=== PATIENT | female | born 1990 | race American Indian/Alaskan Native ===

== ENCOUNTER 2016-07-08 03:47 | Outpatient (CLI) | payer MEDICAID ==
[2016-07-08 05:41] LABS: Bacteria,Urine 1+ /HPF (Negative); Bilirubin,Urine NEG (Negative); Blood,Urine NEG (Negative); Ketones,Urine 20 mg/dL (Negative); Leukocyte Esterase,Urine LG (Negative); Mucus,Urine 1+ /HPF; Nitrite,Urine NEG (Negative); Urobilinogen,Urine < 2.0 mg/dL (<2.0)
== END 2016-07-08 05:00 | disposition home or self-care (01) ==
LOC: TRG 03:47
PROVIDERS: ATTEND Obstetrics & Gynecology
DX: Z34.90 Encounter for supervision of normal pregnancy, unspecified, unspecified trimester (principal); Z3A.00 Weeks of gestation of pregnancy not specified
CPT/HCPCS: 81001

== ENCOUNTER 2016-07-10 04:54 | Outpatient (CLI) | payer MEDICAID ==
[2016-07-10] MEDS ORDERED: LACTATED RINGERS 500 ML IV ONE (06:19)
[2016-07-10 06:34] VITALS: BP 109/57
== END 2016-07-10 07:54 | disposition home or self-care (01) ==
LOC: TRG 04:54
PROVIDERS: ATTEND Obstetrics & Gynecology
DX: Z34.90 Encounter for supervision of normal pregnancy, unspecified, unspecified trimester (principal); Z3A.00 Weeks of gestation of pregnancy not specified
CPT/HCPCS: 59025; J7120

== ENCOUNTER 2016-08-28 15:21 | Outpatient (CLI) | payer MEDICAID ==
[2016-08-28 17:00] VITALS: BP 120/53
[2016-08-28] MEDS ORDERED: LACTATED RINGERS 500 ML IV ONE (18:00)
== END 2016-08-28 18:47 | disposition home or self-care (01) ==
LOC: TRG 15:21
PROVIDERS: ATTEND Obstetrics & Gynecology
DX: O47.02 False labor before 37 completed weeks of gestation, second trimester (principal); Z3A.27 27 weeks gestation of pregnancy
CPT/HCPCS: 59025

== ENCOUNTER 2016-08-28 21:41 | Outpatient (CLI) | payer MEDICAID ==
[2016-08-28] MEDS ORDERED: LACTATED RINGERS 1,000 ML ONE ×2 (21:58→23:02)
[2016-08-28] MEDS ORDERED: LACTATED RINGERS 500 ML IV ONE (22:11)
[2016-08-28 22:53] LABS: Urine Drugs of Abuse Note Disclamer
[2016-08-28] MEDS ORDERED: LACTATED RINGERS 1,000 ML IV SCH (23:00)
[2016-08-28 23:01] LABS: Bilirubin,Urine NEG (Negative); Blood,Urine NEG (Negative); Ketones,Urine TR mg/dL (Negative); Leukocyte Esterase,Urine LG (Negative); Mucus,Urine 3+ /HPF; Nitrite,Urine NEG (Negative)
[2016-08-28 23:18] VITALS: BP 109/59
[2016-08-28] MEDS ORDERED: PROCARDIA*For Tocolysis only PO ONE (23:36)
[2016-08-28] MEDS ORDERED: ROCEPHIN/NS 1 GM/50 ML 1 GM/50 ML BAG IV ONE (23:47)
[2016-08-29] MEDS ORDERED: ROCEPHIN/NS 1 GM/50 ML 1 GM/50 ML BAG IV ONE (23:35)
== END 2016-08-29 01:31 | disposition home or self-care (01) ==
LOC: TRG 21:41
PROVIDERS: ATTEND Obstetrics & Gynecology
DX: O47.02 False labor before 37 completed weeks of gestation, second trimester (principal); Z3A.27 27 weeks gestation of pregnancy
CPT/HCPCS: 59025; 80307; 81001; 96360; J0696; J7120

== ENCOUNTER 2016-09-02 12:30 | Outpatient (CLI) | payer MEDICAID ==
[2016-09-02 13:37] VITALS: BP 119/63
[2016-09-02] MEDS ORDERED: LACTATED RINGERS 500 ML IV ONE (13:48)
== END 2016-09-02 14:13 | disposition home or self-care (01) ==
LOC: TRG 12:30
PROVIDERS: ATTEND Obstetrics & Gynecology
DX: O47.03 False labor before 37 completed weeks of gestation, third trimester (principal); Z3A.28 28 weeks gestation of pregnancy
CPT/HCPCS: 59025; J7120

== ENCOUNTER 2016-09-15 13:34 | Outpatient (CLI) | payer MEDICAID ==
[2016-09-15] MEDS ORDERED: LACTATED RINGERS 500 ML IV ONE (13:45)
[2016-09-15 15:51] LABS: Urine Drugs of Abuse Note Disclamer
[2016-09-15 16:00] LABS: Bacteria,Urine 1+ /HPF (Negative); Bilirubin,Urine NEG (Negative); Blood,Urine NEG (Negative); Ketones,Urine NEG (Negative); Leukocyte Esterase,Urine LG (Negative); Mucus,Urine FEW /HPF; Nitrite,Urine NEG (Negative); Protein,Urine <15 mg/dL mg/dL (Negative); Urobilinogen,Urine < 2.0 mg/dL (<2.0)
== END 2016-09-15 16:30 | disposition home or self-care (01) ==
LOC: TRG 13:34 → LD 13:36 → TRG 16:30
PROVIDERS: ATTEND Obstetrics & Gynecology
DX: O47.03 False labor before 37 completed weeks of gestation, third trimester (principal); Z3A.30 30 weeks gestation of pregnancy
CPT/HCPCS: 59025; 80307; 81001; J7120

== ENCOUNTER 2016-09-15 16:25 | Emergency (ER) | payer MEDICAID ==
[2016-09-15] MEDS ORDERED: PROVENTIL IH ONE (16:55)
[2016-09-15] MEDS ORDERED: TYLENOL PO ONE ×2 (18:27→22:54)
[2016-09-15] MEDS ORDERED: DUONEB 0.5 MG-3 MG/3 ML SOLN IH ONE (21:17)
[2016-09-15 21:43] LABS: Basophils % (Auto) 0.4 % (0.0-1.8); Eosinophils % (Auto) 0.5 % (0.0-4.3); Hematocrit 35.2 % (30.3-42.9); Hemoglobin 11.5 gm/dl (10.1-14.3); Mean Corpuscular HGB Conc 33 % (30-34); Mean Corpuscular Hemoglobin 31 pg (28-32); Mean Corpuscular Volume 95 fl (79-97); Platelet Count 178 K/mm3 (140-440); Red Blood Count 3.72 M/mm3 (3.65-5.03); White Blood Count 9.5 K/mm3 (4.5-11.0)
[2016-09-15 22:34] LABS: Anion Gap 18 mmol/L; Blood Urea Nitrogen 3 mg/dL (7-17); Calcium 8.2 mg/dL (8.4-10.2); Carbon Dioxide 20 mmol/L (22-30); Chloride 97.5 mmol/L (98-107); Glucose 111 mg/dL (65-100); Potassium 3.1 mmol/L (3.6-5.0); Sodium 132 mmol/L (137-145)
[2016-09-15] MEDS: PROVENTIL IH ONE (23:17)
[2016-09-15 23:43] LABS: Urine Drugs of Abuse Note Disclamer
[2016-09-16 00:02] LABS: Bilirubin,Urine NEG (Negative); Ketones,Urine NEG (Negative)
[2016-09-16 00:03] LABS: Blood,Urine NEG (Negative); Leukocyte Esterase,Urine NEG (Negative); Nitrite,Urine NEG (Negative); Protein,Urine <15 mg/dL mg/dL (Negative); RBC,Urine < 1.0 /HPF (0.0-6.0); Urobilinogen,Urine < 2.0 mg/dL (<2.0); WBC,Urine < 1.0 /HPF (0.0-6.0)
[2016-09-16] MEDS ORDERED: K-DUR PO ONE (00:19)
[2016-09-16] MEDS ORDERED: MAG-OX PO ONE (00:24)
--- NOTE | 2016-09-16 00:32 | Emergency Department Report ---
- General Chief Complaint: Adult Asthma Stated Complaint: BRONCHITIS Time Seen by Provider: 09/15/16 21:15 Source: patient Mode of arrival: Wheelchair Limitations: No Limitations - History of Present Illness Initial Comments: 26-year-old female patient past medical history polysubstance abuse, asthma, smoker, presents with complaint of 2 weeks of cough. Slightly productive with yellowish sputum. Subjective fever chills. Patient states she is still actively smoking crack cocaine, patient is currently approximately 7 months by LMP. Patient was seen earlier today in L&D unit, discharged to ED for evaluation of URI. Patient is awake alert and oriented 3, is demanding narcotic pain medicine before she even converses with me about why she is here. When I interviewed the patient she states that she has been having a cold lately. States that she has some body aches but denies any abdominal pain explicitly. States that she had one episode of vomiting yesterday but has been able to tolerate fluid and food since. Denies any vaginal bleeding, denies any dysuria, denies any vaginal discharge. States she has been wheezing slightly. MD Complaint: cough Onset/Timin -: week(s) Severity: moderate Context: sick contacts Associated Symptoms: shortness of breath - Related Data Previous Rx's Medication Instructions Recorded Last Taken Type Sulfamethoxazole/Trimethoprim 1 each PO BID #14 tablet 07/15/15 Unknown Rx [Bactrim DS TAB] Ibuprofen [Motrin] 800 mg PO Q8HR PRN #45 tablet 08/02/15 Unknown Rx HYDROcodone/APAP 5-325 [[place] 1 each PO Q6HR PRN #14 tablet 09/02/15 Unknown Rx 5/325] Ibuprofen [Motrin 800 MG tab] 800 mg PO Q8HR PRN #30 tablet 09/09/15 Unknown Rx Promethazine [Phenergan TAB] 25 mg PO Q6HR PRN #12 tab 10/19/15 Unknown Rx Cyclobenzaprine [Flexeril] 10 mg PO TID PRN #15 tablet 11/17/15 Unknown Rx Ibuprofen [Motrin 800 MG tab] 800 mg PO Q8HR PRN #30 tablet 11/17/15 Unknown Rx Butalb/Acetamin/Caff 50-325-40 1 each PO Q4H PRN #10 tablet 11/27/15 Unknown Rx [Fioricet] Ibuprofen [Motrin 600 MG tab] 600 mg PO Q8H PRN #30 tablet 01/25/16 Unknown Rx methOCARBAMOL [Robaxin TAB] 500 mg PO Q6H PRN #12 tablet 01/25/16 Unknown Rx ALBUTEROL Inhaler [ProAir HFA 1 puff IH Q6H PRN #1 inha 09/16/16 Unknown Rx Inhaler] Acetaminophen [Acetaminophen TAB] 500 mg PO Q6HR PRN #25 tablet 09/16/16 Unknown Rx Azithromycin [Zithromax Z-TOMMY] 250 mg PO QDAY #6 tablet 09/16/16 Unknown Rx Benzocaine/Menthol [Cepacol Sore 1 each MM Q4H PRN #18 lozenge 09/16/16 Unknown Rx Throat Lozenge] Magnesium Oxide [Mag-Ox] 400 mg PO QDAY #30 tablet 09/16/16 Unknown Rx Potassium Chloride [K-Dur] 20 meq PO BID #30 tab 09/16/16 Unknown Rx Allergies Allergy/AdvReac Type Severity Reaction Status Date / Time hydrocortisone AdvReac Unknown Itching Verified 09/09/15 15:55 ED Review of Systems ROS: Stated complaint: BRONCHITIS Other details as noted in HPI Constitutional: malaise. denies: chills, fever Eyes: denies: eye pain, eye discharge, vision change ENT: denies: ear pain, throat pain Respiratory: cough. denies: shortness of breath, wheezing Cardiovascular: denies: chest pain, palpitations Endocrine: no symptoms reported Gastrointestinal: denies: abdominal pain, nausea, diarrhea Genitourinary: denies: urgency, dysuria, discharge Musculoskeletal: denies: back pain, joint swelling, arthralgia Skin: denies: rash, lesions Neurological: denies: headache, weakness, paresthesias Psychiatric: denies: anxiety, depression Hematological/Lymphatic: denies: easy bleeding, easy bruising ED Past Medical Hx - Past Medical History Hx Hypertension: No Hx CVA: No Hx Heart Attack/AMI: No Hx Congestive Heart Failure: No Hx Diabetes: No Hx Deep Vein Thrombosis: No Hx Pulmonary Embolism: No Hx GERD: No Hx Liver Disease: No Hx Renal Disease: No Hx Sickle Cell Disease: No Hx Arthritis: No Hx Headaches / Migraines: No Hx Seizures: No Hx Kidney Stones: No Hx Psychiatric Treatment: Yes (anxiety attack, cocaine rehab) Hx Asthma: Yes Hx COPD: No Hx Tuberculosis: No Hx Dementia: No Hx HIV: No Additional medical history: hx bronchitis - Surgical History Hx Coronary Stent: No Hx Open Heart Surgery: No Hx Pacemaker: No Hx Internal Defibrillator: No Hx Cholecystectomy: No Hx Appendectomy: No Hx Breast Surgery: No Additional Surgical History: denies - Social History Smoking Status: Never Smoker Substance Use Type: None - Medications Home Medications: Home Medications Medication Instructions Recorded Confirmed Last Taken Type Sulfamethoxazole/Trimethoprim 1 each PO BID #14 tablet 07/15/15 Unknown Rx [Bactrim DS TAB] Ibuprofen [Motrin] 800 mg PO Q8HR PRN #45 tablet 08/02/15 Unknown Rx HYDROcodone/APAP 5-325 [[place] 1 each PO Q6HR PRN #14 tablet 09/02/15 Unknown Rx 5/325] Ibuprofen [Motrin 800 MG tab] 800 mg PO Q8HR PRN #30 tablet 09/09/15 Unknown Rx Promethazine [Phenergan TAB] 25 mg PO Q6HR PRN #12 tab 10/19/15 Unknown Rx Cyclobenzaprine [Flexeril] 10 mg PO TID PRN #15 tablet 11/17/15 Unknown Rx Ibuprofen [Motrin 800 MG tab] 800 mg PO Q8HR PRN #30 tablet 11/17/15 Unknown Rx Butalb/Acetamin/Caff 50-325-40 1 each PO Q4H PRN #10 tablet 11/27/15 Unknown Rx [Fioricet] Ibuprofen [Motrin 600 MG tab] 600 mg PO Q8H PRN #30 tablet 01/25/16 Unknown Rx methOCARBAMOL [Robaxin TAB] 500 mg PO Q6H PRN #12 tablet 01/25/16 Unknown Rx ALBUTEROL Inhaler [ProAir HFA 1 puff IH Q6H PRN #1 inha 09/16/16 Unknown Rx Inhaler] Acetaminophen [Acetaminophen TAB] 500 mg PO Q6HR PRN #25 tablet 09/16/16 Unknown Rx Azithromycin [Zithromax Z-TOMMY] 250 mg PO QDAY #6 tablet 09/16/16 Unknown Rx Benzocaine/Menthol [Cepacol Sore 1 each MM Q4H PRN #18 lozenge 09/16/16 Unknown Rx Throat Lozenge] Magnesium Oxide [Mag-Ox] 400 mg PO QDAY #30 tablet 09/16/16 Unknown Rx Potassium Chloride [K-Dur] 20 meq PO BID #30 tab 09/16/16 Unknown Rx ED Physical Exam - General Limitations: No Limitations General appearance: alert, in no apparent distress - Head Head exam: Present: atraumatic, normocephalic - Eye Eye exam: Present: normal appearance, PERRL, EOMI - ENT ENT exam: Present: mucous membranes moist - Neck Neck exam: Present: normal inspection, full ROM - Respiratory Respiratory exam: Present: normal lung sounds bilaterally, chest wall tenderness. Absent: respiratory distress - Cardiovascular Cardiovascular Exam: Present: regular rate, normal rhythm. Absent: systolic murmur, diastolic murmur, rubs, gallop - GI/Abdominal GI/Abdominal exam: Present: soft, normal bowel sounds - Extremities Exam Extremities exam: Present: normal inspection, normal capillary refill - Back Exam Back exam: Present: normal inspection - Neurological Exam Neurological exam: Present: alert, oriented X3, CN II-XII intact, normal gait - Psychiatric Psychiatric exam: Present: normal affect, normal mood - Skin Skin exam: Present: warm, dry, intact, normal color. Absent: rash ED Course Vital Signs 09/15/16 09/15/16 09/15/16 16:46 21:20 21:35 Temperature 98 F Pulse Rate 89 Pulse Rate [ 75 81 Anterior Bilateral Throughout] Respiratory 18 Rate Respiratory 22 20 Rate [Anterior Bilateral Throughout] Blood Pressure 128/80 Blood Pressure [Right] O2 Sat by Pulse 100 Oximetry 09/15/16 09/15/16 09/16/16 23:18 23:30 01:42 Temperature 98.1 F Pulse Rate 89 Pulse Rate [ 77 79 Anterior Bilateral Throughout] Respiratory 18 Rate Respiratory 20 18 Rate [Anterior Bilateral Throughout] Blood Pressure Blood Pressure 123/75 [Right] O2 Sat by Pulse 95 Oximetry ED Medical Decision Making - Lab Data Result diagrams: 09/15/16 21:31 09/15/16 21:31 - Medical Decision Making A/P: Acute bronchitis, URI symptoms 1-flu test negative, if she does have influenza she is out of the window for efficacy of Tamiflu 2-chest x-ray shows no pneumonia, x-ray reviewed with Dr. Navarro. I performed bedside doppler for FHR, FHR 130 3-patient is tolerating by mouth, we'll replete potassium and magnesium by mouth with K-Dur and magnesium oxide. Will give scripts for PO repletion 4-Tylenol when necessary, albuterol inhaler when necessary 5-will cover patient empirically as she is currently a smoker and smoking crack cocaine and may be homeless or undomiciled as per the history she reported. 6-patient is accompanied by a family member states he will help her obtain her medicines and follow-up. I offered patient to speak to social media assistant but she is not currently interested and social media assistant consult. Patient is exhibiting drug seeking behavior during my clinical interview and exam constantly requesting narcotic pain medicine and cannot explain to me a good reason why she needs to sort of medicine. She is AAox3, arousable and answers my questions within context and reasonably otherwise. Is clinically lucid during my interaction with her. 7- give patient information for OB follow-up, patient already plugged into labor and delivery unit as she was just discharged from this unit earlier today. 8- Pt able to ambulate, o2 sat 96% Critical care attestation.: If time is entered above; I have spent that time in minutes in the direct care of this critically ill patient, excluding procedure time. ED Disposition Clinical Impression: Acute bronchitis Qualifiers: Bronchitis organism: unspecified organism Qualified Code(s): J20.9 - Acute bronchitis, unspecified Disposition: DISCHARGED TO HOME OR SELFCARE Is pt being admited?: No Does the pt Need Aspirin: No Condition: Stable Instructions: Acute Bronchitis (ED) Prescriptions: Acetaminophen [Acetaminophen TAB] 500 mg PO Q6HR PRN #25 tablet PRN Reason: Fever ALBUTEROL Inhaler [ProAir HFA Inhaler] 1 puff IH Q6H PRN #1 inha PRN Reason: Wheezing Azithromycin [Zithromax Z-TOMMY] 250 mg PO QDAY #6 tablet Benzocaine/Menthol [Cepacol Sore Throat Lozenge] 1 each MM Q4H PRN #18 lozenge PRN Reason: Sore Throat Magnesium Oxide [Mag-Ox] 400 mg PO QDAY #30 tablet Potassium Chloride [K-Dur] 20 meq PO BID #30 tab Referrals: [facility] [Outside] - 3-5 Days SEBASTIAN RODRIGUEZ MD [Staff Physician] - 3-5 Days Forms: Accompanied Note, Work/School Release Form(ED) Time of Disposition: 00:33
[2016-09-16 01:43] VITALS: BP 123/75
--- NOTE | 2016-09-16 08:24 | XRay Report ---
ROUTINE CHEST, TWO VIEWS: PA and lateral views demonstrate the heart and mediastinal contour to be of normal size and shape. The lungs are clear and fully expanded and the soft tissues and bony structures are normal. IMPRESSION: Normal study.
== END 2016-09-16 01:42 | disposition home or self-care (01) ==
LOC: ED 16:25
DX: O99.511 Diseases of the respiratory system complicating pregnancy, first trimester (principal); J20.9 Acute bronchitis, unspecified; F41.9 Anxiety disorder, unspecified; J45.909 Unspecified asthma, uncomplicated; Z3A.01 Less than 8 weeks gestation of pregnancy; Z88.8 Allergy status to other drugs, medicaments and biological substances
CPT/HCPCS: 36415; 71020; 80048; 80307; 81001; 82805; 83735; 85025; 87400; 94640

== ENCOUNTER 2016-09-22 00:12 | Emergency (ER) | payer MEDICAID ==
[2016-09-22] MEDS ORDERED: NACL 0.9% 1000 ML 1,000 ML ONE (10:15)
[2016-09-22] MEDS ORDERED: PROVENTIL IH ONE (10:47)
[2016-09-22] MEDS ORDERED: NACL 0.9% 1000 ML 1,000 ML IV ONE (10:47)
[2016-09-22] MEDS ORDERED: ATROVENT IH ONE (10:49)
--- NOTE | 2016-09-22 11:09 | Emergency Department Report ---
HPI - General Chief Complaint: Allergic Reaction Time Seen by Provider: 09/22/16 10:09 ED Past Medical Hx - Past Medical History Previous Medical History?: Yes Hx Hypertension: No Hx CVA: No Hx Heart Attack/AMI: No Hx Congestive Heart Failure: No Hx Diabetes: No Hx Deep Vein Thrombosis: No Hx Pulmonary Embolism: No Hx GERD: No Hx Liver Disease: No Hx Renal Disease: No Hx Sickle Cell Disease: No Hx Arthritis: No Hx Headaches / Migraines: No Hx Seizures: No Hx Kidney Stones: No Hx Psychiatric Treatment: Yes (anxiety attack, cocaine rehab) Hx Asthma: Yes Hx COPD: No Hx Tuberculosis: No Hx Dementia: No Hx HIV: No Additional medical history: hx bronchitis - Surgical History Past Surgical History?: No Hx Coronary Stent: No Hx Open Heart Surgery: No Hx Pacemaker: No Hx Internal Defibrillator: No Hx Cholecystectomy: No Hx Appendectomy: No Hx Breast Surgery: No Additional Surgical History: denies - Social History Smoking Status: Never Smoker - Medications Home Medications: Home Medications Medication Instructions Recorded Confirmed Last Taken Type Sulfamethoxazole/Trimethoprim 1 each PO BID #14 tablet 07/15/15 Unknown Rx [Bactrim DS TAB] Ibuprofen [Motrin] 800 mg PO Q8HR PRN #45 tablet 08/02/15 Unknown Rx HYDROcodone/APAP 5-325 [[place] 1 each PO Q6HR PRN #14 tablet 09/02/15 Unknown Rx 5/325] Ibuprofen [Motrin 800 MG tab] 800 mg PO Q8HR PRN #30 tablet 09/09/15 Unknown Rx Promethazine [Phenergan TAB] 25 mg PO Q6HR PRN #12 tab 10/19/15 Unknown Rx Cyclobenzaprine [Flexeril] 10 mg PO TID PRN #15 tablet 11/17/15 Unknown Rx Ibuprofen [Motrin 800 MG tab] 800 mg PO Q8HR PRN #30 tablet 11/17/15 Unknown Rx Butalb/Acetamin/Caff 50-325-40 1 each PO Q4H PRN #10 tablet 11/27/15 Unknown Rx [Fioricet] Ibuprofen [Motrin 600 MG tab] 600 mg PO Q8H PRN #30 tablet 01/25/16 Unknown Rx methOCARBAMOL [Robaxin TAB] 500 mg PO Q6H PRN #12 tablet 01/25/16 Unknown Rx ALBUTEROL Inhaler [ProAir HFA 1 puff IH Q6H PRN #1 inha 09/16/16 Unknown Rx Inhaler] Acetaminophen [Acetaminophen TAB] 500 mg PO Q6HR PRN #25 tablet 09/16/16 Unknown Rx Azithromycin [Zithromax Z-TOMMY] 250 mg PO QDAY #6 tablet 09/16/16 Unknown Rx Benzocaine/Menthol [Cepacol Sore 1 each MM Q4H PRN #18 lozenge 09/16/16 Unknown Rx Throat Lozenge] Magnesium Oxide [Mag-Ox] 400 mg PO QDAY #30 tablet 09/16/16 Unknown Rx Potassium Chloride [K-Dur] 20 meq PO BID #30 tab 09/16/16 Unknown Rx ALBUTEROL Inhaler [ProAir HFA 1 puff IH QID #1 inha 09/22/16 Unknown Rx Inhaler] Azithromycin [Zithromax Z-TOMMY] 250 mg PO DAILY #6 tablet 09/22/16 Unknown Rx ED Review of Systems ROS: Stated complaint: POSS MED REACTION Other details as noted in HPI Comment: All other systems reviewed and negative Constitutional: denies: chills, fever Eyes: denies: eye pain, eye discharge, vision change ENT: denies: ear pain, throat pain Respiratory: denies: cough, shortness of breath, wheezing Cardiovascular: denies: chest pain, palpitations Endocrine: no symptoms reported Gastrointestinal: denies: abdominal pain, nausea, diarrhea Genitourinary: denies: urgency, dysuria, discharge Musculoskeletal: denies: back pain, joint swelling, arthralgia Skin: denies: rash, lesions Neurological: denies: headache, weakness, paresthesias Psychiatric: denies: anxiety, depression Hematological/Lymphatic: denies: easy bleeding, easy bruising Physical Exam - Physical Exam Vital Signs: Vital Signs 09/22/16 00:22 Temperature 98.8 F Pulse Rate 80 Respiratory 18 Rate Blood Pressure 107/69 O2 Sat by Pulse 99 Oximetry ED Course Vital Signs 09/22/16 00:22 Temperature 98.8 F Pulse Rate 80 Respiratory 18 Rate Blood Pressure 107/69 O2 Sat by Pulse 99 Oximetry ED Medical Decision Making - Lab Data Result diagrams: 09/22/16 10:49 09/22/16 Unknown Critical care attestation.: If time is entered above; I have spent that time in minutes in the direct care of this critically ill patient, excluding procedure time. ED Disposition Clinical Impression: Upper respiratory infection, Dizziness Disposition: DISCHARGED TO HOME OR SELFCARE Is pt being admited?: No Does the pt Need Aspirin: No Condition: Good Instructions: Upper Respiratory Infection (ED) Prescriptions: ALBUTEROL Inhaler [ProAir HFA Inhaler] 1 puff IH QID #1 inha Azithromycin [Zithromax Z-TOMMY] 250 mg PO DAILY #6 tablet Referrals: PRIMARY CARE,MD [Primary Care Provider] - 3-5 Days Time of Disposition: 15:58 ED Dizziness HPI - General Chief Complaint: Allergic Reaction Stated Complaint: POSS MED REACTION Time Seen by Provider: 09/22/16 10:09 Source: patient Mode of arrival: Ambulatory Limitations: No Limitations - History of Present Illness MD Complaint: dizziness, lightheadedness -: Gradual Timing: gradual onset Description: sense of movement History of Same: No History of Trauma: No Severity: mild Improves With: nothing Worsens With: nothing Associated Symptoms: cough, fever/chills, other (also 31 weeks and wanting a follow up US). denies: ataxia, chest pain, confusion, diaphoresis, loss of appetite, malaise, rash, seizure, shortness of breath, syncope, weakness - Related Data Previous Rx's Medication Instructions Recorded Last Taken Type Sulfamethoxazole/Trimethoprim 1 each PO BID #14 tablet 07/15/15 Unknown Rx [Bactrim DS TAB] Ibuprofen [Motrin] 800 mg PO Q8HR PRN #45 tablet 08/02/15 Unknown Rx HYDROcodone/APAP 5-325 [[place] 1 each PO Q6HR PRN #14 tablet 09/02/15 Unknown Rx 5/325] Ibuprofen [Motrin 800 MG tab] 800 mg PO Q8HR PRN #30 tablet 09/09/15 Unknown Rx Promethazine [Phenergan TAB] 25 mg PO Q6HR PRN #12 tab 10/19/15 Unknown Rx Cyclobenzaprine [Flexeril] 10 mg PO TID PRN #15 tablet 11/17/15 Unknown Rx Ibuprofen [Motrin 800 MG tab] 800 mg PO Q8HR PRN #30 tablet 11/17/15 Unknown Rx Butalb/Acetamin/Caff 50-325-40 1 each PO Q4H PRN #10 tablet 05/24/16 Unknown Rx [Fioricet] Ibuprofen [Motrin 600 MG tab] 600 mg PO Q8H PRN #30 tablet 01/25/16 Unknown Rx methOCARBAMOL [Robaxin TAB] 500 mg PO Q6H PRN #12 tablet 01/25/16 Unknown Rx ALBUTEROL Inhaler [ProAir HFA 1 puff IH Q6H PRN #1 inha 09/16/16 Unknown Rx Inhaler] Acetaminophen [Acetaminophen TAB] 500 mg PO Q6HR PRN #25 tablet 09/16/16 Unknown Rx Azithromycin [Zithromax Z-TOMMY] 250 mg PO QDAY #6 tablet 09/16/16 Unknown Rx Benzocaine/Menthol [Cepacol Sore 1 each MM Q4H PRN #18 lozenge 09/16/16 Unknown Rx Throat Lozenge] Magnesium Oxide [Mag-Ox] 400 mg PO QDAY #30 tablet 09/16/16 Unknown Rx Potassium Chloride [K-Dur] 20 meq PO BID #30 tab 09/16/16 Unknown Rx ALBUTEROL Inhaler [ProAir HFA 1 puff IH QID #1 inha 09/22/16 Unknown Rx Inhaler] Azithromycin [Zithromax Z-TOMMY] 250 mg PO DAILY #6 tablet 09/22/16 Unknown Rx Allergies Allergy/AdvReac Type Severity Reaction Status Date / Time hydrocortisone AdvReac Unknown Itching Verified 09/22/16 00:22 Physical Exam - Physical Exam Vital Signs: Vital Signs 09/22/16 09/22/16 09/22/16 00:22 10:53 12:15 Temperature 98.8 F Pulse Rate 80 Pulse Rate [ 80 Anterior Bilateral Throughout] Respiratory 18 16 Rate Respiratory 18 Rate [Anterior Bilateral Throughout] Blood Pressure 107/69 Blood Pressure [Left] O2 Sat by Pulse 99 94 Oximetry 09/22/16 09/22/16 09/22/16 12:31 14:30 15:00 Temperature Pulse Rate 78 Pulse Rate [ 82 Anterior Bilateral Throughout] Respiratory 20 18 Rate Respiratory 18 Rate [Anterior Bilateral Throughout] Blood Pressure Blood Pressure 110/72 [Left] O2 Sat by Pulse 95 Oximetry ED Dizziness EXAM - General General appearance: alert, in no apparent distress Limitations: No Limitations - Head Head exam: Positive: atraumatic - Eye Eye exam: normal appearance, PERRL, nystagmus Extraocular Movement: Normal - ENT ENT Exam: Positive: Normal Exam - Neck Neck exam: Positive: normal inspection - Respiratory Respiratory exam: Positive: normal lung sounds bilaterally - Cardiovascular Cardiovascular Exam: Positive: regular rate - GI/Abdominal GI/Abdominal exam: Positive: soft, distended ( at 31 weeks). Negative: tenderness - Neurological Neurological Exam: Positive: Alert, Oriented X3, CN II-XII Intact - Psychiatric Psychiatric exam: Positive: normal affect, normal mood - Skin Skin exam: Positive: warm
--- NOTE | 2016-09-22 11:26 | Emergency Department Report ---
ED Dizziness HPI - General Chief Complaint: Upper Respiratory Infection Stated Complaint: POSS MED REACTION Time Seen by Provider: 09/22/16 10:09 Source: patient Mode of arrival: Ambulatory Limitations: No Limitations - History of Present Illness MD Complaint: dizziness, lightheadedness -: Gradual Timing: gradual onset, waxing/waning History of Same: Yes History of Trauma: No Severity: moderate Improves With: nothing Worsens With: nothing Associated Symptoms: cough, fever/chills, other (also 31 weeks and wanting a follow up US). denies: ataxia, chest pain, confusion, diaphoresis, loss of appetite, malaise, rash, seizure, shortness of breath, syncope, weakness - Related Data Previous Rx's Medication Instructions Recorded Last Taken Type Sulfamethoxazole/Trimethoprim 1 each PO BID #14 tablet 07/15/15 Unknown Rx [Bactrim DS TAB] Ibuprofen [Motrin] 800 mg PO Q8HR PRN #45 tablet 08/02/15 Unknown Rx HYDROcodone/APAP 5-325 [[place] 1 each PO Q6HR PRN #14 tablet 09/02/15 Unknown Rx 5/325] RX: Ibuprofen [Motrin 800 MG tab] 800 mg PO Q8HR PRN #30 tablet 09/09/15 Unknown Rx Promethazine [Phenergan TAB] 25 mg PO Q6HR PRN #12 tab 10/19/15 Unknown Rx Cyclobenzaprine [Flexeril] 10 mg PO TID PRN #15 tablet 11/17/15 Unknown Rx RX: Ibuprofen [Motrin 800 MG tab] 800 mg PO Q8HR PRN #30 tablet 11/17/15 Unknown Rx Butalb/Acetamin/Caff 50-325-40 1 each PO Q4H PRN #10 tablet 11/27/15 Unknown Rx [Fioricet] RX: Ibuprofen [Motrin 600 MG tab] 600 mg PO Q8H PRN #30 tablet 01/25/16 Unknown Rx methOCARBAMOL [Robaxin TAB] 500 mg PO Q6H PRN #12 tablet 01/25/16 Unknown Rx Benzocaine/Menthol [Cepacol Sore 1 each MM Q4H PRN #18 lozenge 09/16/16 Unknown Rx Throat Lozenge] Potassium Chloride [K-Dur] 20 meq PO BID #30 tab 09/16/16 Unknown Rx RX: ALBUTEROL Inhaler [ProAir HFA 1 puff IH Q6H PRN #1 inha 09/16/16 Unknown Rx Inhaler] RX: Acetaminophen [Acetaminophen 500 mg PO Q6HR PRN #25 tablet 09/16/16 Unknown Rx TAB] RX: Azithromycin [Zithromax Z-TOMMY] 250 mg PO QDAY #6 tablet 09/16/16 Unknown Rx RX: Magnesium Oxide [Mag-Ox] 400 mg PO QDAY #30 tablet 09/16/16 Unknown Rx RX: ALBUTEROL Inhaler [ProAir HFA 1 puff IH QID #1 inha 09/22/16 Unknown Rx Inhaler] RX: Azithromycin [Zithromax Z-TOMMY] 250 mg PO DAILY #6 tablet 09/22/16 Unknown Rx Allergies Allergy/AdvReac Type Severity Reaction Status Date / Time hydrocortisone AdvReac Unknown Itching Verified 09/22/16 00:22 ED Review of Systems ROS: Stated complaint: POSS MED REACTION Other details as noted in HPI Comment: All other systems reviewed and negative ED Past Medical Hx - Past Medical History Previous Medical History?: Yes Hx Hypertension: No Hx CVA: No Hx Heart Attack/AMI: No Hx Congestive Heart Failure: No Hx Diabetes: No Hx Deep Vein Thrombosis: No Hx Pulmonary Embolism: No Hx GERD: No Hx Liver Disease: No Hx Renal Disease: No Hx Sickle Cell Disease: No Hx Arthritis: No Hx Headaches / Migraines: No Hx Seizures: No Hx Kidney Stones: No Hx Psychiatric Treatment: Yes (anxiety attack, cocaine rehab) Hx Asthma: Yes Hx COPD: No Hx Tuberculosis: No Hx Dementia: No Hx HIV: No Additional medical history: hx bronchitis - Surgical History Past Surgical History?: No Hx Coronary Stent: No Hx Open Heart Surgery: No Hx Pacemaker: No Hx Internal Defibrillator: No Hx Cholecystectomy: No Hx Appendectomy: No Hx Breast Surgery: No Additional Surgical History: denies - Social History Smoking Status: Never Smoker - Medications Home Medications: Home Medications Medication Instructions Recorded Confirmed Last Taken Type Sulfamethoxazole/Trimethoprim 1 each PO BID #14 tablet 07/15/15 Unknown Rx [Bactrim DS TAB] Ibuprofen [Motrin] 800 mg PO Q8HR PRN #45 tablet 08/02/15 Unknown Rx HYDROcodone/APAP 5-325 [[place] 1 each PO Q6HR PRN #14 tablet 09/02/15 Unknown Rx 5/325] RX: Ibuprofen [Motrin 800 MG tab] 800 mg PO Q8HR PRN #30 tablet 09/09/15 Unknown Rx Promethazine [Phenergan TAB] 25 mg PO Q6HR PRN #12 tab 10/19/15 Unknown Rx Cyclobenzaprine [Flexeril] 10 mg PO TID PRN #15 tablet 11/17/15 Unknown Rx RX: Ibuprofen [Motrin 800 MG tab] 800 mg PO Q8HR PRN #30 tablet 11/17/15 Unknown Rx Butalb/Acetamin/Caff 50-325-40 1 each PO Q4H PRN #10 tablet 11/27/15 Unknown Rx [Fioricet] RX: Ibuprofen [Motrin 600 MG tab] 600 mg PO Q8H PRN #30 tablet 01/25/16 Unknown Rx methOCARBAMOL [Robaxin TAB] 500 mg PO Q6H PRN #12 tablet 01/25/16 Unknown Rx Benzocaine/Menthol [Cepacol Sore 1 each MM Q4H PRN #18 lozenge 09/16/16 Unknown Rx Throat Lozenge] Potassium Chloride [K-Dur] 20 meq PO BID #30 tab 09/16/16 Unknown Rx RX: ALBUTEROL Inhaler [ProAir HFA 1 puff IH Q6H PRN #1 inha 09/16/16 Unknown Rx Inhaler] RX: Acetaminophen [Acetaminophen 500 mg PO Q6HR PRN #25 tablet 09/16/16 Unknown Rx TAB] RX: Azithromycin [Zithromax Z-TOMMY] 250 mg PO QDAY #6 tablet 09/16/16 Unknown Rx RX: Magnesium Oxide [Mag-Ox] 400 mg PO QDAY #30 tablet 09/16/16 Unknown Rx RX: ALBUTEROL Inhaler [ProAir HFA 1 puff IH QID #1 inha 09/22/16 Unknown Rx Inhaler] RX: Azithromycin [Zithromax Z-TOMMY] 250 mg PO DAILY #6 tablet 09/22/16 Unknown Rx ED Physical Exam - General Limitations: No Limitations General appearance: alert, in no apparent distress - Head Head exam: Present: atraumatic, normocephalic - Eye Eye exam: Present: normal appearance - ENT ENT exam: Present: mucous membranes moist - Neck Neck exam: Present: normal inspection - Respiratory Respiratory exam: Present: normal lung sounds bilaterally, rhonchi, decreased breath sounds. Absent: respiratory distress - Cardiovascular Cardiovascular Exam: Present: regular rate, normal rhythm. Absent: systolic murmur, diastolic murmur, rubs, gallop - GI/Abdominal GI/Abdominal exam: Present: soft, normal bowel sounds - Extremities Exam Extremities exam: Present: normal inspection - Back Exam Back exam: Present: normal inspection - Neurological Exam Neurological exam: Present: alert, oriented X3 - Psychiatric Psychiatric exam: Present: normal affect, normal mood - Skin Skin exam: Present: warm, dry, intact, normal color. Absent: rash ED Course Vital Signs 09/22/16 09/22/16 09/22/16 00:22 10:53 12:15 Temperature 98.8 F Pulse Rate 80 Pulse Rate [ 80 Anterior Bilateral Throughout] Respiratory 18 16 Rate Respiratory 18 Rate [Anterior Bilateral Throughout] Blood Pressure 107/69 O2 Sat by Pulse 99 94 Oximetry 09/22/16 12:31 Temperature Pulse Rate Pulse Rate [ 82 Anterior Bilateral Throughout] Respiratory Rate Respiratory 18 Rate [Anterior Bilateral Throughout] Blood Pressure O2 Sat by Pulse Oximetry ED Medical Decision Making - Lab Data Result diagrams: 09/22/16 10:49 09/22/16 Unknown - Medical Decision Making Patient feeling better after fluids and meds here , us with normal , will discharge and follow up as outpatient,. Critical care attestation.: If time is entered above; I have spent that time in minutes in the direct care of this critically ill patient, excluding procedure time. ED Disposition Clinical Impression: Upper respiratory infection Disposition: DISCHARGED TO HOME OR SELFCARE Is pt being admited?: No Does the pt Need Aspirin: No Condition: Good Instructions: Upper Respiratory Infection (ED) Prescriptions: RX: ALBUTEROL Inhaler [ProAir HFA Inhaler] 1 puff IH QID #1 inha RX: Azithromycin [Zithromax Z-TOMMY] 250 mg PO DAILY #6 tablet Referrals: PRIMARY CARE, [Primary Care Provider] - 3-5 Days Time of Disposition: 15:01
[2016-09-22 11:37] LABS: Hematocrit 33.5 % (30.3-42.9); Hemoglobin 10.5 gm/dl (10.1-14.3); Mean Corpuscular HGB Conc 31 % (30-34); Mean Corpuscular Hemoglobin 31 pg (28-32); Mean Corpuscular Volume 98 fl (79-97); Platelet Count 259 K/mm3 (140-440); Red Blood Count 3.43 M/mm3 (3.65-5.03); Red Cell Distribution Width 14.6 % (13.2-15.2); White Blood Count 9.9 K/mm3 (4.5-11.0)
[2016-09-22 11:51] LABS: Albumin 3.5 g/dL (3.9-5); Albumin/Globulin Ratio 1.2 %; Alkaline Phosphatase 132 units/L (35-129); BUN/Creatinine Ratio 11.66; Bilirubin,Total 0.3 mg/dL (0.1-1.2); Blood Urea Nitrogen 7 mg/dL (7-17); Calcium 8.7 mg/dL (8.4-10.2); Carbon Dioxide 17 mmol/L (22-30); Chloride 100.6 mmol/L (98-107); Glucose 74 mg/dL (65-100); Sodium 136 mmol/L (137-145); Total Protein 6.5 g/dL (6.3-8.2)
[2016-09-22 12:23] LABS: Anion Gap 24 mmol/L; Potassium 4.5 mmol/L (3.6-5.0)
[2016-09-22 12:34] LABS: Alanine Aminotransferase 27 units/L (7-56)
[2016-09-22 13:10] LABS: Anisocytosis 1+; Basophils % (Manual) 0 % (0.0-1.8); Blastocytes % (Manual) 0 %; Diff Status Complete; Eosinophils % (Manual) 0 % (0.0-4.3)
--- NOTE | 2016-09-22 14:50 | Ultrasound Report ---
OB ULTRASOUND GREATER THAN 14 WEEKS INDICATION: Vaginal bleeding. COMPARISON: None similar during this gestation. TECHNIQUE: Transabdominal grayscale ultrasound with Doppler interrogation. Gestation: [place] Position: Cephalic Amniotic Fluid: WNL (7-24 cm) KENRICK = 20.6 cm Placenta: Anterior Placental Grade: 0 Heart Rate: 138 BPM Cervical length: 4.7 cm (Normal > 3 cm) NEUROANATOMY VISUALIZED: Cisterna Magnum Cerebellum ANATOMY VISUALIZED: Stomach Kidneys Bladder Diaphragm 4 Chamber Heart Heart 3 Vessel Cord Abd. Cord Insert SPINE VISUALIZED: Longitudinal Transverse Limited spine due to position The following are not demonstrated due to maternal body habitus or lie: Choroid plexus and lateral ventricles. BPD: 7.6 cm = 30 w 3 d HC: 28.1 cm = 30 w 6 d AC: 27.2 cm = 31 w 2 d FL: 5.7 cm = 30 w 0 d HC/AC Ratio: 1 Cephalic Index: 76.9 Estimated Weight: 1634 grams LMP: Uncertain US Gest. Age = 30 w 5 d EDC: 11/26/2016 CONCLUSION: Single, viable intrauterine gestation with ultrasound estimated age of 30 weeks and 5 days and EDC of 11/26/2016, currently in cephalic lie with details, as above. Thank you for the opportunity to participate in this patient's care.
[2016-09-22] MEDS ORDERED: TYLENOL ONE (15:11)
[2016-09-22 16:51] VITALS: BP 110/72
[2016-09-22] MEDS ORDERED: TYLENOL PO ONE (16:51)
== END 2016-09-22 15:00 | disposition home or self-care (01) ==
LOC: ED 00:12
DX: O99.513 Diseases of the respiratory system complicating pregnancy, third trimester (principal); J45.909 Unspecified asthma, uncomplicated; Z3A.32 32 weeks gestation of pregnancy; Z88.8 Allergy status to other drugs, medicaments and biological substances
CPT/HCPCS: 36415; 76805; 80053; 84702; 85007; 85025; 94640; 96361; 96374; 99285; J2930; J7030

== ENCOUNTER 2016-11-13 15:10 | Inpatient (IN) | payer MEDICAID ==
[2016-11-13 18:27] LABS: Urine Drugs of Abuse Note Disclamer
[2016-11-13] MEDS ORDERED: SUBLIMAZE IV PRN (22:15)
[2016-11-13] MEDS ORDERED: POLYCILLIN/NS 2 GM/100 ML 2 GM/100 ML BAG IV ONE (22:18)
[2016-11-13] MEDS ORDERED: PITOCin/NS 30 UNIT/500ML 30 UNITS/500 ML BAG IV SCH (23:00)
[2016-11-13 23:08] LABS: Basophils % (Auto) 0.3 % (0.0-1.8); Eosinophils % (Auto) 1.5 % (0.0-4.3); Hematocrit 32.6 % (30.3-42.9); Hemoglobin 10.8 gm/dl (10.1-14.3); Mean Corpuscular HGB Conc 33 % (30-34); Mean Corpuscular Hemoglobin 31 pg (28-32); Mean Corpuscular Volume 93 fl (79-97); Platelet Count 184 K/mm3 (140-440); Red Cell Distribution Width 15.7 % (13.2-15.2); White Blood Count 8.9 K/mm3 (4.5-11.0)
[2016-11-13] MEDS ORDERED: PITOCin/NS 20 UNIT/1000ML DRIP 20,000 MILLIUNITS/1,000 ML BAG IV ONE (23:26)
[2016-11-13] MEDS: LACTATED RINGERS 1,000 ML IV SCH (23:30)
[2016-11-13] MEDS: STADOL IV PRN (23:50)
--- NOTE | 2016-11-14 00:20 | History and Physical Report ---
History of Present Illness Date of examination: 11/14/16 Date of admission: 11/13/16 21:28 History of present illness: 26 yo self reported LMP EDC 11/25/16 @ 38.4 days arrived via EMS for vaginal pressure and urge to push. Unable to achieve reactive tracing, although tracing Category 1. U/s done for BPP and received 4/10. 3cm on exam. +cocaine on urine during this admission and several others. Orders given for induction. records unavailable during time of admit. Late entry into care, with only one visit. Multiple triage visits and as mentioned above multiple positive UDS for cocaine. GBS is unknown. 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 homeless) - Obstetrical History Expected Date of Delivery: 11/25/16 Actual Gestation: 38 Week(s) 3 Day(s) : 5 Para: 4 Number of Living Children: 4 Medications and Allergies Allergies Allergy/AdvReac Type Severity Reaction Status Date / Time hydrocortisone AdvReac Unknown Itching Verified 11/13/16 16:54 Home Medications Medication Instructions Recorded Confirmed Last Taken Type RX: No Known Home Medications [No 11/13/16 11/13/16 Unknown History Reported Home Medications] Active Meds: Active Medications Butorphanol Tartrate (Stadol) 2 mg IV Q2H PRN PRN Reason: Labor Pain Last Admin: 11/13/16 23:50 Dose: 2 mg Fentanyl (Sublimaze) 100 mcg IV Q2H PRN PRN Reason: Pain Lactated Ringer's (Lactated Ringers) 1,000 mls @ 125 mls/hr IV DIRECT TOMMY Last Admin: 11/13/16 23:30 Dose: 125 mls/hr Oxytocin/Sodium Chloride (Pitocin/Ns 30 Unit/500ml) 30 units in 500 mls @ 2 mls /hr IV TITR TOMMY; 2 MILLIUNITS/MIN PRN Reason: Protocol Last Titration: 11/13/16 23:53 Dose: 4 milliunits/min, 4 mls/hr Ampicillin Sodium (Polycillin/Ns 1 Gm/50 Ml) 1 gm in 50 mls @ 100 mls/hr IV Q4HR TOMMY PRN Reason: Protocol Review of Systems All systems: negative - Vital Signs Vital signs: Vital Signs Pulse Pulse Ox 70 81 L 11/13/16 15:28 11/13/16 15:28 Temp Pulse Resp BP Pulse Ox 97.4 F L 72 18 89/50 96 11/13/16 21:53 11/14/16 00:04 11/13/16 21:53 11/14/16 00:04 11/13/16 23:58 - Obstetrical FHR: category 2 (re) FHR comments: recent IV medication for pain. No decels Cervical Dilatation: 3 (RN) Cervical Effacement Percentage: 50 station: -3 Uterine Contraction Pattern: Absent Uterine Tone Measurement Phase: Resting Uterine Contraction Intensity: Mild Results Result Diagrams: 11/13/16 22:35 Abnormal lab results 11/13/16 Range/Units 22:35 RBC 3.50 L (3.65-5.03) M/mm3 RDW 15.7 H (13.2-15.2) % Door % (Auto) 8.3 H (0.0-7.3) % All other labs normal. Assessment and Plan A: IUP at 38.4 weeks BPP 4/10 Category 1 tracing Unknown GBS No care Positive cocaine Homeless P: Active brenda't Pitocin Ampicillin as ordered
[2016-11-14 01:11] LABS: HIV-1 Antigen p24 Non React (Non React); HIVR-1/2 Ab Non React (Non React)
[2016-11-14] MEDS: POLYCILLIN/NS 1 GM/50 ML 1 GM/50 ML BAG IV SCH ×3 (02:36→11:36)
[2016-11-14] MEDS: STADOL IV PRN ×2 (04:56→07:27)
--- NOTE | 2016-11-14 07:23 | Ultrasound Report ---
ULTRASOUND BIOPHYSICAL PROFILE: History: well being Technique: Transabdominal ultrasound with Doppler interrogation. 2 - breathing movements 2 - movements 0 - posture and tone 2 - Qualitative amniotic fluid volume 6 - TOTAL SCORE OF POSSIBLE 8 Heart Rate (bpm) 151
[2016-11-14] MEDS: LACTATED RINGERS 1,000 ML IV SCH ×2 (07:27→09:41)
[2016-11-14] MEDS ORDERED: ePHEDrine SULFATE ONE (08:13)
[2016-11-14] MEDS ORDERED: fentaNYL-BUPIV 2 MCG/ML-0.125% 200 MCG/100 ML BAG EPIDURAL ONE (08:14)
[2016-11-14] MEDS: fentaNYL-BUPIV 2 MCG/ML-0.125% 200 MCG/100 ML BAG EPIDURAL SCH ×2 (09:37→16:23)
--- NOTE | 2016-11-14 09:59 | Anesthesia Consultation ---
Anesthesia Consult and Med Hx Date of service: 11/14/16 - Airway Anesthetic Teeth Evaluation: Good ROM Head & Neck: Adequate Mental/Hyoid Distance: Adequate Mallampati Class: Class II Intubation Access Assessment: Probably Good - Pre-Operative Health Status ASA Pre-Surgery Classification: ASA3 Proposed Anesthetic Plan: Epidural, Spinal - Pulmonary Hx Smoking: Yes Hx Asthma: Yes Hx Respiratory Symptoms: Yes (bronchitis) COPD: No Hx Pneumonia: No - Cardiovascular System Hx Hypertension: No Hx Heart Attack/AMI: No Hx Pacemaker: No Hx Internal Defibrillator: No - Central Nervous System Hx Seizures: No Hx Psychiatric Problems: No - Gastrointestinal Hx Gastroesophageal Reflux Disease: Yes - Endocrine Hx Renal Disease: No Hx End Stage Renal Disease: No Hx Liver Disease: No Hx Hypothyroidism: No Hx Hyperthyroidism: No - Hematic Hx Anemia: No Hx Sickle Cell Disease: No - Other Systems Hx Alcohol Use: No Hx Substance Use: Yes (cocaine positive) - Additional Comments Anesthesia Medical History Comments: patient shows negative attitude toward personal (swearing, cursing), difficult to attend to
[2016-11-14] MEDS ORDERED: ePHEDrine SULFATE IV PRN (10:00)
[2016-11-14] MEDS ORDERED: NARCAN 2 MG/2 ML IV PRN (10:30)
[2016-11-14] MEDS ORDERED: PITOCin/NS 20 UNIT/1000ML DRIP 20 UNITS/1,000 ML BAG IV SCH (13:00)
[2016-11-14] MEDS ORDERED: XYLOCAINE MPF 2% ONE (13:11)
--- NOTE | 2016-11-14 15:33 | Event Note ---
Date: 11/14/16 This is a known cocaine user came in with BPP 6/10 at term and was started on IOL at term. Her care sparse and limited. Cat 1 strip with irreg ctx cvx /-3 arom clear fluid continue active mgt expect vag delivery on amp labs reviewed neg
[2016-11-14] MEDS ORDERED: PROVENTIL IH ONE (17:30)
[2016-11-14] MEDS ORDERED: MILK OF MAGNESIA PO PRN (17:39)
[2016-11-14] MEDS ORDERED: PHENERGAN PO PRN (17:39)
[2016-11-14] MEDS ORDERED: LANSINOH TP PRN (17:39)
[2016-11-14] MEDS ORDERED: TYLENOL PO PRN (17:39)
[2016-11-14] MEDS ORDERED: TUCKS PAD TP PRN (17:39)
[2016-11-14] MEDS ORDERED: PHENERGAN PR PRN (17:39)
[2016-11-14] MEDS ORDERED: DERMOPLAST TP PRN (17:39)
[2016-11-14] MEDS ORDERED: BENADRYL PO PRN (17:39)
[2016-11-14] MEDS ORDERED: ZOFRAN IV PRN (17:39)
[2016-11-14] MEDS ORDERED: DULCOLAX PR PRN (17:39)
[2016-11-14] MEDS ORDERED: PERCOCET 5/325 PO PRN (17:39)
--- NOTE | 2016-11-14 17:48 | Procedure Note ---
OB Delivery Note - Delivery Date of Delivery: 11/14/16 Surgeon: JANELLE WEST Estimated blood loss: 300cc - Vaginal Delivery position: OA Intrapartum events: precipitous labor- <3hr Delivery induction: AROM Delivery monitor: external FHT, external uterine Route of delivery: Delivery placenta: spontaneous Delivery cord: 3 umbilical vessels Episiotomy: none Delivery laceration: none Anesthesia: epidural Delivery comments: Patient was noted to deliver in bed while on nebuliozer treatment in oa vertex cord cut and clamped. cord blood sent. Delivered viable baby at 1718 Apgars 5 and 9. wt= 6 pound 6 ounces. Baby handed to respiratory therapist and peds team. Placenta delivered intact 3 vessel cord at 1727. No lacerations minimal bleeding. EBL 300 ml. Excellent hemostasis. - Infant A at 1 minute: 5 at 5 minutes: 9 Infant Gender: Female
[2016-11-14] MEDS ORDERED: SENOKOT S PO SCH (18:00)
[2016-11-14] MEDS ORDERED: SODIUM CHLORIDE FLUSH SYRINGE 10 ML IV SCH (18:00)
--- NOTE | 2016-11-14 18:51 | XRay Report ---
FINAL REPORT EXAM: XR CHEST 1V AP HISTORY: Difficulty Breathing TECHNIQUE: AP portable view(s) of the chest obtained. PRIORS: None. FINDINGS: No mediastinal shift. Cardiac silhouette is not enlarged. No pneumothorax, effusion, or focal pulmonary opacity identified. No acute skeletal findings. IMPRESSION: No acute pulmonary finding identified.
--- NOTE | 2016-11-14 19:02 | Progress Note ---
Subjective Date of service: 11/14/16 Interval history: Patient had a successful CSE which was re-dosed and kept the patient comfortable for several hours. Epidural was successfully replaced after the patient complained of inadequate pain relief. Shortly after that patient had natural vaginal delivery. During all this time the patient was monitored by nurse, Ob-[employer], and anesthesia. Vital signs including respiration were stable throughout that period of time. During the time of labor patient had multiple complaints which were all appropriately addressed in the timely manner. Objective - Constitutional Vitals: Vital Signs - 12hr 11/14/16 11/14/16 11/14/16 07:12 07:34 08:05 Temperature Pulse Rate 77 65 67 Pulse Rate [ Bilateral Throughout] Respiratory Rate Respiratory Rate [Bilateral Throughout] Blood Pressure 120/79 105/73 107/66 O2 Sat by Pulse Oximetry 11/14/16 11/14/16 11/14/16 08:34 09:01 09:02 Temperature Pulse Rate 71 68 73 Pulse Rate [ Bilateral Throughout] Respiratory Rate Respiratory Rate [Bilateral Throughout] Blood Pressure 105/66 O2 Sat by Pulse 82 L 68 L Oximetry 11/14/16 11/14/16 11/14/16 09:04 09:07 09:15 Temperature Pulse Rate 65 81 71 Pulse Rate [ Bilateral Throughout] Respiratory Rate Respiratory Rate [Bilateral Throughout] Blood Pressure 101/70 O2 Sat by Pulse 100 100 Oximetry 11/14/16 11/14/16 11/14/16 12:15 12:20 12:55 Temperature 96.4 F L Pulse Rate Pulse Rate [ Bilateral Throughout] Respiratory 20 18 18 Rate Respiratory Rate [Bilateral Throughout] Blood Pressure 101/70 O2 Sat by Pulse Oximetry 11/14/16 11/14/16 11/14/16 15:03 15:05 15:06 Temperature Pulse Rate 80 80 Pulse Rate [ Bilateral Throughout] Respiratory Rate Respiratory Rate [Bilateral Throughout] Blood Pressure 122/61 109/69 O2 Sat by Pulse 86 Oximetry 11/14/16 11/14/16 11/14/16 15:07 15:08 15:14 Temperature Pulse Rate 82 72 86 Pulse Rate [ Bilateral Throughout] Respiratory Rate Respiratory Rate [Bilateral Throughout] Blood Pressure 110/70 110/57 O2 Sat by Pulse 100 Oximetry 11/14/16 11/14/16 11/14/16 15:17 15:20 15:22 Temperature Pulse Rate 82 85 81 Pulse Rate [ Bilateral Throughout] Respiratory Rate Respiratory Rate [Bilateral Throughout] Blood Pressure 115/77 130/76 109/66 O2 Sat by Pulse Oximetry 11/14/16 11/14/16 11/14/16 15:23 15:56 16:27 Temperature Pulse Rate 74 91 H 77 Pulse Rate [ Bilateral Throughout] Respiratory Rate Respiratory Rate [Bilateral Throughout] Blood Pressure 105/69 142/87 134/66 O2 Sat by Pulse Oximetry 11/14/16 11/14/16 11/14/16 16:55 17:08 17:17 Temperature Pulse Rate 84 Pulse Rate [ 80 86 Bilateral Throughout] Respiratory Rate Respiratory 20 20 Rate [Bilateral Throughout] Blood Pressure 104/64 O2 Sat by Pulse Oximetry 11/14/16 11/14/16 11/14/16 17:25 17:35 17:55 Temperature 96.8 F L Pulse Rate 83 75 Pulse Rate [ Bilateral Throughout] Respiratory 20 Rate Respiratory Rate [Bilateral Throughout] Blood Pressure 109/58 114/73 O2 Sat by Pulse Oximetry 11/14/16 18:24 Temperature Pulse Rate 88 Pulse Rate [ Bilateral Throughout] Respiratory Rate Respiratory Rate [Bilateral Throughout] Blood Pressure 118/80 O2 Sat by Pulse Oximetry - Labs CBC & Chem 7: 11/13/16 22:35 Labs: Abnormal lab results 11/13/16 Range/Units 22:35 RBC 3.50 L (3.65-5.03) M/mm3 RDW 15.7 H (13.2-15.2) % [place] % (Auto) 8.3 H (0.0-7.3) %
[2016-11-14] MEDS: MOTRIN PO SCH (19:59)
[2016-11-14] MEDS: NORCO 5/325 PO PRN (19:59)
[2016-11-15] MEDS: NORCO 5/325 PO PRN ×3 (02:01→14:29)
[2016-11-15] MEDS: MOTRIN PO SCH ×3 (02:01→21:54)
[2016-11-15] MEDS ORDERED: BOOSTRIX IM ONE (06:00)
[2016-11-15 06:36] LABS: Hemoglobin 11.2 gm/dl (10.1-14.3)
[2016-11-15] MEDS: COLACE PO SCH ×2 (08:46→21:55)
[2016-11-15] MEDS ORDERED: PRENATAL VITAMIN PO SCH (10:00)
--- NOTE | 2016-11-15 15:45 | Progress Note ---
Assessment and Plan PPD 1 s/p . Doing well. Will plan for discharge in am. Subjective - Subjective Date of service: 11/15/16 Patient reports: appetite normal, voiding normally, pain well controlled, ambulating normally : doing well Objective - Vital Signs Latest vital signs: Vital Signs Temp Pulse Pulse Pulse Resp Resp BP 11/15/16 14:29 20 11/15/16 14:28 20 11/15/16 08:44 20 11/15/16 07:44 98.3 F 74 20 11/15/16 05:00 98.4 F 86 20 11/15/16 03:00 98.4 F 86 20 11/15/16 00:08 97.6 F 61 18 11/14/16 20:25 97.7 F 75 18 11/14/16 18:56 74 152/83 11/14/16 18:24 88 118/80 11/14/16 17:55 75 114/73 11/14/16 17:35 96.8 F L 20 11/14/16 17:25 83 109/58 11/14/16 17:17 86 20 11/14/16 17:08 80 20 11/14/16 16:55 84 104/64 11/14/16 16:27 77 134/66 11/14/16 15:56 91 H 142/87 BP BP 11/15/16 14:29 11/15/16 14:28 11/15/16 08:44 11/15/16 07:44 116/60 11/15/16 05:00 133/73 11/15/16 03:00 135/72 11/15/16 00:08 113/70 11/14/16 20:25 102/63 11/14/16 18:56 11/14/16 18:24 11/14/16 17:55 11/14/16 17:35 11/14/16 17:25 11/14/16 17:17 11/14/16 17:08 11/14/16 16:55 11/14/16 16:27 11/14/16 15:56 Intake and Output 11/15/16 11/15/16 11/15/16 06:59 14:59 22:59 Intake Total 480 Output Total 800 Balance -800 480 Intake: Oral 480 Output: Urine 800 Void 800 Other: Total, Intake Amount 480 Total, Output Amount 800 # Voids Void 1 - Exam Cardiovascular: Present: Regular rate, Normal S1, Normal S2 Lungs: Present: Clear to auscultation, Normal air movement Abdomen: Present: normal appearance, soft, normal bowel sounds Uterus: Present: normal, firm Extremities: Present: normal Deep Tendon Reflex Grade: Normal +2
--- NOTE | 2016-11-15 15:48 | Discharge Summary ---
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 Time called:: 09:30 Additional Physician Instructions: patient is known drug abuser + on admission labs Primary care physician: SEBASTIAN RODRIGUEZ Hospitalization Reason for admission: induction of labor Delivery: Episiotomy: none Laceration: none Discharge diagnosis: IUP at term delivered baby: female Condition at discharge: Good Disposition: DISCHARGED TO HOME OR SELFCARE Plan - Discharge Medications Prescriptions: HYDROcodone/APAP 5-325 [[place] 5-325 mg TAB] 2 each PO Q6H PRN #30 tablet PRN Reason: Pain, Moderate (4-6) - Provider Discharge Summary Activity: routine, no sex for 6 weeks, no heavy lifting 4 weeks, no strenuous exercise Diet: routine Instructions: routine Additional instructions: [] Smoking cessation referral if applicable(refer to patient education folder for contact #) [] Refer to [facility]'s [facility] Booklet Call your doctor immediately for: * Fever > 100.5 * Heavy vaginal bleeding ( >1 pad per hour) * Severe persistent headache * Shortness of breath * Reddened, hot, painful area to leg or breast * Drainage or odor from incision. * Keep incision clean and dry at all times and follow doctor's instructions regarding bathing/showering - Follow up plan Follow up: SEBASTIAN RODRIGUEZ MD [Primary Care Provider] - 7 Days
[2016-11-15] MEDS ORDERED: M-M-R II VACCINE SUB-Q ONE (17:39)
[2016-11-16] MEDS: MOTRIN PO SCH ×2 (04:01→10:15)
[2016-11-16] MEDS: NORCO 5/325 PO PRN (04:49)
[2016-11-16 08:54] VITALS: BP 110/68
== END 2016-11-16 10:30 | disposition home or self-care (01) | DRG 775 ==
LOC: TRG 15:10 → LD 21:28 → OB 11-14 19:55
PROVIDERS: ADMIT Obstetrics & Gynecology; ATTEND Obstetrics & Gynecology
PROC: 10907ZC Drainage of Amniotic Fluid, Therapeutic from Products of Conception, Via Natural or Artificial Opening (ICD-10-PCS; principal; 2016-11-14)
PROC: 10E0XZZ Delivery of Products of Conception, External Approach (ICD-10-PCS; 2016-11-14)
PROC: 3E0S3CZ (ICD-10-PCS; 2016-11-14)
PROC: 00HU33Z Insertion of Infusion Device into Spinal Canal, Percutaneous Approach (ICD-10-PCS; 2016-11-14)
PROC: 3E0234Z Introduction of Serum, Toxoid and Vaccine into Muscle, Percutaneous Approach (ICD-10-PCS; 2016-11-15)
DX: O62.3 Precipitate labor (principal); O75.89 Other specified complications of labor and delivery; F14.90 Cocaine use, unspecified, uncomplicated; Z59.0 Homelessness; Z3A.38 38 weeks gestation of pregnancy; Z37.0 Single live birth; Z23 Encounter for immunization; O99.324 Drug use complicating childbirth
CPT/HCPCS: 36415; 59025; 71010; 76819; 80307; 85014; 85018; 85025; 85660; 86592; 86706; 86762; 86803; 86850; 86900; 86901; 87806; 88307; 90471; 90472; 90715; 94640; 99406; G0008; J0290; J0595; J2590; J3010; J7120

== ENCOUNTER 2016-11-17 14:56 | Emergency (ER) | payer MEDICAID ==
[2016-11-17 15:57] VITALS: BP 117/84
[2016-11-17 17:02] LABS: Urine Drugs of Abuse Note Disclamer
[2016-11-17 17:25] LABS: Bilirubin,Urine NEG (Negative); Blood,Urine LG (Negative); Ketones,Urine NEG (Negative); Leukocyte Esterase,Urine MOD (Negative); Mucus,Urine FEW /HPF; Nitrite,Urine NEG (Negative); Protein,Urine <15 mg/dL mg/dL (Negative); Urobilinogen,Urine < 2.0 mg/dL (<2.0)
== END 2016-11-17 16:55 | disposition left against medical advice (07) ==
LOC: ED 14:56
DX: F19.10 Other psychoactive substance abuse, uncomplicated (principal); M19.90 Unspecified osteoarthritis, unspecified site; J45.909 Unspecified asthma, uncomplicated; F12.90 Cannabis use, unspecified, uncomplicated; F17.200 Nicotine dependence, unspecified, uncomplicated; Z88.8 Allergy status to other drugs, medicaments and biological substances; Z53.21 Procedure and treatment not carried out due to patient leaving prior to being seen by health care provider
CPT/HCPCS: 80307; 81001

== ENCOUNTER 2016-12-03 13:42 | Emergency (ER) | payer MEDICAID ==
[2016-12-03 14:04] VITALS: BP 111/78
== END 2016-12-03 15:52 | disposition left against medical advice (07) ==
LOC: ED 13:42
DX: F41.0 Panic disorder [episodic paroxysmal anxiety] (principal); Z53.21 Procedure and treatment not carried out due to patient leaving prior to being seen by health care provider

== ENCOUNTER 2017-01-07 12:15 | Emergency (ER) | payer MEDICAID ==
[2017-01-07 13:43] LABS: Urine Drugs of Abuse Note Disclamer
[2017-01-07 13:47] LABS: Basophils % (Auto) 0.3 % (0.0-1.8); Eosinophils % (Auto) 1.4 % (0.0-4.3); Hematocrit 44.7 % (30.3-42.9); Hemoglobin 14.6 gm/dl (10.1-14.3); Mean Corpuscular HGB Conc 33 % (30-34); Mean Corpuscular Hemoglobin 30 pg (28-32); Mean Corpuscular Volume 93 fl (79-97); Platelet Count 350 K/mm3 (140-440); Red Blood Count 4.82 M/mm3 (3.65-5.03); Red Cell Distribution Width 15.4 % (13.2-15.2); White Blood Count 12.8 K/mm3 (4.5-11.0)
[2017-01-07 13:56] LABS: Bilirubin,Urine NEG (Negative); Blood,Urine NEG (Negative); Ketones,Urine TR mg/dL (Negative); Leukocyte Esterase,Urine MOD (Negative); Mucus,Urine 3+ /HPF; Nitrite,Urine NEG (Negative); Urobilinogen,Urine < 2.0 mg/dL (<2.0)
[2017-01-07 14:06] LABS: Anion Gap 19 mmol/L; BUN/Creatinine Ratio 14.44; Blood Urea Nitrogen 13 mg/dL (7-17); Calcium 9.3 mg/dL (8.4-10.2); Carbon Dioxide 25 mmol/L (22-30); Chloride 100.3 mmol/L (98-107); Glucose 87 mg/dL (65-100); Potassium 4.2 mmol/L (3.6-5.0); Sodium 140 mmol/L (137-145)
--- NOTE | 2017-01-07 14:32 | Emergency Department Report ---
ED General Adult HPI - General Chief complaint: Psych Stated complaint: DRUG ADDICTION Time Seen by Provider: 01/07/17 14:31 Source: patient, police Mode of arrival: Ambulatory Limitations: No Limitations - History of Present Illness Initial comments: The patient is requesting a cocaine rehabilitation program. She denies depression, suicidal ideation, paranoid ideation, possible thoughts or agitation. Apparently she has been involved with cocaine for some time and has been previously in recovery. She has no other specific symptoms. -: year(s) Improves with: none Worsens with: none Associated Symptoms: denies other symptoms - Related Data Previous Rx's Medication Instructions Recorded Last Taken Type HYDROcodone/APAP 5-325 [[place] 2 each PO Q6H PRN #30 tablet 11/15/16 Unknown Rx 5-325 mg TAB] Sulfamethoxazole/Trimethoprim 1 each PO BID #14 tablet 01/07/17 Unknown Rx [Bactrim DS TAB] Allergies Allergy/AdvReac Type Severity Reaction Status Date / Time hydrocortisone AdvReac Unknown Itching Verified 11/13/16 16:54 ED Review of Systems ROS: Stated complaint: DRUG ADDICTION Other details as noted in HPI Constitutional: denies: chills, fever Eyes: denies: eye pain, eye discharge, vision change ENT: denies: ear pain, throat pain Respiratory: denies: cough, shortness of breath, wheezing Cardiovascular: denies: chest pain, palpitations Endocrine: no symptoms reported Gastrointestinal: denies: abdominal pain, nausea, diarrhea Genitourinary: denies: urgency, dysuria, discharge Musculoskeletal: denies: back pain, joint swelling, arthralgia Skin: denies: rash, lesions Neurological: denies: headache, weakness, paresthesias Psychiatric: denies: anxiety, depression Hematological/Lymphatic: denies: easy bleeding, easy bruising ED Past Medical Hx - Past Medical History Previous Medical History?: Yes Hx Hypertension: No Hx CVA: No Hx Heart Attack/AMI: No Hx Congestive Heart Failure: No Hx Diabetes: No Hx Deep Vein Thrombosis: No Hx Pulmonary Embolism: No Hx GERD: No Hx Liver Disease: No Hx Renal Disease: No Hx Sickle Cell Disease: No Hx Arthritis: No Hx Headaches / Migraines: No Hx Seizures: No Hx Kidney Stones: No Hx Psychiatric Treatment: Yes (anxiety attack, cocaine rehab) Hx Asthma: Yes Hx COPD: No Hx Tuberculosis: No Hx Dementia: No Hx HIV: No Additional medical history: hx bronchitis - Surgical History Hx Coronary Stent: No Hx Open Heart Surgery: No Hx Pacemaker: No Hx Internal Defibrillator: No Hx Cholecystectomy: No Hx Appendectomy: No Hx Breast Surgery: No Additional Surgical History: denies - Social History Smoking Status: Current Every Day Smoker Substance Use Type: Alcohol, Cocaine, Marijuana, Tranquilizers, Other - Medications Home Medications: Home Medications Medication Instructions Recorded Confirmed Last Taken Type HYDROcodone/APAP 5-325 [[place] 2 each PO Q6H PRN #30 tablet 11/15/16 Unknown Rx 5-325 mg TAB] Sulfamethoxazole/Trimethoprim 1 each PO BID #14 tablet 01/07/17 Unknown Rx [Bactrim DS TAB] ED Physical Exam - General Limitations: No Limitations General appearance: alert, in no apparent distress - Head Head exam: Present: atraumatic, normocephalic - Eye Eye exam: Present: normal appearance. Absent: scleral icterus - ENT ENT exam: Present: mucous membranes moist - Neck Neck exam: Present: normal inspection - Respiratory Respiratory exam: Present: normal lung sounds bilaterally. Absent: respiratory distress - Cardiovascular Cardiovascular Exam: Present: regular rate, normal rhythm. Absent: systolic murmur, diastolic murmur, rubs, gallop - GI/Abdominal GI/Abdominal exam: Present: soft, normal bowel sounds. Absent: distended, tenderness, guarding, rebound, rigid - Extremities Exam Extremities exam: Present: normal inspection - Back Exam Back exam: Present: normal inspection - Neurological Exam Neurological exam: Present: alert, oriented X3, CN II-XII intact. Absent: motor sensory deficit - Psychiatric Psychiatric exam: Present: normal affect, normal mood - Skin Skin exam: Present: warm, dry, intact, normal color. Absent: rash ED Course Vital Signs 01/07/17 12:38 Temperature 98.4 F Pulse Rate 103 H Respiratory 18 Rate Blood Pressure 124/87 O2 Sat by Pulse 96 Oximetry - Reevaluation(s) Reevaluation #1: The patient was referred to outpatient rehabilitation by the mental health provider (Cee). 01/07/17 17:34 ED Medical Decision Making - Lab Data Result diagrams: 01/07/17 13:36 01/07/17 13:36 Laboratory Results - last 24 hr 01/07/17 01/07/17 01/07/17 13:36 13:36 13:36 WBC 12.8 H RBC 4.82 Hgb 14.6 H Hct 44.7 H MCV 93 MCH 30 MCHC 33 RDW 15.4 H Plt Count 350 Lymph % (Auto) 12.7 L [place] % (Auto) 7.8 H Eos % (Auto) 1.4 Baso % (Auto) 0.3 Lymph # 1.6 [place] # 1.0 H Eos # 0.2 Baso # 0.0 Seg Neutrophils % 77.8 H Seg Neutrophils # 10.0 H Sodium 140 Potassium 4.2 Chloride 100.3 Carbon Dioxide 25 Anion Gap 19 BUN 13 Creatinine 0.9 Estimated GFR > 60 BUN/Creatinine Ratio 14.44 Glucose 87 Calcium 9.3 Urine Color Urine Turbidity Urine pH Ur Specific [place] Urine Protein Urine Glucose (UA) Urine Ketones Urine Blood Urine Nitrite Ur Reducing Substances Urine Bilirubin Urine Ictotest Urine Urobilinogen Ur Leukocyte Esterase Urine WBC (Auto) Urine RBC (Auto) U Epithel Cells (Auto) Urine Mucus Urine HCG, Qual Urine Opiates Screen Urine Methadone Screen Ur Barbiturates Screen Ur Phencyclidine Scrn Ur Amphetamines Screen U Benzodiazepines Scrn U Marijuana (THC) Screen Plasma/Serum Alcohol < 0.01 01/07/17 01/07/17 13:38 13:38 WBC RBC Hgb Hct MCV MCH MCHC RDW Plt Count Lymph % (Auto) [place] % (Auto) Eos % (Auto) Baso % (Auto) Lymph # [place] # Eos # Baso # Seg Neutrophils % Seg Neutrophils # Sodium Potassium Chloride Carbon Dioxide Anion Gap BUN Creatinine Estimated GFR BUN/Creatinine Ratio Glucose Calcium Urine Color Yellow Urine Turbidity Clear Urine pH 6.0 Ur Specific [place] 1.024 Urine Protein 30 mg/dl Urine Glucose (UA) Neg Urine Ketones Tr Urine Blood Neg Urine Nitrite Neg Ur Reducing Substances Not Reportable Urine Bilirubin Neg Urine Ictotest Not Reportable Urine Urobilinogen < 2.0 Ur Leukocyte Esterase Mod Urine WBC (Auto) 29.0 H Urine RBC (Auto) 5.0 U Epithel Cells (Auto) 6.0 Urine Mucus 3+ Urine HCG, Qual Negative Urine Opiates Screen Presumptive negative Urine Methadone Screen Presumptive negative Ur Barbiturates Screen Presumptive negative Ur Phencyclidine Scrn Presumptive negative Ur Amphetamines Screen Presumptive negative U Benzodiazepines Scrn Presumptive negative U Marijuana (THC) Screen Presumptive negative Plasma/Serum Alcohol Critical care attestation.: If time is entered above; I have spent that time in minutes in the direct care of this critically ill patient, excluding procedure time. ED Disposition Clinical Impression: Cocaine abuse UTI (urinary tract infection) Qualifiers: Urinary tract infection type: site unspecified Hematuria presence: without hematuria Qualified Code(s): N39.0 - Urinary tract infection, site not specified Disposition: - TO HOME OR SELFCARE Is pt being admited?: No Does the pt Need Aspirin: No Condition: Stable Instructions: Cocaine Abuse (ED), Urinary Tract Infection in Women (ED) Prescriptions: Sulfamethoxazole/Trimethoprim [Bactrim DS TAB] 1 each PO BID #14 tablet Referrals: PRIMARY CARE, [Primary Care Provider] - 3-5 Days Time of Disposition: 17:37
[2017-01-07 20:20] VITALS: BP 108/78
== END 2017-01-07 18:30 | disposition home or self-care (01) ==
LOC: ED 12:15
DX: F14.10 Cocaine abuse, uncomplicated (principal); N39.0 Urinary tract infection, site not specified; J45.909 Unspecified asthma, uncomplicated; F17.200 Nicotine dependence, unspecified, uncomplicated; F12.10 Cannabis abuse, uncomplicated
CPT/HCPCS: 36415; 80048; 80307; 81001; 81025; 85025; 87086; 99284; G0480; 80320

== ENCOUNTER 2017-01-07 19:35 | Emergency (ER) | payer MEDICAID ==
[2017-01-07 20:35] VITALS: BP 130/85
[2017-01-07 21:23] LABS: Basophils % (Auto) 0.3 % (0.0-1.8); Eosinophils % (Auto) 2.7 % (0.0-4.3); Hematocrit 45.9 % (30.3-42.9); Mean Corpuscular HGB Conc 33 % (30-34); Mean Corpuscular Hemoglobin 31 pg (28-32); Mean Corpuscular Volume 94 fl (79-97); Platelet Count 329 K/mm3 (140-440); Red Blood Count 4.87 M/mm3 (3.65-5.03); Red Cell Distribution Width 15.6 % (13.2-15.2); White Blood Count 8.9 K/mm3 (4.5-11.0)
[2017-01-07 21:33] LABS: Anion Gap 20 mmol/L; Blood Urea Nitrogen 14 mg/dL (7-17); Calcium 9.8 mg/dL (8.4-10.2); Carbon Dioxide 26 mmol/L (22-30); Chloride 98.7 mmol/L (98-107); Glucose 122 mg/dL (65-100); Potassium 3.9 mmol/L (3.6-5.0); Sodium 141 mmol/L (137-145)
--- NOTE | 2017-01-08 03:30 | Emergency Department Report ---
ED Abdominal Pain HPI - General Chief Complaint: Nausea/Vomiting/Diarrhea Stated Complaint: ABDOMINAL PAIN Time Seen by Provider: 01/08/17 03:05 Source: patient Mode of arrival: Ambulatory Limitations: No Limitations - History of Present Illness Initial Comments: 26-year-old female past medical history drug seeking behavior, disorganized behavior presents with complaint of 2 days of vaginal discharge and mild pelvic pain. Patient is awake and alert but not entirely cooperative during clinical interview. States she feels nauseous but is currently eating potato chips during exam. Denies any flank pain denies any dysuria states she is having whitish to yellowish vaginal discharge and some pelvic crampy-type pain. Patient states her last menstrual period was December 18. Onset/Timin -: days(s) Location: suprapubic Severity: moderate Severity scale (0 -10): 6 Quality: cramping Consistency: intermittent - Related Data LMP Date: 12/18/16 LMP (females 10-50): 1 month Previous Rx's Medication Instructions Recorded Last Taken Type HYDROcodone/APAP 5-325 [[place] 2 each PO Q6H PRN #30 tablet 11/15/16 Unknown Rx 5-325 mg TAB] Sulfamethoxazole/Trimethoprim 1 each PO BID #14 tablet 01/07/17 Unknown Rx [Bactrim DS TAB] Doxycycline [Vibramycin CAP] 100 mg PO Q12HR #28 capsule 01/08/17 Unknown Rx Allergies Allergy/AdvReac Type Severity Reaction Status Date / Time hydrocortisone AdvReac Unknown Itching Verified 11/13/16 16:54 ED Review of Systems ROS: Stated complaint: ABDOMINAL PAIN Other details as noted in HPI Constitutional: denies: chills, fever Eyes: denies: eye pain, eye discharge, vision change ENT: denies: ear pain, throat pain Respiratory: denies: cough, shortness of breath, wheezing Cardiovascular: denies: chest pain, palpitations Endocrine: no symptoms reported Gastrointestinal: denies: abdominal pain, nausea, diarrhea Genitourinary: denies: urgency, dysuria, discharge Musculoskeletal: denies: back pain, joint swelling, arthralgia Skin: denies: rash, lesions Neurological: denies: headache, weakness, paresthesias Psychiatric: denies: anxiety, depression Hematological/Lymphatic: denies: easy bleeding, easy bruising ED Past Medical Hx - Past Medical History Previous Medical History?: Yes Hx Hypertension: No Hx CVA: No Hx Heart Attack/AMI: No Hx Congestive Heart Failure: No Hx Diabetes: No Hx Deep Vein Thrombosis: No Hx Pulmonary Embolism: No Hx GERD: No Hx Liver Disease: No Hx Renal Disease: No Hx Sickle Cell Disease: No Hx Arthritis: No Hx Headaches / Migraines: No Hx Seizures: No Hx Kidney Stones: No Hx Psychiatric Treatment: Yes (anxiety attack, cocaine rehab) Hx Asthma: Yes Hx COPD: No Hx Tuberculosis: No Hx Dementia: No Hx HIV: No Additional medical history: hx bronchitis - Surgical History Past Surgical History?: No Hx Coronary Stent: No Hx Open Heart Surgery: No Hx Pacemaker: No Hx Internal Defibrillator: No Hx Cholecystectomy: No Hx Appendectomy: No Hx Breast Surgery: No Additional Surgical History: denies - Social History Smoking Status: Current Every Day Smoker Substance Use Type: Alcohol, Cocaine - Medications Home Medications: Home Medications Medication Instructions Recorded Confirmed Last Taken Type HYDROcodone/APAP 5-325 [[place] 2 each PO Q6H PRN #30 tablet 11/15/16 Unknown Rx 5-325 mg TAB] Sulfamethoxazole/Trimethoprim 1 each PO BID #14 tablet 01/07/17 Unknown Rx [Bactrim DS TAB] Doxycycline [Vibramycin CAP] 100 mg PO Q12HR #28 capsule 01/08/17 Unknown Rx ED Physical Exam - General Limitations: No Limitations General appearance: alert, in no apparent distress - Head Head exam: Present: atraumatic, normocephalic - Eye Eye exam: Present: normal appearance, PERRL, EOMI - ENT ENT exam: Present: mucous membranes moist - Neck Neck exam: Present: normal inspection, full ROM - Respiratory Respiratory exam: Present: normal lung sounds bilaterally. Absent: respiratory distress - Cardiovascular Cardiovascular Exam: Present: regular rate, normal rhythm. Absent: systolic murmur, diastolic murmur, rubs, gallop - GI/Abdominal GI/Abdominal exam: Present: soft (abdomen soft nontender nondistended), normal bowel sounds - External exam: Present: normal external exam Speculum exam: Present: vaginal discharge (white-yellow vaginal discharge) Bi-manual exam: Present: cervical motion tendernes (mild cmt on exam, no adnexal pain) - Extremities Exam Extremities exam: Present: normal inspection - Back Exam Back exam: Present: normal inspection - Neurological Exam Neurological exam: Present: alert, oriented X3, CN II-XII intact - Psychiatric Psychiatric exam: Present: normal affect, normal mood - Skin Skin exam: Present: warm, dry, intact, normal color. Absent: rash ED Course Vital Signs 01/07/17 01/07/17 20:32 20:45 Temperature 97.9 F 98.2 F Pulse Rate 85 88 Respiratory 18 18 Rate Blood Pressure 130/85 Blood Pressure 130/85 [Right] O2 Sat by Pulse 100 100 Oximetry ED Medical Decision Making - Lab Data Result diagrams: 01/07/17 21:03 01/07/17 21:03 - Medical Decision Making A/P: Clinical PID 1-on exam patient has visible discharge with mild but present cervical motion tenderness. Treat patient empirically with azithromycin and ceftriaxone and 2 week course of doxycycline 2-follow-up with [facility] 3- patient is afebrile no leukocytosis labs otherwise unremarkable, ua unremarkable, pt deneis dysuria or increased frequency 4- patient tolerating by mouth food and fluid during my clinical exam no active vomiting Critical care attestation.: If time is entered above; I have spent that time in minutes in the direct care of this critically ill patient, excluding procedure time. ED Disposition Clinical Impression: PID (pelvic inflammatory disease) Disposition: DC-01 TO HOME OR SELFCARE Is pt being admited?: No Does the pt Need Aspirin: No Condition: Stable Instructions: Pelvic Inflammatory Disease (ED) Prescriptions: Doxycycline [Vibramycin CAP] 100 mg PO Q12HR #28 capsule Referrals: [facility] [Provider Group] - 3-5 Days PRABHA DUNCAN MD [Staff Physician] - 3-5 Days Time of Disposition: 04:40
[2017-01-08 03:49] LABS: Alanine Aminotransferase 15 units/L (7-56); Albumin 4.8 g/dL (3.9-5); Albumin/Globulin Ratio 1.5 %; Alkaline Phosphatase 81 units/L (35-129); Amylase 78 units/L (27-131); Creatine Kinase 102 units/L (30-135); Lipase 39 units/L (13-60); Total Protein 7.9 g/dL (6.3-8.2)
[2017-01-08 03:50] LABS: Bilirubin,Direct < 0.2 mg/dL (0-0.2); Bilirubin,Indirect 0.4 mg/dL
[2017-01-08 04:07] LABS: Bilirubin,Urine NEG (Negative); Blood,Urine NEG (Negative); Ketones,Urine TR mg/dL (Negative); Leukocyte Esterase,Urine SM (Negative); Mucus,Urine FEW /HPF; Nitrite,Urine NEG (Negative); Protein,Urine <15 mg/dL mg/dL (Negative); Urobilinogen,Urine < 2.0 mg/dL (<2.0)
[2017-01-08] MEDS ORDERED: XYLOCAINE 1% MPF 5 mL INFILTRATI ONE (04:40)
[2017-01-08] MEDS ORDERED: ROCEPHIN IM ONE (04:40)
[2017-01-08] MEDS ORDERED: ZOFRAN ODT PO ONE (04:40)
[2017-01-08] MEDS ORDERED: VIBRAMYCIN PO ONE (04:43)
== END 2017-01-08 05:14 | disposition home or self-care (01) ==
LOC: ED 19:35
DX: N73.9 Female pelvic inflammatory disease, unspecified (principal); F41.9 Anxiety disorder, unspecified; J45.909 Unspecified asthma, uncomplicated; F17.200 Nicotine dependence, unspecified, uncomplicated; F12.10 Cannabis abuse, uncomplicated; Z88.8 Allergy status to other drugs, medicaments and biological substances
CPT/HCPCS: 36415; 80048; 80074; 81001; 81025; 82150; 82550; 83690; 85025; 87210; 87591; 99284; J0696; Q0162

== ENCOUNTER → 2017-01-10 21:00 | Emergency (ER) | payer MEDICAID | END | disposition left against medical advice (07) | LOC: ED 21:00 | DX: F19.20 Other psychoactive substance dependence, uncomplicated (principal); Z53.21 Procedure and treatment not carried out due to patient leaving prior to being seen by health care provider ==

== ENCOUNTER 2017-01-10 23:12 | Emergency (ER) | payer MEDICAID ==
[2017-01-11 01:39] LABS: Basophils % (Auto) 0.6 % (0.0-1.8); Eosinophils % (Auto) 1.4 % (0.0-4.3); Hematocrit 42.6 % (30.3-42.9); Hemoglobin 13.8 gm/dl (10.1-14.3); Mean Corpuscular HGB Conc 33 % (30-34); Mean Corpuscular Hemoglobin 30 pg (28-32); Mean Corpuscular Volume 92 fl (79-97); Platelet Count 273 K/mm3 (140-440); Red Blood Count 4.61 M/mm3 (3.65-5.03); Red Cell Distribution Width 15.7 % (13.2-15.2); White Blood Count 7.5 K/mm3 (4.5-11.0)
[2017-01-11 01:59] LABS: Anion Gap 22 mmol/L; BUN/Creatinine Ratio 6.25; Blood Urea Nitrogen 5 mg/dL (7-17); Calcium 9.3 mg/dL (8.4-10.2); Carbon Dioxide 22 mmol/L (22-30); Chloride 100.5 mmol/L (98-107); Glucose 91 mg/dL (65-100); Potassium 3.4 mmol/L (3.6-5.0); Sodium 141 mmol/L (137-145)
[2017-01-11 12:58] VITALS: BP 157/91
[2017-01-11 13:13] LABS: Urine Drugs of Abuse Note Disclamer
[2017-01-11 13:42] LABS: Bacteria,Urine 1+ /HPF (Negative); Bilirubin,Urine NEG (Negative); Blood,Urine NEG (Negative); Ketones,Urine NEG (Negative); Leukocyte Esterase,Urine MOD (Negative); Mucus,Urine 3+ /HPF; Nitrite,Urine NEG (Negative)
--- NOTE | 2017-01-12 14:09 | ED Elopement Review ---
ED Pt Elopement review - Results review Lab results: Laboratory Tests 01/11/17 01/11/17 01/11/17 01:27 01:27 01:27 WBC RBC Hgb Hct MCV MCH MCHC RDW Plt Count Lymph % (Auto) [place] % (Auto) Eos % (Auto) Baso % (Auto) Lymph # [place] # Eos # Baso # Seg Neutrophils % Seg Neutrophils # Sodium 141 Potassium 3.4 L Chloride 100.5 Carbon Dioxide 22 Anion Gap 22 BUN 5 L Creatinine 0.8 Estimated GFR > 60 BUN/Creatinine Ratio 6.25 Glucose 91 Calcium 9.3 HCG, Qual Negative Urine Color Urine Turbidity Urine pH Ur Specific [place] Urine Protein Urine Glucose (UA) Urine Ketones Urine Blood Urine Nitrite Urine Bilirubin Urine Urobilinogen Ur Leukocyte Esterase Urine WBC (Auto) Urine RBC (Auto) U Epithel Cells (Auto) Urine Bacteria (Auto) Hyaline Casts Urine Mucus Urine Opiates Screen Urine Methadone Screen Ur Barbiturates Screen Ur Phencyclidine Scrn Ur Amphetamines Screen U Benzodiazepines Scrn Urine Cocaine Screen U Marijuana (THC) Screen Drugs of Abuse Note Plasma/Serum Alcohol 0.05 01/11/17 01/11/17 01/11/17 01:27 13:03 13:03 WBC 7.5 RBC 4.61 Hgb 13.8 Hct 42.6 MCV 92 MCH 30 MCHC 33 RDW 15.7 H Plt Count 273 Lymph % (Auto) 26.2 [place] % (Auto) 9.0 H Eos % (Auto) 1.4 Baso % (Auto) 0.6 Lymph # 2.0 [place] # 0.7 Eos # 0.1 Baso # 0.0 Seg Neutrophils % 62.8 Seg Neutrophils # 4.7 Sodium Potassium Chloride Carbon Dioxide Anion Gap BUN Creatinine Estimated GFR BUN/Creatinine Ratio Glucose Calcium HCG, Qual Urine Color Yellow Urine Turbidity Slightly-cloudy Urine pH 6.0 Ur Specific [place] 1.017 Urine Protein 30 mg/dl Urine Glucose (UA) Neg Urine Ketones Neg Urine Blood Neg Urine Nitrite Neg Urine Bilirubin Neg Urine Urobilinogen 2.0 Ur Leukocyte Esterase Mod Urine WBC (Auto) 21.0 H Urine RBC (Auto) 6.0 U Epithel Cells (Auto) 9.0 Urine Bacteria (Auto) 1+ Hyaline Casts 4 Urine Mucus 3+ Urine Opiates Screen Presumptive negative Urine Methadone Screen Presumptive negative Ur Barbiturates Screen Presumptive negative Ur Phencyclidine Scrn Presumptive negative Ur Amphetamines Screen Presumptive negative U Benzodiazepines Scrn Presumptive negative Urine Cocaine Screen Presumptive positive U Marijuana (THC) Screen Presumptive negative Drugs of Abuse Note Disclamer Plasma/Serum Alcohol - Call Back decision Pt Call Back Decision: No action required
== END 2017-01-11 16:55 | disposition left against medical advice (07) ==
LOC: EEVIPCON 23:12 → ED 23:12
DX: R51 Headache (principal); M54.5 Low back pain; J45.909 Unspecified asthma, uncomplicated; F41.9 Anxiety disorder, unspecified; Z88.8 Allergy status to other drugs, medicaments and biological substances; V49.9XXA Car occupant (driver) (passenger) injured in unspecified traffic accident, initial encounter; Y93.89 Activity, other specified; Y99.9 Unspecified external cause status; Y92.410 Unspecified street and highway as the place of occurrence of the external cause; Z53.21 Procedure and treatment not carried out due to patient leaving prior to being seen by health care provider
CPT/HCPCS: 36415; 80048; 80307; 81001; 84703; 85025; G0480; 80320

== ENCOUNTER 2017-01-11 12:47 | Emergency (ER) | payer MEDICAID ==
[2017-01-11] MEDS ORDERED: NACL 0.9% 1000 ML 1,000 ML ONE (18:03)
== END 2017-01-11 12:48 | disposition left against medical advice (07) ==
LOC: ED 12:47
DX: M79.643 Pain in unspecified hand (principal); Z53.21 Procedure and treatment not carried out due to patient leaving prior to being seen by health care provider
CPT/HCPCS: J7030

== ENCOUNTER 2017-02-06 23:58 | Emergency (ER) | payer MEDICAID, OTHER ==
--- NOTE | 2017-02-07 07:52 | Emergency Department Report ---
ED Dysuria HPI - HPI Chief Complaint: Nausea/Vomiting/Diarrhea Stated Complaint: dysuria and vaginal odor Time Seen by Provider: 02/07/17 05:20 Duration: 2 Days Location of Discomfort: Urethra (dysuria) Severity: Moderate Symptoms: Dysuria: Yes, Frequency: Yes, Suprapubic Pain: No, Flank Pain: No, Fever: No, Hematuria: No, Abdominal Pain: No, Previous UTI's: Yes ED Review of Systems ROS: Stated complaint: VOMITING, BODY PAIN Other details as noted in HPI Comment: Unobtainable due to pts medical conditions Constitutional: no symptoms reported, see HPI. denies: chills, diaphoresis, fever, malaise Eyes: as per HPI. denies: eye pain ENT: as per HPI. denies: ear pain, throat pain Respiratory: no symptoms reported, see HPI. denies: cough, orthopnea Cardiovascular: as per HPI. denies: chest pain, palpitations, dyspnea on exertion, orthopnea Endocrine: no symptoms reported, see HPI. denies: excessive sweating, flushing , intolerance to cold, intolerance to heat Gastrointestinal: as per HPI. denies: abdominal pain, nausea, vomiting, diarrhea, constipation, hematemesis, melena, hematochezia Genitourinary: as per HPI, dysuria, discharge, other (known exposure to std's- many, not treated). denies: urgency, frequency, hematuria, abnormal menses, dyspareunia Musculoskeletal: as per HPI. denies: back pain Skin: as per HPI. denies: rash, lesions Neurological: as per HPI. denies: headache, weakness Psychiatric: as per HPI, other (going to court on Thursday). denies: anxiety, depression Hematological/Lymphatic: as per HPI. denies: easy bleeding, easy bruising, swollen glands ED Past Medical Hx - Past Medical History Previous Medical History?: Yes Hx Hypertension: No Hx CVA: No Hx Heart Attack/AMI: No Hx Congestive Heart Failure: No Hx Diabetes: No Hx Deep Vein Thrombosis: No Hx Pulmonary Embolism: No Hx GERD: No Hx Liver Disease: No Hx Renal Disease: No Hx Sickle Cell Disease: No Hx Arthritis: No Hx Headaches / Migraines: No Hx Seizures: No Hx Kidney Stones: No Hx Psychiatric Treatment: Yes (anxiety attack, cocaine rehab) Hx Asthma: Yes Hx COPD: No Hx Tuberculosis: No Hx Dementia: No Hx HIV: No Additional medical history: hx bronchitis. Drug seeking behaviors,. Disorganized behaviors,. frequent std - Surgical History Hx Coronary Stent: No Hx Open Heart Surgery: No Hx Pacemaker: No Hx Internal Defibrillator: No Hx Cholecystectomy: No Hx Appendectomy: No Hx Breast Surgery: No Additional Surgical History: denies - Family History Family history: no significant - Social History Smoking Status: Current Every Day Smoker Substance Use Type: Alcohol, Cocaine, Marijuana - Medications Home Medications: Home Medications Medication Instructions Recorded Confirmed Last Taken Type HYDROcodone/APAP 5-325 [[place] 2 each PO Q6H PRN #30 tablet 11/15/16 Unknown Rx 5-325 mg TAB] Sulfamethoxazole/Trimethoprim 1 each PO BID #14 tablet 01/07/17 Unknown Rx [Bactrim DS TAB] Doxycycline [Vibramycin CAP] 100 mg PO Q12HR #28 capsule 01/08/17 Unknown Rx Sulfamethoxazole/Trimethoprim 1 each PO BID #6 tablet 02/07/17 Unknown Rx [Bactrim DS TAB] Dysuria Exam - Exam General: Vital signs noted. No distress. Alert and acting appropriately. Exam: Yes Moist Mucous Membranes, No CVA Tenderness, No Abdominal Tenderness, No Rigidity or Guarding Exam: a/o. no focal neuro def. ambulatory. no fever. no abd pain on exam. no tenderness. no cva tenderness. preg neg. n heart sounds. lungs cta. voiding wo diff. taking po. pt constricted and not forthcoming. I suspect she has no home to go to. she states she will be going to court on thursday bf. states she does not inject drugs bc she is afraid of needles. ED Course Vital Signs 02/07/17 02/07/17 01:33 04:36 Temperature 98.6 F 97.8 F Pulse Rate 88 80 Respiratory 18 18 Rate Blood Pressure 130/80 Blood Pressure 123/88 [Right] O2 Sat by Pulse 98 100 Oximetry - Reevaluation(s) Reevaluation #1: 02/07/17 has been here 7 hours on arrival of provider to er sleeping in room review of med record completed - see hx Reevaluation #2: after getting urine from pt she refused im injection discussed her urine and her long hx sti she did take shot of rocephin discussed safe sex tx empiracally referral to obgyn ED Medical Decision Making - Medical Decision Making non toxic no fever no s/s sepsis preg neg - Differential Diagnosis sti/uti Critical care attestation.: If time is entered above; I have spent that time in minutes in the direct care of this critically ill patient, excluding procedure time. ED Disposition Clinical Impression: UTI (urinary tract infection), STD (female), Substance abuse Disposition: TO HOME OR SELFCARE Is pt being admited?: No Does the pt Need Aspirin: No Condition: Stable Instructions: Sexually Transmitted Diseases (ED) Additional Instructions: safe sex follow up with your obgyn Prescriptions: Sulfamethoxazole/Trimethoprim [Bactrim DS TAB] 1 each PO BID #6 tablet Referrals: [facility] [Primary Care Provider] - 3-5 Days ARMEN CAMPOVERDE MD [Staff Physician] - 3-5 Days Time of Disposition: 09:10
[2017-02-07 08:18] LABS: Urine Drugs of Abuse Note Disclamer
[2017-02-07 08:27] LABS: Bilirubin,Urine NEG (Negative); Blood,Urine NEG (Negative); Ketones,Urine 20 mg/dL (Negative); Leukocyte Esterase,Urine LG (Negative); Mucus,Urine 3+ /HPF; Nitrite,Urine NEG (Negative)
[2017-02-07] MEDS ORDERED: XYLOCAINE 1% MPF 5 mL INFILTRATI ONE (08:31)
[2017-02-07] MEDS ORDERED: ROCEPHIN IM ONE (08:31)
[2017-02-07] MEDS ORDERED: ZITHROMAX PO ONE (08:32)
[2017-02-07] MEDS ORDERED: FLAGYL PO ONE (09:11)
[2017-02-07 10:14] VITALS: BP 126/84
== END 2017-02-07 10:17 | disposition home or self-care (01) ==
LOC: ED 23:58
DX: N39.0 Urinary tract infection, site not specified (principal); A64 Unspecified sexually transmitted disease; F19.10 Other psychoactive substance abuse, uncomplicated; F41.9 Anxiety disorder, unspecified; F14.10 Cocaine abuse, uncomplicated; F12.10 Cannabis abuse, uncomplicated; J45.909 Unspecified asthma, uncomplicated; Z88.8 Allergy status to other drugs, medicaments and biological substances
CPT/HCPCS: 80307; 81001; 81025; 96372; 99283; J0696

== ENCOUNTER 2017-02-07 13:11 | Emergency (ER) | payer OTHER ==
[2017-02-07 14:10] VITALS: BP 117/81
--- NOTE | 2017-02-07 16:23 | Emergency Department Report ---
ED Lower Extremity HPI - General Chief Complaint: Extremity Injury, Lower Stated Complaint: HURT LEFT FOOT Time Seen by Provider: 02/07/17 16:21 Source: patient Mode of arrival: Ambulatory Limitations: No Limitations - History of Present Illness Complaint: ankle injury -: Sudden Injury: Ankle: Left Improves With: nothing Worsens With: weight bearing, movement Context: fall (only home med is rx today for sulfa) - Related Data Previous Rx's Medication Instructions Recorded Last Taken Type HYDROcodone/APAP 5-325 [[place] 2 each PO Q6H PRN #30 tablet 11/15/16 Unknown Rx 5-325 mg TAB] Sulfamethoxazole/Trimethoprim 1 each PO BID #14 tablet 01/07/17 Unknown Rx [Bactrim DS TAB] Doxycycline [Vibramycin CAP] 100 mg PO Q12HR #28 capsule 01/08/17 Unknown Rx Sulfamethoxazole/Trimethoprim 1 each PO BID #6 tablet 02/07/17 Unknown Rx [Bactrim DS TAB] Allergies Allergy/AdvReac Type Severity Reaction Status Date / Time hydrocortisone AdvReac Unknown Itching Verified 11/13/16 16:54 ED Review of Systems ROS: Stated complaint: HURT LEFT FOOT Other details as noted in HPI Comment: All other systems reviewed and negative Constitutional: no symptoms reported, see HPI Eyes: as per HPI ENT: as per HPI Respiratory: no symptoms reported Cardiovascular: as per HPI Endocrine: no symptoms reported Gastrointestinal: as per HPI Genitourinary: as per HPI Musculoskeletal: as per HPI, other (ankle pain) Skin: as per HPI Neurological: as per HPI Psychiatric: as per HPI Hematological/Lymphatic: as per HPI ED Past Medical Hx - Past Medical History Previous Medical History?: Yes Hx Hypertension: No Hx CVA: No Hx Heart Attack/AMI: No Hx Congestive Heart Failure: No Hx Diabetes: No Hx Deep Vein Thrombosis: No Hx Pulmonary Embolism: No Hx GERD: No Hx Liver Disease: No Hx Renal Disease: No Hx Sickle Cell Disease: No Hx Arthritis: No Hx Headaches / Migraines: No Hx Seizures: No Hx Kidney Stones: No Hx Psychiatric Treatment: Yes (anxiety attack, cocaine rehab) Hx Asthma: Yes Hx COPD: No Hx Tuberculosis: No Hx Dementia: No Hx HIV: No Additional medical history: hx bronchitis. Drug seeking behaviors,. Disorganized behaviors,. frequent std - Surgical History Hx Coronary Stent: No Hx Open Heart Surgery: No Hx Pacemaker: No Hx Internal Defibrillator: No Hx Cholecystectomy: No Hx Appendectomy: No Hx Breast Surgery: No Additional Surgical History: denies - Social History Smoking Status: Current Every Day Smoker Substance Use Type: Alcohol, Cocaine, Marijuana - Medications Home Medications: Home Medications Medication Instructions Recorded Confirmed Last Taken Type HYDROcodone/APAP 5-325 [Ava 2 each PO Q6H PRN #30 tablet 11/15/16 Unknown Rx 5-325 mg TAB] Sulfamethoxazole/Trimethoprim 1 each PO BID #14 tablet 01/07/17 Unknown Rx [Bactrim DS TAB] Doxycycline [Vibramycin CAP] 100 mg PO Q12HR #28 capsule 01/08/17 Unknown Rx Sulfamethoxazole/Trimethoprim 1 each PO BID #6 tablet 02/07/17 Unknown Rx [Bactrim DS TAB] ED Physical Exam - General Limitations: No Limitations General appearance: alert - Head Head exam: Present: atraumatic - Eye Eye exam: Present: normal appearance - ENT ENT exam: Present: normal exam - Neck Neck exam: Present: normal inspection - Respiratory Respiratory exam: Present: normal lung sounds bilaterally - Cardiovascular Cardiovascular Exam: Present: regular rate - GI/Abdominal GI/Abdominal exam: Present: soft - Rectal Rectal exam: Present: deferred - Extremities Exam Extremities exam: Present: normal inspection, full ROM, normal capillary refill. Absent: tenderness, pedal edema, joint swelling, calf tenderness - Back Exam Back exam: Present: normal inspection - Neurological Exam Neurological exam: Present: alert, oriented X3 - Psychiatric Psychiatric exam: Present: anxious - Skin Skin exam: Present: warm, dry, intact, normal color. Absent: rash, cyanosis ED Course Vital Signs 02/07/17 14:03 Temperature 97.8 F Pulse Rate 92 H Blood Pressure 117/81 O2 Sat by Pulse 97 Oximetry - Reevaluation(s) Reevaluation #1: 02/07/17 17:01 left er earlier and went to get rx filled she then came back across street and said she hurt her ankle there is no swelling she is liming dramatically no point tenderness good pulses rapid cap refill dry foot she is wanting a blue shoe like we gave her before. she has a hightop purple shoe at bedside that I told her would give her more support pt is inappropriately going in and out of patients rooms told not to do so bc of confidentiality uds this am pos cocaine dc home w pcp follow up ED Lower Extremity MDM - Radiology Data Radiology results: image reviewed Critical care attestation.: If time is entered above; I have spent that time in minutes in the direct care of this critically ill patient, excluding procedure time. ED Disposition Clinical Impression: Ankle pain, Cocaine abuse complicating in third trimester Disposition: DC-01 TO HOME OR SELFCARE Is pt being admited?: No Does the pt Need Aspirin: No Condition: Stable Instructions: Ankle Exercises (GEN) Additional Instructions: call your family for a ride home no drugs take antibiotics given this AM ice to foot motrin or tylenol for pain lotion will help your dry skin Referrals: PRIMARY CARE, [Primary Care Provider] - 3-5 Days Time of Disposition: 17:00
--- NOTE | 2017-02-07 17:08 | XRay Report ---
FINAL REPORT EXAM: XR ANKLE 3+V LT HISTORY: ANKLE PAIN TECHNIQUE: Three views left ankle PRIORS: None. FINDINGS: No fracture is identified. No dislocation seen. Ankle mortise is intact no evidence of joint space widening. No erosive or degenerative changes are identified. No evidence of joint effusion. IMPRESSION: Negative ankle series
== END 2017-02-07 17:11 | disposition home or self-care (01) ==
LOC: ED 13:11
DX: O26.893 Other specified pregnancy related conditions, third trimester (principal); M25.572 Pain in left ankle and joints of left foot; F14.10 Cocaine abuse, uncomplicated; Z88.8 Allergy status to other drugs, medicaments and biological substances; F41.9 Anxiety disorder, unspecified; F17.200 Nicotine dependence, unspecified, uncomplicated; X58.XXXA Exposure to other specified factors, initial encounter; Y93.89 Activity, other specified; Y99.8 Other external cause status; Y92.89 Other specified places as the place of occurrence of the external cause
CPT/HCPCS: 99283

== ENCOUNTER 2017-02-07 13:41 | Emergency (ER) | payer SELFPAY | END 2017-02-07 13:42 | disposition left against medical advice (07) | LOC: ED 13:41 | DX: M25.572 Pain in left ankle and joints of left foot (principal); Z53.21 Procedure and treatment not carried out due to patient leaving prior to being seen by health care provider ==

== ENCOUNTER 2017-02-17 20:49 | Emergency (ER) | payer SELFPAY ==
[2017-02-17 21:14] VITALS: BP 116/87
[2017-02-17 22:09] LABS: Basophils % (Auto) 0.6 % (0.0-1.8); Eosinophils % (Auto) 1.8 % (0.0-4.3); Hematocrit 44.7 % (30.3-42.9); Hemoglobin 14.5 gm/dl (10.1-14.3); Mean Corpuscular HGB Conc 32 % (30-34); Mean Corpuscular Hemoglobin 31 pg (28-32); Mean Corpuscular Volume 94 fl (79-97); Platelet Count 295 K/mm3 (140-440); Red Blood Count 4.75 M/mm3 (3.65-5.03); Red Cell Distribution Width 15.4 % (13.2-15.2); White Blood Count 11.6 K/mm3 (4.5-11.0)
[2017-02-17 22:18] LABS: Anion Gap 21 mmol/L; Blood Urea Nitrogen 18 mg/dL (7-17); Calcium 9.7 mg/dL (8.4-10.2); Carbon Dioxide 24 mmol/L (22-30); Chloride 101.5 mmol/L (98-107); Glucose 76 mg/dL (65-100); Potassium 4.7 mmol/L (3.6-5.0); Sodium 142 mmol/L (137-145)
[2017-02-17 22:28] LABS: Urine Drugs of Abuse Note Disclamer
[2017-02-17 22:56] LABS: Bilirubin,Urine NEG (Negative); Blood,Urine LG (Negative); Ketones,Urine NEG (Negative); Leukocyte Esterase,Urine NEG (Negative); Mucus,Urine 2+ /HPF; Nitrite,Urine NEG (Negative); Urobilinogen,Urine < 2.0 mg/dL (<2.0)
[2017-02-17 22:58] LABS: RBC,Urine > 182.0 /HPF (0.0-6.0)
== END 2017-02-18 11:18 | disposition left against medical advice (07) ==
LOC: ED 20:49
DX: M54.9 Dorsalgia, unspecified (principal); M25.569 Pain in unspecified knee; Z53.21 Procedure and treatment not carried out due to patient leaving prior to being seen by health care provider
CPT/HCPCS: 36415; 80048; 80307; 81001; 81025; 85025; G0480; 80320

== ENCOUNTER 2017-02-20 21:51 | Emergency (ER) | payer SELFPAY | END 2017-02-20 22:30 | disposition left against medical advice (07) | LOC: ED 21:51 | DX: N39.0 Urinary tract infection, site not specified (principal); Z53.21 Procedure and treatment not carried out due to patient leaving prior to being seen by health care provider ==

== ENCOUNTER 2017-03-02 00:01 | Emergency (ER) | payer SELFPAY ==
[2017-03-02] MEDS ORDERED: GEODON IM PRN (00:25)
[2017-03-02] MEDS ORDERED: GEODON IM ONE (00:30)
--- NOTE | 2017-03-02 00:34 | Emergency Department Report ---
ED Psych HPI - General Stated Complaint: MH EVAL Time Seen by Provider: 03/02/17 00:29 Limitations: Altered Mental Status - History of Present Illness Initial Comments: Patient brought by police to the ER found to have an abnormal behavior in the street and very agitated. Associated Psychiatric Symptoms: racing thoughts, delusions Treatments Prior to Arrival: placed on mental he, physical restraints - Related Data Previous Rx's Medication Instructions Recorded Last Taken Type HYDROcodone/APAP 5-325 [[place] 2 each PO Q6H PRN #30 tablet 11/15/16 Unknown Rx 5-325 mg TAB] Sulfamethoxazole/Trimethoprim 1 each PO BID #14 tablet 01/07/17 Unknown Rx [Bactrim DS TAB] Doxycycline [Vibramycin CAP] 100 mg PO Q12HR #28 capsule 01/08/17 Unknown Rx Sulfamethoxazole/Trimethoprim 1 each PO BID #6 tablet 02/07/17 Unknown Rx [Bactrim DS TAB] Allergies Allergy/AdvReac Type Severity Reaction Status Date / Time hydrocortisone AdvReac Unknown Itching Verified 11/13/16 16:54 ED Review of Systems ROS: Stated complaint: MH EVAL Other details as noted in HPI Comment: All other systems reviewed and negative Constitutional: denies: chills, fever Respiratory: denies: cough, shortness of breath, SOB with exertion Cardiovascular: denies: chest pain, palpitations Gastrointestinal: denies: abdominal pain, nausea Psychiatric: auditory hallucinations, visual hallucinations, other (flights of ideas and pressured speech) ED Past Medical Hx - Past Medical History Hx Hypertension: No Hx CVA: No Hx Heart Attack/AMI: No Hx Congestive Heart Failure: No Hx Diabetes: No Hx Deep Vein Thrombosis: No Hx Pulmonary Embolism: No Hx GERD: No Hx Liver Disease: No Hx Renal Disease: No Hx Sickle Cell Disease: No Hx Arthritis: No Hx Headaches / Migraines: No Hx Seizures: No Hx Kidney Stones: No Hx Psychiatric Treatment: Yes (anxiety attack, cocaine rehab) Hx Asthma: Yes Hx COPD: No Hx Tuberculosis: No Hx Dementia: No Hx HIV: No Additional medical history: hx bronchitis. Drug seeking behaviors,. Disorganized behaviors,. frequent std - Surgical History Hx Coronary Stent: No Hx Open Heart Surgery: No Hx Pacemaker: No Hx Internal Defibrillator: No Hx Cholecystectomy: No Hx Appendectomy: No Hx Breast Surgery: No Additional Surgical History: denies - Social History Smoking Status: Current Every Day Smoker Substance Use Type: Alcohol, Cocaine, Marijuana, Methamphetamines - Medications Home Medications: Home Medications Medication Instructions Recorded Confirmed Last Taken Type HYDROcodone/APAP 5-325 [[place] 2 each PO Q6H PRN #30 tablet 11/15/16 03/02/17 Unknown Rx 5-325 mg TAB] Sulfamethoxazole/Trimethoprim 1 each PO BID #14 tablet 01/07/17 03/02/17 Unknown Rx [Bactrim DS TAB] Doxycycline [Vibramycin CAP] 100 mg PO Q12HR #28 capsule 01/08/17 03/02/17 Unknown Rx Sulfamethoxazole/Trimethoprim 1 each PO BID #6 tablet 02/07/17 03/02/17 Unknown Rx [Bactrim DS TAB] ED Physical Exam - General Limitations: Altered Mental Status General appearance: alert - Head Head exam: Present: atraumatic, normocephalic - Eye Eye exam: Present: normal appearance, PERRL, EOMI Pupils: Present: normal accommodation - ENT ENT exam: Present: normal exam, normal orophraynx - Neck Neck exam: Present: normal inspection. Absent: tenderness - Respiratory Respiratory exam: Present: normal lung sounds bilaterally. Absent: wheezes, rales, rhonchi - Cardiovascular Cardiovascular Exam: Present: regular rate, normal rhythm, normal heart sounds - GI/Abdominal GI/Abdominal exam: Present: soft. Absent: distended, tenderness, guarding, rebound, rigid, mass, bruit - Neurological Exam Neurological exam: Present: alert, oriented X3, CN II-XII intact, normal gait. Absent: motor sensory deficit - Psychiatric Psychiatric exam: Present: agitated, manic ED Course Vital Signs 03/02/17 00:34 Temperature 98.6 F Pulse Rate 98 H Respiratory 18 Rate Blood Pressure 124/76 [Left] O2 Sat by Pulse 100 Oximetry ED Medical Decision Making - Lab Data Result diagrams: 03/02/17 00:47 03/02/17 00:47 Critical care attestation.: If time is entered above; I have spent that time in minutes in the direct care of this critically ill patient, excluding procedure time. ED Disposition Clinical Impression: Acute psychosis Disposition: DC/TX-65 PSY HOSP/PSY UNIT Is pt being admited?: No Does the pt Need Aspirin: No Condition: Stable
[2017-03-02 00:49] LABS: Urine Drugs of Abuse Note Disclamer
[2017-03-02 01:12] LABS: Bilirubin,Urine NEG (Negative); Blood,Urine NEG (Negative); Ketones,Urine NEG (Negative); Leukocyte Esterase,Urine NEG (Negative); Mucus,Urine FEW /HPF; Nitrite,Urine NEG (Negative); Protein,Urine <15 mg/dL mg/dL (Negative); Urobilinogen,Urine < 2.0 mg/dL (<2.0)
[2017-03-02 01:20] LABS: Hematocrit 46.4 % (30.3-42.9); Mean Corpuscular HGB Conc 32 % (30-34); Mean Corpuscular Hemoglobin 31 pg (28-32); Mean Corpuscular Volume 95 fl (79-97); Platelet Count 406 K/mm3 (140-440); Red Blood Count 4.88 M/mm3 (3.65-5.03); Red Cell Distribution Width 15.3 % (13.2-15.2); White Blood Count 13.8 K/mm3 (4.5-11.0)
[2017-03-02 01:37] LABS: Anion Gap 27 mmol/L; Blood Urea Nitrogen 7 mg/dL (7-17); Calcium 9.6 mg/dL (8.4-10.2); Carbon Dioxide 20 mmol/L (22-30); Chloride 99.2 mmol/L (98-107); Glucose 97 mg/dL (65-100); Potassium 3.5 mmol/L (3.6-5.0); Sodium 143 mmol/L (137-145)
[2017-03-02 06:20] LABS: Basophils % (Manual) 0 % (0.0-1.8); Blastocytes % (Manual) 0 %
[2017-03-02 06:21] LABS: Anisocytosis 1+; Diff Status Complete; Eosinophils % (Manual) 0 % (0.0-4.3); Hypersegmented Neutrophils Few; Toxic Vacuolation Rare
[2017-03-02] MEDS ORDERED: ATIVAN IV PRN ×2 (13:07)
[2017-03-02] MEDS ORDERED: LIBRIUM PO PRN (13:07)
--- NOTE | 2017-03-02 13:07 | Consultation ---
History of Present Illness - Reason for Consult Consult date: 03/02/17 Reason for consult: Mental Health Evaluation Requesting physician: LEYLA SOTO - Chief Complaint Chief complaint: "Patient ETOH" - History of Present Psychiatric Illness 26 y.o. AA female brought in by police because of bizarre behavior. Today patient is not responding to questions asked of her. Her alcohol serum 0.26 and positive for cocaine. No gestures of SI/HI's. Medications and Allergies Allergies Allergy/AdvReac Type Severity Reaction Status Date / Time hydrocortisone AdvReac Unknown Itching Verified 11/13/16 16:54 Home Medications Medication Instructions Recorded Confirmed Last Taken Type HYDROcodone/APAP 5-325 [[place] 2 each PO Q6H PRN #30 tablet 11/15/16 03/02/17 Unknown Rx 5-325 mg TAB] Sulfamethoxazole/Trimethoprim 1 each PO BID #14 tablet 01/07/17 03/02/17 Unknown Rx [Bactrim DS TAB] Doxycycline [Vibramycin CAP] 100 mg PO Q12HR #28 capsule 01/08/17 03/02/17 Unknown Rx Sulfamethoxazole/Trimethoprim 1 each PO BID #6 tablet 02/07/17 03/02/17 Unknown Rx [Bactrim DS TAB] Past psychiatric history - Past Medical History Past Medical History: other (Unable to obtain) Past Surgical History: Other (Unable to obtain) - past Psychiatric treatment and history psychiatric treatment history: Unable to obtain psy or fam psy hx - Social History Social history: other (Unable to obtain) Mental Status Exam - Vital signs Last Vital Signs Temp 98.4 F 03/02/17 11:57 Pulse 70 03/02/17 11:57 Resp 20 03/02/17 11:57 BP 106/62 03/02/17 11:57 Pulse Ox 96 03/02/17 11:57 - Exam Narrative exam: Unable to complete MSE because of patient's medical condition. Results Result Diagrams: 03/02/17 00:47 03/02/17 00:47 Abnormal lab results 03/02/17 03/02/17 03/02/17 Range/Units 00:47 00:47 00:47 WBC 13.8 H (4.5-11.0) K/mm3 Hgb 15.0 H (10.1-14.3) gm/dl Hct 46.4 H (30.3-42.9) % RDW 15.3 H (13.2-15.2) % Monocytes % (Manual) 19.0 H (0.0-7.3) % Seg Neutrophils # Man 8.1 H (1.8-7.7) K/mm3 Monocytes # (Manual) 2.6 H (0.0-0.8) K/mm3 Potassium 3.5 L (3.6-5.0) mmol/L Carbon Dioxide 20 L (22-30) mmol/L Plasma/Serum Alcohol 0.26 H (0-0.07) gm% All other labs normal. Assessment and Plan Assessment and plan: Impression: Today patient is not responding to questions asked of her. Her alcohol serum 0.26 and positive for cocaine. No gestures of SI/HI's. Recommendation/Plan: Continue 1013. Gather more collateral in 24 hours to determine proper treatment and dispo. Use benzos only for indications per [facility] Protocol. Recommend delirium precautions below: 1. Frequently reorient patient and involve him/her in their care (simple explanations of procedures, tests, medications). 2. Lights on and shades open during daytime hours. 3. Try to avoid unnecessary interruptions to sleep during nighttime hours. 4. Obtain glasses, hearing aids from home if patient uses these at baseline. 5. Avoid medications that may exacerbate delirium (especially narcotics, benzodiazepines, barbiturates, ambien, lunesta, and medications with excessive anticholinergic properties). 6. Use Haldol 2 mg IM Q6hrs for agitation.
[2017-03-02] MEDS ORDERED: HALDOL IM PRN (13:14)
--- NOTE | 2017-03-03 12:48 | Progress Note ---
Subjective - Reason for Consult Consult date: 03/03/17 Reason for consult: Psychiatry Follow-up - Chief Complaint Chief complaint: "I want to go home" 26 y.o. AA female brought in by police because of bizarre behavior. Today patient is calm and cooperative during the assessment. She stated being "intoxicated and high on cocaine" when she arrived to the ER. She stated that she was out having fun and decided to do cocaine and consume alcohol. She stated that she use cocaine "sometimes" and usually don't do a lot of heavy drinking (etoh). She stated that her friend brought her to [facility] (not by the police per the ER note). She stated that she would like help to get off cocaine. She denies SI/HI's, AVH's, and depression. She denies a mental hx dx. She denies feelings sad or withdrawn prior to using substance or consuming alcohol. She denies a poor and sleep disturbance. Per the staff, no behavioral issues overnight. 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 Substance Use DO (cocaine). Today patient is calm and cooperative during the assessment. Her alcohol serum 0.26 on admission and positive for cocaine. No acute withdrawals noted (etoh). Recommendation/Plan: Evaluate 1013 in 24 hours to determine proper dispo. Discussed the importance to abstain from using recreational drugs and excessive alcohol consumption.
--- NOTE | 2017-03-05 10:11 | Progress Note ---
Subjective - Reason for Consult Consult date: 03/05/17 Reason for consult: Psychiatry Follow-up - Chief Complaint Chief complaint: "Thank you" 26 y.o. AA female brought in by police because of bizarre behavior. Today patient is calm and cooperative during the assessment. Patient thanked me for the information that was given to her by the psychiatry team (rehab services). She stated that she spoke with her kids yesterday that "inspired" her to want to be a better parent. She is adamant about attending rehab services and NA. She denies SI/HI's, AVH's, and depression. Patient never received Ativan per [facility] protocol. 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 Substance Use DO (cocaine). Today patient is calm and cooperative during the assessment. Her alcohol serum 0.26 on admission and positive for cocaine. No acute withdrawals noted (etoh). Recommendation/Plan: Rescind 1013. Patient was given outpatient rehab services for [facility]. Discussed the importance to abstain from using recreational drugs and excessive alcohol consumption.
[2017-03-05 13:28] VITALS: BP 98/62
== END 2017-03-05 17:04 ==
LOC: EEVIPCON 00:01 → ED 00:01
DX: F23 Brief psychotic disorder (principal); J45.909 Unspecified asthma, uncomplicated; F17.200 Nicotine dependence, unspecified, uncomplicated; F14.10 Cocaine abuse, uncomplicated; F12.10 Cannabis abuse, uncomplicated; F19.10 Other psychoactive substance abuse, uncomplicated; Z88.8 Allergy status to other drugs, medicaments and biological substances
CPT/HCPCS: 36415; 80048; 80307; 81001; 81025; 85007; 85025; 96372; 99284; G0480; J3486; 80320

== ENCOUNTER 2017-03-07 06:28 | Emergency (ER) | payer SELFPAY | END 2017-03-07 16:30 | disposition left against medical advice (07) | LOC: ED 06:28 | DX: R10.9 Unspecified abdominal pain (principal); Z53.21 Procedure and treatment not carried out due to patient leaving prior to being seen by health care provider ==

== ENCOUNTER 2017-03-14 06:05 | Emergency (ER) | payer SELFPAY ==
[2017-03-14 06:17] VITALS: BP 109/77
[2017-03-14 06:40] LABS: Basophils % (Auto) 0.5 % (0.0-1.8); Eosinophils % (Auto) 0.4 % (0.0-4.3); Hematocrit 42.6 % (30.3-42.9); Hemoglobin 14.5 gm/dl (10.1-14.3); Mean Corpuscular HGB Conc 34 % (30-34); Mean Corpuscular Hemoglobin 32 pg (28-32); Mean Corpuscular Volume 93 fl (79-97); Platelet Count 324 K/mm3 (140-440); Red Blood Count 4.57 M/mm3 (3.65-5.03); Red Cell Distribution Width 15.1 % (13.2-15.2); White Blood Count 10.1 K/mm3 (4.5-11.0)
[2017-03-14 06:59] LABS: Alanine Aminotransferase 16 units/L (7-56); Albumin 4.5 g/dL (3.9-5); Albumin/Globulin Ratio 1.4 %; Alkaline Phosphatase 63 units/L (35-129); Anion Gap 22 mmol/L; BUN/Creatinine Ratio 12.85; Blood Urea Nitrogen 9 mg/dL (7-17); Calcium 9.3 mg/dL (8.4-10.2); Carbon Dioxide 23 mmol/L (22-30); Glucose 69 mg/dL (65-100); Lipase 17 units/L (13-60); Potassium 3.6 mmol/L (3.6-5.0); Sodium 142 mmol/L (137-145); Total Protein 7.7 g/dL (6.3-8.2)
== END 2017-03-14 07:00 | disposition left against medical advice (07) ==
LOC: ED 06:05
DX: R11.2 Nausea with vomiting, unspecified (principal); R42 Dizziness and giddiness; Z53.21 Procedure and treatment not carried out due to patient leaving prior to being seen by health care provider
CPT/HCPCS: 36415; 80053; 83690; 84703; 85025

== ENCOUNTER 2017-03-28 07:53 | Emergency (ER) | payer SELFPAY ==
[2017-03-28 10:09] LABS: Basophils % (Auto) 0.4 % (0.0-1.8); Eosinophils % (Auto) 1.4 % (0.0-4.3); Hematocrit 40.2 % (30.3-42.9); Hemoglobin 13.9 gm/dl (10.1-14.3); Mean Corpuscular HGB Conc 35 % (30-34); Mean Corpuscular Hemoglobin 32 pg (28-32); Mean Corpuscular Volume 93 fl (79-97); Platelet Count 281 K/mm3 (140-440); Red Blood Count 4.33 M/mm3 (3.65-5.03); White Blood Count 8.6 K/mm3 (4.5-11.0)
--- NOTE | 2017-03-28 13:32 | Emergency Department Report ---
ED Female HPI - General Chief complaint: Vaginal Bleeding Stated complaint: HEAVY VAG BLEEDING Time Seen by Provider: 03/28/17 11:39 Source: patient Mode of arrival: Ambulatory Limitations: No Limitations - History of Present Illness Initial comments: 26-year-old female past medical history asthma, cocaine use, mood disorder, disorganized behavior, drug seeking behavior presents with complaint of vaginal bleeding x2 days. She states she is unsure if she is . Primarily complaining of sore throat. Patient states she is more concerned about sore throat and vaginal bleeding. States she has had sore throat for 2 days. Patient is uncooperative during clinical interview is sleeping on examination bed and telling me that she is tired and continually avoids conversation with me. I instructed the patient that she needs to tell me what her symptoms are in order for me to help her and patient reiterates that she is strictly here for sore throat and that she has had heavy vaginal bleeding 2 days and wants to know if she is . Asked patient to tell me her name her surroundings and today's date patient is awake alert and oriented 3 but irate and uncooperative. MD Complaint: vaginal bleeding Onset/Timin -: days(s) - Related Data Previous Rx's Medication Instructions Recorded Last Taken Type ALBUTEROL Inhaler [ProAir HFA 2 puff IH QID PRN #1 inhalation 03/28/17 Unknown Rx Inhaler] Acetaminophen [Acetaminophen TAB] 500 mg PO Q6HR PRN #20 tablet 03/28/17 Unknown Rx Amoxicillin/K Clav Tab [Augmentin 1 tab PO Q12HR #14 tab 03/28/17 Unknown Rx 875 mg] Benzocaine/Menthol [Cepacol Sore 1 each MM Q4H PRN #1 box 03/28/17 Unknown Rx Throat Lozenge] Allergies Allergy/AdvReac Type Severity Reaction Status Date / Time hydrocortisone AdvReac Unknown Itching Verified 03/28/17 08:18 ED Review of Systems ROS: Stated complaint: HEAVY VAG BLEEDING Other details as noted in HPI Constitutional: denies: chills, fever Eyes: denies: eye pain, eye discharge, vision change ENT: throat pain. denies: ear pain Respiratory: denies: cough, shortness of breath, wheezing Cardiovascular: denies: chest pain, palpitations Endocrine: no symptoms reported Gastrointestinal: denies: abdominal pain, nausea, diarrhea Genitourinary: abnormal menses (as per patient heavy vaginal bleeding for 2 days ). denies: urgency, dysuria, discharge Musculoskeletal: denies: back pain, joint swelling, arthralgia Skin: denies: rash, lesions Neurological: denies: headache, weakness, paresthesias Psychiatric: denies: anxiety, depression Hematological/Lymphatic: denies: easy bleeding, easy bruising ED Past Medical Hx - Past Medical History Hx Hypertension: No Hx CVA: No Hx Heart Attack/AMI: No Hx Congestive Heart Failure: No Hx Diabetes: No Hx Deep Vein Thrombosis: No Hx Pulmonary Embolism: No Hx GERD: No Hx Liver Disease: No Hx Renal Disease: No Hx Sickle Cell Disease: No Hx Arthritis: No Hx Headaches / Migraines: No Hx Seizures: No Hx Kidney Stones: No Hx Psychiatric Treatment: Yes (anxiety attack, cocaine rehab) Hx Asthma: Yes Hx COPD: No Hx Tuberculosis: No Hx Dementia: No Hx HIV: No Additional medical history: hx bronchitis. Drug seeking behaviors,. Disorganized behaviors,. frequent std - Surgical History Past Surgical History?: No Hx Coronary Stent: No Hx Open Heart Surgery: No Hx Pacemaker: No Hx Internal Defibrillator: No Hx Cholecystectomy: No Hx Appendectomy: No Hx Breast Surgery: No Additional Surgical History: denies - Social History Smoking Status: Current Every Day Smoker Substance Use Type: None - Medications Home Medications: Home Medications Medication Instructions Recorded Confirmed Last Taken Type ALBUTEROL Inhaler [ProAir HFA 2 puff IH QID PRN #1 inhalation 03/28/17 Unknown Rx Inhaler] Acetaminophen [Acetaminophen TAB] 500 mg PO Q6HR PRN #20 tablet 03/28/17 Unknown Rx Amoxicillin/K Clav Tab [Augmentin 1 tab PO Q12HR #14 tab 03/28/17 Unknown Rx 875 mg] Benzocaine/Menthol [Cepacol Sore 1 each MM Q4H PRN #1 box 03/28/17 Unknown Rx Throat Lozenge] ED Physical Exam - General Limitations: No Limitations General appearance: alert, in no apparent distress - Head Head exam: Present: atraumatic, normocephalic - Eye Eye exam: Present: normal appearance, PERRL, EOMI - Expanded ENT Exam Expanded Throat exam: Positive: tonsillar erythema (patient has some tonsillar erythema bilaterally, uvula is midline, no signs of peritonsillar abscess) - Neck Neck exam: Present: full ROM - Respiratory Respiratory exam: Present: normal lung sounds bilaterally - GI/Abdominal GI/Abdominal exam: Present: soft - Back Exam Back exam: Present: normal inspection - Neurological Exam Neurological exam: Present: alert, oriented X3, CN II-XII intact - Psychiatric Psychiatric exam: Present: agitated - Skin Skin exam: Present: dry ED Course Vital Signs 03/28/17 03/28/17 08:20 14:56 Temperature 98.2 F 98.6 F Pulse Rate 98 H 68 Respiratory 17 20 Rate Blood Pressure 134/89 Blood Pressure 120/74 [Left] O2 Sat by Pulse 99 100 Oximetry ED Medical Decision Making - Lab Data Result diagrams: 03/28/17 09:42 03/28/17 09:42 - Medical Decision Making A/P: Pharyngitis, vaginal bleeding 1- test negative, H&H stable, 2-patient uncooperative, nurse Hortencia also noted this during interaction with patient. pt refusing pelvic exam and hesitant to provide urine sample 3-after both nurse Burnett and I asked the patient multiple times to provide urine sample patient stated that she would not. I explained to patient that this is necessary for her workup as she is complaining of hematuria. Patient stated she wants to be left alone and does not wish to cooperate any further. I explained to the patient she would have to leave AGAINST MEDICAL ADVICE and patient stated that she would do so. Patient was awake alert and oriented 3 during this interaction Critical care attestation.: If time is entered above; I have spent that time in minutes in the direct care of this critically ill patient, excluding procedure time. ED Disposition Clinical Impression: Sore throat, Vaginal bleeding, Left against medical advice Menorrhagia Qualifiers: Menorrahagia type: with irregular cycle Qualified Code(s): N92.1 - Excessive and frequent menstruation with irregular cycle Disposition: -07 LEFT AGAINST MED ADVICE Is pt being admited?: No Does the pt Need Aspirin: No Condition: Stable Instructions: Pharyngitis (ED), Menorrhagia (ED) Prescriptions: Acetaminophen [Acetaminophen TAB] 500 mg PO Q6HR PRN #20 tablet PRN Reason: Pain ALBUTEROL Inhaler [ProAir HFA Inhaler] 2 puff IH QID PRN #1 inhalation PRN Reason: Shortness Of Breath Amoxicillin/K Clav Tab [Augmentin 875 mg] 1 tab PO Q12HR #14 tab Benzocaine/Menthol [Cepacol Sore Throat Lozenge] 1 each MM Q4H PRN #1 box PRN Reason: Sore Throat Referrals: [facility] [Provider Group] - 3-5 Days [facility] [place] [Outside] - 3-5 Days Forms: AMA Form
[2017-03-28] MEDS ORDERED: MOTRIN PO ONE (13:38)
[2017-03-28] MEDS ORDERED: DUONEB *Not for PRN Use IH ONE (13:39)
[2017-03-28 14:21] LABS: Anion Gap 18 mmol/L; BUN/Creatinine Ratio 14.28; Blood Urea Nitrogen 10 mg/dL (7-17); Calcium 9.4 mg/dL (8.4-10.2); Carbon Dioxide 25 mmol/L (22-30); Chloride 96.7 mmol/L (98-107); Glucose 82 mg/dL (65-100); Potassium 4.1 mmol/L (3.6-5.0); Sodium 136 mmol/L (137-145)
[2017-03-28 14:57] VITALS: BP 120/74
== END 2017-03-28 14:59 | disposition left against medical advice (07) ==
LOC: ED 07:53
DX: N92.0 Excessive and frequent menstruation with regular cycle (principal); J02.9 Acute pharyngitis, unspecified; F14.10 Cocaine abuse, uncomplicated; F17.210 Nicotine dependence, cigarettes, uncomplicated; Z88.8 Allergy status to other drugs, medicaments and biological substances
CPT/HCPCS: 36415; 80048; 84703; 85025; 99283

== ENCOUNTER 2017-04-15 22:13 | Emergency (ER) | payer OTHER ==
[2017-04-16] MEDS ORDERED: TRIPLE ANTIBIOTIC TP ONE (03:53)
[2017-04-16] MEDS ORDERED: NORCO 5/325 PO ONE (03:53)
--- NOTE | 2017-04-16 03:58 | Emergency Department Report ---
Upper Extremity - [facility] Chief Complaint: Extremity Injury, Lower Stated Complaint: HIP PAIN Time Seen by Provider: 04/16/17 03:34 ED Review of Systems ROS: Stated complaint: HIP PAIN Other details as noted in HPI ED Past Medical Hx - Past Medical History Previous Medical History?: Yes Hx Hypertension: No Hx CVA: No Hx Heart Attack/AMI: No Hx Congestive Heart Failure: No Hx Diabetes: No Hx Deep Vein Thrombosis: No Hx Pulmonary Embolism: No Hx GERD: No Hx Liver Disease: No Hx Renal Disease: No Hx Sickle Cell Disease: No Hx Arthritis: No Hx Headaches / Migraines: No Hx Seizures: No Hx Kidney Stones: No Hx Psychiatric Treatment: Yes (anxiety attack, cocaine rehab) Hx Asthma: Yes Hx COPD: No Hx Tuberculosis: No Hx Dementia: No Hx HIV: No Additional medical history: hx bronchitis. Drug seeking behaviors,. Disorganized behaviors,. frequent std - Surgical History Past Surgical History?: No Hx Coronary Stent: No Hx Open Heart Surgery: No Hx Pacemaker: No Hx Internal Defibrillator: No Hx Cholecystectomy: No Hx Appendectomy: No Hx Breast Surgery: No Additional Surgical History: denies - Social History Smoking Status: Current Every Day Smoker Substance Use Type: Alcohol, Other - Medications Home Medications: Home Medications Medication Instructions Recorded Confirmed Last Taken Type ALBUTEROL Inhaler [ProAir HFA 2 puff IH QID PRN #1 inhalation 03/28/17 Unknown Rx Inhaler] Acetaminophen [Acetaminophen TAB] 500 mg PO Q6HR PRN #20 tablet 03/28/17 Unknown Rx Amoxicillin/K Clav Tab [Augmentin 1 tab PO Q12HR #14 tab 03/28/17 Unknown Rx 875 mg] Benzocaine/Menthol [Cepacol Sore 1 each MM Q4H PRN #1 box 03/28/17 Unknown Rx Throat Lozenge] Upper Extremity Exam - Exam General: Vital signs noted. No distress. Alert and acting appropriately. ED Course Vital Signs 04/15/17 22:21 Temperature 98.1 F Pulse Rate 99 H Respiratory 20 Rate Blood Pressure 121/75 [Right] O2 Sat by Pulse 98 Oximetry Critical care attestation.: If time is entered above; I have spent that time in minutes in the direct care of this critically ill patient, excluding procedure time. ED Disposition Condition: Stable Referrals: PRIMARY CARE, [Primary Care Provider] - 3-5 Days
--- NOTE | 2017-04-16 05:11 | XRay Report ---
FINAL REPORT EXAM: XR HIP 2-3V LT HISTORY: fall with left hip pain and bruising TECHNIQUE: An AP view of the pelvis was obtained along with an additional lateral view of the left hip. FINDINGS: The left hip joint appears normal. The bony pelvic ring appears intact. The SI joints appear normal. Soft tissues appear normal. IMPRESSION: No acute injury.
--- NOTE | 2017-04-16 05:11 | XRay Report ---
FINAL REPORT EXAM: XR FOOT 3+V LT HISTORY: fall with left foot pain TECHNIQUE: Three views of the left foot were submitted. FINDINGS: There are no skeletal or soft tissue abnormalities. IMPRESSION: Normal exam.
--- NOTE | 2017-04-16 05:12 | XRay Report ---
FINAL REPORT EXAM: XR FEMUR 1V LT HISTORY: fall with left thigh pain TECHNIQUE: Two views of the left femur were obtained. FINDINGS: There are no skeletal or soft tissue abnormalities. IMPRESSION: Normal exam
--- NOTE | 2017-04-16 05:31 | Emergency Department Report ---
ED Lower Extremity HPI - General Chief Complaint: Extremity Injury, Lower Stated Complaint: HIP PAIN Time Seen by Provider: 04/16/17 03:34 Source: patient, family Mode of arrival: Ambulatory Limitations: No Limitations - History of Present Illness Initial Comments: Patient reports that she went to the store to buy some snacks and she tripped and fell over something. She says she landed on her hip and she has a bruise on her hip and her upper thigh and also having left foot pain. Patient said she walked for about half a mile and then she called the ambulance. She said pain to left hip, left upper thigh and left foot is very at a 10. She said it hurt in an painful and aching. She denies any head injury. Denies any neck pain. Denies any back pain. Patient able to ambulate. Patient is very sleepy and opens her eyes to verbal stimuli but needs to be called several times before she had supper and follows commands. Last menstrual period was 2016. Patient denies taking any medication prior to coming to the emergency room. Nothing makes pain better and nothing makes it worse. MD Complaint: hip injury, thigh injury, foot injury, fall -: During the night Injury: Hip: Left ( pain), Thigh: Left (abrasion and pain), Foot: Left (pain after fall and) Type of Injury: other (a sugar report that she tripped and fell) Place: street/outdoors Severity: mild Severity scale (0 -10): 3 Improves With: rest Worsens With: weight bearing, movement, palpation Context: fall Associated Symptoms: ambulatory. denies: snap/pop sensation, swelling, numbness , tingling, unable to bear weight, able to partially bear weight Treatments Prior to Arrival: other (no [id number] medication per patient) - Related Data Previous Rx's Medication Instructions Recorded Last Taken Type ALBUTEROL Inhaler [ProAir HFA 2 puff IH QID PRN #1 inhalation 03/28/17 Unknown Rx Inhaler] Acetaminophen [Acetaminophen TAB] 500 mg PO Q6HR PRN #20 tablet 03/28/17 Unknown Rx Amoxicillin/K Clav Tab [Augmentin 1 tab PO Q12HR #14 tab 03/28/17 Unknown Rx 875 mg] Benzocaine/Menthol [Cepacol Sore 1 each MM Q4H PRN #1 box 03/28/17 Unknown Rx Throat Lozenge] Cephalexin [Keflex] 500 mg PO Q8H #21 capsule 04/16/17 Unknown Rx Ibuprofen [Motrin] 600 mg PO Q8H PRN #15 tablet 04/16/17 Unknown Rx Allergies Allergy/AdvReac Type Severity Reaction Status Date / Time hydrocortisone AdvReac Unknown Itching Verified 03/28/17 08:18 ED Review of Systems ROS: Stated complaint: HIP PAIN Other details as noted in HPI Comment: All other systems reviewed and negative Constitutional: no symptoms reported Respiratory: no symptoms reported Cardiovascular: denies: chest pain, palpitations, dyspnea on exertion, edema, syncope Gastrointestinal: denies: abdominal pain, nausea, vomiting Genitourinary: denies: urgency, dysuria, frequency, hematuria, discharge Musculoskeletal: arthralgia. denies: back pain, joint swelling Skin: rash Neurological: denies: headache, numbness, paresthesias, confusion, abnormal gait , vertigo ED Past Medical Hx - Past Medical History Previous Medical History?: Yes Hx Hypertension: No Hx CVA: No Hx Heart Attack/AMI: No Hx Congestive Heart Failure: No Hx Diabetes: No Hx Deep Vein Thrombosis: No Hx Pulmonary Embolism: No Hx GERD: No Hx Liver Disease: No Hx Renal Disease: No Hx Sickle Cell Disease: No Hx Arthritis: No Hx Headaches / Migraines: No Hx Seizures: No Hx Kidney Stones: No Hx Psychiatric Treatment: Yes (anxiety attack, cocaine rehab) Hx Asthma: Yes Hx COPD: No Hx Tuberculosis: No Hx Dementia: No Hx HIV: No Additional medical history: hx bronchitis. Drug seeking behaviors,. Disorganized behaviors,. frequent std - Surgical History Past Surgical History?: No Hx Coronary Stent: No Hx Open Heart Surgery: No Hx Pacemaker: No Hx Internal Defibrillator: No Hx Cholecystectomy: No Hx Appendectomy: No Hx Breast Surgery: No Additional Surgical History: denies - Family History Family history: no significant - Social History Smoking Status: Current Every Day Smoker Substance Use Type: Alcohol, Other - Medications Home Medications: Home Medications Medication Instructions Recorded Confirmed Last Taken Type ALBUTEROL Inhaler [ProAir HFA 2 puff IH QID PRN #1 inhalation 03/28/17 Unknown Rx Inhaler] Acetaminophen [Acetaminophen TAB] 500 mg PO Q6HR PRN #20 tablet 03/28/17 Unknown Rx Amoxicillin/K Clav Tab [Augmentin 1 tab PO Q12HR #14 tab 03/28/17 Unknown Rx 875 mg] Benzocaine/Menthol [Cepacol Sore 1 each MM Q4H PRN #1 box 03/28/17 Unknown Rx Throat Lozenge] Cephalexin [Keflex] 500 mg PO Q8H #21 capsule 04/16/17 Unknown Rx Ibuprofen [Motrin] 600 mg PO Q8H PRN #15 tablet 04/16/17 Unknown Rx ED Physical Exam - General Limitations: No Limitations General appearance: alert, in no apparent distress - Head Head exam: Present: atraumatic, normocephalic, normal inspection - Expanded Head Exam Expanded Head exam: Absent: laceration, abrasion, contusion, hematoma, racoon eyes, torrez's sign, general tenderness, tenderness of temporal artery, CSF rhinorrhea , CSF otorrhea - Eye Eye exam: Present: normal appearance, PERRL, EOMI. Absent: nystagmus, periorbital swelling, periorbital tenderness Pupils: Present: normal accommodation - ENT ENT exam: Present: normal exam, normal orophraynx, mucous membranes moist - Neck Neck exam: Present: normal inspection, full ROM, other (no C-spine tenderness). Absent: tenderness, meningismus, lymphadenopathy - Respiratory Respiratory exam: Present: normal lung sounds bilaterally. Absent: respiratory distress, wheezes, rales, rhonchi, stridor, chest wall tenderness, accessory muscle use, decreased breath sounds, prolonged expiratory - Cardiovascular Cardiovascular Exam: Present: regular rate, normal rhythm, normal heart sounds. Absent: systolic murmur, diastolic murmur - GI/Abdominal GI/Abdominal exam: Present: soft, normal bowel sounds. Absent: distended, tenderness, guarding, rebound, rigid, organomegaly, mass, bruit, pulsatile mass , hernia - Extremities Exam Extremities exam: Present: full ROM, tenderness (left outer thigh proximally and left hip.), normal capillary refill, other (+2 pulses in all extremities. No clubbing, cyanosis or edema noted. No neurovascular compromise. Patient with abrasion to left outer thigh). Absent: normal inspection, pedal edema, joint swelling, calf tenderness - Expanded Lower Extremity Exam Left Hip exam: Present: normal inspection, full ROM (she has full range of motion to her left hip but she said it hurts with abduction and abduction.), tenderness ( left hip), pelvic stability. Absent: swelling, abrasion, laceration, ecchymosis , deformity, crepidus, dislocation, erythema, external rotation, internal rotation, shortening Upper Leg exam: Present: full ROM, tenderness (the left proximal thigh powder at the abrasion site), abrasion (F proximal outer thigh). Absent: normal inspection, swelling, laceration, ecchymosis, deformity, crepidus, dislocation, erythema Knee exam: Present: normal inspection, full ROM, full knee extension. Absent: tenderness, swelling, abrasion, laceration, ecchymosis, deformity, crepidus, dislocation, erythema, effusion, pain w/ pronation/supination, posterior draw sign, pain/laxity with valgus, pain/laxity with varus Lower Leg exam: Present: normal inspection, full ROM. Absent: tenderness, swelling, abrasion, laceration, ecchymosis, deformity, crepidus, dislocation, erythema, palpable cord, Jeremías's sign Ankle exam: Present: normal inspection, full ROM. Absent: tenderness, swelling , abrasion, laceration, ecchymosis, deformity, crepidus, dislocation, erythema Foot/Toe exam: Present: normal inspection, full ROM, tenderness (left lateral outer foot). Absent: swelling, abrasion, laceration, ecchymosis, deformity, crepidus, dislocation, erythema, amputation, puncture wound, foreign body, calcaneal tenderness, tenderness at base of 5th metatarsal, nail avulsion, subungual hematoma Neuro vascular tendon exam: Present: no vascular compromise. Absent: pulse deficit, abnormal cap refill, motor deficit, sensory deficit, tendon deficit, extremity cold to touch, pallor, abnormal 2-point discrimination, decreased fine /light touch, foot drop, peroneal nerve deficit, significant pain with passive ROM of distal joint Gait: Positive: observed and limited by pain - Back Exam Back exam: Present: normal inspection, full ROM, other (she unable to ambulate without any difficulties). Absent: tenderness, CVA tenderness (R), CVA tenderness (L), muscle spasm, paraspinal tenderness, vertebral tenderness, rash noted - Expanded Back Exam Expanded Back exam: Absent: saddle anesthesia Back exam: Negative Straight Leg Raising: Left, Right - Neurological Exam Neurological exam: Present: alert, oriented X3, normal gait, reflexes normal, other (gross focal neurological deficit.). Absent: motor sensory deficit - Expanded Neurological Exam Expanded Neurological exam: Absent: innattentive, memory loss-remote event, memory loss- recent event, ataxia, receptive aphasia, expressive aphasia, total aphasia, tremor, protecting the airway Patient oriented to: Present: person, place, time Speech: Present: fluid speech Cranial nerves: EOM's Intact: Normal, Gag Reflex: Normal, Tongue Deviation: Normal, Nystagmus: Normal, Facial Sensation: Normal Cerebellar function: Romberg: Normal Upper motor neuron: Pronator Drift: Normal, Sensory Extinction: Normal Sensory exam: Upper Extremity Light Touch: Normal, Upper Extremity Temperature: Normal, UE 2 Point Discrimination: Normal, Lower Extremity Light Touch: Normal, Lower Extremity Temperature: Normal, LE 2 Point Discrimination: Normal Motor strength exam: RUE: 5, LUE: 5, RLE: 5, LLE: 5 DTR: bicep (R): 2+, bicep (L): 2+, tricep (R): 2+, tricep (L): 2+, knee (R): 2+ , knee (L): 2+, ankle (R): 2+, ankle (L): 2+ Best Eye Response ([place]): (4) open spontaneously Best Motor Response ([place]): (6) obeys commands Best Verbal Response ([place]): (5) oriented [place] Total: 15 - Psychiatric Psychiatric exam: Present: normal affect, normal mood - Skin Skin exam: Present: warm, dry, intact, abrasion (left proximal outer thigh) - Expanded Skin Exam Expanded Type of lesion: Present: abrasion Distribution of rash: RLE (proximal outer thigh) Description of rash: Present: tenderness, erythematous, other (abrasion to left proximal other thigh). Absent: swelling ED Course Vital Signs 04/15/17 22:21 Temperature 98.1 F Pulse Rate 99 H Respiratory 20 Rate Blood Pressure 121/75 [Right] O2 Sat by Pulse 98 Oximetry - Reevaluation(s) Reevaluation #1: 04/16/17 05:36 Left proximal other thigh cleansed with normal saline and Neosporin ointment placed to a braised area. ED Lower Extremity MDM - Radiology Data Radiology results: report reviewed X-ray of left hip, left femur and left foot reveals normal exam and no acute bony abnormality. - Medical Decision Making ED course: Dental emergency room report that she fell while she was going to get since that. She says she tripped over something accidentally and hit her left hip and thigh and also complained of pain to left foot. Patient appears very sleepy throughout ED stay. Previous hospital visit reports that the patient is a drug seeker and abuses cocaine. Patient says she walked off half a mile after falling and she couldn't walk anymore so she called the ambulance. She is neurologically intact without any signs of intoxication. Neck exam is normal and back exam is normal. Patient able ambulate and she follows commands appropriately. Explained to patient that her x-ray of left hip, thigh and foot were negative and she has no broken bones. Abrasion to left thigh cleansed with normal saline and Neosporin ointment placed inside. Patient tetanus shot is up-to-date. She received 11/15/2016. Patient discharged from emergency room in stable condition with prescription for Motrin and Keflex. I expressed to her that she needs to follow-up with primary care physician on Thursday and if she does not have one she can follow-up at [facility]. She was understanding of discharge instruction and treatment plan and discharged home in stable condition. Critical care attestation.: If time is entered above; I have spent that time in minutes in the direct care of this critically ill patient, excluding procedure time. ED Disposition Clinical Impression: Abrasion, left thigh, initial encounter, Arthralgia of multiple sites Accidental fall Qualifiers: Encounter type: initial encounter Qualified Code(s): W19.XXXA - Unspecified fall, initial encounter Disposition: TO HOME OR SELFCARE Is pt being admited?: No Does the pt Need Aspirin: No Condition: Stable Instructions: Abrasion (ED), Arthralgia (ED), Acute Wound Care (ED) Additional Instructions: follow discharge instructions on acute wound care Please follow-up with your primary care physician in 4 days and if you do not have one you can follow up with [facility] You can take Motrin for your pain. take antibiotic as prescribed Keep affected area clean and dry Prescriptions: Cephalexin [Keflex] 500 mg PO Q8H #21 capsule Ibuprofen [Motrin] 600 mg PO Q8H PRN #15 tablet PRN Reason: Pain Referrals: PRIMARY CARE, [Primary Care Provider] - 04/20/17 [facility] [Outside] - 04/20/17 Forms: Work/School Release Form(ED)
[2017-04-16 07:50] VITALS: BP 120/68
== END 2017-04-16 07:30 | disposition home or self-care (01) ==
LOC: ED 22:13
DX: S70.212A Abrasion, left hip, initial encounter (principal); J45.909 Unspecified asthma, uncomplicated; F17.200 Nicotine dependence, unspecified, uncomplicated; Z88.8 Allergy status to other drugs, medicaments and biological substances; W01.0XXA Fall on same level from slipping, tripping and stumbling without subsequent striking against object, initial encounter; Y93.89 Activity, other specified; Y92.512 Supermarket, store or market as the place of occurrence of the external cause; Y99.8 Other external cause status
CPT/HCPCS: 99283; A6250

== ENCOUNTER 2017-04-16 16:51 | Emergency (ER) | payer SELFPAY ==
[2017-04-16 19:09] LABS: Bilirubin,Urine NEG (Negative); Blood,Urine NEG (Negative); Ketones,Urine NEG (Negative); Leukocyte Esterase,Urine NEG (Negative); Mucus,Urine FEW /HPF; Nitrite,Urine NEG (Negative); Protein,Urine <15 mg/dL mg/dL (Negative); RBC,Urine < 1.0 /HPF (0.0-6.0)
[2017-04-17 01:19] VITALS: BP 110/70
== END 2017-04-16 18:44 | disposition left against medical advice (07) ==
LOC: ED 16:51
DX: R30.9 Painful micturition, unspecified (principal); Z53.21 Procedure and treatment not carried out due to patient leaving prior to being seen by health care provider
CPT/HCPCS: 81001; 81025

== ENCOUNTER 2017-07-30 01:11 | Emergency (ER) | payer SELFPAY | END 2017-07-30 02:00 | disposition left against medical advice (07) | LOC: ED 01:11 | DX: K62.5 Hemorrhage of anus and rectum (principal); Z53.21 Procedure and treatment not carried out due to patient leaving prior to being seen by health care provider ==

== ENCOUNTER 2017-08-02 08:29 | Emergency (ER) | payer SELFPAY ==
--- NOTE | 2017-08-02 11:36 | Emergency Department Report ---
ED General Adult HPI - General Chief complaint: Sore Throat Stated complaint: SORE THROAT Time Seen by Provider: 08/02/17 11:02 Source: patient, RN notes reviewed, old records reviewed Mode of arrival: Ambulatory Limitations: Other (patient is sleepy, patient was difficult to arouse) - History of Present Illness Initial comments: This is a 26-year-old female. Patient has a past medical history of alcohol intoxication, anxiety, cocaine, drug seeking behavior. Patient presents to the ER with a complaint of sore throat. The patient cannot describe how long its been there for, and she cannot describe exacerbating, relieving factors or radiation. She indicates no headache, neck pain, chest pain, abdominal pain or shortness of breath, she indicates that she is not drunk, but she has not high, she indicates that she is not homicidal or suicidal. She is not sure if she is or not. The patient keeps falling asleep during ring her interview, and is difficult to arouse and awake. -: unknown Consistency: other Improves with: other Worsens with: other Associated Symptoms: confusion, malaise, weakness. denies: chest pain, cough, diaphoresis, fever/chills - Related Data Previous Rx's Medication Instructions Recorded Last Taken Type ALBUTEROL Inhaler [ProAir HFA 2 puff IH QID PRN #1 inhalation 03/28/17 Unknown Rx Inhaler] Acetaminophen [Acetaminophen TAB] 500 mg PO Q6HR PRN #20 tablet 03/28/17 Unknown Rx Amoxicillin/K Clav Tab [Augmentin 1 tab PO Q12HR #14 tab 03/28/17 Unknown Rx 875 mg] Benzocaine/Menthol [Cepacol Sore 1 each MM Q4H PRN #1 box 03/28/17 Unknown Rx Throat Lozenge] Cephalexin [Keflex] 500 mg PO Q8H #21 capsule 04/16/17 Unknown Rx Ibuprofen [Motrin] 600 mg PO Q8H PRN #15 tablet 04/16/17 Unknown Rx Allergies Allergy/AdvReac Type Severity Reaction Status Date / Time hydrocortisone AdvReac Unknown Itching Verified 03/28/17 08:18 ED Review of Systems ROS: Stated complaint: SORE THROAT Other details as noted in HPI ED Past Medical Hx - Past Medical History Previous Medical History?: Yes Hx Hypertension: No Hx CVA: No Hx Heart Attack/AMI: No Hx Congestive Heart Failure: No Hx Diabetes: No Hx Deep Vein Thrombosis: No Hx Pulmonary Embolism: No Hx GERD: No Hx Liver Disease: No Hx Renal Disease: No Hx Sickle Cell Disease: No Hx Arthritis: No Hx Headaches / Migraines: No Hx Seizures: No Hx Kidney Stones: No Hx Psychiatric Treatment: Yes (anxiety attack, cocaine rehab) Hx Asthma: Yes Hx COPD: No Hx Tuberculosis: No Hx Dementia: No Hx HIV: No Additional medical history: hx bronchitis. Drug seeking behaviors,. Disorganized behaviors,. frequent std - Surgical History Past Surgical History?: No Hx Coronary Stent: No Hx Open Heart Surgery: No Hx Pacemaker: No Hx Internal Defibrillator: No Hx Cholecystectomy: No Hx Appendectomy: No Hx Breast Surgery: No Additional Surgical History: denies - Social History Smoking Status: Never Smoker Substance Use Type: None - Medications Home Medications: Home Medications Medication Instructions Recorded Confirmed Last Taken Type ALBUTEROL Inhaler [ProAir HFA 2 puff IH QID PRN #1 inhalation 03/28/17 Unknown Rx Inhaler] Acetaminophen [Acetaminophen TAB] 500 mg PO Q6HR PRN #20 tablet 03/28/17 Unknown Rx Amoxicillin/K Clav Tab [Augmentin 1 tab PO Q12HR #14 tab 03/28/17 Unknown Rx 875 mg] Benzocaine/Menthol [Cepacol Sore 1 each MM Q4H PRN #1 box 03/28/17 Unknown Rx Throat Lozenge] Cephalexin [Keflex] 500 mg PO Q8H #21 capsule 04/16/17 Unknown Rx Ibuprofen [Motrin] 600 mg PO Q8H PRN #15 tablet 04/16/17 Unknown Rx ED Physical Exam - General Limitations: Other (patient sleepy, difficult to arouse) General appearance: alert, appears intoxicated, lethargic - Head Head exam: Present: atraumatic, normocephalic - Eye Eye exam: Present: normal appearance, EOMI - ENT ENT exam: Present: normal orophraynx, mucous membranes dry, normal external ear exam - Neck Neck exam: Present: normal inspection, full ROM - Respiratory Respiratory exam: Present: normal lung sounds bilaterally. Absent: respiratory distress - Cardiovascular Cardiovascular Exam: Present: normal rhythm, tachycardia, normal heart sounds. Absent: systolic murmur, diastolic murmur, rubs, gallop - GI/Abdominal GI/Abdominal exam: Present: soft, normal bowel sounds. Absent: distended, tenderness, guarding, rebound, rigid, pulsatile mass - Extremities Exam Extremities exam: Present: normal inspection, full ROM, normal capillary refill. Absent: pedal edema, joint swelling, calf tenderness - Back Exam Back exam: Present: normal inspection, full ROM. Absent: tenderness, CVA tenderness (R), paraspinal tenderness, vertebral tenderness - Neurological Exam Neurological exam: Present: oriented X3 (patient sleepy, but is arousable.), CN II-XII intact, normal gait, other (Extraocular movements intact. Tongue midline. No facial droop. Facial sensation intact to light touch in the V1, V2 , V3 distribution bilaterally. 5 and 5 strength in 4 extremities.. Sensation is intact to light touch in 4 extremities.). Absent: motor sensory deficit - Psychiatric Psychiatric exam: Present: flat affect. Absent: homicidal ideation, suicidal ideation - Skin Skin exam: Present: warm, dry, intact, normal color. Absent: rash ED Course Vital Signs 08/02/17 09:03 Temperature 98.2 F Pulse Rate 102 H Respiratory 16 Rate Blood Pressure 93/42 O2 Sat by Pulse 98 Oximetry - Reevaluation(s) Reevaluation #1: 08/02/17 11:37 Differential diagnosis, including when not limited to: Intracranial injury, mood disorder, intoxication, nonspecific pharyngitis Assessment and plan: 26-year-old female with a triage complaint of sore throat. She does endorse sore throat. Her pharyngeal exam is unremarkable. There is no pain with inflation of the trachea. She has no stridor. She is protecting her airway. However she is very somnolent and difficult to arouse, she is most likely intoxicated. Laboratory studies, EKG, CT scan of the brain pending. There is no clinical indication of trauma at this time. Reevaluation #2: 08/02/17 13:01 Sleeping comfortably. No distress. CT scan of the brain is negative. Sinusitis is suggested. This is expected based on her history. Reevaluation #3: 08/02/17 14:[address] scan of the brain is negative. Laboratory studies unremarkable. Serum toxicology studies unremarkable Blood pressure 105/63. Heart rate 82 bpm. Saturating at 95% on room air. Sleepy, but arousable. Patient still alert to name, place and month. Patient able to walk with a steady gait. Patient will be discharged at this time, she indicates she is going to have her father, and pick her up. ED Medical Decision Making - Lab Data Result diagrams: 08/02/17 12:45 08/02/17 12:45 Vital Signs 08/02/17 09:03 Temperature 98.2 F Pulse Rate 102 H Respiratory 16 Rate Blood Pressure 93/42 O2 Sat by Pulse 98 Oximetry - EKG Data -: EKG Interpreted by Me - EKG Data When compared to previous EKG there are: previous EKG unavailable 08/02/17 11:46 Sinus, 88 bpm, normal axis, QTC prolonged, incomplete right bundle branch block , underlying atrial enlargement, abnormal EKG, not morphologically consistent with st elevation myocardial infarction - Radiology Data Radiology results: report reviewed, image reviewed Noncontrast CT scan of the brain, interpreted by radiology: No acute disease, sinusitis Critical care attestation.: If time is entered above; I have spent that time in minutes in the direct care of this critically ill patient, excluding procedure time. ED Disposition Clinical Impression: General medical exam Disposition: DC-01 TO HOME OR SELFCARE Is pt being admited?: No Does the pt Need Aspirin: No Condition: Stable Additional Instructions: avoid consumption of alcohol, drugs, sedating substances. Follow up with the primary care doctor within the next 7-10 days. Drink plenty of fluids. Diet as tolerated. Return to the ER right away with fevers, chills, lethargy, irritability, projectile vomiting, change in mental status, confusion, inability to speak, inability to breathe. Referrals: LEO MATTEHWS MD [Primary Care Provider] - 3-5 Days ELIANA ACUNA MD [Staff Physician] - 3-5 Days [facility] [Provider Group] - 3-5 Days
--- NOTE | 2017-08-02 12:46 | Cat Scan Report ---
CT HEAD WITHOUT CONTRAST: 08/02/17 CLINICAL: Altered mental status. Somnolence. TECHNIQUE: 2.5-mm noncontrast scans. COMPARISON:11/27/15 FINDINGS: The ventricles and sulci are normal for age. No abnormal density. No mass or mass effect. No hemorrhage, edema or extra-axial collection. Partial opacification of the ethmoid sinuses and nasal congestion. Normal orbits and soft tissues. The calvarium and skull base are intact. IMPRESSION: Sinusitis and nasal congestion but otherwise normal.
[2017-08-02 13:00] LABS: Hematocrit 38.6 % (30.3-42.9); Hemoglobin 12.8 gm/dl (10.1-14.3); Mean Corpuscular HGB Conc 33 % (30-34); Mean Corpuscular Hemoglobin 31 pg (28-32); Mean Corpuscular Volume 93 fl (79-97); Platelet Count 274 K/mm3 (140-440); Red Blood Count 4.15 M/mm3 (3.65-5.03); Red Cell Distribution Width 12.8 % (13.2-15.2)
[2017-08-02] MEDS ORDERED: VITAMIN B-1 100 MG, FOLVITE 1 MG, INFUVITE 10 ML in NACL 0.9% 1000 ML 1,000 ML IV ONE (13:00)
[2017-08-02 13:14] LABS: BUN/Creatinine Ratio 11; Blood Urea Nitrogen 8 mg/dL (7-17); Calcium 8.2 mg/dL (8.4-10.2); Hemolysis Index 2
[2017-08-02 14:25] VITALS: BP 109/75
== END 2017-08-02 14:38 | disposition home or self-care (01) ==
LOC: ED 08:29
DX: R53.1 Weakness (principal); R53.83 Other fatigue; J02.9 Acute pharyngitis, unspecified; R41.0 Disorientation, unspecified; J45.909 Unspecified asthma, uncomplicated; F41.9 Anxiety disorder, unspecified; F14.10 Cocaine abuse, uncomplicated; Z88.8 Allergy status to other drugs, medicaments and biological substances; Z79.899 Other long term (current) drug therapy
CPT/HCPCS: 36415; 70450; 80048; 82550; 84702; 85027; 93005; 93010; 96365; 96366; 99284; G0480; J3411; J7030; 80320

== ENCOUNTER 2017-08-21 08:19 | Emergency (ER) | payer SELFPAY ==
[2017-08-21 08:51] VITALS: BP 109/66
== END 2017-08-21 12:29 | disposition left against medical advice (07) ==
LOC: ED 08:19
DX: R30.9 Painful micturition, unspecified (principal); Z53.21 Procedure and treatment not carried out due to patient leaving prior to being seen by health care provider

== ENCOUNTER 2017-08-31 07:51 | Emergency (ER) | payer OTHER ==
[2017-08-31 09:06] VITALS: BP 122/78
[2017-08-31 11:17] LABS: HCG Qualitative,Urine Negative (Negative)
[2017-08-31] MEDS ORDERED: TYLENOL PO ONE (11:36)
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
== END 2017-08-31 12:51 | disposition home or self-care (01) ==
LOC: ED 07:51
DX: S06.0X9A Concussion with loss of consciousness of unspecified duration, initial encounter (principal); F17.200 Nicotine dependence, unspecified, uncomplicated; Z88.6 Allergy status to analgesic agent; Y04.8XXA Assault by other bodily force, initial encounter; Y93.89 Activity, other specified; Y92.89 Other specified places as the place of occurrence of the external cause; Y99.8 Other external cause status
CPT/HCPCS: 70450; 72125; 81025; 99284

== ENCOUNTER 2017-09-30 10:34 | Emergency (ER) | payer SELFPAY ==
[2017-09-30 12:02] LABS: Basophils # (Auto) 0.1 K/mm3 (0.0-0.1); Basophils % (Auto) 0.7 % (0.0-1.8); Eosinophils # (Auto) 0.2 K/mm3 (0.0-0.4); Eosinophils % (Auto) 2.4 % (0.0-4.3); Hematocrit 43.9 % (30.3-42.9); Hemoglobin 14.2 gm/dl (10.1-14.3); Lymphocytes # (Auto) 1.6 K/mm3 (1.2-5.4); Lymphocytes % (Auto) 20.3 % (13.4-35.0); Mean Corpuscular HGB Conc 32 % (30-34); Mean Corpuscular Hemoglobin 31 pg (28-32); Mean Corpuscular Volume 97 fl (79-97); Monocytes # (Auto) 0.9 K/mm3 (0.0-0.8); Monocytes % (Auto) 11.4 % (0.0-7.3); Platelet Count 293 K/mm3 (140-440); Red Blood Count 4.55 M/mm3 (3.65-5.03); Red Cell Distribution Width 16.1 % (13.2-15.2)
[2017-09-30 12:25] LABS: Alanine Aminotransferase 18 units/L (7-56); Albumin 4.3 g/dL (3.9-5); BUN/Creatinine Ratio 19; Blood Urea Nitrogen 15 mg/dL (7-17); Calcium 9.2 mg/dL (8.4-10.2); Hemolysis Index 10
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
[2017-09-30 13:02] LABS: Bilirubin,Urine NEG (Negative); Blood,Urine NEG (Negative); Color,Urine Yellow (Yellow); Mucus,Urine FEW /HPF; Protein,Urine <15 mg/dL mg/dL (Negative); RBC,Urine < 1.0 /HPF (0.0-6.0)
[2017-09-30 13:28] LABS: Amphetamine Screen,Urine PRESUMPTIVE NEGATIVE; Benzodiazepines Screen,Urine PRESUMPTIVE NEGATIVE; Cannabinoid Screen,Urine PRESUMPTIVE NEGATIVE; Methadone Screen,Urine PRESUMPTIVE NEGATIVE; Opiate Screen,Urine PRESUMPTIVE NEGATIVE
[2017-09-30 13:40] LABS: Cocaine Screen,Urine PRESUMPTIVE POSITIVE
[2017-09-30 14:32] VITALS: BP 112/72
== END 2017-09-30 13:45 | disposition home or self-care (01) ==
LOC: ED 10:34
DX: O02.1 Missed abortion (principal); O26.891 Other specified pregnancy related conditions, first trimester; O99.511 Diseases of the respiratory system complicating pregnancy, first trimester; O99.331 Smoking (tobacco) complicating pregnancy, first trimester; N94.6 Dysmenorrhea, unspecified; J45.909 Unspecified asthma, uncomplicated; Z88.8 Allergy status to other drugs, medicaments and biological substances; Z3A.08 8 weeks gestation of pregnancy; Z79.899 Other long term (current) drug therapy
CPT/HCPCS: 36415; 80053; 80307; 81001; 84702; 85025; 86850; 86900; 86901

== ENCOUNTER 2017-10-05 11:19 | Emergency (ER) | payer SELFPAY ==
[2017-10-05 12:09] VITALS: BP 123/78
[2017-10-05 13:03] LABS: Bilirubin,Urine NEG (Negative); Blood,Urine NEG (Negative); Color,Urine Yellow (Yellow); Mucus,Urine 3+ /HPF
[2017-10-05 13:04] LABS: HCG Qualitative,Urine Negative (Negative)
--- NOTE | 2017-10-05 13:12 | Emergency Department Report ---
ED Female HPI - General Chief complaint: Urogenital-Female Stated complaint: BURNING DURING URINATION Time Seen by Provider: 10/05/17 12:59 Source: patient Mode of arrival: Ambulatory Limitations: No Limitations - History of Present Illness Initial comments: This is a 27-year-old female nontoxic, well nourished in appearance, no acute signs of distress presents to the ED with c/o of vaginal discharge and dysuria x1 week. Patient stated that she had a unprotected sex 2 weeks ago and had then symptoms started. Patient stated she is concerned about STD and wanted to be treated. Patient states UTI symptoms going on for about a week. Patient denies any hematuria, fever, chills, nausea, vomiting, headache, stiff neck, numbness or tingling. Patient denies any abdominal pain. Denies any back pain or flank pain. Patient states allergies to hydrocortisone. Past medical history includes arthritis, liver disease. MD Complaint: vaginal discharge, dysuria -: week(s) (1) Severity: mild Severity scale (0 -10): 8 Quality: burning Consistency: constant Improves with: none Worsens with: urination Are you Now?: No Associated Symptoms: vaginal discharge, dysuria. denies: vaginal bleeding, abdominal pain, nausea/vomiting, fever/chills, headaches, loss of appetite, hematuria, rash, seizure, shortness of breath, syncope, weakness - Related Data Sexually active: Yes Previous Rx's Medication Instructions Recorded Last Taken Type ALBUTEROL Inhaler [ProAir HFA 2 puff IH QID PRN #1 inhalation 03/28/17 Unknown Rx Inhaler] Sulfamethoxazole/Trimethoprim 1 each PO Q12H #14 tablet 10/05/17 Unknown Rx [Bactrim Ds Tablet] metroNIDAZOLE [Flagyl] 500 mg PO Q12HR #14 tab 10/05/17 Unknown Rx Allergies Allergy/AdvReac Type Severity Reaction Status Date / Time hydrocortisone AdvReac Unknown Itching Verified 09/30/17 11:30 ED Review of Systems ROS: Stated complaint: BURNING DURING URINATION Other details as noted in HPI Constitutional: denies: chills, fever Eyes: denies: eye pain, eye discharge, vision change ENT: denies: ear pain, throat pain Respiratory: denies: cough, shortness of breath, wheezing Cardiovascular: denies: chest pain, palpitations Endocrine: no symptoms reported Gastrointestinal: denies: abdominal pain, nausea, diarrhea Genitourinary: dysuria, discharge. denies: urgency Musculoskeletal: denies: back pain, joint swelling, arthralgia Skin: denies: rash, lesions Neurological: denies: headache, weakness, paresthesias Psychiatric: denies: anxiety, depression Hematological/Lymphatic: denies: easy bleeding, easy bruising ED Past Medical Hx - Past Medical History Hx Hypertension: No Hx CVA: No Hx Heart Attack/AMI: No Hx Congestive Heart Failure: No Hx Diabetes: No Hx Deep Vein Thrombosis: No Hx Pulmonary Embolism: No Hx GERD: No Hx Liver Disease: No Hx Renal Disease: No Hx Sickle Cell Disease: No Hx Arthritis: No Hx Headaches / Migraines: No Hx Seizures: No Hx Kidney Stones: No Hx Psychiatric Treatment: Yes (anxiety attack, cocaine rehab) Hx Asthma: Yes Hx COPD: No Hx Tuberculosis: No Hx Dementia: No Hx HIV: No Additional medical history: hx bronchitis. Drug seeking behaviors,. Disorganized behaviors,. frequent std - Surgical History Hx Coronary Stent: No Hx Open Heart Surgery: No Hx Pacemaker: No Hx Internal Defibrillator: No Hx Cholecystectomy: No Hx Appendectomy: No Hx Breast Surgery: No Additional Surgical History: denies - Social History Smoking Status: Former Smoker Substance Use Type: None - Medications Home Medications: Home Medications Medication Instructions Recorded Confirmed Last Taken Type ALBUTEROL Inhaler [ProAir HFA 2 puff IH QID PRN #1 inhalation 03/28/17 09/30/17 Unknown Rx Inhaler] Sulfamethoxazole/Trimethoprim 1 each PO Q12H #14 tablet 10/05/17 Unknown Rx [Bactrim Ds Tablet] metroNIDAZOLE [Flagyl] 500 mg PO Q12HR #14 tab 10/05/17 Unknown Rx ED Physical Exam - General Limitations: No Limitations General appearance: alert, in no apparent distress - Head Head exam: Present: atraumatic, normocephalic - Eye Eye exam: Present: normal appearance Pupils: Present: normal accommodation - ENT ENT exam: Present: normal exam, mucous membranes moist - Neck Neck exam: Present: normal inspection, full ROM. Absent: tenderness, meningismus, lymphadenopathy - Respiratory Respiratory exam: Present: normal lung sounds bilaterally. Absent: respiratory distress, wheezes, rales, rhonchi, stridor, chest wall tenderness, accessory muscle use, decreased breath sounds, prolonged expiratory - Cardiovascular Cardiovascular Exam: Present: regular rate, normal rhythm, normal heart sounds. Absent: irregular rhythm, systolic murmur, diastolic murmur, rubs, gallop - GI/Abdominal GI/Abdominal exam: Present: soft, normal bowel sounds. Absent: distended, tenderness, guarding, rebound, rigid, diminished bowel sounds - Extremities Exam Extremities exam: Present: normal inspection, full ROM, normal capillary refill - Back Exam Back exam: Present: normal inspection, full ROM. Absent: tenderness, CVA tenderness (R), CVA tenderness (L), muscle spasm, paraspinal tenderness, vertebral tenderness, rash noted - Neurological Exam Neurological exam: Present: alert, oriented X3, normal gait - Psychiatric Psychiatric exam: Present: normal affect, normal mood - Skin Skin exam: Present: warm, dry, intact, normal color. Absent: rash ED Course Vital Signs 10/05/17 12:07 Temperature 98 F Pulse Rate 98 H Respiratory 18 Rate Blood Pressure 123/78 O2 Sat by Pulse 100 Oximetry - Reevaluation(s) Reevaluation #1: 10/05/17 13:18 Patient is speaking in full sentences with no signs of distress noted. ED Medical Decision Making - Medical Decision Making This is a 27-year-old female that presents with UTI and possible STD. Patient is stable and was examined by me. UA obtained. I'll treat patient empirically with Rocephin and azithromycin as she requested. Patient also discharged with Flagyl empirically. Patient was instructed to Follow-up with a primary care doctor in 3-5 days or if symptoms worsen and continue return to emergency room as soon as possible. At time of discharge, the patient does not seem toxic or ill in appearance. No acute signs of distress noted. Patient agrees to discharge treatment plan of care. No further questions noted by the patient.Ycin Critical care attestation.: If time is entered above; I have spent that time in minutes in the direct care of this critically ill patient, excluding procedure time. ED Disposition Clinical Impression: Vaginal discharge, Possible exposure to STD UTI (urinary tract infection) Qualifiers: Urinary tract infection type: site unspecified Hematuria presence: without hematuria Qualified Code(s): N39.0 - Urinary tract infection, site not specified Disposition: TO HOME OR SELFCARE Is pt being admited?: No Does the pt Need Aspirin: No Condition: Stable Instructions: Urinary Tract Infection in Children (ED), Safe Sex (ED), Metronidazole (By mouth) Additional Instructions: Follow-up with a primary care doctor in 3-5 days or if symptoms worsen and continue return to emergency room as soon as possible. Prescriptions: metroNIDAZOLE [Flagyl] 500 mg PO Q12HR #14 tab Sulfamethoxazole/Trimethoprim [Bactrim Ds Tablet] 1 each PO Q12H #14 tablet Referrals: PRIMARY CAREMD [Primary Care Provider] - 3-5 Days ROSY MALDONADO MD [Staff Physician] - 3-5 Days [facility] [Outside] - 3-5 Days [facility] [Outside] - 3-5 Days
[2017-10-05] MEDS ORDERED: ROCEPHIN IM ONE (13:17)
[2017-10-05] MEDS ORDERED: XYLOCAINE 1% MPF 5 mL INFILTRATI ONE (13:17)
[2017-10-05] MEDS ORDERED: ZITHROMAX PO ONE (13:17)
== END 2017-10-05 13:29 | disposition home or self-care (01) ==
LOC: ED 11:19
DX: N39.0 Urinary tract infection, site not specified (principal); N89.8 Other specified noninflammatory disorders of vagina; J45.909 Unspecified asthma, uncomplicated; Z88.8 Allergy status to other drugs, medicaments and biological substances; Z87.891 Personal history of nicotine dependence
CPT/HCPCS: 81001; 81025; 96372; 99283; J0696

== ENCOUNTER 2017-10-25 01:03 | Emergency (ER) | payer SELFPAY | END 2017-10-25 01:04 | disposition left against medical advice (07) | LOC: ED 01:03 | DX: M25.562 Pain in left knee (principal); Z53.21 Procedure and treatment not carried out due to patient leaving prior to being seen by health care provider ==

== ENCOUNTER 2017-11-20 05:53 | Emergency (ER) | payer SELFPAY ==
[2017-11-20 06:17] VITALS: BP 101/70
[2017-11-20 07:30] LABS: Basophils % (Auto) 0.3 % (0.0-1.8); Eosinophils # (Auto) 0.2 K/mm3 (0.0-0.4); Eosinophils % (Auto) 2.8 % (0.0-4.3); Hematocrit 41.4 % (30.3-42.9); Hemoglobin 13.6 gm/dl (10.1-14.3); Lymphocytes # (Auto) 1.9 K/mm3 (1.2-5.4); Mean Corpuscular HGB Conc 33 % (30-34); Mean Corpuscular Hemoglobin 32 pg (28-32); Mean Corpuscular Volume 96 fl (79-97); Monocytes # (Auto) 0.8 K/mm3 (0.0-0.8); Monocytes % (Auto) 9.7 % (0.0-7.3); Platelet Count 353 K/mm3 (140-440); Red Cell Distribution Width 15.1 % (13.2-15.2)
[2017-11-20 07:50] LABS: Alanine Aminotransferase 10 units/L (7-56); Albumin 4.2 g/dL (3.9-5); BUN/Creatinine Ratio 13; Blood Urea Nitrogen 10 mg/dL (7-17); Calcium 9.6 mg/dL (8.4-10.2); Hemolysis Index 27
== END 2017-11-20 06:50 | disposition left against medical advice (07) ==
LOC: ED 05:53
DX: N93.9 Abnormal uterine and vaginal bleeding, unspecified (principal); R10.9 Unspecified abdominal pain; R10.2 Pelvic and perineal pain; Z79.899 Other long term (current) drug therapy; Z53.21 Procedure and treatment not carried out due to patient leaving prior to being seen by health care provider
CPT/HCPCS: 36415; 80053; 84443; 84702; 85025; 86850; 86900; 86901; 93005; 93010; G0480; 80320

== ENCOUNTER 2017-11-20 13:26 | Emergency (ER) | payer SELFPAY ==
[2017-11-20 13:53] VITALS: BP 117/72
[2017-11-20] MEDS ORDERED: TYLENOL PO ONE (16:13)
[2017-11-20] MEDS ORDERED: ZOFRAN ODT PO ONE (16:13)
--- NOTE | 2017-11-20 16:16 | Emergency Department Report ---
Blank Doc - Documentation Documentation: This is a 27-year-old female who is presenting with abdominal pain. Patient states she says heavy vaginal bleeding nausea vomiting diarrhea. Patient states she has irregular periods. Patient states she is not taking presents test at home. Patient states her pain is a 10 out of 10 however she is sleeping in a row when I entered. Patient is walking in and out of the emergency department multiple times today she been called multiple times today without answering. The patient does not appear to be in distress she has some generalized abdominal pain over a physical exam. Patient will have a blood test performed as well as urinalysis will give her Tylenol here and a Zofran pill reassessed the patient.
--- NOTE | 2017-11-20 17:35 | Emergency Department Report ---
ED Abdominal Pain HPI - General Chief Complaint: Abdominal Pain Stated Complaint: ABDOMINAL PAIN/VAGINAL BLEED Time Seen by Provider: 11/20/17 16:09 Source: patient Mode of arrival: Ambulatory Limitations: No Limitations - History of Present Illness Initial Comments: 27-year-old female past medical history drug seeking behavior, cocaine use presents with complaint of heavy vaginal bleeding and intermittent crampy abdominal pain. Patient is agitated. Awake and alert but somewhat aloof. Is unable to clearly tell me when her last menstrual period was. States she has had some intermittent nausea but is currently eating and drinking. Denies any abdominal trauma. Denies any fevers chills or increased urinary frequency. Denies any dysuria. Denies vaginal discharge. States she has had vaginal bleeding for 2-3 days. MD Complaint: abdominal pain Onset/Timin -: days(s) Location: suprapubic Radiation: suprapubic Migration to: suprapubic Severity: mild Severity scale (0 -10): 8 Quality: cramping Consistency: intermittent Improves With: nothing - Related Data LMP (females 10-50): unknown Previous Rx's Medication Instructions Recorded Last Taken Type ALBUTEROL Inhaler [ProAir HFA 2 puff IH QID PRN #1 inhalation 03/28/17 Unknown Rx Inhaler] Sulfamethoxazole/Trimethoprim 1 each PO Q12H #14 tablet 10/05/17 Unknown Rx [Bactrim Ds Tablet] metroNIDAZOLE [Flagyl] 500 mg PO Q12HR #14 tab 10/05/17 Unknown Rx Famotidine [Pepcid] 20 mg PO BID PRN #30 tablet 11/20/17 Unknown Rx Ondansetron [Zofran Odt] 4 mg PO Q8H PRN #12 tab.rapdis 11/20/17 Unknown Rx Allergies Allergy/AdvReac Type Severity Reaction Status Date / Time hydrocortisone AdvReac Unknown Itching Verified 09/30/17 11:30 ED Review of Systems ROS: Stated complaint: ABDOMINAL PAIN/VAGINAL BLEED Other details as noted in HPI Constitutional: denies: chills, fever Eyes: denies: eye pain, eye discharge, vision change ENT: denies: ear pain, throat pain Respiratory: denies: cough, shortness of breath, wheezing Cardiovascular: denies: chest pain, palpitations Endocrine: no symptoms reported Gastrointestinal: nausea. denies: abdominal pain, diarrhea Genitourinary: denies: urgency, dysuria, discharge Musculoskeletal: denies: back pain, joint swelling, arthralgia Skin: denies: rash, lesions Neurological: denies: headache, weakness, paresthesias Psychiatric: denies: anxiety, depression Hematological/Lymphatic: denies: easy bleeding, easy bruising ED Past Medical Hx - Past Medical History Hx Hypertension: No Hx CVA: No Hx Heart Attack/AMI: No Hx Congestive Heart Failure: No Hx Diabetes: No Hx Deep Vein Thrombosis: No Hx Pulmonary Embolism: No Hx GERD: No Hx Liver Disease: No Hx Renal Disease: No Hx Sickle Cell Disease: No Hx Arthritis: No Hx Headaches / Migraines: No Hx Seizures: No Hx Kidney Stones: No Hx Psychiatric Treatment: Yes (anxiety attack, cocaine rehab) Hx Asthma: Yes Hx COPD: No Hx Tuberculosis: No Hx Dementia: No Hx HIV: No Additional medical history: hx bronchitis. Drug seeking behaviors,. Disorganized behaviors,. frequent std - Surgical History Hx Coronary Stent: No Hx Open Heart Surgery: No Hx Pacemaker: No Hx Internal Defibrillator: No Hx Cholecystectomy: No Hx Appendectomy: No Hx Breast Surgery: No Additional Surgical History: denies - Social History Smoking Status: Never Smoker Substance Use Type: None - Medications Home Medications: Home Medications Medication Instructions Recorded Confirmed Last Taken Type ALBUTEROL Inhaler [ProAir HFA 2 puff IH QID PRN #1 inhalation 03/28/17 09/30/17 Unknown Rx Inhaler] Sulfamethoxazole/Trimethoprim 1 each PO Q12H #14 tablet 10/05/17 Unknown Rx [Bactrim Ds Tablet] metroNIDAZOLE [Flagyl] 500 mg PO Q12HR #14 tab 10/05/17 Unknown Rx Famotidine [Pepcid] 20 mg PO BID PRN #30 tablet 11/20/17 Unknown Rx Ondansetron [Zofran Odt] 4 mg PO Q8H PRN #12 tab.rapdis 11/20/17 Unknown Rx ED Physical Exam - General Limitations: No Limitations General appearance: alert, in no apparent distress - Head Head exam: Present: atraumatic, normocephalic - Eye Eye exam: Present: normal appearance, PERRL, EOMI - ENT ENT exam: Present: mucous membranes moist - Neck Neck exam: Present: normal inspection - Respiratory Respiratory exam: Present: normal lung sounds bilaterally. Absent: respiratory distress - Cardiovascular Cardiovascular Exam: Present: regular rate, normal rhythm. Absent: systolic murmur, diastolic murmur, rubs, gallop - GI/Abdominal GI/Abdominal exam: Present: soft, normal bowel sounds - Speculum exam: Present: vaginal bleeding - Extremities Exam Extremities exam: Present: normal inspection - Back Exam Back exam: Present: normal inspection - Neurological Exam Neurological exam: Present: alert, oriented X3 - Psychiatric Psychiatric exam: Present: normal affect, normal mood - Skin Skin exam: Present: warm, dry, intact, normal color. Absent: rash ED Course Vital Signs 11/20/17 13:48 Temperature 97.9 F Pulse Rate 73 Respiratory 16 Rate Blood Pressure 117/72 O2 Sat by Pulse 97 Oximetry ED Medical Decision Making - Medical Decision Making A/P: Gastroenteritis 1-relatively unremarkable abdominal exam 2-vital signs stable for discharge 3-blood hCG negative for 4-patient is actively drinking before discharge. Zofran and Pepcid when necessary Critical care attestation.: If time is entered above; I have spent that time in minutes in the direct care of this critically ill patient, excluding procedure time. ED Disposition Clinical Impression: Vaginal bleeding Nausea & vomiting Qualifiers: Vomiting type: unspecified Vomiting Intractability: non-intractable Qualified Code(s): R11.2 - Nausea with vomiting, unspecified Disposition: TO HOME OR SELFCARE Condition: Stable Instructions: Abdominal Pain (ED), Acute Nausea and Vomiting (ED) Prescriptions: Famotidine [Pepcid] 20 mg PO BID PRN #30 tablet PRN Reason: Indigestion Ondansetron [Zofran Odt] 4 mg PO Q8H PRN #12 tab.rapdis PRN Reason: Nausea Referrals: [facility] [Provider Group] - 3-5 Days [facility] [Outside] - 3-5 Days Time of Disposition: 17:38
== END 2017-11-20 17:44 | disposition home or self-care (01) ==
LOC: ED 13:26
DX: N93.9 Abnormal uterine and vaginal bleeding, unspecified (principal); R11.2 Nausea with vomiting, unspecified; R10.2 Pelvic and perineal pain; J45.909 Unspecified asthma, uncomplicated; F41.9 Anxiety disorder, unspecified; F14.10 Cocaine abuse, uncomplicated; Z79.899 Other long term (current) drug therapy; Z88.8 Allergy status to other drugs, medicaments and biological substances
CPT/HCPCS: 36415; 84703; 99283; Q0162

== ENCOUNTER 2017-11-28 11:11 | Emergency (ER) | payer SELFPAY ==
[2017-11-28 11:45] VITALS: BP 131/94
== END 2017-11-28 19:01 ==
LOC: ED 11:11
DX: R51 Headache (principal); Z53.21 Procedure and treatment not carried out due to patient leaving prior to being seen by health care provider

== ENCOUNTER 2017-12-11 13:49 | Emergency (ER) | payer SELFPAY ==
--- NOTE | 2017-12-11 18:00 | Emergency Department Report ---
Blank Doc - Documentation Documentation: Patient 27-year-old black female who states she tripped and fell yesterday evening and now has some pain to the left of fourth and fifth toe. Patient states she is able to walk but she states she is walking with a limp. Beyond this to patient also states that she's had some dysuria as well. X-ray of the foot and a urinalysis will be performed.
--- NOTE | 2017-12-11 20:43 | XRay Report ---
FINAL REPORT EXAM: XR FOOT 2V LT HISTORY: injury to the left 4-5 toe TECHNIQUE: Frontal and lateral views of left foot. PRIORS: 16 April 2017. FINDINGS: No apparent fracture or dislocation. Joint spaces maintained. Soft tissues grossly unremarkable. IMPRESSION: 1. No acute osseous abnormality.
--- NOTE | 2017-12-11 20:52 | Emergency Department Report ---
ED Lower Extremity HPI - General Chief Complaint: Extremity Injury, Lower Stated Complaint: TOE PAIN Source: patient Mode of arrival: Ambulatory Limitations: No Limitations - History of Present Illness Initial Comments: 27-year-old female past medical history polysubstance abuse, recurrent ED visitations presents with complaint of foot pain and slight increased urinary frequency. Patient is irate and agitated when I speak to her. Denies fevers or chills. Awake alert and oriented. MD Complaint: foot injury Injury: Toes: Left Type of Injury: blunt Place: street/outdoors Severity: moderate Worsens With: weight bearing, palpation Context: direct blow Associated Symptoms: swelling, ambulatory - Related Data Previous Rx's Medication Instructions Recorded Last Taken Type ALBUTEROL Inhaler [ProAir HFA 2 puff IH QID PRN #1 inhalation 03/28/17 Unknown Rx Inhaler] Sulfamethoxazole/Trimethoprim 1 each PO Q12H #14 tablet 10/05/17 Unknown Rx [Bactrim Ds Tablet] metroNIDAZOLE [Flagyl] 500 mg PO Q12HR #14 tab 10/05/17 Unknown Rx Famotidine [Pepcid] 20 mg PO BID PRN #30 tablet 11/20/17 Unknown Rx Ondansetron [Zofran Odt] 4 mg PO Q8H PRN #12 tab.rapdis 11/20/17 Unknown Rx Ibuprofen [Motrin] 600 mg PO Q8H PRN #15 tablet 12/11/17 Unknown Rx Nitrofurantoin Monohyd/M-Cryst 100 mg PO BID #14 capsule 12/11/17 Unknown Rx [Macrobid 100 mg Capsule] Phenazopyridine [Pyridium] 200 mg PO TID #6 tab 12/11/17 Unknown Rx Allergies Allergy/AdvReac Type Severity Reaction Status Date / Time hydrocortisone cream Allergy Hives Uncoded 12/11/17 14:05 ED Review of Systems ROS: Stated complaint: TOE PAIN Other details as noted in HPI Constitutional: denies: chills, fever Eyes: denies: eye pain, eye discharge, vision change ENT: denies: ear pain, throat pain Respiratory: denies: cough, shortness of breath, wheezing Cardiovascular: denies: chest pain, palpitations Endocrine: no symptoms reported Gastrointestinal: denies: abdominal pain, nausea, diarrhea Genitourinary: denies: urgency, dysuria, discharge Musculoskeletal: denies: back pain, joint swelling, arthralgia Skin: denies: rash, lesions Neurological: denies: headache, weakness, paresthesias Psychiatric: denies: anxiety, depression Hematological/Lymphatic: denies: easy bleeding, easy bruising ED Past Medical Hx - Past Medical History Hx Hypertension: No Hx CVA: No Hx Heart Attack/AMI: No Hx Congestive Heart Failure: No Hx Diabetes: No Hx Deep Vein Thrombosis: No Hx Pulmonary Embolism: No Hx GERD: No Hx Liver Disease: No Hx Renal Disease: No Hx Sickle Cell Disease: No Hx Arthritis: No Hx Headaches / Migraines: No Hx Seizures: No Hx Kidney Stones: No Hx Psychiatric Treatment: Yes (anxiety attack, cocaine rehab) Hx Asthma: Yes Hx COPD: No Hx Tuberculosis: No Hx Dementia: No Hx HIV: No Additional medical history: hx bronchitis. Drug seeking behaviors,. Disorganized behaviors,. frequent std - Surgical History Hx Coronary Stent: No Hx Open Heart Surgery: No Hx Pacemaker: No Hx Internal Defibrillator: No Hx Cholecystectomy: No Hx Appendectomy: No Hx Breast Surgery: No Additional Surgical History: denies - Social History Smoking Status: Current Every Day Smoker Substance Use Type: Alcohol - Medications Home Medications: Home Medications Medication Instructions Recorded Confirmed Last Taken Type ALBUTEROL Inhaler [ProAir HFA 2 puff IH QID PRN #1 inhalation 03/28/17 09/30/17 Unknown Rx Inhaler] Sulfamethoxazole/Trimethoprim 1 each PO Q12H #14 tablet 10/05/17 Unknown Rx [Bactrim Ds Tablet] metroNIDAZOLE [Flagyl] 500 mg PO Q12HR #14 tab 10/05/17 Unknown Rx Famotidine [Pepcid] 20 mg PO BID PRN #30 tablet 11/20/17 Unknown Rx Ondansetron [Zofran Odt] 4 mg PO Q8H PRN #12 tab.rapdis 11/20/17 Unknown Rx Ibuprofen [Motrin] 600 mg PO Q8H PRN #15 tablet 12/11/17 Unknown Rx Nitrofurantoin Monohyd/M-Cryst 100 mg PO BID #14 capsule 12/11/17 Unknown Rx [Macrobid 100 mg Capsule] Phenazopyridine [Pyridium] 200 mg PO TID #6 tab 12/11/17 Unknown Rx ED Physical Exam - General Limitations: No Limitations General appearance: alert, in no apparent distress - Head Head exam: Present: atraumatic, normocephalic - Eye Eye exam: Present: normal appearance - ENT ENT exam: Present: mucous membranes moist - Neck Neck exam: Present: normal inspection - Respiratory Respiratory exam: Present: normal lung sounds bilaterally. Absent: respiratory distress - Cardiovascular Cardiovascular Exam: Present: regular rate, normal rhythm. Absent: systolic murmur, diastolic murmur, rubs, gallop - GI/Abdominal GI/Abdominal exam: Present: soft, normal bowel sounds - Extremities Exam Extremities exam: Present: normal inspection, tenderness (tenderness left distal toes) - Back Exam Back exam: Present: normal inspection - Neurological Exam Neurological exam: Present: alert, oriented X3 - Psychiatric Psychiatric exam: Present: normal affect, normal mood - Skin Skin exam: Present: warm, dry, intact, normal color. Absent: rash ED Course Vital Signs 12/11/17 12/11/17 14:05 21:35 Temperature 98.2 F 98.7 F Pulse Rate 88 68 Respiratory 18 18 Rate Blood Pressure 118/70 Blood Pressure 122/72 [Left] O2 Sat by Pulse 100 99 Oximetry ED Lower Extremity MDM - Medical Decision Making A/P: UTI, toe contusion 1-RICE therapy, Motrin when necessary 2-Macrobid empirically 3-follow-up with primary care, urine culture sent. No clinical signs of pyelonephritis Critical care attestation.: If time is entered above; I have spent that time in minutes in the direct care of this critically ill patient, excluding procedure time. ED Disposition Clinical Impression: Toe contusion Qualifiers: Encounter type: initial encounter Toe: lesser toe Damage to nail status: without damage Laterality: unspecified laterality Qualified Code(s): S90.129A - Contusion of unspecified lesser toe(s) without damage to nail, initial encounter Foot pain Qualifiers: Laterality: unspecified laterality Qualified Code(s): M79.673 - Pain in unspecified foot Urinary tract infection Qualifiers: Urinary tract infection type: acute cystitis Hematuria presence: without hematuria Qualified Code(s): N30.00 - Acute cystitis without hematuria Disposition: TO HOME OR SELFCARE Is pt being admited?: No Does the pt Need Aspirin: No Condition: Stable Instructions: Urinary Tract Infection in Women (ED), Foot Contusion (ED), Dysuria (ED) Prescriptions: Ibuprofen [Motrin] 600 mg PO Q8H PRN #15 tablet PRN Reason: Pain Nitrofurantoin Monohyd/M-Cryst [Macrobid 100 mg Capsule] 100 mg PO BID #14 capsule Phenazopyridine [Pyridium] 200 mg PO TID #6 tab Referrals: [facility] [Provider Group] - 3-5 Days [facility] [Outside] - 3-5 Days Forms: Work/School Release Form(ED) Time of Disposition: 21:08
[2017-12-11] MEDS ORDERED: MOTRIN PO ONE (21:05)
[2017-12-11] MEDS ORDERED: MACROBID PO ONE (21:05)
[2017-12-11 21:36] VITALS: BP 122/72
[2017-12-11 21:42] LABS: Bilirubin,Urine NEG (Negative); Blood,Urine NEG (Negative); Color,Urine Yellow (Yellow); Mucus,Urine 3+ /HPF
[2017-12-11 21:48] LABS: HCG Qualitative,Urine Negative (Negative)
== END 2017-12-11 21:37 | disposition home or self-care (01) ==
LOC: ED 13:49
DX: S90.122A Contusion of left lesser toe(s) without damage to nail, initial encounter (principal); N39.0 Urinary tract infection, site not specified; F17.200 Nicotine dependence, unspecified, uncomplicated; Z88.8 Allergy status to other drugs, medicaments and biological substances; W01.0XXA Fall on same level from slipping, tripping and stumbling without subsequent striking against object, initial encounter; Y93.89 Activity, other specified; Y92.89 Other specified places as the place of occurrence of the external cause; Y99.8 Other external cause status
CPT/HCPCS: 81001; 81025; 87086; 99283

== ENCOUNTER 2018-01-18 16:58 | Emergency (ER) | payer SELFPAY ==
--- NOTE | 2018-01-18 17:23 | Emergency Department Report ---
Stated Complaint: LEFT LEG PAIN - HPI History of Present Illness: 27-year-old female presents to the emergency department by EMS with admission of alcohol abuse this afternoon. Then the moment the patient is in the emergency department she is refusing any further workup and does not want to be "seen." Patient was able to express that she is oriented to person, place and time. With the few questions that she would answer she appears to have an appropriate mental capacity despite her intoxication. When asked how she is going to get home, the patient says that her is going to pick her up. For these reasons, the patient does not appear to be an appropriate 1013 or 2013 and she will not be forced to give blood or urine or be kept here against her will. I expressed the patient that with her intoxication, if she is not being taken care of by her or a responsible democrat and there is increased possibility of her to have falls or accidents. She understands that she cannot operate a car or any heavy machinery, be responsible for any child in this state and that if has any further alcohol use or mixes with illicit drugs than there is a chance for overdose, coma or . MSE screening note: Focused history and physical exam performed. Due to findings the following was ordered: ED Disposition for MSE Disposition: PAT REG,NO TRIAGE Condition: Stable
== END 2018-01-18 17:30 | disposition left against medical advice (07) ==
LOC: ED 16:58
DX: M79.605 Pain in left leg (principal); Z53.21 Procedure and treatment not carried out due to patient leaving prior to being seen by health care provider

== ENCOUNTER 2018-01-20 05:57 | Emergency (ER) | payer SELFPAY ==
[2018-01-20 06:09] VITALS: BP 119/83
--- NOTE | 2018-01-20 13:41 | Emergency Department Report ---
ED Female HPI - General Chief complaint: Dental/Oral Stated complaint: VAGINAL FOREIGN OBJECT Time Seen by Provider: 01/20/18 13:27 Source: patient Mode of arrival: Ambulatory Limitations: No Limitations - History of Present Illness Initial comments: This is a 27-year-old female who is reporting pain to tablets been ongoing for a while. She denies any sore throat or difficulty swallowing. She is also saying that she has a swollen vagina from where she stuck a piece of tissue up in her vagina 2 weeks ago because she didn't have a pad. She is reporting burning with urination. Vaginal pain is 10/10 and burning. Denies any fever or chills. Denies any vaginal discharge or bleeding. Last menstrual period was 01/06/2018. Denies any back or abdominal pain. No medication taken for pain. No alleviating or exacerbating factors. MD Complaint: dysuria, other (foreign-body and vagina) Onset/Timin -: week(s) Location: perineum Radiation: non-radiating, other (tongue) Severity: severe Severity scale (0 -10): 10 Quality: burning Consistency: constant Improves with: none Worsens with: none Are you Now?: No Last Menstrual Period: 01/06/18 EDC: 10/13/18 Associated Symptoms: dysuria. denies: vaginal discharge, vaginal bleeding, abdominal pain, nausea/vomiting, fever/chills, headaches, loss of appetite, hematuria, rash, seizure, shortness of breath, syncope, weakness - Related Data Sexually active: Yes Previous Rx's Medication Instructions Recorded Last Taken Type ALBUTEROL Inhaler [ProAir HFA 2 puff IH QID PRN #1 inhalation 03/28/17 Unknown Rx Inhaler] Sulfamethoxazole/Trimethoprim 1 each PO Q12H #14 tablet 10/05/17 Unknown Rx [Bactrim Ds Tablet] metroNIDAZOLE [Flagyl] 500 mg PO Q12HR #14 tab 10/05/17 Unknown Rx Famotidine [Pepcid] 20 mg PO BID PRN #30 tablet 11/20/17 Unknown Rx Ondansetron [Zofran Odt] 4 mg PO Q8H PRN #12 tab.rapdis 11/20/17 Unknown Rx Ibuprofen [Motrin] 600 mg PO Q8H PRN #15 tablet 12/11/17 Unknown Rx Phenazopyridine [Pyridium] 200 mg PO TID #6 tab 12/11/17 Unknown Rx Nitrofurantoin Monohyd/M-Cryst 100 mg PO BID #10 capsule 01/20/18 Unknown Rx [Macrobid 100 mg Capsule] Allergies Allergy/AdvReac Type Severity Reaction Status Date / Time hydrocortisone cream Allergy Hives Uncoded 12/11/17 14:05 ED Review of Systems ROS: Stated complaint: VAGINAL FOREIGN OBJECT Other details as noted in HPI Constitutional: denies: chills, fever Eyes: eye discharge ENT: other (pain to time which is chronic). denies: ear pain, throat pain, dental pain Respiratory: denies: cough, shortness of breath, SOB with exertion, SOB at rest , wheezing Cardiovascular: denies: chest pain, palpitations, edema, syncope Gastrointestinal: denies: abdominal pain, nausea, vomiting, diarrhea, constipation Genitourinary: dysuria, other (foreign body in vagina). denies: urgency, frequency, hematuria, discharge, abnormal menses Musculoskeletal: denies: back pain, joint swelling, arthralgia, myalgia Skin: denies: rash, lesions Neurological: denies: headache, weakness ED Past Medical Hx - Past Medical History Previous Medical History?: Yes Hx Hypertension: No Hx CVA: No Hx Heart Attack/AMI: No Hx Congestive Heart Failure: No Hx Diabetes: No Hx Deep Vein Thrombosis: No Hx Pulmonary Embolism: No Hx GERD: No Hx Liver Disease: No Hx Renal Disease: No Hx Sickle Cell Disease: No Hx Arthritis: No Hx Headaches / Migraines: No Hx Seizures: No Hx Kidney Stones: No Hx Psychiatric Treatment: Yes (anxiety attack, cocaine rehab) Hx Asthma: Yes Hx COPD: No Hx Tuberculosis: No Hx Dementia: No Hx HIV: No Additional medical history: hx bronchitis. Drug seeking behaviors,. Disorganized behaviors,. frequent std - Surgical History Past Surgical History?: No Hx Coronary Stent: No Hx Open Heart Surgery: No Hx Pacemaker: No Hx Internal Defibrillator: No Hx Cholecystectomy: No Hx Appendectomy: No Hx Breast Surgery: No Additional Surgical History: denies - Family History Family history: hypertension - Social History Smoking Status: Current Some Day Smoker Substance Use Type: Cocaine, Marijuana - Medications Home Medications: Home Medications Medication Instructions Recorded Confirmed Last Taken Type ALBUTEROL Inhaler [ProAir HFA 2 puff IH QID PRN #1 inhalation 03/28/17 09/30/17 Unknown Rx Inhaler] Sulfamethoxazole/Trimethoprim 1 each PO Q12H #14 tablet 10/05/17 Unknown Rx [Bactrim Ds Tablet] metroNIDAZOLE [Flagyl] 500 mg PO Q12HR #14 tab 10/05/17 Unknown Rx Famotidine [Pepcid] 20 mg PO BID PRN #30 tablet 11/20/17 Unknown Rx Ondansetron [Zofran Odt] 4 mg PO Q8H PRN #12 tab.rapdis 11/20/17 Unknown Rx Ibuprofen [Motrin] 600 mg PO Q8H PRN #15 tablet 12/11/17 Unknown Rx Phenazopyridine [Pyridium] 200 mg PO TID #6 tab 12/11/17 Unknown Rx Nitrofurantoin Monohyd/M-Cryst 100 mg PO BID #10 capsule 01/20/18 Unknown Rx [Macrobid 100 mg Capsule] ED Physical Exam - General Limitations: No Limitations General appearance: alert, in no apparent distress - Head Head exam: Present: atraumatic, normocephalic, normal inspection - Eye Eye exam: Present: normal appearance, PERRL Pupils: Present: normal accommodation - ENT ENT exam: Present: normal orophraynx, mucous membranes moist, TM's normal bilaterally, normal external ear exam, other (minimal inflammation noted to anterior tongue.). Absent: normal exam - Neck Neck exam: Present: normal inspection, full ROM, other (no C-spine tenderness). Absent: tenderness, meningismus, lymphadenopathy, thyromegaly - Respiratory Respiratory exam: Present: normal lung sounds bilaterally. Absent: respiratory distress, chest wall tenderness - Cardiovascular Cardiovascular Exam: Present: regular rate, normal rhythm, normal heart sounds. Absent: systolic murmur, diastolic murmur - GI/Abdominal GI/Abdominal exam: Present: soft, normal bowel sounds. Absent: distended, tenderness, guarding, rebound, rigid, organomegaly, mass - External exam: Present: normal external exam. Absent: erythema, swelling, lesions, lacerations, ecchymosis, bleeding Speculum exam: Present: foreign body. Absent: normal speculum exam, erythema, vaginal discharge, cervical discharge, vaginal bleeding, tissue, laceration Bi-manual exam: Present: normal bi-manual exam. Absent: cervical motion tendernes, adnexal tenderness, adnexal mass, uterine enlargement, uterine tenderness - Extremities Exam Extremities exam: Present: normal inspection, full ROM, normal capillary refill , other (no clubbing, cyanosis or edema. +2 pulses to all extremities and no neurovascular compromise). Absent: tenderness, pedal edema, joint swelling, calf tenderness - Back Exam Back exam: Present: normal inspection, full ROM, other (ambulates without any difficulties). Absent: tenderness, CVA tenderness (R), CVA tenderness (L), muscle spasm, paraspinal tenderness, vertebral tenderness, rash noted - Neurological Exam Neurological exam: Present: alert, oriented X3, normal gait - Psychiatric Psychiatric exam: Present: normal affect, normal mood - Skin Skin exam: Present: warm, dry, intact, normal color. Absent: rash ED Course Vital Signs 01/20/18 06:03 Temperature 98.1 F Pulse Rate 95 H Respiratory 16 Rate Blood Pressure 119/83 O2 Sat by Pulse 100 Oximetry - Reevaluation(s) Reevaluation #1: 01/20/18 14:17 Stable throughout ED stay. Awaiting urinalysis results - Procedure Description Procedures done: Foreign body removal: Tissue like papering clumps removal from vaginal vault. No cervical motion tenderness, no vaginal discharge noted. No vaginal rash or lesion. No bleeding noted from vagina. ED Medical Decision Making - Lab Data Vital Signs 01/20/18 06:03 Temperature 98.1 F Pulse Rate 95 H Respiratory 16 Rate Blood Pressure 119/83 O2 Sat by Pulse 100 Oximetry Lab Results 01/20/18 Range/Units 13:37 Urine Color Yellow (Yellow) Urine Turbidity Clear (Clear) Urine pH 5.0 (5.0-7.0) Ur Specific [place] 1.021 (1.003-1.030) Urine Protein <15 mg/dl (Negative) mg/dL Urine Glucose (UA) Neg (Negative) mg/dL Urine Ketones Tr (Negative) mg/dL Urine Blood Neg (Negative) Urine Nitrite Neg (Negative) Urine Bilirubin Neg (Negative) Urine Urobilinogen 2.0 (<2.0) mg/dL Ur Leukocyte Esterase Tr (Negative) Urine WBC (Auto) 4.0 (0.0-6.0) /HPF Urine RBC (Auto) 3.0 (0.0-6.0) /HPF U Epithel Cells (Auto) 2.0 (0-13.0) /HPF Urine Mucus Few /HPF Urine HCG, Qual Negative (Negative) - Medical Decision Making This is a 27-year-old female here report that she has tissue in her vaginal area. She is also complaining and that vaginal areas burning. Denies any discharge or vaginal bleeding. Denies any concern for STD or . She is here to be evaluated Examined and pelvic exam bimanual normal exam, no cervical motion tenderness, patient found to have large piece of tissue behind cervix. This was removed with forceps. Her cervix is normal without any drainage or bleeding coming from site. No erosion noted to cervix. Well rugated vaginal wall. No external rash or lesion noted. No erythema. Urinalysis positive for leukocyte esterase with patient reporting urinary burning and therefore she'll be treated for acute cystitis without hematuria. I also told patient that she has mild dehydration with ketones of trace and at solution is to increase her fluid intake. I discussed diagnosis, laboratory results with patient and she voiced understanding. Foreign body vagina-pelvic exam done and foreign body removed with forceps.. Tolerated procedure well. Dysuria-positive leukocyte esterase with complaints of urinary burning. Her and culture sent Acute cystitis without hematuria-patient's was started on Macrobid for 5 days Patient instructed not to put any foreign body in her vaginal area, refrain from Douching, follow-up with [facility] and her [facility] in 2 days, medication and treatment plan. Voiced understanding. PT discharged home in stable condition, vital signs are stable she is afebrile. Discharged home with prescription for Macrobid and to follow-up with [facility] or primary care in 2 days. She voiced understanding. Critical care attestation.: If time is entered above; I have spent that time in minutes in the direct care of this critically ill patient, excluding procedure time. ED Disposition Clinical Impression: Dysuria Vaginal foreign body Qualifiers: Encounter type: initial encounter Qualified Code(s): T19.2XXA - Foreign body in vulva and vagina, initial encounter Acute cystitis Qualifiers: Hematuria presence: without hematuria Qualified Code(s): N30.00 - Acute cystitis without hematuria Disposition: TO HOME OR SELFCARE Is pt being admited?: No Does the pt Need Aspirin: No Condition: Stable Instructions: Urinary Tract Infection in Women (ED), Vaginal Foreign Body (ED) , Dysuria (ED) Additional Instructions: Please take medication as prescribed Follow-up with [facility] in days if he do not have [facility] follow-up at [facility] Please refrain from putting foreign objects in the vagina Prescriptions: Nitrofurantoin Monohyd/M-Cryst [Macrobid 100 mg Capsule] 100 mg PO BID #10 capsule Referrals: PRIMARY CARE, [Primary Care Provider] - 01/22/18 [facility] [Outside] - 01/22/18 Forms: Work/School Release Form(ED)
[2018-01-20 14:38] LABS: Bilirubin,Urine NEG (Negative); Blood,Urine NEG (Negative); Color,Urine Yellow (Yellow); HCG Qualitative,Urine Negative (Negative); Mucus,Urine FEW /HPF; Protein,Urine <15 mg/dL mg/dL (Negative)
== END 2018-01-20 15:30 | disposition home or self-care (01) ==
LOC: ED 05:57
DX: T19.2XXA Foreign body in vulva and vagina, initial encounter (principal); N30.00 Acute cystitis without hematuria; J45.909 Unspecified asthma, uncomplicated; F17.200 Nicotine dependence, unspecified, uncomplicated; F12.10 Cannabis abuse, uncomplicated; Z88.8 Allergy status to other drugs, medicaments and biological substances
CPT/HCPCS: 81001; 81025; 87086; 99284

== ENCOUNTER 2018-01-20 22:55 | Emergency (ER) | payer SELFPAY | END 2018-01-20 22:56 | disposition left against medical advice (07) | LOC: ED 22:55 | DX: R30.0 Dysuria (principal); Z53.21 Procedure and treatment not carried out due to patient leaving prior to being seen by health care provider ==

== ENCOUNTER 2018-01-21 08:51 | Emergency (ER) | payer SELFPAY ==
[2018-01-21 08:59] VITALS: BP 117/87
--- NOTE | 2018-01-21 11:17 | Emergency Department Report ---
ED General Adult HPI - General Chief complaint: Urogenital-Female Stated complaint: BURNING IN URINE Time Seen by Provider: 01/21/18 10:53 Source: patient Mode of arrival: Ambulatory Limitations: No Limitations - History of Present Illness Initial comments: Patient is 27 years old female well known to our ER due to multiple ER visits for different complaints. Patient presented today complaining of left great toe pain for possible injury and burning sensation when she urinates. Patient denied any other complaint. - Related Data Previous Rx's Medication Instructions Recorded Last Taken Type ALBUTEROL Inhaler [ProAir HFA 2 puff IH QID PRN #1 inhalation 03/28/17 Unknown Rx Inhaler] Sulfamethoxazole/Trimethoprim 1 each PO Q12H #14 tablet 10/05/17 Unknown Rx [Bactrim Ds Tablet] metroNIDAZOLE [Flagyl] 500 mg PO Q12HR #14 tab 10/05/17 Unknown Rx Famotidine [Pepcid] 20 mg PO BID PRN #30 tablet 11/20/17 Unknown Rx Ondansetron [Zofran Odt] 4 mg PO Q8H PRN #12 tab.rapdis 11/20/17 Unknown Rx Ibuprofen [Motrin] 600 mg PO Q8H PRN #15 tablet 12/11/17 Unknown Rx Phenazopyridine [Pyridium] 200 mg PO TID #6 tab 12/11/17 Unknown Rx Nitrofurantoin Monohyd/M-Cryst 100 mg PO BID #10 capsule 01/20/18 Unknown Rx [Macrobid 100 mg Capsule] Allergies Allergy/AdvReac Type Severity Reaction Status Date / Time hydrocortisone cream Allergy Hives Uncoded 12/11/17 14:05 ED Review of Systems ROS: Stated complaint: BURNING IN URINE Other details as noted in HPI Comment: All other systems reviewed and negative Respiratory: denies: cough, orthopnea Cardiovascular: denies: chest pain, palpitations Gastrointestinal: denies: abdominal pain, nausea Genitourinary: dysuria. denies: urgency, frequency, hematuria, discharge, abnormal menses ED Past Medical Hx - Past Medical History Previous Medical History?: Yes Hx Hypertension: No Hx CVA: No Hx Heart Attack/AMI: No Hx Congestive Heart Failure: No Hx Diabetes: No Hx Deep Vein Thrombosis: No Hx Pulmonary Embolism: No Hx GERD: No Hx Liver Disease: No Hx Renal Disease: No Hx Sickle Cell Disease: No Hx Arthritis: No Hx Headaches / Migraines: No Hx Seizures: No Hx Kidney Stones: No Hx Psychiatric Treatment: Yes (anxiety attack, cocaine rehab) Hx Asthma: Yes Hx COPD: No Hx Tuberculosis: No Hx Dementia: No Hx HIV: No Additional medical history: hx bronchitis. Drug seeking behaviors,. Disorganized behaviors,. frequent std - Surgical History Past Surgical History?: No Hx Coronary Stent: No Hx Open Heart Surgery: No Hx Pacemaker: No Hx Internal Defibrillator: No Hx Cholecystectomy: No Hx Appendectomy: No Hx Breast Surgery: No Additional Surgical History: denies - Social History Smoking Status: Current Every Day Smoker Substance Use Type: None - Medications Home Medications: Home Medications Medication Instructions Recorded Confirmed Last Taken Type ALBUTEROL Inhaler [ProAir HFA 2 puff IH QID PRN #1 inhalation 03/28/17 09/30/17 Unknown Rx Inhaler] Sulfamethoxazole/Trimethoprim 1 each PO Q12H #14 tablet 10/05/17 Unknown Rx [Bactrim Ds Tablet] metroNIDAZOLE [Flagyl] 500 mg PO Q12HR #14 tab 10/05/17 Unknown Rx Famotidine [Pepcid] 20 mg PO BID PRN #30 tablet 11/20/17 Unknown Rx Ondansetron [Zofran Odt] 4 mg PO Q8H PRN #12 tab.rapdis 11/20/17 Unknown Rx Ibuprofen [Motrin] 600 mg PO Q8H PRN #15 tablet 12/11/17 Unknown Rx Phenazopyridine [Pyridium] 200 mg PO TID #6 tab 12/11/17 Unknown Rx Nitrofurantoin Monohyd/M-Cryst 100 mg PO BID #10 capsule 01/20/18 Unknown Rx [Macrobid 100 mg Capsule] ED Physical Exam - General Limitations: No Limitations General appearance: alert, in no apparent distress - Head Head exam: Present: atraumatic, normocephalic - ENT ENT exam: Present: normal exam, normal orophraynx - Neck Neck exam: Present: normal inspection, full ROM. Absent: tenderness, meningismus, lymphadenopathy, thyromegaly - Respiratory Respiratory exam: Present: normal lung sounds bilaterally. Absent: respiratory distress, wheezes, rales, rhonchi, chest wall tenderness, accessory muscle use, decreased breath sounds - Cardiovascular Cardiovascular Exam: Present: regular rate, normal rhythm, normal heart sounds - GI/Abdominal GI/Abdominal exam: Present: soft, normal bowel sounds. Absent: distended, tenderness, guarding, rebound, rigid - Extremities Exam Extremities exam: Present: normal inspection, full ROM, normal capillary refill , other (left great toe tenderness, no deformity.). Absent: calf tenderness - Back Exam Back exam: Present: normal inspection, full ROM. Absent: CVA tenderness (L) - Neurological Exam Neurological exam: Present: alert, oriented X3, CN II-XII intact. Absent: normal gait - Skin Skin exam: Present: warm, intact, normal color ED Course Vital Signs 01/21/18 08:56 Temperature 97.3 F L Pulse Rate 70 Respiratory 18 Rate Blood Pressure 117/87 O2 Sat by Pulse 100 Oximetry ED Medical Decision Making - Radiology Data Radiology results: report reviewed Referring Physician: BETSY BAEZ Patient Name: DONNY FELIX Date of : 1990 Sex: Female Report Date: 2018-01-21 Report Status: Finalized Findings [address] [address] XRay Report Signed Patient: DONNY FELIX MR#: [id number] : 1990 Acct:[id number] Age/Sex: 27 / F ADM Date: 01/21/18 Loc: ED Attending Dr: Ordering Physician: BETSY BAEZ Date of Service: 01/21/18 Procedure(s): XR toe(s) 2+V LT Accession Number(s): [id number] cc: BETSY BAEZ Fluoro Time In Minutes: LEFT TOES: History: Left great toe injury. The bony architecture is intact. Bony alignment is normal. No soft tissue abnormalities are seen. The joint spaces appear preserved. IMPRESSION: Normal left toes. Transcribed By: TTR Dictated By: CHANDLER MI JR, MD Electronically Authenticated By: CHANDLER MI JR, MD Signed Date/Time: 01/21/18 1235 DD/ 1235 TD/TT: 01/21/18 1235 Critical care attestation.: If time is entered above; I have spent that time in minutes in the direct care of this critically ill patient, excluding procedure time. ED Disposition Clinical Impression: Toe pain, left Disposition: ELOPED Is pt being admited?: No Condition: Stable Referrals: PRIMARY CARE, [Primary Care Provider] - 3-5 Days
--- NOTE | 2018-01-21 12:57 | XRay Report ---
LEFT TOES: History: Left great toe injury. The bony architecture is intact. Bony alignment is normal. No soft tissue abnormalities are seen. The joint spaces appear preserved. IMPRESSION: Normal left toes.
== END 2018-01-21 18:02 | disposition left against medical advice (07) ==
LOC: ED 08:51
DX: M79.675 Pain in left toe(s) (principal); J45.909 Unspecified asthma, uncomplicated; F17.200 Nicotine dependence, unspecified, uncomplicated; Z88.8 Allergy status to other drugs, medicaments and biological substances
CPT/HCPCS: 99283

== ENCOUNTER 2018-01-27 10:25 | Emergency (ER) | payer SELFPAY ==
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
--- NOTE | 2018-01-27 12:24 | XRay Report ---
LEFT HAND, 3 views: History: Left finger pain. The bony architecture is intact. Bony alignment is normal. No soft tissue abnormalities are seen. The joint spaces appear preserved. IMPRESSION: Unremarkable left hand.
[2018-01-27 12:41] VITALS: BP 106/71
== END 2018-01-27 12:40 | disposition home or self-care (01) ==
LOC: ED 10:25
DX: S63.92XA Sprain of unspecified part of left wrist and hand, initial encounter (principal); F41.9 Anxiety disorder, unspecified; J45.909 Unspecified asthma, uncomplicated; Z87.891 Personal history of nicotine dependence; W51.XXXA Accidental striking against or bumped into by another person, initial encounter; Y93.89 Activity, other specified; Y92.89 Other specified places as the place of occurrence of the external cause; Y99.8 Other external cause status
CPT/HCPCS: 99283

== ENCOUNTER 2018-02-19 14:31 | Emergency (ER) | payer SELFPAY ==
[2018-02-19 15:08] VITALS: BP 114/75
== END 2018-02-19 15:35 | disposition left against medical advice (07) ==
LOC: ED 14:31
DX: M79.645 Pain in left finger(s) (principal); J45.909 Unspecified asthma, uncomplicated; F41.9 Anxiety disorder, unspecified; Z88.8 Allergy status to other drugs, medicaments and biological substances; Z53.21 Procedure and treatment not carried out due to patient leaving prior to being seen by health care provider

== ENCOUNTER 2018-02-22 16:09 | Emergency (ER) | payer SELFPAY ==
[2018-02-22 16:36] VITALS: BP 117/77
== END 2018-02-22 17:45 | disposition left against medical advice (07) ==
LOC: ED 16:09
DX: R06.00 Dyspnea, unspecified (principal); Z53.21 Procedure and treatment not carried out due to patient leaving prior to being seen by health care provider

== ENCOUNTER 2018-02-27 19:16 | Emergency (ER) | payer SELFPAY | END 2018-02-27 20:30 | disposition left against medical advice (07) | LOC: ED 19:16 | DX: R30.0 Dysuria (principal); Z53.21 Procedure and treatment not carried out due to patient leaving prior to being seen by health care provider ==

== ENCOUNTER 2018-02-27 21:35 | Emergency (ER) | payer SELFPAY ==
[2018-02-28 07:31] LABS: Bacteria,Urine 1+ /HPF (Negative); Bilirubin,Urine NEG (Negative); Blood,Urine NEG (Negative); Color,Urine Yellow (Yellow); Mucus,Urine FEW /HPF; Protein,Urine <15 mg/dL mg/dL (Negative)
[2018-02-28 07:32] LABS: HCG Qualitative,Urine Negative (Negative)
[2018-02-28] MEDS ORDERED: DUONEB *Not for PRN Use IH ONE (08:51)
--- NOTE | 2018-02-28 08:54 | Emergency Department Report ---
ED Female HPI - General Chief complaint: Urogenital-Female Stated complaint: NAKIA/VAG ODOR/BURNING SENSATION Time Seen by Provider: 02/28/18 08:19 Source: patient Mode of arrival: Ambulatory Limitations: No Limitations - History of Present Illness Initial comments: This is a 27-year-old female nontoxic, well nourished in appearance, no acute signs of distress presents to the ED with c/o of vaginal discharge and dysuria. Patient denies any vaginal pain or swelling. Patient denies any vaginal ulcers or lesions. Patient denies any abdominal or pelvic pain. Patient is also requesting for empiric treatment of STD. Patient also is requesting for a breathing treatment even though currently patient does not have any respiratory symptoms such as wheezing or difficulty breathing. Patient denies any nausea, vomiting, chest pain, shortness of breathe, fever, chills, headache, back pain, numbness, tingling, stiff neck. Patient denies any other urinary symptoms. MD Complaint: vaginal discharge, dysuria, possible STD Radiation: non-radiating Severity: mild Severity scale (0 -10): 3 Quality: burning Consistency: constant Improves with: none Worsens with: urination Are you Now?: No Associated Symptoms: vaginal discharge, dysuria. denies: vaginal bleeding, abdominal pain, nausea/vomiting, fever/chills, headaches, loss of appetite, hematuria, rash, seizure, shortness of breath, syncope, weakness - Related Data Sexually active: Yes Previous Rx's Medication Instructions Recorded Last Taken Type ALBUTEROL Inhaler [ProAir HFA 2 puff IH QID PRN #1 inhalation 03/28/17 Unknown Rx Inhaler] Sulfamethoxazole/Trimethoprim 1 each PO Q12H #14 tablet 10/05/17 Unknown Rx [Bactrim Ds Tablet] metroNIDAZOLE [Flagyl] 500 mg PO Q12HR #14 tab 10/05/17 Unknown Rx Famotidine [Pepcid] 20 mg PO BID PRN #30 tablet 11/20/17 Unknown Rx Ondansetron [Zofran Odt] 4 mg PO Q8H PRN #12 tab.rapdis 11/20/17 Unknown Rx Ibuprofen [Motrin] 600 mg PO Q8H PRN #15 tablet 12/11/17 Unknown Rx Phenazopyridine [Pyridium] 200 mg PO TID #6 tab 12/11/17 Unknown Rx Nitrofurantoin Monohyd/M-Cryst 100 mg PO BID #10 capsule 01/20/18 Unknown Rx [Macrobid 100 mg Capsule] Ibuprofen [Motrin] 600 mg PO Q8H PRN #15 tablet 01/27/18 Unknown Rx Sulfamethoxazole/Trimethoprim 1 each PO BID #14 tablet 02/28/18 Unknown Rx [Bactrim DS TAB] Allergies Allergy/AdvReac Type Severity Reaction Status Date / Time hydrocortisone cream Allergy Hives Uncoded 12/11/17 14:05 ED Review of Systems ROS: Stated complaint: NAKIA/VAG ODOR/BURNING SENSATION Other details as noted in HPI Constitutional: denies: chills, fever Eyes: denies: eye pain, eye discharge, vision change ENT: denies: ear pain, throat pain Respiratory: denies: cough, shortness of breath, wheezing Cardiovascular: denies: chest pain, palpitations Endocrine: no symptoms reported Gastrointestinal: denies: abdominal pain, nausea, diarrhea Genitourinary: dysuria, frequency, discharge. denies: urgency, hematuria Musculoskeletal: denies: back pain, joint swelling, arthralgia Skin: denies: rash, lesions Neurological: denies: headache, weakness, paresthesias Psychiatric: denies: anxiety, depression Hematological/Lymphatic: denies: easy bleeding, easy bruising ED Past Medical Hx - Past Medical History Hx Hypertension: No Hx CVA: No Hx Heart Attack/AMI: No Hx Congestive Heart Failure: No Hx Diabetes: No Hx Deep Vein Thrombosis: No Hx Pulmonary Embolism: No Hx GERD: No Hx Liver Disease: No Hx Renal Disease: No Hx Sickle Cell Disease: No Hx Arthritis: No Hx Headaches / Migraines: No Hx Seizures: No Hx Kidney Stones: No Hx Psychiatric Treatment: Yes (anxiety attack, cocaine rehab) Hx Asthma: Yes Hx COPD: No Hx Tuberculosis: No Hx Dementia: No Hx HIV: No Additional medical history: hx bronchitis. Drug seeking behaviors,. Disorganized behaviors,. frequent std - Surgical History Past Surgical History?: No Hx Coronary Stent: No Hx Open Heart Surgery: No Hx Pacemaker: No Hx Internal Defibrillator: No Hx Cholecystectomy: No Hx Appendectomy: No Hx Breast Surgery: No Additional Surgical History: denies - Social History Smoking Status: Never Smoker Substance Use Type: None - Medications Home Medications: Home Medications Medication Instructions Recorded Confirmed Last Taken Type ALBUTEROL Inhaler [ProAir HFA 2 puff IH QID PRN #1 inhalation 03/28/17 09/30/17 Unknown Rx Inhaler] Sulfamethoxazole/Trimethoprim 1 each PO Q12H #14 tablet 10/05/17 Unknown Rx [Bactrim Ds Tablet] metroNIDAZOLE [Flagyl] 500 mg PO Q12HR #14 tab 10/05/17 Unknown Rx Famotidine [Pepcid] 20 mg PO BID PRN #30 tablet 11/20/17 Unknown Rx Ondansetron [Zofran Odt] 4 mg PO Q8H PRN #12 tab.rapdis 11/20/17 Unknown Rx Ibuprofen [Motrin] 600 mg PO Q8H PRN #15 tablet 12/11/17 Unknown Rx Phenazopyridine [Pyridium] 200 mg PO TID #6 tab 12/11/17 Unknown Rx Nitrofurantoin Monohyd/M-Cryst 100 mg PO BID #10 capsule 01/20/18 Unknown Rx [Macrobid 100 mg Capsule] Ibuprofen [Motrin] 600 mg PO Q8H PRN #15 tablet 01/27/18 Unknown Rx Sulfamethoxazole/Trimethoprim 1 each PO BID #14 tablet 02/28/18 Unknown Rx [Bactrim DS TAB] ED Physical Exam - General Limitations: No Limitations General appearance: alert, in no apparent distress - Head Head exam: Present: atraumatic, normocephalic - Eye Eye exam: Present: normal appearance Pupils: Present: normal accommodation - ENT ENT exam: Present: normal exam, mucous membranes moist - Neck Neck exam: Present: normal inspection, full ROM. Absent: tenderness, meningismus, lymphadenopathy - Respiratory Respiratory exam: Present: normal lung sounds bilaterally. Absent: respiratory distress, wheezes, rales, rhonchi, stridor, chest wall tenderness, accessory muscle use, decreased breath sounds, prolonged expiratory - Cardiovascular Cardiovascular Exam: Present: regular rate, normal rhythm, normal heart sounds. Absent: irregular rhythm, systolic murmur, diastolic murmur, rubs, gallop - GI/Abdominal GI/Abdominal exam: Present: soft, normal bowel sounds. Absent: distended, tenderness, guarding, rebound, rigid, diminished bowel sounds - Extremities Exam Extremities exam: Present: normal inspection, full ROM, normal capillary refill - Back Exam Back exam: Present: normal inspection, full ROM - Neurological Exam Neurological exam: Present: alert, oriented X3, normal gait - Psychiatric Psychiatric exam: Present: normal affect, normal mood - Skin Skin exam: Present: warm, dry, intact, normal color. Absent: rash ED Course Vital Signs 02/27/18 22:16 Temperature 97.5 F L Pulse Rate 102 H Respiratory 16 Rate Blood Pressure 121/78 O2 Sat by Pulse 100 Oximetry - Reevaluation(s) Reevaluation #1: 02/28/18 08:56 Patient is speaking in full sentences with no signs of distress noted. ED Medical Decision Making - Medical Decision Making This is a 27-year-old female that presents with possible STD and UTI. Patient is stable was examined by me. There is no abdominal tenderness. No pelvic pain. UA obtained. Wet prep obtained. Gonorrhea chlamydia swab pending. Patient also requested for a breathing treatment. Upon examination patient has no respiratory symptoms. The patient is to request a further breathing treatments and patient received DuoNeb. Patient was instructed to return in 2 days for GC results. Patient wanted empirical treatment so patient received 250 mg Rocephin and 1 g of azithromycin by mouth. Patient was instructed to Follow-up with a primary care doctor in 3-5 days or if symptoms worsen and continue return to emergency room as soon as possible. At time of discharge, the patient does not seem toxic or ill in appearance. No acute signs of distress noted. Patient agrees to discharge treatment plan of care. No further questions noted by the patient. Critical care attestation.: If time is entered above; I have spent that time in minutes in the direct care of this critically ill patient, excluding procedure time. ED Disposition Clinical Impression: Possible exposure to STD UTI (urinary tract infection) Qualifiers: Urinary tract infection type: site unspecified Hematuria presence: without hematuria Qualified Code(s): N39.0 - Urinary tract infection, site not specified Disposition: DC-01 TO HOME OR SELFCARE Is pt being admited?: No Does the pt Need Aspirin: No Condition: Stable Instructions: Sexually Transmitted Diseases (ED), Safe Sex (ED) Additional Instructions: Follow-up with a primary care doctor in 3-5 days or if symptoms worsen and continue return to emergency room as soon as possible. Return in 2-3 days for gonorrhea and chlamydia results. Prescriptions: Sulfamethoxazole/Trimethoprim [Bactrim DS TAB] 1 each PO BID #14 tablet Referrals: PRIMARY CARE, [Primary Care Provider] - 3-5 Days ROSY MALDONADO MD [Staff Physician] - 3-5 Days [facility] [Outside] - 3-5 Days [facility] [Outside] - 3-5 Days Forms: Work/School Release Form(ED)
[2018-02-28] MEDS ORDERED: XYLOCAINE 1% MPF 5 mL INFILTRATI ONE (09:23)
[2018-02-28] MEDS ORDERED: ROCEPHIN IM ONE (09:23)
[2018-02-28] MEDS ORDERED: ZITHROMAX PO ONE (09:23)
[2018-02-28 09:31] VITALS: BP 113/78
[2018-02-28] MEDS ORDERED: XYLOCAINE 1% 20 mL ONE (09:40)
== END 2018-02-28 10:33 | disposition home or self-care (01) ==
LOC: ED 21:35
DX: N39.0 Urinary tract infection, site not specified (principal); J45.909 Unspecified asthma, uncomplicated; F41.9 Anxiety disorder, unspecified; Z91.02 Food additives allergy status
CPT/HCPCS: 81001; 81025; 87210; 87591; 94640; 96372; 99283; J0696

== ENCOUNTER 2018-02-28 11:03 | Emergency (ER) | payer SELFPAY ==
[2018-02-28 11:50] VITALS: BP 125/56
== END 2018-02-28 14:00 | disposition left against medical advice (07) ==
LOC: ED 11:03
DX: R69 Illness, unspecified (principal); Z53.21 Procedure and treatment not carried out due to patient leaving prior to being seen by health care provider

== ENCOUNTER 2018-03-01 13:22 | Emergency (ER) | payer SELFPAY ==
[2018-03-01 13:43] VITALS: BP 116/73
== END 2018-03-01 14:04 | disposition left against medical advice (07) ==
LOC: ED 13:22
DX: M79.672 Pain in left foot (principal); Z53.21 Procedure and treatment not carried out due to patient leaving prior to being seen by health care provider

== ENCOUNTER 2018-03-15 10:26 | Emergency (ER) | payer SELFPAY ==
--- NOTE | 2018-03-15 12:38 | Emergency Department Report ---
Upper Respiratory HPI - HPI Chief Complaint: Upper Respiratory Infection Stated Complaint: NAKIA/CHEST COLD Time Seen by Provider: 03/15/18 12:26 Duration: 2 Days URI Symptoms: Rhinorrhea: No, Sore Throat: No, Ear Pain: No, Cough: Yes, Shortness of Breath: No, Sick Contacts: No, Unable to Take Fluids: No, Urine Output Abnormal: No, Listless Behavior: No Other History: This is a 27-year-old female nontoxic, well nourished in appearance, no acute signs of distress presents to the ED with c/o of nonproductive dry cough and nasal congection x2 days. Patient also stated has irregular menstrual cycle and wants to be tested for . Patient denies any sick contact. Patient denies any recent travels, long car, recent hospital stays. Patient denies any calf pain or calf tenderness. Patient denies any chest pain, short of breath, abdominal/pelvic pain, fever, chills, nausea, vomiting, hemoptysis, numbness, tingling, headache or stiff neck. Patient stated allergies to Hydrocortisone cream. - Home Meds and Allergies Home Medications: Previous Rx's Medication Instructions Recorded Last Taken Type ALBUTEROL Inhaler (OR & NICU) 2 puff IH QID PRN #1 inhalation 03/28/17 Unknown Rx [ProAir HFA Inhaler] Sulfamethoxazole/Trimethoprim 1 each PO Q12H #14 tablet 10/05/17 Unknown Rx [Bactrim Ds Tablet] metroNIDAZOLE [Flagyl] 500 mg PO Q12HR #14 tab 10/05/17 Unknown Rx Famotidine [Pepcid] 20 mg PO BID PRN #30 tablet 11/20/17 Unknown Rx Ondansetron [Zofran Odt] 4 mg PO Q8H PRN #12 tab.rapdis 11/20/17 Unknown Rx Ibuprofen [Motrin] 600 mg PO Q8H PRN #15 tablet 12/11/17 Unknown Rx Phenazopyridine [Pyridium] 200 mg PO TID #6 tab 12/11/17 Unknown Rx Nitrofurantoin Monohyd/M-Cryst 100 mg PO BID #10 capsule 01/20/18 Unknown Rx [Macrobid 100 mg Capsule] Ibuprofen [Motrin] 600 mg PO Q8H PRN #15 tablet 01/27/18 Unknown Rx Sulfamethoxazole/Trimethoprim 1 each PO BID #14 tablet 02/28/18 Unknown Rx [Bactrim DS TAB] Ibuprofen [Motrin] 600 mg PO Q8H PRN #12 tablet 03/12/18 Unknown Rx Benzonatate [Tessalon Perle] 100 mg PO Q8H PRN #20 capsule 03/15/18 Unknown Rx Fluticasone [Flonase] 1 spray NS QDAY #1 bottle 03/15/18 Unknown Rx Loratadine [Claritin] 10 mg PO DAILY #30 tablet 03/15/18 Unknown Rx Prednisone [predniSONE 10 mg 10 mg PO .TAPER #1 tab.ds.pk 03/15/18 Unknown Rx (6-Day Pack, 21 Tabs)] Allergies/Adverse Reactions: Allergies Allergy/AdvReac Type Severity Reaction Status Date / Time hydrocortisone cream Allergy Mild Hives Uncoded 02/28/18 10:12 ED Review of Systems ROS: Stated complaint: NAKIA/CHEST COLD Other details as noted in HPI Constitutional: denies: chills, fever Eyes: denies: eye pain, eye discharge, vision change ENT: denies: ear pain, throat pain Respiratory: cough. denies: shortness of breath, wheezing Cardiovascular: denies: chest pain, palpitations Endocrine: no symptoms reported Gastrointestinal: denies: abdominal pain, nausea, diarrhea Genitourinary: abnormal menses. denies: urgency, dysuria, discharge Musculoskeletal: denies: back pain, joint swelling, arthralgia Skin: denies: rash, lesions Neurological: denies: headache, weakness, paresthesias Psychiatric: denies: anxiety, depression Hematological/Lymphatic: denies: easy bleeding, easy bruising ED Past Medical Hx - Past Medical History Hx Hypertension: No Hx CVA: No Hx Heart Attack/AMI: No Hx Congestive Heart Failure: No Hx Diabetes: No Hx Deep Vein Thrombosis: No Hx Pulmonary Embolism: No Hx GERD: No Hx Liver Disease: No Hx Renal Disease: No Hx Sickle Cell Disease: No Hx Arthritis: No Hx Headaches / Migraines: No Hx Seizures: No Hx Kidney Stones: No Hx Psychiatric Treatment: Yes (anxiety attack, cocaine rehab) Hx Asthma: Yes Hx COPD: No Hx Tuberculosis: No Hx Dementia: No Hx HIV: No Additional medical history: hx bronchitis. Drug seeking behaviors,. Disorganized behaviors,. frequent std - Surgical History Hx Coronary Stent: No Hx Open Heart Surgery: No Hx Pacemaker: No Hx Internal Defibrillator: No Hx Cholecystectomy: No Hx Appendectomy: No Hx Breast Surgery: No Additional Surgical History: denies - Social History Smoking Status: Never Smoker Substance Use Type: None - Medications Home Medications: Home Medications Medication Instructions Recorded Confirmed Last Taken Type ALBUTEROL Inhaler (OR & NICU) 2 puff IH QID PRN #1 inhalation 03/28/17 09/30/17 Unknown Rx [ProAir HFA Inhaler] Sulfamethoxazole/Trimethoprim 1 each PO Q12H #14 tablet 10/05/17 Unknown Rx [Bactrim Ds Tablet] metroNIDAZOLE [Flagyl] 500 mg PO Q12HR #14 tab 10/05/17 Unknown Rx Famotidine [Pepcid] 20 mg PO BID PRN #30 tablet 11/20/17 Unknown Rx Ondansetron [Zofran Odt] 4 mg PO Q8H PRN #12 tab.rapdis 11/20/17 Unknown Rx Ibuprofen [Motrin] 600 mg PO Q8H PRN #15 tablet 12/11/17 Unknown Rx Phenazopyridine [Pyridium] 200 mg PO TID #6 tab 12/11/17 Unknown Rx Nitrofurantoin Monohyd/M-Cryst 100 mg PO BID #10 capsule 01/20/18 Unknown Rx [Macrobid 100 mg Capsule] Ibuprofen [Motrin] 600 mg PO Q8H PRN #15 tablet 01/27/18 Unknown Rx Sulfamethoxazole/Trimethoprim 1 each PO BID #14 tablet 02/28/18 Unknown Rx [Bactrim DS TAB] Ibuprofen [Motrin] 600 mg PO Q8H PRN #12 tablet 03/12/18 Unknown Rx Benzonatate [Tessalon Perle] 100 mg PO Q8H PRN #20 capsule 03/15/18 Unknown Rx Fluticasone [Flonase] 1 spray NS QDAY #1 bottle 03/15/18 Unknown Rx Loratadine [Claritin] 10 mg PO DAILY #30 tablet 03/15/18 Unknown Rx Prednisone [predniSONE 10 mg 10 mg PO .TAPER #1 tab.ds.pk 03/15/18 Unknown Rx (6-Day Pack, 21 Tabs)] ED Bronchiolitis Physical Exam - Exam General: Vital signs noted. No distress. Alert and acting appropriately. Neurologic: Alert and oriented, no deficits. Musculoskeletal: Unremarkable. ED Physical Exam - General Limitations: No Limitations General appearance: alert, in no apparent distress - Head Head exam: Present: atraumatic, normocephalic - Eye Eye exam: Present: normal appearance Pupils: Present: normal accommodation - ENT ENT exam: Present: normal exam, mucous membranes moist - Neck Neck exam: Present: normal inspection, full ROM. Absent: tenderness, meningismus, lymphadenopathy - Respiratory Respiratory exam: Present: normal lung sounds bilaterally. Absent: respiratory distress, wheezes, rales, rhonchi, stridor, chest wall tenderness, accessory muscle use, decreased breath sounds, prolonged expiratory - Cardiovascular Cardiovascular Exam: Present: regular rate, normal rhythm, normal heart sounds. Absent: bradycardia, tachycardia, irregular rhythm, systolic murmur, diastolic murmur, rubs, gallop - GI/Abdominal GI/Abdominal exam: Present: soft, normal bowel sounds. Absent: distended, tenderness, guarding, rebound, rigid, diminished bowel sounds - Extremities Exam Extremities exam: Present: normal inspection, full ROM, normal capillary refill. Absent: tenderness - Back Exam Back exam: Present: normal inspection, full ROM. Absent: tenderness, CVA tenderness (R), CVA tenderness (L), muscle spasm, paraspinal tenderness, vertebral tenderness, rash noted - Neurological Exam Neurological exam: Present: alert, oriented X3, normal gait - Psychiatric Psychiatric exam: Present: normal affect, normal mood - Skin Skin exam: Present: warm, dry, intact, normal color. Absent: rash ED Course Vital Signs 03/15/18 11:10 Temperature 97.8 F Pulse Rate 74 Respiratory 18 Rate Blood Pressure 111/75 O2 Sat by Pulse 100 Oximetry - Reevaluation(s) Reevaluation #1: 03/15/18 12:37 Patient is speaking in full sentences with no signs of distress noted. ED Medical Decision Making - Medical Decision Making This is a 27-year-old female that presents with bronchitis. Patient is stable and was examined by me. Chest x-ray has been obtained and dictated by radiologist with normal exam. Patient is notified of x-ray results with no questions noted. Patient will be discahrged with prednisone, Flonase and Claritin. UA obtained. Negative test. Vitals stable. Patient is nonfebrile and normal heart rate. Patient was instructed Follow-up with a primary care doctor in 3-5 days or if symptoms worsen and continue return to emergency room as soon as possible. At time time of discharge, the patient does not seem toxic or ill in appearance. No acute signs of distress noted. Patient agrees to discharge treatment plan of care. No further questions noted by the patient. Critical care attestation.: If time is entered above; I have spent that time in minutes in the direct care of this critically ill patient, excluding procedure time. ED Disposition Clinical Impression: Bronchitis Disposition: DC-01 TO HOME OR SELFCARE Is pt being admited?: No Does the pt Need Aspirin: No Condition: Stable Instructions: Acute Bronchitis (ED) Additional Instructions: Follow-up with a primary care doctor in 3-5 days or if symptoms worsen and continue return to emergency room as soon as possible. Prescriptions: Benzonatate [Tessalon Perle] 100 mg PO Q8H PRN #20 capsule PRN Reason: Cough Fluticasone [Flonase] 1 spray NS QDAY #1 bottle Loratadine [Claritin] 10 mg PO DAILY #30 tablet Prednisone [predniSONE 10 mg (6-Day Pack, 21 Tabs)] 10 mg PO .TAPER #1 tab.ds.pk Referrals: PRIMARY CARE, [Primary Care Provider] - 3-5 Days ROSY MALDONADO MD [Staff Physician] - 3-5 Days [facility] [Outside] - 3-5 Days [facility] [Outside] - 3-5 Days
[2018-03-15 14:54] LABS: HCG Qualitative,Urine Negative (Negative)
[2018-03-15 15:01] LABS: Bacteria,Urine 1+ /HPF (Negative); Bilirubin,Urine NEG (Negative); Blood,Urine SM (Negative); Color,Urine Yellow (Yellow); Mucus,Urine 2+ /HPF; Protein,Urine <15 mg/dL mg/dL (Negative); Urobilinogen,Urine < 2.0 mg/dL (<2.0)
== END 2018-03-15 16:05 | disposition left against medical advice (07) ==
LOC: ED 10:26
DX: J40 Bronchitis, not specified as acute or chronic (principal); J45.909 Unspecified asthma, uncomplicated; F41.9 Anxiety disorder, unspecified; Z88.6 Allergy status to analgesic agent; Z79.899 Other long term (current) drug therapy
CPT/HCPCS: 81001; 81025; 99283

== ENCOUNTER 2018-04-02 03:43 | Emergency (ER) | payer SELFPAY ==
[2018-04-02 04:38] LABS: Basophils % (Auto) 0.4 % (0.0-1.8); Eosinophils # (Auto) 0.2 K/mm3 (0.0-0.4); Eosinophils % (Auto) 1.9 % (0.0-4.3); Hematocrit 42.2 % (30.3-42.9); Hemoglobin 14.3 gm/dl (10.1-14.3); Lymphocytes # (Auto) 2.2 K/mm3 (1.2-5.4); Lymphocytes % (Auto) 24.8 % (13.4-35.0); Mean Corpuscular HGB Conc 34 % (30-34); Mean Corpuscular Hemoglobin 33 pg (28-32); Mean Corpuscular Volume 98 fl (79-97); Monocytes # (Auto) 0.6 K/mm3 (0.0-0.8); Monocytes % (Auto) 6.7 % (0.0-7.3); Platelet Count 323 K/mm3 (140-440); Red Blood Count 4.31 M/mm3 (3.65-5.03); Red Cell Distribution Width 14.7 % (13.2-15.2)
[2018-04-02 05:00] LABS: Alanine Aminotransferase 10 units/L (7-56); Albumin 4.3 g/dL (3.9-5); BUN/Creatinine Ratio 14; Blood Urea Nitrogen 13 mg/dL (7-17); Hemolysis Index 18
--- NOTE | 2018-04-02 06:26 | Emergency Department Report ---
HPI - General Chief Complaint: Abdominal Pain Time Seen by Provider: 04/02/18 06:16 - HPI HPI: Room 18 The patient is a 27-year-old female presenting with chief complaint of chest pain. The patient is a very poor historian and frequently falls asleep during interview. When awake patient admits to intermittent substernal chest pain sharp in nature for the past 4 days. Patient denies shortness of breath nausea vomiting. Patient does not report any other complaints causing her to come to the ED Location: Chest Duration: Intermittent 4 days Quality: Sharp Severity: Moderate Modifying factors: [see above] Context: [see above] Mode of transportation: Unknown ED Past Medical Hx - Past Medical History Previous Medical History?: Yes Hx Psychiatric Treatment: Yes (anxiety attack, cocaine rehab) Hx Asthma: Yes Additional medical history: hx bronchitis. Drug seeking behaviors,. Disorganized behaviors,. frequent std - Surgical History Additional Surgical History: denies - Family History Family history: no significant - Social History Smoking Status: Current Every Day Smoker Substance Use Type: None - Medications Home Medications: Home Medications Medication Instructions Recorded Confirmed Last Taken Type ALBUTEROL Inhaler (OR & NICU) 2 puff IH QID PRN #1 inhalation 03/28/17 09/30/17 Unknown Rx [ProAir HFA Inhaler] Sulfamethoxazole/Trimethoprim 1 each PO Q12H #14 tablet 10/05/17 Unknown Rx [Bactrim Ds Tablet] metroNIDAZOLE [Flagyl] 500 mg PO Q12HR #14 tab 10/05/17 Unknown Rx Famotidine [Pepcid] 20 mg PO BID PRN #30 tablet 11/20/17 Unknown Rx Ondansetron [Zofran Odt] 4 mg PO Q8H PRN #12 tab.rapdis 11/20/17 Unknown Rx Ibuprofen [Motrin] 600 mg PO Q8H PRN #15 tablet 12/11/17 Unknown Rx Phenazopyridine [Pyridium] 200 mg PO TID #6 tab 12/11/17 Unknown Rx Nitrofurantoin Monohyd/M-Cryst 100 mg PO BID #10 capsule 01/20/18 Unknown Rx [Macrobid 100 mg Capsule] Ibuprofen [Motrin] 600 mg PO Q8H PRN #15 tablet 01/27/18 Unknown Rx Sulfamethoxazole/Trimethoprim 1 each PO BID #14 tablet 02/28/18 Unknown Rx [Bactrim DS TAB] Ibuprofen [Motrin] 600 mg PO Q8H PRN #12 tablet 03/12/18 Unknown Rx Benzonatate [Tessalon Perle] 100 mg PO Q8H PRN #20 capsule 03/15/18 Unknown Rx Fluticasone [Flonase] 1 spray NS QDAY #1 bottle 03/15/18 Unknown Rx Loratadine [Claritin] 10 mg PO DAILY #30 tablet 03/15/18 Unknown Rx Prednisone [predniSONE 10 mg 10 mg PO .TAPER #1 tab.ds.pk 03/15/18 Unknown Rx (6-Day Pack, 21 Tabs)] Sulfamethoxazole/Trimethoprim 1 each PO BID #14 tablet 03/15/18 Unknown Rx [Bactrim DS TAB] Ibuprofen [Motrin 800 MG tab] 800 mg PO Q8HR PRN #20 tablet 04/02/18 Unknown Rx Tramadol HCl [Ultram] 50 mg PO Q6H PRN #10 tablet 04/02/18 Unknown Rx ED Review of Systems ROS: Stated complaint: ABD/ COLD Other details as noted in HPI Constitutional: no symptoms reported Eyes: eye pain ENT: denies: throat pain Respiratory: no symptoms reported Cardiovascular: chest pain Endocrine: no symptoms reported Gastrointestinal: denies: nausea Genitourinary: denies: dysuria Musculoskeletal: denies: back pain Neurological: denies: headache Physical Exam - Physical Exam Vital Signs: Vital Signs 04/02/18 04/02/18 04/02/18 03:57 05:22 05:39 Temperature 97.6 F Pulse Rate 86 89 Respiratory 17 16 16 Rate Blood Pressure 116/80 Blood Pressure 112/76 [Right] O2 Sat by Pulse 99 99 99 Oximetry Physical Exam: GENERAL: The patient is well-developed well-nourished female lying on stretcher sleeping not appearing to be in acute distress. [] HEENT: Normocephalic. Atraumatic. Extraocular motions are intact. Patient has moist mucous membranes. NECK: Supple. Trachea midline CHEST/LUNGS: Clear to auscultation. There is no respiratory distress noted. HEART/CARDIOVASCULAR: Regular. There is no tachycardia. There is no gallop rub or murmur. ABDOMEN: Abdomen is soft, nontender. Patient has normal bowel sounds. There is no abdominal distention. SKIN: There is no rash. There is no edema. There is no diaphoresis. NEURO: The patient is asleep but easily awakened to become oriented but patient falls back asleep. The patient is cooperative. The patient has normal speech MUSCULOSKELETAL: There is no evidence of acute injury. ED Course Vital Signs 04/02/18 04/02/18 04/02/18 03:57 05:22 05:39 Temperature 97.6 F Pulse Rate 86 89 Respiratory 17 16 16 Rate Blood Pressure 116/80 Blood Pressure 112/76 [Right] O2 Sat by Pulse 99 99 99 Oximetry ED Medical Decision Making - Lab Data Result diagrams: 04/02/18 04:12 04/02/18 04:12 Laboratory Tests 04/02/18 04/02/18 04/02/18 04:12 04:12 04:12 WBC 8.9 RBC 4.31 Hgb 14.3 Hct 42.2 MCV 98 H MCH 33 H MCHC 34 RDW 14.7 Plt Count 323 Lymph % (Auto) 24.8 [place] % (Auto) 6.7 Eos % (Auto) 1.9 Baso % (Auto) 0.4 Lymph # 2.2 [place] # 0.6 Eos # 0.2 Baso # 0.0 Seg Neutrophils % 66.2 Seg Neutrophils # 5.9 D-Dimer Sodium 140 Potassium 3.9 Chloride 103.6 Carbon Dioxide 26 Anion Gap 14 BUN 13 Creatinine 0.9 Estimated GFR > 60 BUN/Creatinine Ratio 14 Glucose 194 H Calcium 9.0 Total Bilirubin 0.40 AST 23 ALT 10 Alkaline Phosphatase 73 Total Creatine Kinase CK-MB (CK-2) CK-MB (CK-2) Rel Index Troponin T Total Protein 6.8 Albumin 4.3 Albumin/Globulin Ratio 1.7 HCG, Qual Negative 04/02/18 04/02/18 04:12 06:36 WBC RBC Hgb Hct MCV MCH MCHC RDW Plt Count Lymph % (Auto) [place] % (Auto) Eos % (Auto) Baso % (Auto) Lymph # [place] # Eos # Baso # Seg Neutrophils % Seg Neutrophils # D-Dimer < 135.00 Sodium Potassium Chloride Carbon Dioxide Anion Gap BUN Creatinine Estimated GFR BUN/Creatinine Ratio Glucose Calcium Total Bilirubin AST ALT Alkaline Phosphatase Total Creatine Kinase 118 CK-MB (CK-2) 2.3 CK-MB (CK-2) Rel Index 1.9 Troponin T < 0.010 Total Protein Albumin Albumin/Globulin Ratio HCG, Qual - EKG Data -: EKG Interpreted by Me EKG shows normal: sinus rhythm Rate: normal - EKG Data When compared to previous EKG there are: no significant change Interpretation: unchanged when compared t (11/20/2017) - Radiology Data Radiology results: report reviewed (chest x-ray), image reviewed (chest x-ray) interpreted by me: Chest x-ray-no focal infiltrates, no pneumothorax [facility] [address] [place] [address] XRay Report Signed Patient: DONNY FELIX MR#: [id number] : 1990 Acct:[id number] Age/Sex: 27 / F ADM Date: 04/02/18 Loc: ED Attending Dr: Ordering Physician: TIFFANI YANEZ MD Date of Service: 04/02/18 Procedure(s): XR chest routine 2V Accession Number(s): [id number] cc: TIFFANI YANEZ MD Fluoro Time In Minutes: ROUTINE CHEST, TWO VIEWS: HISTORY: chest pain. The trachea, heart, mediastinal contour, lung oakes and bony thorax are unremarkable. IMPRESSION: Unremarkable chest x-ray. Transcribed By: TTR Dictated By: CHANDLER MI JR, MD Electronically Authenticated By: CHANDLER MI JR, MD Signed Date/Time: 04/02/18743 DD/ 3 TD/TT: 04/02/18743 - Differential Diagnosis PE, ACS, rhabdomyolysis, GERD, costochondritis Critical care attestation.: If time is entered above; I have spent that time in minutes in the direct care of this critically ill patient, excluding procedure time. ED Disposition Clinical Impression: Atypical chest pain Disposition: DC-01 TO HOME OR SELFCARE Is pt being admited?: No Does the pt Need Aspirin: No Condition: Stable Instructions: Abdominal Pain (ED), Chest Pain (ED) Additional Instructions: Return to the emergency department immediately should you develop worsening symptoms, fever, inability to tolerate food or liquid or any other concerns. Prescriptions: Ibuprofen [Motrin 800 MG tab] 800 mg PO Q8HR PRN #20 tablet PRN Reason: Pain, Moderate (4-6) Tramadol HCl [Ultram] 50 mg PO Q6H PRN #10 tablet PRN Reason: Pain , Severe (7-10) Referrals: PRIMARY CARE,MD [Primary Care Provider] - 3-5 Days [facility] [Outside] - 3-5 Days Time of Disposition: 07:51
[2018-04-02 06:46] LABS: Creatine Kinase MB 2.3 ng/mL (0.0-4.0)
[2018-04-02 06:55] VITALS: BP 110/64
--- NOTE | 2018-04-02 07:45 | XRay Report ---
ROUTINE CHEST, TWO VIEWS: HISTORY: chest pain. The trachea, heart, mediastinal contour, lung oakes and bony thorax are unremarkable. IMPRESSION: Unremarkable chest x-ray.
--- NOTE | 2018-04-05 07:23 | XRay Report ---
FINAL REPORT EXAM: XR ANKLE 2V LT HISTORY: left ankle pain TECHNIQUE: AP and lateral views of the left ankle were obtained and compared to the study of 02/07/2017. FINDINGS: The ankle mortise is well maintained. There is no evidence of fracture or dislocation. The soft tissues appear normal. IMPRESSION: Within normal limits.
== END 2018-04-02 08:09 | disposition home or self-care (01) ==
LOC: ED 03:43
DX: R07.89 Other chest pain (principal); F41.9 Anxiety disorder, unspecified; F14.10 Cocaine abuse, uncomplicated; J45.909 Unspecified asthma, uncomplicated; F17.200 Nicotine dependence, unspecified, uncomplicated; Z88.8 Allergy status to other drugs, medicaments and biological substances
CPT/HCPCS: 36415; 71046; 80053; 82550; 82553; 84484; 84703; 85025; 85379; 93005; 93010; 99284

== ENCOUNTER → 2018-04-03 21:11 | Emergency (ER) | payer SELFPAY | END | disposition left against medical advice (07) | LOC: ED 21:11 | DX: M79.1 Myalgia (principal); Z53.21 Procedure and treatment not carried out due to patient leaving prior to being seen by health care provider ==

== ENCOUNTER 2018-04-06 10:24 | Emergency (ER) | payer SELFPAY ==
--- NOTE | 2018-04-06 13:19 | XRay Report ---
RIGHT SHOULDER, 3 VIEWS: HISTORY: right shoulder pain. Normal bone mineralization. No acute osseous injury or joint pathology is detected. The soft tissues are unremarkable. IMPRESSION: Right shoulder within normal limits.
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
[2018-04-06 13:41] VITALS: BP 120/70
== END 2018-04-06 13:40 | disposition home or self-care (01) ==
LOC: ED 10:24
DX: M25.511 Pain in right shoulder (principal); F41.9 Anxiety disorder, unspecified; J45.909 Unspecified asthma, uncomplicated; F17.200 Nicotine dependence, unspecified, uncomplicated; Z79.899 Other long term (current) drug therapy; Y08.89XA Assault by other specified means, initial encounter; Y93.89 Activity, other specified; Y99.8 Other external cause status; Y92.89 Other specified places as the place of occurrence of the external cause
CPT/HCPCS: 99283

== ENCOUNTER 2018-04-06 20:05 | Emergency (ER) | payer SELFPAY | END 2018-04-06 20:15 | disposition left against medical advice (07) | LOC: ED 20:05 | DX: R05 Cough (principal); R07.89 Other chest pain; Z53.21 Procedure and treatment not carried out due to patient leaving prior to being seen by health care provider ==

== ENCOUNTER 2018-04-11 02:47 | Emergency (ER) | payer SELFPAY ==
[2018-04-11 03:12] VITALS: BP 106/67
== END 2018-04-11 04:15 | disposition left against medical advice (07) ==
LOC: ED 02:47
DX: M25.511 Pain in right shoulder (principal); Z53.21 Procedure and treatment not carried out due to patient leaving prior to being seen by health care provider

== ENCOUNTER 2018-04-11 12:30 | Emergency (ER) | payer SELFPAY ==
[2018-04-11 13:56] VITALS: BP 117/70
--- NOTE | 2018-04-11 15:43 | Emergency Department Report ---
ED Laceration HPI - HPI Chief Complaint: Medical Clearance Stated Complaint: SHOULDER PAIN Time Seen by Provider: 04/11/18 15:25 ED Review of Systems ROS: Stated complaint: SHOULDER PAIN Other details as noted in HPI ED Past Medical Hx - Past Medical History Hx Hypertension: No Hx CVA: No Hx Heart Attack/AMI: No Hx Congestive Heart Failure: No Hx Diabetes: No Hx Deep Vein Thrombosis: No Hx Pulmonary Embolism: No Hx GERD: No Hx Liver Disease: No Hx Renal Disease: No Hx Sickle Cell Disease: No Hx Arthritis: No Hx Headaches / Migraines: No Hx Seizures: No Hx Kidney Stones: No Hx Psychiatric Treatment: Yes (anxiety attack, cocaine rehab) Hx Asthma: Yes Hx COPD: No Hx Tuberculosis: No Hx Dementia: No Hx HIV: No Additional medical history: hx bronchitis. Drug seeking behaviors,. Disorganized behaviors,. frequent std - Surgical History Hx Coronary Stent: No Hx Open Heart Surgery: No Hx Pacemaker: No Hx Internal Defibrillator: No Hx Cholecystectomy: No Hx Appendectomy: No Hx Breast Surgery: No Additional Surgical History: denies - Social History Smoking Status: Current Every Day Smoker - Medications Home Medications: Home Medications Medication Instructions Recorded Confirmed Last Taken Type ALBUTEROL Inhaler (OR & NICU) 2 puff IH QID PRN #1 inhalation 03/28/17 09/30/17 Unknown Rx [ProAir HFA Inhaler] Sulfamethoxazole/Trimethoprim 1 each PO Q12H #14 tablet 10/05/17 Unknown Rx [Bactrim Ds Tablet] metroNIDAZOLE [Flagyl] 500 mg PO Q12HR #14 tab 10/05/17 Unknown Rx Famotidine [Pepcid] 20 mg PO BID PRN #30 tablet 11/20/17 Unknown Rx Ondansetron [Zofran Odt] 4 mg PO Q8H PRN #12 tab.rapdis 11/20/17 Unknown Rx Ibuprofen [Motrin] 600 mg PO Q8H PRN #15 tablet 12/11/17 Unknown Rx Phenazopyridine [Pyridium] 200 mg PO TID #6 tab 12/11/17 Unknown Rx Nitrofurantoin Monohyd/M-Cryst 100 mg PO BID #10 capsule 01/20/18 Unknown Rx [Macrobid 100 mg Capsule] Ibuprofen [Motrin] 600 mg PO Q8H PRN #15 tablet 01/27/18 Unknown Rx Sulfamethoxazole/Trimethoprim 1 each PO BID #14 tablet 02/28/18 Unknown Rx [Bactrim DS TAB] Ibuprofen [Motrin] 600 mg PO Q8H PRN #12 tablet 03/12/18 Unknown Rx Benzonatate [Tessalon Perle] 100 mg PO Q8H PRN #20 capsule 03/15/18 Unknown Rx Fluticasone [Flonase] 1 spray NS QDAY #1 bottle 03/15/18 Unknown Rx Loratadine [Claritin] 10 mg PO DAILY #30 tablet 03/15/18 Unknown Rx Prednisone [predniSONE 10 mg 10 mg PO .TAPER #1 tab.ds.pk 03/15/18 Unknown Rx (6-Day Pack, 21 Tabs)] Sulfamethoxazole/Trimethoprim 1 each PO BID #14 tablet 03/15/18 Unknown Rx [Bactrim DS TAB] Ibuprofen [Motrin 800 MG tab] 800 mg PO Q8HR PRN #20 tablet 04/02/18 Unknown Rx Tramadol HCl [Ultram] 50 mg PO Q6H PRN #10 tablet 04/02/18 Unknown Rx Laceration Physical Exam - Exam General: Vital signs noted. No distress. Alert and acting appropriately. ED Course Vital Signs 04/11/18 13:49 Temperature 97 F L Pulse Rate 89 Respiratory 16 Rate Blood Pressure 117/70 O2 Sat by Pulse 98 Oximetry - Laceration /Wound Repair Left Hand Wound Location: upper extremity (left dorsal hand) Wound Length (cm): 1 Wound's Depth, Shape: superficial Wound Explored: clean Betadine Prep?: Yes Wound Repaired With: Dermabond Layer Closure?: No Sterile Dressing Applied?: Yes Progress: Patient first soaked finger with betadine and sterile water. Under sterile field, I used Betadine to clean the area. I then used 40 mL of normal saline to flush the area. I did use Dermabond to approximate the laceration. I then applied a sterile 4 x 4 with tape. Minimal bleeding noted but is under control. Patient tolerated procedure well with no signs of distress. Critical care attestation.: If time is entered above; I have spent that time in minutes in the direct care of this critically ill patient, excluding procedure time. ED Disposition Condition: Stable
== END 2018-04-11 16:04 | disposition left against medical advice (07) ==
LOC: ED 12:30
DX: M25.512 Pain in left shoulder (principal); Z53.21 Procedure and treatment not carried out due to patient leaving prior to being seen by health care provider

== ENCOUNTER 2018-04-15 09:35 | Emergency (ER) | payer SELFPAY ==
[2018-04-15 09:46] VITALS: BP 135/89
[2018-04-15] MEDS ORDERED: DUONEB *Not for PRN Use IH ONE (10:28)
[2018-04-15] MEDS ORDERED: DELTASONE PO ONE (10:28)
--- NOTE | 2018-04-15 10:29 | Emergency Department Report ---
Minor Respiratory - HPI Chief Complaint: Medical Clearance Stated Complaint: CHEST/BACK PAIN Time Seen by Provider: 04/15/18 10:27 Duration: 3 weeks Pain Location: Chest (none now on coughing and feels sore) Minor Respiratory: Yes Rhinorrhea (nasal congestion), Yes Able to Tolerate Fluids, Yes Cough (congested cough with some wheezes and), Yes Chest Pain ( abdomen cough and), No Sore Throat, No Ear Pain, No Sick Contacts, No Hemoptysis , No Shortness of Breath, No Fever Other History: This is a 27-year-old female who frequents the emergency room reports that she is been having right upper chest pain times her records only coughing. She is also complaining that she would like to be tested for STD as her vagina is burning. She denies any urinary burning, frequency or urgency. Denies any fever or chills. Denies any shortness of breath. Report nasal congestion and runny nose. Denies any vaginal bleeding. Denies any abdominal pain. Pain to chest with intermittent cough.. ED Review of Systems ROS: Stated complaint: CHEST/BACK PAIN Other details as noted in HPI Constitutional: denies: chills, fever Eyes: denies: eye pain, eye discharge, vision change ENT: congestion. denies: ear pain, throat pain Respiratory: cough. denies: shortness of breath, SOB with exertion, SOB at rest , stridor, wheezing Cardiovascular: chest pain (cough and). denies: palpitations, dyspnea on exertion, edema, syncope Gastrointestinal: denies: nausea, vomiting, diarrhea Musculoskeletal: denies: back pain, joint swelling, arthralgia Skin: denies: rash, lesions Neurological: denies: headache, weakness, paresthesias, abnormal gait, vertigo ED Past Medical Hx - Past Medical History Previous Medical History?: Yes Hx Hypertension: No Hx CVA: No Hx Heart Attack/AMI: No Hx Congestive Heart Failure: No Hx Diabetes: No Hx Deep Vein Thrombosis: No Hx Pulmonary Embolism: No Hx GERD: No Hx Liver Disease: No Hx Renal Disease: No Hx Sickle Cell Disease: No Hx Arthritis: No Hx Headaches / Migraines: No Hx Seizures: No Hx Kidney Stones: No Hx Psychiatric Treatment: Yes (anxiety attack, cocaine rehab) Hx Asthma: Yes Hx COPD: No Hx Tuberculosis: No Hx Dementia: No Hx HIV: No Additional medical history: hx bronchitis. Drug seeking behaviors,. Disorganized behaviors,. frequent std - Surgical History Past Surgical History?: Yes Hx Coronary Stent: No Hx Open Heart Surgery: No Hx Pacemaker: No Hx Internal Defibrillator: No Hx Cholecystectomy: No Hx Appendectomy: No Hx Breast Surgery: No Additional Surgical History: denies - Family History Family history: hypertension - Social History Smoking Status: Current Every Day Smoker Substance Use Type: None - Medications Home Medications: Home Medications Medication Instructions Recorded Confirmed Last Taken Type ALBUTEROL Inhaler (OR & NICU) 2 puff IH QID PRN #1 inhalation 03/28/17 09/30/17 Unknown Rx [ProAir HFA Inhaler] Sulfamethoxazole/Trimethoprim 1 each PO Q12H #14 tablet 10/05/17 Unknown Rx [Bactrim Ds Tablet] metroNIDAZOLE [Flagyl] 500 mg PO Q12HR #14 tab 10/05/17 Unknown Rx Famotidine [Pepcid] 20 mg PO BID PRN #30 tablet 11/20/17 Unknown Rx Ondansetron [Zofran Odt] 4 mg PO Q8H PRN #12 tab.rapdis 11/20/17 Unknown Rx Ibuprofen [Motrin] 600 mg PO Q8H PRN #15 tablet 12/11/17 Unknown Rx Phenazopyridine [Pyridium] 200 mg PO TID #6 tab 12/11/17 Unknown Rx Nitrofurantoin Monohyd/M-Cryst 100 mg PO BID #10 capsule 01/20/18 Unknown Rx [Macrobid 100 mg Capsule] Ibuprofen [Motrin] 600 mg PO Q8H PRN #15 tablet 01/27/18 Unknown Rx Sulfamethoxazole/Trimethoprim 1 each PO BID #14 tablet 02/28/18 Unknown Rx [Bactrim DS TAB] Ibuprofen [Motrin] 600 mg PO Q8H PRN #12 tablet 03/12/18 Unknown Rx Benzonatate [Tessalon Perle] 100 mg PO Q8H PRN #20 capsule 03/15/18 Unknown Rx Fluticasone [Flonase] 1 spray NS QDAY #1 bottle 03/15/18 Unknown Rx Loratadine [Claritin] 10 mg PO DAILY #30 tablet 03/15/18 Unknown Rx Prednisone [predniSONE 10 mg 10 mg PO .TAPER #1 tab.ds.pk 03/15/18 Unknown Rx (6-Day Pack, 21 Tabs)] Sulfamethoxazole/Trimethoprim 1 each PO BID #14 tablet 03/15/18 Unknown Rx [Bactrim DS TAB] Ibuprofen [Motrin 800 MG tab] 800 mg PO Q8HR PRN #20 tablet 04/02/18 Unknown Rx Tramadol HCl [Ultram] 50 mg PO Q6H PRN #10 tablet 04/02/18 Unknown Rx ALBUTEROL Inhaler (OR & NICU) 2 puff IH Q6H PRN #1 inhalation 04/15/18 Unknown Rx [ProAir HFA Inhaler] Azithromycin [Zithromax Z-TOMMY] 250 mg PO DAILY 5 Days #1 pkg 04/15/18 Unknown Rx Cetirizine HCl [ZyrTEC] 10 mg PO QAM 14 Days #14 capsule 04/15/18 Unknown Rx Fluticasone [Flonase] 1 spray NS QDAY 14 Days #1 bottle 04/15/18 Unknown Rx methylPREDNISolone [Medrol Dose 4 mg PO DAILY #1 tab.ds.pk 04/15/18 Unknown Rx Tommy] Minor Respiratory Exam - Exam General: Vital signs noted. No distress. Alert and acting appropriately. This is a 23-year-old female well-nourished well-developed in no acute distress HEENT: Yes Moist Mucous Membranes (uvula midline and oral airways patent), Yes Rhinorrhea (congested with clear drainage), No Pharyngeal Erythema, No Pharyngeal Exudates, No Conjuctival Injection, No Frontal Tenderness, No Maxillary Tenderness Ear: Neither TM Bulge (bilateral TM congested without erythema), Neither TM Erythema, Neither EAC Pain, Neither EAC Discharge Neck: Yes Supple (full range of motion), No Adenopathy Lungs: Yes Good Air Exchange, Yes Wheezes (scattered wheezes and upper lung oakes), Yes Cough (congested cough), No Ronchi, No Stridor, No Labored Respirations, No Retractions, No Use of Accessory Muscles, No Other Abnormal Lung Sounds Heart: Yes Regular (S1, S2), No Murmur Abdomen: Yes Normal Bowel Sounds, No Tenderness (nontender to palpate in all quadrants, no guarding or rebound tenderness and normal bowel sounds. No CVA tenderness), No Peritoneal Signs Skin: No Rash, No Edema Neurologic: Alert and oriented, no deficits. I am oriented 3 and normal gait Musculoskeletal: Unremarkable. No cce. + 2 pulses in all extremities, no neurovascular compromise ED Course Vital Signs 04/15/18 09:43 Temperature 98.5 F Pulse Rate 86 Respiratory 16 Rate Blood Pressure 135/89 O2 Sat by Pulse 98 Oximetry - Reevaluation(s) Reevaluation #1: 04/15/18 11:08 Patient received DuoNeb 1 dose and Deltasone 50 mg by mouth and lung sounds better. ED Medical Decision Making - Medical Decision Making This is a 27-year-old female who frequents the emergency room often. She says she has a cold and cough and she would also like to have STD testing. She has been tested several times for STD. She is not having any vaginal discharge she states that she just has some burning but no burning with urination or vaginal bleeding. I discussed the patient that she needs to go to hell department to get STD tests then. Assessment/plan Female concern for STD-she is a pleasant STD testing and the referred her to health department. Acute bronchitis-patient treated with DuoNeb nebulizer and that is also some milligrams by mouth and she sounds better upon reevaluation. She will be discharged home in Medrol Dosepak, albuterol and Z-Tommy, Zyrtec and Flonase I discussed the patient a diagnosis, treatment plan and medication. Her vital signs are stable she is afebrile and she was referred to health department for STD check on that so she can also decide [facility]. She does not have a primary care physician side discharge her from [facility] to follow up with [facility] on 04/19/2018. Patient given prescription for Zyrtec, Flonase, Z-Tommy, Medrol Dosepak and albuterol Critical care attestation.: If time is entered above; I have spent that time in minutes in the direct care of this critically ill patient, excluding procedure time. ED Disposition Clinical Impression: Screening for STD (sexually transmitted disease) Acute bronchitis Qualifiers: Bronchitis organism: other organism Qualified Code(s): J20.8 - Acute bronchitis due to other specified organisms Disposition: DC-01 TO HOME OR SELFCARE Is pt being admited?: No Does the pt Need Aspirin: No Condition: Stable Instructions: Acute Bronchitis (ED), Safe Sex (ED), Sexually Transmitted Diseases (ED) Additional Instructions: Patient instructed to go to the health Department and[facility] to get [facility]D check. I also told her that she needs to practice safe sex. Take Medication as prescribed Follow up with [facility] for acute bronchitis on Thursday Please do not have any sexual activity until you checked for STD Referrals: [facility] [Outside] - 04/16/18 [facility] [Outside] - 04/16/18 [facility] [Outside] - 04/16/18 Forms: Work/School Release Form(ED)
== END 2018-04-15 11:47 | disposition home or self-care (01) ==
LOC: ED 09:35
DX: J20.8 Acute bronchitis due to other specified organisms (principal); Z20.2 Contact with and (suspected) exposure to infections with a predominantly sexual mode of transmission; F17.200 Nicotine dependence, unspecified, uncomplicated; F41.9 Anxiety disorder, unspecified; Z79.899 Other long term (current) drug therapy; Z88.8 Allergy status to other drugs, medicaments and biological substances
CPT/HCPCS: 94640; 99282; J7512

== ENCOUNTER 2018-08-12 19:35 | Emergency (ER) | payer SELFPAY ==
--- NOTE | 2018-08-12 19:56 | Emergency Department Report ---
Blank Doc - Documentation Documentation: 27 y.o. female presents with abdominal pain and . Patient had one US while in [facility]. She reports painful bumps to vaginal area. Reports pain to abdomen and back x 2 days. Patient told due date 02/09/19. She is not followed by [facility] [employer] [facility]. cc nausea, vaginal discharge, and pelvic pain Labs and OB US ordered [facility] for evaluation
--- NOTE | 2018-08-12 22:23 | Emergency Department Report ---
ED Abdominal Pain HPI - General Chief Complaint: Abdominal Pain Stated Complaint: ABD PAIN Time Seen by Provider: 08/12/18 22:23 Source: patient, EMS Mode of arrival: Wheelchair Limitations: No Limitations - History of Present Illness Initial Comments: Patient is a 27-year-old female that presents for abdominal pain. Patient states she does not want to be seen. Patient states that she had an argument with another patient in the waiting room she wants to go to another hospital. I explained the risk of leaving AGAINST MEDICAL ADVICE. Patient voiced understanding of risks of leaving. Patient left the hospital against medical advise. Patient signed AMA form. Severity scale (0 -10): 10 - Related Data Previous Rx's Medication Instructions Recorded Last Taken Type ALBUTEROL Inhaler (OR & NICU) 2 puff IH QID PRN #1 inhalation 03/28/17 Unknown Rx [ProAir HFA Inhaler] Sulfamethoxazole/Trimethoprim 1 each PO Q12H #14 tablet 10/05/17 Unknown Rx [Bactrim Ds Tablet] metroNIDAZOLE [Flagyl] 500 mg PO Q12HR #14 tab 10/05/17 Unknown Rx Famotidine [Pepcid] 20 mg PO BID PRN #30 tablet 11/20/17 Unknown Rx Ondansetron [Zofran Odt] 4 mg PO Q8H PRN #12 tab.rapdis 11/20/17 Unknown Rx Ibuprofen [Motrin] 600 mg PO Q8H PRN #15 tablet 12/11/17 Unknown Rx Phenazopyridine [Pyridium] 200 mg PO TID #6 tab 12/11/17 Unknown Rx Nitrofurantoin Monohyd/M-Cryst 100 mg PO BID #10 capsule 01/20/18 Unknown Rx [Macrobid 100 mg Capsule] Ibuprofen [Motrin] 600 mg PO Q8H PRN #15 tablet 01/27/18 Unknown Rx Sulfamethoxazole/Trimethoprim 1 each PO BID #14 tablet 02/28/18 Unknown Rx [Bactrim DS TAB] Ibuprofen [Motrin] 600 mg PO Q8H PRN #12 tablet 03/12/18 Unknown Rx Benzonatate [Tessalon Perle] 100 mg PO Q8H PRN #20 capsule 03/15/18 Unknown Rx Fluticasone [Flonase] 1 spray NS QDAY #1 bottle 03/15/18 Unknown Rx Loratadine [Claritin] 10 mg PO DAILY #30 tablet 03/15/18 Unknown Rx Prednisone [predniSONE 10 mg 10 mg PO .TAPER #1 tab.ds.pk 03/15/18 Unknown Rx (6-Day Pack, 21 Tabs)] Sulfamethoxazole/Trimethoprim 1 each PO BID #14 tablet 03/15/18 Unknown Rx [Bactrim DS TAB] Ibuprofen [Motrin 800 MG tab] 800 mg PO Q8HR PRN #20 tablet 04/02/18 Unknown Rx Tramadol HCl [Ultram] 50 mg PO Q6H PRN #10 tablet 04/02/18 Unknown Rx ALBUTEROL Inhaler (OR & NICU) 2 puff IH Q6H PRN #1 inhalation 04/15/18 Unknown Rx [ProAir HFA Inhaler] Azithromycin [Zithromax Z-TOMMY] 250 mg PO DAILY 5 Days #1 pkg 04/15/18 Unknown Rx Cetirizine HCl [ZyrTEC] 10 mg PO QAM 14 Days #14 capsule 04/15/18 Unknown Rx Fluticasone [Flonase] 1 spray NS QDAY 14 Days #1 bottle 04/15/18 Unknown Rx methylPREDNISolone [Medrol Dose 4 mg PO DAILY #1 tab.ds.pk 04/15/18 Unknown Rx Tommy] Ibuprofen [Motrin] 600 mg PO Q8H PRN #10 tablet 05/10/18 Unknown Rx Ondansetron [Zofran Odt] 4 mg PO Q8HR PRN #10 tab.rapdis 05/10/18 Unknown Rx ALBUTEROL Inhaler (OR & NICU) 1 puff IH Q4-6H PRN #1 inha 05/13/18 Unknown Rx [ProAir HFA Inhaler] Azithromycin [Zithromax] 500 mg PO QDAY #5 tablet 05/13/18 Unknown Rx Mupirocin [Bactroban 2%] 1 applic TP TID #1 tube 05/13/18 Unknown Rx guaiFENesin/CODEINE [Robitussin AC] 5 ml PO Q6H PRN #120 ml 05/13/18 Unknown Rx Allergies Allergy/AdvReac Type Severity Reaction Status Date / Time hydrocortisone cream Allergy Mild Hives Uncoded 02/28/18 10:12 ED Review of Systems ROS: Stated complaint: ABD PAIN Other details as noted in HPI Comment: unable to obtain due to patient refusing to answer questions and patient left AMA ED Past Medical Hx - Past Medical History Previous Medical History?: Yes Hx Hypertension: No Hx CVA: No Hx Heart Attack/AMI: No Hx Congestive Heart Failure: No Hx Diabetes: No Hx Deep Vein Thrombosis: No Hx Pulmonary Embolism: No Hx GERD: No Hx Liver Disease: No Hx Renal Disease: No Hx Sickle Cell Disease: No Hx Arthritis: No Hx Headaches / Migraines: No Hx Seizures: No Hx Kidney Stones: No Hx Psychiatric Treatment: Yes (anxiety attack, cocaine rehab) Hx Asthma: Yes Hx COPD: No Hx Tuberculosis: No Hx Dementia: No Hx HIV: No Additional medical history: hx bronchitis. Drug seeking behaviors,. Disorganized behaviors,. frequent std - Surgical History Past Surgical History?: No Hx Coronary Stent: No Hx Open Heart Surgery: No Hx Pacemaker: No Hx Internal Defibrillator: No Hx Cholecystectomy: No Hx Appendectomy: No Hx Breast Surgery: No Additional Surgical History: denies - Family History Family history: no significant - Social History Smoking Status: Current Every Day Smoker Substance Use Type: None - Medications Home Medications: Home Medications Medication Instructions Recorded Confirmed Last Taken Type ALBUTEROL Inhaler (OR & NICU) 2 puff IH QID PRN #1 inhalation 03/28/17 09/30/17 Unknown Rx [ProAir HFA Inhaler] Sulfamethoxazole/Trimethoprim 1 each PO Q12H #14 tablet 10/05/17 Unknown Rx [Bactrim Ds Tablet] metroNIDAZOLE [Flagyl] 500 mg PO Q12HR #14 tab 10/05/17 Unknown Rx Famotidine [Pepcid] 20 mg PO BID PRN #30 tablet 11/20/17 Unknown Rx Ondansetron [Zofran Odt] 4 mg PO Q8H PRN #12 tab.rapdis 11/20/17 Unknown Rx Ibuprofen [Motrin] 600 mg PO Q8H PRN #15 tablet 12/11/17 Unknown Rx Phenazopyridine [Pyridium] 200 mg PO TID #6 tab 12/11/17 Unknown Rx Nitrofurantoin Monohyd/M-Cryst 100 mg PO BID #10 capsule 01/20/18 Unknown Rx [Macrobid 100 mg Capsule] Ibuprofen [Motrin] 600 mg PO Q8H PRN #15 tablet 01/27/18 Unknown Rx Sulfamethoxazole/Trimethoprim 1 each PO BID #14 tablet 02/28/18 Unknown Rx [Bactrim DS TAB] Ibuprofen [Motrin] 600 mg PO Q8H PRN #12 tablet 03/12/18 Unknown Rx Benzonatate [Tessalon Perle] 100 mg PO Q8H PRN #20 capsule 03/15/18 Unknown Rx Fluticasone [Flonase] 1 spray NS QDAY #1 bottle 03/15/18 Unknown Rx Loratadine [Claritin] 10 mg PO DAILY #30 tablet 03/15/18 Unknown Rx Prednisone [predniSONE 10 mg 10 mg PO .TAPER #1 tab.ds.pk 03/15/18 Unknown Rx (6-Day Pack, 21 Tabs)] Sulfamethoxazole/Trimethoprim 1 each PO BID #14 tablet 03/15/18 Unknown Rx [Bactrim DS TAB] Ibuprofen [Motrin 800 MG tab] 800 mg PO Q8HR PRN #20 tablet 04/02/18 Unknown Rx Tramadol HCl [Ultram] 50 mg PO Q6H PRN #10 tablet 04/02/18 Unknown Rx ALBUTEROL Inhaler (OR & NICU) 2 puff IH Q6H PRN #1 inhalation 04/15/18 Unknown Rx [ProAir HFA Inhaler] Azithromycin [Zithromax Z-TOMMY] 250 mg PO DAILY 5 Days #1 pkg 04/15/18 Unknown Rx Cetirizine HCl [ZyrTEC] 10 mg PO QAM 14 Days #14 capsule 04/15/18 Unknown Rx Fluticasone [Flonase] 1 spray NS QDAY 14 Days #1 bottle 04/15/18 Unknown Rx methylPREDNISolone [Medrol Dose 4 mg PO DAILY #1 tab.ds.pk 04/15/18 Unknown Rx Tommy] Ibuprofen [Motrin] 600 mg PO Q8H PRN #10 tablet 05/10/18 Unknown Rx Ondansetron [Zofran Odt] 4 mg PO Q8HR PRN #10 tab.rapdis 05/10/18 Unknown Rx ALBUTEROL Inhaler (OR & NICU) 1 puff IH Q4-6H PRN #1 inha 05/13/18 Unknown Rx [ProAir HFA Inhaler] Azithromycin [Zithromax] 500 mg PO QDAY #5 tablet 05/13/18 Unknown Rx Mupirocin [Bactroban 2%] 1 applic TP TID #1 tube 05/13/18 Unknown Rx guaiFENesin/CODEINE [Robitussin AC] 5 ml PO Q6H PRN #120 ml 05/13/18 Unknown Rx ED Physical Exam - General Limitations: No Limitations General appearance: alert, in no apparent distress - Head Head exam: Present: atraumatic, normocephalic - Eye Eye exam: Present: normal appearance - Extremities Exam Extremities exam: Present: normal inspection - Neurological Exam Neurological exam: Present: alert, oriented X3 - Psychiatric Psychiatric exam: Present: normal affect, normal mood ED Course Vital Signs 08/12/18 08/12/18 19:39 22:00 Temperature 98.0 F 98.8 F Pulse Rate 101 H 98 H Respiratory 18 16 Rate Blood Pressure 114/73 99/60 Blood Pressure 99/60 [Right] O2 Sat by Pulse 100 98 Oximetry - Reevaluation(s) Reevaluation #1: 08/12/18 22:31 Patient is a 27-year-old female that presents for abdominal pain. Patient states she does not want to be seen. Patient states that she had an argument with another patient in the waiting room she wants to go to another hospital. I explained the risk of leaving AGAINST MEDICAL ADVICE. Patient voiced understanding of risks of leaving. Patient left the hospital against medical advise. Patient signed AMA form. ED Medical Decision Making - Medical Decision Making Patient is 27-year-old female presents emergent with abdominal pain. Patient refuses to answer questions. Patient leaving hospital AGAINST MEDICAL ADVICE. Patient signed AMA form risk discussed fully with patient. Patient voiced understanding of risks of leaving AGAINST MEDICAL ADVICE. Patient signed AMA form and left hospital AGAINST MEDICAL ADVICE. - Differential Diagnosis abdominal pain Critical care attestation.: If time is entered above; I have spent that time in minutes in the direct care of this critically ill patient, excluding procedure time. ED Disposition Clinical Impression: Abdominal pain Qualifiers: Abdominal location: generalized Qualified Code(s): R10.84 - Generalized abdominal pain Qualifiers: Weeks of gestation: unspecified Qualified Code(s): Z34.90 - Encounter for supervision of normal , unspecified, unspecified trimester Disposition: LEFT AGAINST MED ADVICE Is pt being admited?: No Does the pt Need Aspirin: No Condition: Undetermined Referrals: MARK SULTANA DO [Primary Care Provider] - 3-5 Days Time of Disposition: 22:32
[2018-08-12 22:36] VITALS: BP 99/60
== END 2018-08-12 22:38 | disposition left against medical advice (07) ==
LOC: ED 19:35
DX: O26.899 Other specified pregnancy related conditions, unspecified trimester (principal); R10.84 Generalized abdominal pain; Z3A.00 Weeks of gestation of pregnancy not specified
CPT/HCPCS: 36415; 84702

== ENCOUNTER 2018-08-13 06:55 | Emergency (ER) | payer SELFPAY ==
[2018-08-13 07:03] VITALS: BP 120/61
== END 2018-08-13 08:31 | disposition left against medical advice (07) ==
LOC: ED 06:55
DX: R10.9 Unspecified abdominal pain (principal); Z53.21 Procedure and treatment not carried out due to patient leaving prior to being seen by health care provider

== ENCOUNTER 2018-08-13 09:03 | Emergency (ER) | payer SELFPAY ==
[2018-08-13 09:36] VITALS: BP 126/84
--- NOTE | 2018-08-13 10:21 | Emergency Department Report ---
ED Female HPI - General Chief complaint: Urogenital-Female Stated complaint: VAGINAL/ABD PAIN Time Seen by Provider: 08/13/18 09:42 Source: patient Mode of arrival: Ambulatory Limitations: No Limitations - History of Present Illness Initial comments: This is a 27-year-old G6P female who presents to ED complaining of vaginal irritation as well as pelvic pain. Patient has signed and several times since this ED to be evaluated but keeps leaving. Upon my entry into the room. She was laying in the ED bed did not want to talk. Upon continue Proventil patient states why she is here. Patient was able to hold a conversation and speak clearly in normal sentences. Patient is complaining of vaginal irritation she denies vaginal bleeding. She states that she was recently released from care home and has not seen her CLIENT ACCOUNT REPRESENTATIVE for this . Patient states this is her sixth , he states it is not far along she is doing this . MD Complaint: vaginal discharge, pelvic pain - Related Data Previous Rx's Medication Instructions Recorded Last Taken Type ALBUTEROL Inhaler (OR & NICU) 2 puff IH QID PRN #1 inhalation 03/28/17 Unknown Rx [ProAir HFA Inhaler] Sulfamethoxazole/Trimethoprim 1 each PO Q12H #14 tablet 10/05/17 Unknown Rx [Bactrim Ds Tablet] metroNIDAZOLE [Flagyl] 500 mg PO Q12HR #14 tab 10/05/17 Unknown Rx Famotidine [Pepcid] 20 mg PO BID PRN #30 tablet 11/20/17 Unknown Rx Ondansetron [Zofran Odt] 4 mg PO Q8H PRN #12 tab.rapdis 11/20/17 Unknown Rx Ibuprofen [Motrin] 600 mg PO Q8H PRN #15 tablet 12/11/17 Unknown Rx Phenazopyridine [Pyridium] 200 mg PO TID #6 tab 12/11/17 Unknown Rx Nitrofurantoin Monohyd/M-Cryst 100 mg PO BID #10 capsule 01/20/18 Unknown Rx [Macrobid 100 mg Capsule] Ibuprofen [Motrin] 600 mg PO Q8H PRN #15 tablet 01/27/18 Unknown Rx Ibuprofen [Motrin] 600 mg PO Q8H PRN #12 tablet 03/12/18 Unknown Rx Benzonatate [Tessalon Perle] 100 mg PO Q8H PRN #20 capsule 03/15/18 Unknown Rx Fluticasone [Flonase] 1 spray NS QDAY #1 bottle 03/15/18 Unknown Rx Loratadine [Claritin] 10 mg PO DAILY #30 tablet 03/15/18 Unknown Rx Prednisone [predniSONE 10 mg 10 mg PO .TAPER #1 tab.ds.pk 03/15/18 Unknown Rx (6-Day Pack, 21 Tabs)] Sulfamethoxazole/Trimethoprim 1 each PO BID #14 tablet 03/15/18 Unknown Rx [Bactrim DS TAB] Ibuprofen [Motrin 800 MG tab] 800 mg PO Q8HR PRN #20 tablet 04/02/18 Unknown Rx Tramadol HCl [Ultram] 50 mg PO Q6H PRN #10 tablet 04/02/18 Unknown Rx ALBUTEROL Inhaler (OR & NICU) 2 puff IH Q6H PRN #1 inhalation 04/15/18 Unknown Rx [ProAir HFA Inhaler] Azithromycin [Zithromax Z-SEAN] 250 mg PO DAILY 5 Days #1 pkg 04/15/18 Unknown Rx Cetirizine HCl [ZyrTEC] 10 mg PO QAM 14 Days #14 capsule 04/15/18 Unknown Rx Fluticasone [Flonase] 1 spray NS QDAY 14 Days #1 bottle 04/15/18 Unknown Rx methylPREDNISolone [Medrol Dose 4 mg PO DAILY #1 tab.ds.pk 04/15/18 Unknown Rx Sean] Ibuprofen [Motrin] 600 mg PO Q8H PRN #10 tablet 05/10/18 Unknown Rx Ondansetron [Zofran Odt] 4 mg PO Q8HR PRN #10 tab.rapdis 05/10/18 Unknown Rx ALBUTEROL Inhaler (OR & NICU) 1 puff IH Q4-6H PRN #1 inha 05/13/18 Unknown Rx [ProAir HFA Inhaler] Azithromycin [Zithromax] 500 mg PO QDAY #5 tablet 05/13/18 Unknown Rx Mupirocin [Bactroban 2%] 1 applic TP TID #1 tube 05/13/18 Unknown Rx guaiFENesin/CODEINE [Robitussin AC] 5 ml PO Q6H PRN #120 ml 05/13/18 Unknown Rx Acyclovir [Zovirax Tab] 800 mg PO Q12H #20 tab 08/13/18 Unknown Rx Acyclovir [Zovirax] 1 applic TP TID #1 oint...g. 08/13/18 Unknown Rx Fluconazole [Diflucan] 200 mg PO ONCE #1 tablet 08/13/18 Unknown Rx Sulfamethoxazole/Trimethoprim 1 each PO BID #14 tablet 08/13/18 Unknown Rx [Bactrim DS TAB] Allergies Allergy/AdvReac Type Severity Reaction Status Date / Time hydrocortisone cream Allergy Mild Hives Uncoded 02/28/18 10:12 ED Review of Systems ROS: Stated complaint: VAGINAL/ABD PAIN Other details as noted in HPI Comment: All other systems reviewed and negative ED Past Medical Hx - Past Medical History Hx Hypertension: No Hx CVA: No Hx Heart Attack/AMI: No Hx Congestive Heart Failure: No Hx Diabetes: No Hx Deep Vein Thrombosis: No Hx Pulmonary Embolism: No Hx GERD: No Hx Liver Disease: No Hx Renal Disease: No Hx Sickle Cell Disease: No Hx Arthritis: No Hx Headaches / Migraines: No Hx Seizures: No Hx Kidney Stones: No Hx Psychiatric Treatment: Yes (anxiety attack, cocaine rehab) Hx Asthma: Yes Hx COPD: No Hx Tuberculosis: No Hx Dementia: No Hx HIV: No Additional medical history: hx bronchitis. Drug seeking behaviors,. Disorganized behaviors,. frequent std - Surgical History Hx Coronary Stent: No Hx Open Heart Surgery: No Hx Pacemaker: No Hx Internal Defibrillator: No Hx Cholecystectomy: No Hx Appendectomy: No Hx Breast Surgery: No Additional Surgical History: denies - Social History Smoking Status: Current Every Day Smoker Substance Use Type: None - Medications Home Medications: Home Medications Medication Instructions Recorded Confirmed Last Taken Type ALBUTEROL Inhaler (OR & NICU) 2 puff IH QID PRN #1 inhalation 03/28/17 09/30/17 Unknown Rx [ProAir HFA Inhaler] Sulfamethoxazole/Trimethoprim 1 each PO Q12H #14 tablet 10/05/17 Unknown Rx [Bactrim Ds Tablet] metroNIDAZOLE [Flagyl] 500 mg PO Q12HR #14 tab 10/05/17 Unknown Rx Famotidine [Pepcid] 20 mg PO BID PRN #30 tablet 11/20/17 Unknown Rx Ondansetron [Zofran Odt] 4 mg PO Q8H PRN #12 tab.rapdis 11/20/17 Unknown Rx Ibuprofen [Motrin] 600 mg PO Q8H PRN #15 tablet 12/11/17 Unknown Rx Phenazopyridine [Pyridium] 200 mg PO TID #6 tab 12/11/17 Unknown Rx Nitrofurantoin Monohyd/M-Cryst 100 mg PO BID #10 capsule 01/20/18 Unknown Rx [Macrobid 100 mg Capsule] Ibuprofen [Motrin] 600 mg PO Q8H PRN #15 tablet 01/27/18 Unknown Rx Ibuprofen [Motrin] 600 mg PO Q8H PRN #12 tablet 03/12/18 Unknown Rx Benzonatate [Tessalon Perle] 100 mg PO Q8H PRN #20 capsule 03/15/18 Unknown Rx Fluticasone [Flonase] 1 spray NS QDAY #1 bottle 03/15/18 Unknown Rx Loratadine [Claritin] 10 mg PO DAILY #30 tablet 03/15/18 Unknown Rx Prednisone [predniSONE 10 mg 10 mg PO .TAPER #1 tab.ds.pk 03/15/18 Unknown Rx (6-Day Pack, 21 Tabs)] Sulfamethoxazole/Trimethoprim 1 each PO BID #14 tablet 03/15/18 Unknown Rx [Bactrim DS TAB] Ibuprofen [Motrin 800 MG tab] 800 mg PO Q8HR PRN #20 tablet 04/02/18 Unknown Rx Tramadol HCl [Ultram] 50 mg PO Q6H PRN #10 tablet 04/02/18 Unknown Rx ALBUTEROL Inhaler (OR & NICU) 2 puff IH Q6H PRN #1 inhalation 04/15/18 Unknown Rx [ProAir HFA Inhaler] Azithromycin [Zithromax Z-SEAN] 250 mg PO DAILY 5 Days #1 pkg 04/15/18 Unknown Rx Cetirizine HCl [ZyrTEC] 10 mg PO QAM 14 Days #14 capsule 04/15/18 Unknown Rx Fluticasone [Flonase] 1 spray NS QDAY 14 Days #1 bottle 04/15/18 Unknown Rx methylPREDNISolone [Medrol Dose 4 mg PO DAILY #1 tab.ds.pk 04/15/18 Unknown Rx Sean] Ibuprofen [Motrin] 600 mg PO Q8H PRN #10 tablet 05/10/18 Unknown Rx Ondansetron [Zofran Odt] 4 mg PO Q8HR PRN #10 tab.rapdis 05/10/18 Unknown Rx ALBUTEROL Inhaler (OR & NICU) 1 puff IH Q4-6H PRN #1 inha 05/13/18 Unknown Rx [ProAir HFA Inhaler] Azithromycin [Zithromax] 500 mg PO QDAY #5 tablet 05/13/18 Unknown Rx Mupirocin [Bactroban 2%] 1 applic TP TID #1 tube 05/13/18 Unknown Rx guaiFENesin/CODEINE [Robitussin AC] 5 ml PO Q6H PRN #120 ml 05/13/18 Unknown Rx Acyclovir [Zovirax Tab] 800 mg PO Q12H #20 tab 08/13/18 Unknown Rx Acyclovir [Zovirax] 1 applic TP TID #1 oint...g. 08/13/18 Unknown Rx Fluconazole [Diflucan] 200 mg PO ONCE #1 tablet 08/13/18 Unknown Rx Sulfamethoxazole/Trimethoprim 1 each PO BID #14 tablet 08/13/18 Unknown Rx [Bactrim DS TAB] ED Physical Exam - General Limitations: No Limitations General appearance: alert, in no apparent distress - Head Head exam: Present: atraumatic, normocephalic - Eye Eye exam: Present: normal appearance - ENT ENT exam: Present: mucous membranes moist - Neck Neck exam: Present: normal inspection - Respiratory Respiratory exam: Present: normal lung sounds bilaterally. Absent: respiratory distress - Cardiovascular Cardiovascular Exam: Present: regular rate, normal rhythm. Absent: systolic murmur, diastolic murmur, rubs, gallop - GI/Abdominal GI/Abdominal exam: Present: soft, normal bowel sounds - External exam: Present: lesions (herpertic on left labia major). Absent: erythema, swelling Speculum exam: Present: vaginal discharge, cervical discharge. Absent: erythema, vaginal bleeding Bi-manual exam: Present: normal bi-manual exam. Absent: cervical motion tendernes, adnexal tenderness - Extremities Exam Extremities exam: Present: normal inspection - Back Exam Back exam: Present: normal inspection - Neurological Exam Neurological exam: Present: alert, oriented X3 - Psychiatric Psychiatric exam: Present: normal affect, normal mood - Skin Skin exam: Present: warm, dry, intact, normal color. Absent: rash ED Course Vital Signs 08/13/18 09:19 Temperature 98.2 F Pulse Rate 100 H Respiratory 16 Rate Blood Pressure 126/84 O2 Sat by Pulse 100 Oximetry ED Medical Decision Making - Radiology Data Radiology results: report reviewed, image reviewed FINAL REPORT EXAM: US OB gt; = 14 WEEKS FETUS HISTORY: pelv pain TECHNIQUE: Transabdominal OB ultrasound. PRIORS: None currently available. FINDINGS: Single intrauterine dates 14.3 weeks. CHRISTY equals February 08, 2019. BPD: 14.2 weeks. HC: 14.4 weeks. AC: 14.5 weeks. FL: 13.6 weeks. Presentation: Cephalic. Placenta: Anterior. Grade 0. No previa. heart rate: 147 BPM. Amniotic fluid index: Within normal limits. IMPRESSION: Single live intrauterine . Transcribed By: TYM Dictated By: JOANIE MEHTA MD Electronically Authenticated By: JOANIE MEHTA MD Signed Date/Time: 08/13/18 1113 - Medical Decision Making 37-year-old female presents here with herpes genitalia and BV. Urinalysis ordered. Ultrasound ordered. Discussed findings with the patient. Discussed with patient and negative follow-up with CLIENT ACCOUNT REPRESENTATIVE, referrals given. Defects information given so she can apply for Medicaid to receive care. Patient is in no acute distress. Patient will be treated with acyclovir for herpes breakout and Flagyl for bacterial vaginosis. Discussed Tylenol for pain Critical care attestation.: If time is entered above; I have spent that time in minutes in the direct care of this critically ill patient, excluding procedure time. ED Disposition Clinical Impression: Genital herpes, Bacterial vaginitis, UTI (urinary tract infection) Disposition: DC-01 TO HOME OR SELFCARE Is pt being admited?: No Does the pt Need Aspirin: No Condition: Stable Instructions: (ED), Bacterial Vaginosis (ED), Genital Herpes Simplex (ED), Urinary Tract Infection in Women (ED) Additional Instructions: f/u with obgyn take medication as prescribed if ant worsening symptoms return to ED Prescriptions: Acyclovir [Zovirax] 1 applic TP TID #1 oint...g. Acyclovir [Zovirax Tab] 800 mg PO Q12H #20 tab Fluconazole [Diflucan] 200 mg PO ONCE #1 tablet Sulfamethoxazole/Trimethoprim [Bactrim DS TAB] 1 each PO BID #14 tablet Referrals: JUAN RAMON SADLER [Primary Care Provider] - 3-5 Days [facility] [Outside] - 3-5 Days [facility] [Outside] - 3-5 Days [facility] [Provider Group] - 3-5 Days Forms: STI Treatment and Prevention, Work/School Release Form(ED) Time of Disposition: 13:10
[2018-08-13] MEDS ORDERED: TYLENOL PO ONE (10:58)
--- NOTE | 2018-08-13 11:13 | Ultrasound Report ---
FINAL REPORT EXAM: US OB > = 14 WEEKS FETUS HISTORY: pelv pain TECHNIQUE: Transabdominal OB ultrasound. PRIORS: None currently available. FINDINGS: Single intrauterine dates 14.3 weeks. CHRISTY equals February 08, 2019. BPD: 14.2 weeks. HC: 14.4 weeks. AC: 14.5 weeks. FL: 13.6 weeks. Presentation: Cephalic. Placenta: Anterior. Grade 0. No previa. heart rate: 147 BPM. Amniotic fluid index: Within normal limits. IMPRESSION: Single live intrauterine .
[2018-08-13 12:52] LABS: Bacteria,Urine 2+ /HPF (Negative); Bilirubin,Urine NEG (Negative); Blood,Urine NEG (Negative); Color,Urine Yellow (Yellow); Mucus,Urine FEW /HPF; Protein,Urine <15 mg/dL mg/dL (Negative)
== END 2018-08-13 13:20 | disposition home or self-care (01) ==
LOC: ED 09:03
DX: N39.0 Urinary tract infection, site not specified (principal); N76.0 Acute vaginitis; A60.00 Herpesviral infection of urogenital system, unspecified; F17.200 Nicotine dependence, unspecified, uncomplicated
CPT/HCPCS: 76805; 81001; 87210; 87591

== ENCOUNTER → 2018-08-19 | Emergency (ER) | payer SELFPAY ==
[2018-08-19 09:26] VITALS: BP 115/55
--- NOTE | 2018-08-19 10:43 | Emergency Department Report ---
ED Female HPI - General Chief complaint: Urogenital-Female Stated complaint: HERPES/ Source: patient Mode of arrival: Ambulatory Limitations: No Limitations - History of Present Illness Initial comments: This is a 27-year-old -Russian female who presents with rash to the vaginal area for one week. Patient reports a history of herpes simplex type II. She believed rashes associated with that. She reports pain and itching around the mouth and to the left labia. MD Complaint: possible STD Onset/Timin -: week(s) Location: labia, other (upper lip) Radiation: non-radiating Severity: mild Severity scale (0 -10): 0 Quality: other (itching) Consistency: constant Improves with: none Worsens with: none Are you Now?: No Last Menstrual Period: 06/09/19 EDC: 03/15/20 - Related Data Sexually active: Yes Previous Rx's Medication Instructions Recorded Last Taken Type ALBUTEROL Inhaler (OR & NICU) 2 puff IH QID PRN #1 inhalation 03/28/17 Unknown Rx [ProAir HFA Inhaler] Sulfamethoxazole/Trimethoprim 1 each PO Q12H #14 tablet 10/05/17 Unknown Rx [Bactrim Ds Tablet] metroNIDAZOLE [Flagyl] 500 mg PO Q12HR #14 tab 10/05/17 Unknown Rx Famotidine [Pepcid] 20 mg PO BID PRN #30 tablet 11/20/17 Unknown Rx Ondansetron [Zofran Odt] 4 mg PO Q8H PRN #12 tab.rapdis 11/20/17 Unknown Rx Ibuprofen [Motrin] 600 mg PO Q8H PRN #15 tablet 12/11/17 Unknown Rx Phenazopyridine [Pyridium] 200 mg PO TID #6 tab 12/11/17 Unknown Rx Nitrofurantoin Monohyd/M-Cryst 100 mg PO BID #10 capsule 01/20/18 Unknown Rx [Macrobid 100 mg Capsule] Ibuprofen [Motrin] 600 mg PO Q8H PRN #15 tablet 01/27/18 Unknown Rx Ibuprofen [Motrin] 600 mg PO Q8H PRN #12 tablet 03/12/18 Unknown Rx Benzonatate [Tessalon Perle] 100 mg PO Q8H PRN #20 capsule 03/15/18 Unknown Rx Fluticasone [Flonase] 1 spray NS QDAY #1 bottle 03/15/18 Unknown Rx Loratadine [Claritin] 10 mg PO DAILY #30 tablet 03/15/18 Unknown Rx Prednisone [predniSONE 10 mg 10 mg PO .TAPER #1 tab.ds.pk 03/15/18 Unknown Rx (6-Day Pack, 21 Tabs)] Sulfamethoxazole/Trimethoprim 1 each PO BID #14 tablet 03/15/18 Unknown Rx [Bactrim DS TAB] Ibuprofen [Motrin 800 MG tab] 800 mg PO Q8HR PRN #20 tablet 04/02/18 Unknown Rx Tramadol HCl [Ultram] 50 mg PO Q6H PRN #10 tablet 04/02/18 Unknown Rx ALBUTEROL Inhaler (OR & NICU) 2 puff IH Q6H PRN #1 inhalation 04/15/18 Unknown Rx [ProAir HFA Inhaler] Azithromycin [Zithromax Z-TOMMY] 250 mg PO DAILY 5 Days #1 pkg 04/15/18 Unknown Rx Cetirizine HCl [ZyrTEC] 10 mg PO QAM 14 Days #14 capsule 04/15/18 Unknown Rx Fluticasone [Flonase] 1 spray NS QDAY 14 Days #1 bottle 04/15/18 Unknown Rx methylPREDNISolone [Medrol Dose 4 mg PO DAILY #1 tab.ds.pk 04/15/18 Unknown Rx Tommy] Ibuprofen [Motrin] 600 mg PO Q8H PRN #10 tablet 05/10/18 Unknown Rx Ondansetron [Zofran Odt] 4 mg PO Q8HR PRN #10 tab.rapdis 05/10/18 Unknown Rx ALBUTEROL Inhaler (OR & NICU) 1 puff IH Q4-6H PRN #1 inha 05/13/18 Unknown Rx [ProAir HFA Inhaler] Azithromycin [Zithromax] 500 mg PO QDAY #5 tablet 05/13/18 Unknown Rx Mupirocin [Bactroban 2%] 1 applic TP TID #1 tube 05/13/18 Unknown Rx guaiFENesin/CODEINE [Robitussin AC] 5 ml PO Q6H PRN #120 ml 05/13/18 Unknown Rx Acyclovir [Zovirax] 1 applic TP TID #1 oint...g. 08/13/18 Unknown Rx Fluconazole [Diflucan] 200 mg PO ONCE #1 tablet 02/08/19 Unknown Rx Sulfamethoxazole/Trimethoprim 1 each PO BID #14 tablet 08/13/18 Unknown Rx [Bactrim DS TAB] Acyclovir [Zovirax Tab] 800 mg PO Q12H #20 tab 08/19/18 Unknown Rx Allergies Allergy/AdvReac Type Severity Reaction Status Date / Time hydrocortisone cream Allergy Mild Hives Uncoded 08/19/18 09:22 ED Review of Systems ROS: Stated complaint: HERPES/ Other details as noted in HPI Constitutional: denies: chills, fever Respiratory: denies: cough, shortness of breath, wheezing Cardiovascular: denies: chest pain, palpitations Gastrointestinal: denies: abdominal pain, nausea, diarrhea Skin: rash (rash to upper lip and left labia). denies: lesions Neurological: denies: headache, weakness, paresthesias Psychiatric: denies: anxiety, depression ED Past Medical Hx - Past Medical History Hx Hypertension: No Hx CVA: No Hx Heart Attack/AMI: No Hx Congestive Heart Failure: No Hx Diabetes: No Hx Deep Vein Thrombosis: No Hx Pulmonary Embolism: No Hx GERD: No Hx Liver Disease: No Hx Renal Disease: No Hx Sickle Cell Disease: No Hx Arthritis: No Hx Headaches / Migraines: No Hx Seizures: No Hx Kidney Stones: No Hx Psychiatric Treatment: Yes (anxiety attack, cocaine rehab) Hx Asthma: Yes Hx COPD: No Hx Tuberculosis: No Hx Dementia: No Hx HIV: No Additional medical history: hx bronchitis. Drug seeking behaviors,. Disorganized behaviors,. frequent std - Surgical History Hx Coronary Stent: No Hx Open Heart Surgery: No Hx Pacemaker: No Hx Internal Defibrillator: No Hx Cholecystectomy: No Hx Appendectomy: No Hx Breast Surgery: No Additional Surgical History: denies - Social History Smoking Status: Never Smoker Substance Use Type: None - Medications Home Medications: Home Medications Medication Instructions Recorded Confirmed Last Taken Type ALBUTEROL Inhaler (OR & NICU) 2 puff IH QID PRN #1 inhalation 03/28/17 09/30/17 Unknown Rx [ProAir HFA Inhaler] Sulfamethoxazole/Trimethoprim 1 each PO Q12H #14 tablet 10/05/17 Unknown Rx [Bactrim Ds Tablet] metroNIDAZOLE [Flagyl] 500 mg PO Q12HR #14 tab 10/05/17 Unknown Rx Famotidine [Pepcid] 20 mg PO BID PRN #30 tablet 11/20/17 Unknown Rx Ondansetron [Zofran Odt] 4 mg PO Q8H PRN #12 tab.rapdis 11/20/17 Unknown Rx Ibuprofen [Motrin] 600 mg PO Q8H PRN #15 tablet 12/11/17 Unknown Rx Phenazopyridine [Pyridium] 200 mg PO TID #6 tab 12/11/17 Unknown Rx Nitrofurantoin Monohyd/M-Cryst 100 mg PO BID #10 capsule 01/20/18 Unknown Rx [Macrobid 100 mg Capsule] Ibuprofen [Motrin] 600 mg PO Q8H PRN #15 tablet 01/27/18 Unknown Rx Ibuprofen [Motrin] 600 mg PO Q8H PRN #12 tablet 03/12/18 Unknown Rx Benzonatate [Tessalon Perle] 100 mg PO Q8H PRN #20 capsule 03/15/18 Unknown Rx Fluticasone [Flonase] 1 spray NS QDAY #1 bottle 03/15/18 Unknown Rx Loratadine [Claritin] 10 mg PO DAILY #30 tablet 03/15/18 Unknown Rx Prednisone [predniSONE 10 mg 10 mg PO .TAPER #1 tab.ds.pk 03/15/18 Unknown Rx (6-Day Pack, 21 Tabs)] Sulfamethoxazole/Trimethoprim 1 each PO BID #14 tablet 03/15/18 Unknown Rx [Bactrim DS TAB] Ibuprofen [Motrin 800 MG tab] 800 mg PO Q8HR PRN #20 tablet 04/02/18 Unknown Rx Tramadol HCl [Ultram] 50 mg PO Q6H PRN #10 tablet 04/02/18 Unknown Rx ALBUTEROL Inhaler (OR & NICU) 2 puff IH Q6H PRN #1 inhalation 04/15/18 Unknown Rx [ProAir HFA Inhaler] Azithromycin [Zithromax Z-TOMMY] 250 mg PO DAILY 5 Days #1 pkg 04/15/18 Unknown Rx Cetirizine HCl [ZyrTEC] 10 mg PO QAM 14 Days #14 capsule 04/15/18 Unknown Rx Fluticasone [Flonase] 1 spray NS QDAY 14 Days #1 bottle 04/15/18 Unknown Rx methylPREDNISolone [Medrol Dose 4 mg PO DAILY #1 tab.ds.pk 04/15/18 Unknown Rx Tommy] Ibuprofen [Motrin] 600 mg PO Q8H PRN #10 tablet 05/10/18 Unknown Rx Ondansetron [Zofran Odt] 4 mg PO Q8HR PRN #10 tab.rapdis 05/10/18 Unknown Rx ALBUTEROL Inhaler (OR & NICU) 1 puff IH Q4-6H PRN #1 inha 05/13/18 Unknown Rx [ProAir HFA Inhaler] Azithromycin [Zithromax] 500 mg PO QDAY #5 tablet 05/13/18 Unknown Rx Mupirocin [Bactroban 2%] 1 applic TP TID #1 tube 05/13/18 Unknown Rx guaiFENesin/CODEINE [Robitussin AC] 5 ml PO Q6H PRN #120 ml 05/13/18 Unknown Rx Acyclovir [Zovirax] 1 applic TP TID #1 oint...g. 08/13/18 Unknown Rx Fluconazole [Diflucan] 200 mg PO ONCE #1 tablet 08/13/18 Unknown Rx Sulfamethoxazole/Trimethoprim 1 each PO BID #14 tablet 08/13/18 Unknown Rx [Bactrim DS TAB] Acyclovir [Zovirax Tab] 800 mg PO Q12H #20 tab 08/19/18 Unknown Rx ED Physical Exam - General Limitations: No Limitations General appearance: alert, in no apparent distress - Respiratory Respiratory exam: Present: normal lung sounds bilaterally. Absent: respiratory distress - Cardiovascular Cardiovascular Exam: Present: regular rate, normal rhythm. Absent: systolic murmur, diastolic murmur, rubs, gallop - GI/Abdominal GI/Abdominal exam: Present: soft, normal bowel sounds - External exam: Present: lesions (vesicular rash to the left labia majora, tenderness, no drainage or erythema). Absent: erythema, swelling, lacerations, ecchymosis, bleeding - Neurological Exam Neurological exam: Present: alert, oriented X3 - Psychiatric Psychiatric exam: Present: normal affect, normal mood - Skin Skin exam: Present: warm, dry, intact, normal color, rash (vesicular rash to left side of upper lip, tenderness, and erythema) ED Course Vital Signs 08/19/18 09:22 Temperature 97.9 F Pulse Rate 100 H Respiratory 18 Rate Blood Pressure 115/55 O2 Sat by Pulse 100 Oximetry ED Medical Decision Making - Medical Decision Making This is a 27-year-old -Russian female who presents with vesicular rash to upper lip and the labia majora 1 week. Patient was examined by me. Vitals are stable and in no acute distress. No labs ordered. Herpes simplex type II. Start acyclovir 800 mg by mouth twice a day 10 days, 0 refills. Discharged home in stable condition. Discussed prevention options. F/U with PCP or Health Department. Critical care attestation.: If time is entered above; I have spent that time in minutes in the direct care of this critically ill patient, excluding procedure time. ED Disposition Clinical Impression: Herpes simplex type 1 infection Genital herpes Qualifiers: Herpes simplex infection site: vulvovaginitis Qualified Code(s): A60.04 - Herpesviral vulvovaginitis Disposition: - TO HOME OR SELFCARE Is pt being admited?: No Does the pt Need Aspirin: No Condition: Stable Instructions: Genital Herpes Simplex (ED), Oral Herpes Simplex Virus Infections (ED) Prescriptions: Acyclovir [Zovirax Tab] 800 mg PO Q12H #20 tab Time of Disposition: 10:48
== END | disposition home or self-care (01) ==
LOC: ED 09:00
DX: B00.9 Herpesviral infection, unspecified (principal); A60.04 Herpesviral vulvovaginitis; J45.909 Unspecified asthma, uncomplicated
CPT/HCPCS: 99282

== ENCOUNTER 2018-09-01 09:34 | Emergency (ER) | payer SELFPAY ==
[2018-09-01 09:53] VITALS: BP 112/64
[2018-09-01] MEDS ORDERED: GEODON IM ONE (12:00)
[2018-09-01 12:22] LABS: Bilirubin,Urine NEG (Negative); Blood,Urine NEG (Negative); Color,Urine Yellow (Yellow); Mucus,Urine FEW /HPF; Protein,Urine <15 mg/dL mg/dL (Negative); Urobilinogen,Urine < 2.0 mg/dL (<2.0)
--- NOTE | 2018-09-01 13:57 | Emergency Department Report ---
ED Abdominal Pain HPI - General Chief Complaint: Abdominal Pain Stated Complaint: 16WKS /CONTRACTION Time Seen by Provider: 09/01/18 11:11 Source: patient Mode of arrival: Ambulatory Limitations: No Limitations - History of Present Illness Initial Comments: Patient is a 27-year-old Female who is presenting with lower abdominal pain last 2-3 days. Patient states she is approximately 16 weeks and initially told me that she had not had any care and not have not sent however this is not true. Patient denies any nausea vomiting fevers or chills. There's been no dysuria. Patient says she has lower abdominal discomfort without bleeding. - Related Data Previous Rx's Medication Instructions Recorded Last Taken Type ALBUTEROL Inhaler (OR & NICU) 2 puff IH QID PRN #1 inhalation 03/28/17 Unknown Rx [ProAir HFA Inhaler] Sulfamethoxazole/Trimethoprim 1 each PO Q12H #14 tablet 10/05/17 Unknown Rx [Bactrim Ds Tablet] metroNIDAZOLE [Flagyl] 500 mg PO Q12HR #14 tab 10/05/17 Unknown Rx Famotidine [Pepcid] 20 mg PO BID PRN #30 tablet 11/20/17 Unknown Rx Ondansetron [Zofran Odt] 4 mg PO Q8H PRN #12 tab.rapdis 11/20/17 Unknown Rx Ibuprofen [Motrin] 600 mg PO Q8H PRN #15 tablet 12/11/17 Unknown Rx Phenazopyridine [Pyridium] 200 mg PO TID #6 tab 12/11/17 Unknown Rx Nitrofurantoin Monohyd/M-Cryst 100 mg PO BID #10 capsule 01/20/18 Unknown Rx [Macrobid 100 mg Capsule] Ibuprofen [Motrin] 600 mg PO Q8H PRN #15 tablet 01/27/18 Unknown Rx Ibuprofen [Motrin] 600 mg PO Q8H PRN #12 tablet 03/12/18 Unknown Rx Benzonatate [Tessalon Perle] 100 mg PO Q8H PRN #20 capsule 03/15/18 Unknown Rx Fluticasone [Flonase] 1 spray NS QDAY #1 bottle 03/15/18 Unknown Rx Loratadine [Claritin] 10 mg PO DAILY #30 tablet 03/15/18 Unknown Rx Prednisone [predniSONE 10 mg 10 mg PO .TAPER #1 tab.ds.pk 03/15/18 Unknown Rx (6-Day Pack, 21 Tabs)] Sulfamethoxazole/Trimethoprim 1 each PO BID #14 tablet 03/15/18 Unknown Rx [Bactrim DS TAB] Ibuprofen [Motrin 800 MG tab] 800 mg PO Q8HR PRN #20 tablet 04/02/18 Unknown Rx Tramadol HCl [Ultram] 50 mg PO Q6H PRN #10 tablet 04/02/18 Unknown Rx ALBUTEROL Inhaler (OR & NICU) 2 puff IH Q6H PRN #1 inhalation 04/15/18 Unknown Rx [ProAir HFA Inhaler] Azithromycin [Zithromax Z-TOMMY] 250 mg PO DAILY 5 Days #1 pkg 04/15/18 Unknown Rx Cetirizine HCl [ZyrTEC] 10 mg PO QAM 14 Days #14 capsule 04/15/18 Unknown Rx Fluticasone [Flonase] 1 spray NS QDAY 14 Days #1 bottle 04/15/18 Unknown Rx methylPREDNISolone [Medrol Dose 4 mg PO DAILY #1 tab.ds.pk 04/15/18 Unknown Rx Tommy] Ibuprofen [Motrin] 600 mg PO Q8H PRN #10 tablet 05/10/18 Unknown Rx Ondansetron [Zofran Odt] 4 mg PO Q8HR PRN #10 tab.rapdis 05/10/18 Unknown Rx ALBUTEROL Inhaler (OR & NICU) 1 puff IH Q4-6H PRN #1 inha 05/13/18 Unknown Rx [ProAir HFA Inhaler] Azithromycin [Zithromax] 500 mg PO QDAY #5 tablet 05/13/18 Unknown Rx Mupirocin [Bactroban 2%] 1 applic TP TID #1 tube 05/13/18 Unknown Rx guaiFENesin/CODEINE [Robitussin AC] 5 ml PO Q6H PRN #120 ml 05/13/18 Unknown Rx Acyclovir [Zovirax] 1 applic TP TID #1 oint...g. 08/13/18 Unknown Rx Fluconazole [Diflucan] 200 mg PO ONCE #1 tablet 08/13/18 Unknown Rx Sulfamethoxazole/Trimethoprim 1 each PO BID #14 tablet 08/13/18 Unknown Rx [Bactrim DS TAB] Acyclovir [Zovirax Tab] 800 mg PO Q12H #20 tab 08/19/18 Unknown Rx Allergies Allergy/AdvReac Type Severity Reaction Status Date / Time hydrocortisone cream Allergy Mild Hives Uncoded 09/01/18 09:49 ED Review of Systems ROS: Stated complaint: 16WKS /CONTRACTION Other details as noted in HPI Comment: All other systems reviewed and negative ED Past Medical Hx - Past Medical History Hx Hypertension: No Hx CVA: No Hx Heart Attack/AMI: No Hx Congestive Heart Failure: No Hx Diabetes: No Hx Deep Vein Thrombosis: No Hx Pulmonary Embolism: No Hx GERD: No Hx Liver Disease: No Hx Renal Disease: No Hx Sickle Cell Disease: No Hx Arthritis: No Hx Headaches / Migraines: No Hx Seizures: No Hx Kidney Stones: No Hx Psychiatric Treatment: Yes (anxiety attack, cocaine rehab) Hx Asthma: Yes Hx COPD: No Hx Tuberculosis: No Hx Dementia: No Hx HIV: No Additional medical history: hx bronchitis. Drug seeking behaviors,. Disorganized behaviors,. frequent std - Surgical History Hx Coronary Stent: No Hx Open Heart Surgery: No Hx Pacemaker: No Hx Internal Defibrillator: No Hx Cholecystectomy: No Hx Appendectomy: No Hx Breast Surgery: No Additional Surgical History: denies - Social History Smoking Status: Never Smoker Substance Use Type: None - Medications Home Medications: Home Medications Medication Instructions Recorded Confirmed Last Taken Type ALBUTEROL Inhaler (OR & NICU) 2 puff IH QID PRN #1 inhalation 03/28/17 09/30/17 Unknown Rx [ProAir HFA Inhaler] Sulfamethoxazole/Trimethoprim 1 each PO Q12H #14 tablet 10/05/17 Unknown Rx [Bactrim Ds Tablet] metroNIDAZOLE [Flagyl] 500 mg PO Q12HR #14 tab 10/05/17 Unknown Rx Famotidine [Pepcid] 20 mg PO BID PRN #30 tablet 11/20/17 Unknown Rx Ondansetron [Zofran Odt] 4 mg PO Q8H PRN #12 tab.rapdis 11/20/17 Unknown Rx Ibuprofen [Motrin] 600 mg PO Q8H PRN #15 tablet 12/11/17 Unknown Rx Phenazopyridine [Pyridium] 200 mg PO TID #6 tab 12/11/17 Unknown Rx Nitrofurantoin Monohyd/M-Cryst 100 mg PO BID #10 capsule 01/20/18 Unknown Rx [Macrobid 100 mg Capsule] Ibuprofen [Motrin] 600 mg PO Q8H PRN #15 tablet 01/27/18 Unknown Rx Ibuprofen [Motrin] 600 mg PO Q8H PRN #12 tablet 03/12/18 Unknown Rx Benzonatate [Tessalon Perle] 100 mg PO Q8H PRN #20 capsule 03/15/18 Unknown Rx Fluticasone [Flonase] 1 spray NS QDAY #1 bottle 03/15/18 Unknown Rx Loratadine [Claritin] 10 mg PO DAILY #30 tablet 03/15/18 Unknown Rx Prednisone [predniSONE 10 mg 10 mg PO .TAPER #1 tab.ds.pk 03/15/18 Unknown Rx (6-Day Pack, 21 Tabs)] Sulfamethoxazole/Trimethoprim 1 each PO BID #14 tablet 03/15/18 Unknown Rx [Bactrim DS TAB] Ibuprofen [Motrin 800 MG tab] 800 mg PO Q8HR PRN #20 tablet 04/02/18 Unknown Rx Tramadol HCl [Ultram] 50 mg PO Q6H PRN #10 tablet 04/02/18 Unknown Rx ALBUTEROL Inhaler (OR & NICU) 2 puff IH Q6H PRN #1 inhalation 04/15/18 Unknown Rx [ProAir HFA Inhaler] Azithromycin [Zithromax Z-TOMMY] 250 mg PO DAILY 5 Days #1 pkg 04/15/18 Unknown Rx Cetirizine HCl [ZyrTEC] 10 mg PO QAM 14 Days #14 capsule 04/15/18 Unknown Rx Fluticasone [Flonase] 1 spray NS QDAY 14 Days #1 bottle 04/15/18 Unknown Rx methylPREDNISolone [Medrol Dose 4 mg PO DAILY #1 tab.ds.pk 04/15/18 Unknown Rx Tommy] Ibuprofen [Motrin] 600 mg PO Q8H PRN #10 tablet 05/10/18 Unknown Rx Ondansetron [Zofran Odt] 4 mg PO Q8HR PRN #10 tab.rapdis 05/10/18 Unknown Rx ALBUTEROL Inhaler (OR & NICU) 1 puff IH Q4-6H PRN #1 inha 05/13/18 Unknown Rx [ProAir HFA Inhaler] Azithromycin [Zithromax] 500 mg PO QDAY #5 tablet 05/13/18 Unknown Rx Mupirocin [Bactroban 2%] 1 applic TP TID #1 tube 05/13/18 Unknown Rx guaiFENesin/CODEINE [Robitussin AC] 5 ml PO Q6H PRN #120 ml 05/13/18 Unknown Rx Acyclovir [Zovirax] 1 applic TP TID #1 oint...g. 08/13/18 Unknown Rx Fluconazole [Diflucan] 200 mg PO ONCE #1 tablet 08/13/18 Unknown Rx Sulfamethoxazole/Trimethoprim 1 each PO BID #14 tablet 08/13/18 Unknown Rx [Bactrim DS TAB] Acyclovir [Zovirax Tab] 800 mg PO Q12H #20 tab 08/19/18 Unknown Rx ED Physical Exam - General Limitations: No Limitations General appearance: alert, in no apparent distress - Head Head exam: Present: atraumatic, normocephalic - Eye Eye exam: Present: normal appearance - ENT ENT exam: Present: mucous membranes moist - Neck Neck exam: Present: normal inspection - Respiratory Respiratory exam: Present: normal lung sounds bilaterally. Absent: respiratory distress - Cardiovascular Cardiovascular Exam: Present: regular rate, normal rhythm. Absent: systolic murmur, diastolic murmur, rubs, gallop - GI/Abdominal GI/Abdominal exam: Present: soft, distended (gravid ), normal bowel sounds. Absent: tenderness, guarding, rebound, rigid - Extremities Exam Extremities exam: Present: normal inspection - Back Exam Back exam: Present: normal inspection - Neurological Exam Neurological exam: Present: alert, oriented X3 - Psychiatric Psychiatric exam: Present: normal affect, normal mood - Skin Skin exam: Present: warm, dry, intact, normal color. Absent: rash ED Course Vital Signs 09/01/18 09:52 Temperature 98.2 F Pulse Rate 82 Respiratory 16 Rate Blood Pressure 112/64 [Right] O2 Sat by Pulse 97 Oximetry ED Medical Decision Making - Lab Data Lab Results 09/01/18 09/01/18 Range/Units 11:33 12:03 HCG, Quant 85890 H (0-4) mIU/mL Urine Color Yellow (Yellow) Urine Turbidity Clear (Clear) Urine pH 5.0 (5.0-7.0) Ur Specific [place] 1.025 (1.003-1.030) Urine Protein <15 mg/dl (Negative) mg/dL Urine Glucose (UA) Neg (Negative) mg/dL Urine Ketones Neg (Negative) mg/dL Urine Blood Neg (Negative) Urine Nitrite Neg (Negative) Urine Bilirubin Neg (Negative) Urine Urobilinogen < 2.0 (<2.0) mg/dL Ur Leukocyte Esterase Sm (Negative) Urine WBC (Auto) 10.0 H (0.0-6.0) /HPF Urine RBC (Auto) 4.0 (0.0-6.0) /HPF U Epithel Cells (Auto) 6.0 (0-13.0) /HPF Urine Mucus Few /HPF - Radiology Data Patient's ultrasound shows a viable 17 week fetus Critical care attestation.: If time is entered above; I have spent that time in minutes in the direct care of this critically ill patient, excluding procedure time. ED Disposition Clinical Impression: UTI (urinary tract infection) during Qualifiers: Trimester: second trimester Qualified Code(s): O23.42 - Unspecified infection of urinary tract in , second trimester Disposition: DC-01 TO HOME OR SELFCARE Is pt being admited?: No Does the pt Need Aspirin: No Condition: Stable Instructions: Urinary Tract Infection in Women (ED) Referrals: KEIRY FERRER [Staff Physician] - 3-5 Days Time of Disposition: 13:56
--- NOTE | 2018-09-01 14:59 | Ultrasound Report ---
OB ULTRASOUND History: Abdominal pain during . Technique: Transabdominal ultrasound with Doppler interrogation. Gestation: Single Position: Cephalic Amniotic Fluid: Within normal limits Placenta: Anterior Placental Grade: 1 Heart Rate: 147 BPM Cervical length: 4.5 cm (Normal > 3 cm) BPD: 3.6 cm = 17 w 1 d HC: 14.0 cm = 17 w 2 d AC: 11.2 cm = 17 w 0 d FL: 2.2 cm = 16 w 4 d HC/AC Ratio: 1.25 Cephalic Index: 86.6 Estimated Weight: 172 grams Clinical age = 17 w 1 d EDC: 02/08/19 US Gest. Age = 17 w or d EDC: 02/09/19 IMPRESSION: Viable, single intrauterine as described. No acute abnormality is detected.
== END 2018-09-01 14:06 | disposition home or self-care (01) ==
LOC: ED 09:34
DX: O23.42 Unspecified infection of urinary tract in pregnancy, second trimester (principal); O99.512 Diseases of the respiratory system complicating pregnancy, second trimester; O99.342 Other mental disorders complicating pregnancy, second trimester; Z3A.16 16 weeks gestation of pregnancy; Z79.899 Other long term (current) drug therapy; Z88.8 Allergy status to other drugs, medicaments and biological substances
CPT/HCPCS: 36415; 76805; 81001; 84702; 99284; J3486

== ENCOUNTER 2018-11-24 05:20 | Outpatient (CLI) | payer OTHER ==
[2018-11-24 05:57] VITALS: BP 91/53
== END 2018-11-24 07:26 | disposition home or self-care (01) ==
LOC: TRG 05:20
PROVIDERS: ATTEND Obstetrics & Gynecology
DX: O47.02 False labor before 37 completed weeks of gestation, second trimester (principal); O99.512 Diseases of the respiratory system complicating pregnancy, second trimester; J45.909 Unspecified asthma, uncomplicated; Z3A.26 26 weeks gestation of pregnancy

== ENCOUNTER 2018-12-06 19:25 | Outpatient (CLI) | payer OTHER ==
[2018-12-06] MEDS ORDERED: LACTATED RINGERS 1,000 ML IV ONE (20:00)
[2018-12-06 21:00] LABS: Bacteria,Urine 4+ /HPF (Negative); Bilirubin,Urine NEG (Negative); Blood,Urine NEG (Negative); Color,Urine Yellow (Yellow); Mucus,Urine FEW /HPF; Urobilinogen,Urine < 2.0 mg/dL (<2.0)
[2018-12-06 21:01] LABS: Amphetamine Screen,Urine PRESUMPTIVE NEGATIVE; Benzodiazepines Screen,Urine PRESUMPTIVE NEGATIVE; Cannabinoid Screen,Urine PRESUMPTIVE NEGATIVE; Methadone Screen,Urine PRESUMPTIVE NEGATIVE; Opiate Screen,Urine PRESUMPTIVE NEGATIVE
[2018-12-06 21:06] LABS: Cocaine Screen,Urine PRESUMPTIVE POSITIVE
[2018-12-06] MEDS ORDERED: XYLOCAINE 1% MPF 5 mL INFILTRATI ONE (21:13)
[2018-12-06] MEDS ORDERED: ROCEPHIN IM ONE (21:15)
[2018-12-06] MEDS ORDERED: BRETHINE ONE (22:57)
[2018-12-06] MEDS: BRETHINE SUB-Q SCH (23:00)
[2018-12-06 23:01] VITALS: BP 116/61
[2018-12-07] MEDS: BRETHINE SUB-Q SCH (00:21)
[2018-12-07] MEDS ORDERED: BRETHINE ONE (00:30)
== END 2018-12-07 01:30 | disposition home or self-care (01) ==
LOC: TRG 19:25
PROVIDERS: ATTEND Obstetrics & Gynecology
DX: O62.9 Abnormality of forces of labor, unspecified (principal); O42.913 Preterm premature rupture of membranes, unspecified as to length of time between rupture and onset of labor, third trimester; Z3A.28 28 weeks gestation of pregnancy
CPT/HCPCS: 59025; 80307; 81001; 87086; 96360; 96372; J0696; J3105; J7120; 96361

== ENCOUNTER 2018-12-08 12:24 | Emergency (ER) | payer OTHER ==
[2018-12-08 12:31] VITALS: BP 116/79
--- NOTE | 2018-12-08 13:16 | Emergency Department Report ---
- General Chief Complaint: Upper Respiratory Infection Stated Complaint: cough Time Seen by Provider: 12/08/18 13:05 Source: patient Mode of arrival: Ambulatory Limitations: No Limitations - History of Present Illness Initial Comments: pt is a 28 yo female who presents to the ED with c/o a cough that began a week ago. She states she has some mucus production. She has associated congestion. She denies any fever, sick contacts, ear pain, sore throat, or any other sx. She states she has a PMHx of bronchitis. She denies any hx of asthma. She states she does not smoke. pt is unsure of her last menstrual cycle. - Related Data Previous Rx's Medication Instructions Recorded Last Taken Type ALBUTEROL Inhaler (OR & NICU) 2 puff IH QID PRN #1 inhalation 03/28/17 Unknown Rx [ProAir HFA Inhaler] Sulfamethoxazole/Trimethoprim 1 each PO Q12H #14 tablet 10/05/17 Unknown Rx [Bactrim Ds Tablet] metroNIDAZOLE [Flagyl] 500 mg PO Q12HR #14 tab 10/05/17 Unknown Rx Famotidine [Pepcid] 20 mg PO BID PRN #30 tablet 11/20/17 Unknown Rx Ondansetron [Zofran Odt] 4 mg PO Q8H PRN #12 tab.rapdis 11/20/17 Unknown Rx Ibuprofen [Motrin] 600 mg PO Q8H PRN #15 tablet 12/11/17 Unknown Rx Phenazopyridine [Pyridium] 200 mg PO TID #6 tab 12/11/17 Unknown Rx Nitrofurantoin Monohyd/M-Cryst 100 mg PO BID #10 capsule 01/20/18 Unknown Rx [Macrobid 100 mg Capsule] Ibuprofen [Motrin] 600 mg PO Q8H PRN #15 tablet 01/27/18 Unknown Rx Ibuprofen [Motrin] 600 mg PO Q8H PRN #12 tablet 03/12/18 Unknown Rx Benzonatate [Tessalon Perle] 100 mg PO Q8H PRN #20 capsule 03/15/18 Unknown Rx Fluticasone [Flonase] 1 spray NS QDAY #1 bottle 03/15/18 Unknown Rx Loratadine [Claritin] 10 mg PO DAILY #30 tablet 03/15/18 Unknown Rx Prednisone [predniSONE 10 mg 10 mg PO .TAPER #1 tab.ds.pk 03/15/18 Unknown Rx (6-Day Pack, 21 Tabs)] Sulfamethoxazole/Trimethoprim 1 each PO BID #14 tablet 03/15/18 Unknown Rx [Bactrim DS TAB] Ibuprofen [Motrin 800 MG tab] 800 mg PO Q8HR PRN #20 tablet 04/02/18 Unknown Rx Tramadol HCl [Ultram] 50 mg PO Q6H PRN #10 tablet 04/02/18 Unknown Rx ALBUTEROL Inhaler (OR & NICU) 2 puff IH Q6H PRN #1 inhalation 04/15/18 Unknown Rx [ProAir HFA Inhaler] Azithromycin [Zithromax Z-TOMMY] 250 mg PO DAILY 5 Days #1 pkg 04/15/18 Unknown Rx Cetirizine HCl [ZyrTEC] 10 mg PO QAM 14 Days #14 capsule 04/15/18 Unknown Rx Fluticasone [Flonase] 1 spray NS QDAY 14 Days #1 bottle 04/15/18 Unknown Rx methylPREDNISolone [Medrol Dose 4 mg PO DAILY #1 tab.ds.pk 04/15/18 Unknown Rx Tommy] Ibuprofen [Motrin] 600 mg PO Q8H PRN #10 tablet 05/10/18 Unknown Rx Ondansetron [Zofran Odt] 4 mg PO Q8HR PRN #10 tab.rapdis 05/10/18 Unknown Rx ALBUTEROL Inhaler (OR & NICU) 1 puff IH Q4-6H PRN #1 inha 05/13/18 Unknown Rx [ProAir HFA Inhaler] Azithromycin [Zithromax] 500 mg PO QDAY #5 tablet 05/13/18 Unknown Rx Mupirocin [Bactroban 2%] 1 applic TP TID #1 tube 05/13/18 Unknown Rx guaiFENesin/CODEINE [Robitussin AC] 5 ml PO Q6H PRN #120 ml 05/13/18 Unknown Rx Acyclovir [Zovirax] 1 applic TP TID #1 oint...g. 08/13/18 Unknown Rx Fluconazole [Diflucan] 200 mg PO ONCE #1 tablet 08/13/18 Unknown Rx Sulfamethoxazole/Trimethoprim 1 each PO BID #14 tablet 08/13/18 Unknown Rx [Bactrim DS TAB] Acyclovir [Zovirax Tab] 800 mg PO Q12H #20 tab 08/19/18 Unknown Rx Nitrofurantoin Monohyd/M-Cryst 100 mg PO BID #14 capsule 09/01/18 Unknown Rx [Macrobid 100 mg Capsule] Allergies Allergy/AdvReac Type Severity Reaction Status Date / Time hydrocortisone cream Allergy Mild Hives Uncoded 09/01/18 09:49 ED Review of Systems ROS: Stated complaint: CHEST PAIN Other details as noted in HPI Comment: All other systems reviewed and negative ED Past Medical Hx - Past Medical History Previous Medical History?: Yes Hx Hypertension: No Hx CVA: No Hx Heart Attack/AMI: No Hx Congestive Heart Failure: No Hx Diabetes: No Hx Deep Vein Thrombosis: No Hx Pulmonary Embolism: No Hx GERD: No Hx Liver Disease: No Hx Renal Disease: No Hx Sickle Cell Disease: No Hx Arthritis: No Hx Headaches / Migraines: No Hx Seizures: No Hx Kidney Stones: No Hx Psychiatric Treatment: Yes (anxiety attack, cocaine rehab) Hx Asthma: Yes Hx COPD: No Hx Tuberculosis: No Hx Dementia: No Hx HIV: No Additional medical history: hx bronchitis. Drug seeking behaviors,. Disorganized behaviors,. frequent std - Surgical History Past Surgical History?: No Hx Coronary Stent: No Hx Open Heart Surgery: No Hx Pacemaker: No Hx Internal Defibrillator: No Hx Cholecystectomy: No Hx Appendectomy: No Hx Breast Surgery: No Additional Surgical History: denies - Social History Smoking Status: Never Smoker Substance Use Type: None - Medications Home Medications: Home Medications Medication Instructions Recorded Confirmed Last Taken Type ALBUTEROL Inhaler (OR & NICU) 2 puff IH QID PRN #1 inhalation 03/28/17 09/30/17 Unknown Rx [ProAir HFA Inhaler] Sulfamethoxazole/Trimethoprim 1 each PO Q12H #14 tablet 10/05/17 Unknown Rx [Bactrim Ds Tablet] metroNIDAZOLE [Flagyl] 500 mg PO Q12HR #14 tab 10/05/17 Unknown Rx Famotidine [Pepcid] 20 mg PO BID PRN #30 tablet 11/20/17 Unknown Rx Ondansetron [Zofran Odt] 4 mg PO Q8H PRN #12 tab.rapdis 11/20/17 Unknown Rx Ibuprofen [Motrin] 600 mg PO Q8H PRN #15 tablet 12/11/17 Unknown Rx Phenazopyridine [Pyridium] 200 mg PO TID #6 tab 12/11/17 Unknown Rx Nitrofurantoin Monohyd/M-Cryst 100 mg PO BID #10 capsule 01/20/18 Unknown Rx [Macrobid 100 mg Capsule] Ibuprofen [Motrin] 600 mg PO Q8H PRN #15 tablet 01/27/18 Unknown Rx Ibuprofen [Motrin] 600 mg PO Q8H PRN #12 tablet 03/12/18 Unknown Rx Benzonatate [Tessalon Perle] 100 mg PO Q8H PRN #20 capsule 03/15/18 Unknown Rx Fluticasone [Flonase] 1 spray NS QDAY #1 bottle 03/15/18 Unknown Rx Loratadine [Claritin] 10 mg PO DAILY #30 tablet 03/15/18 Unknown Rx Prednisone [predniSONE 10 mg 10 mg PO .TAPER #1 tab.ds.pk 03/15/18 Unknown Rx (6-Day Pack, 21 Tabs)] Sulfamethoxazole/Trimethoprim 1 each PO BID #14 tablet 03/15/18 Unknown Rx [Bactrim DS TAB] Ibuprofen [Motrin 800 MG tab] 800 mg PO Q8HR PRN #20 tablet 04/02/18 Unknown Rx Tramadol HCl [Ultram] 50 mg PO Q6H PRN #10 tablet 04/02/18 Unknown Rx ALBUTEROL Inhaler (OR & NICU) 2 puff IH Q6H PRN #1 inhalation 04/15/18 Unknown Rx [ProAir HFA Inhaler] Azithromycin [Zithromax Z-TOMMY] 250 mg PO DAILY 5 Days #1 pkg 04/15/18 Unknown Rx Cetirizine HCl [ZyrTEC] 10 mg PO QAM 14 Days #14 capsule 04/15/18 Unknown Rx Fluticasone [Flonase] 1 spray NS QDAY 14 Days #1 bottle 04/15/18 Unknown Rx methylPREDNISolone [Medrol Dose 4 mg PO DAILY #1 tab.ds.pk 04/15/18 Unknown Rx Tommy] Ibuprofen [Motrin] 600 mg PO Q8H PRN #10 tablet 05/10/18 Unknown Rx Ondansetron [Zofran Odt] 4 mg PO Q8HR PRN #10 tab.rapdis 05/10/18 Unknown Rx ALBUTEROL Inhaler (OR & NICU) 1 puff IH Q4-6H PRN #1 inha 05/13/18 Unknown Rx [ProAir HFA Inhaler] Azithromycin [Zithromax] 500 mg PO QDAY #5 tablet 05/13/18 Unknown Rx Mupirocin [Bactroban 2%] 1 applic TP TID #1 tube 05/13/18 Unknown Rx guaiFENesin/CODEINE [Robitussin AC] 5 ml PO Q6H PRN #120 ml 05/13/18 Unknown Rx Acyclovir [Zovirax] 1 applic TP TID #1 oint...g. 08/13/18 Unknown Rx Fluconazole [Diflucan] 200 mg PO ONCE #1 tablet 08/13/18 Unknown Rx Sulfamethoxazole/Trimethoprim 1 each PO BID #14 tablet 08/13/18 Unknown Rx [Bactrim DS TAB] Acyclovir [Zovirax Tab] 800 mg PO Q12H #20 tab 08/19/18 Unknown Rx Nitrofurantoin Monohyd/M-Cryst 100 mg PO BID #14 capsule 09/01/18 Unknown Rx [Macrobid 100 mg Capsule] ED Physical Exam - General Limitations: No Limitations General appearance: alert, in no apparent distress - Head Head exam: Present: atraumatic, normocephalic - Eye Eye exam: Present: normal appearance, PERRL - ENT ENT exam: Present: normal orophraynx, mucous membranes moist, other (pale, boggy turbinates bilaterally, clear nasal discharge ) - Respiratory Respiratory exam: Present: normal lung sounds bilaterally. Absent: respiratory distress, wheezes, rales, rhonchi, stridor, chest wall tenderness, accessory muscle use, decreased breath sounds, prolonged expiratory - Cardiovascular Cardiovascular Exam: Present: regular rate, normal rhythm, normal heart sounds. Absent: systolic murmur, diastolic murmur, rubs, gallop - Neurological Exam Neurological exam: Present: alert, oriented X3 - Psychiatric Psychiatric exam: Present: normal affect, normal mood - Skin Skin exam: Present: warm, dry, intact ED Course Vital Signs 12/08/18 12:27 Temperature 98.9 F Pulse Rate 85 Respiratory 16 Rate Blood Pressure 116/79 [Left] O2 Sat by Pulse 100 Oximetry ED Medical Decision Making - Medical Decision Making pt is a 28 yo female who presents to the ED with c/o a cough that began a week ago. She states she has some mucus production. She has associated congestion. She denies any fever, sick contacts, ear pain, sore throat, or any other sx. She states she has a PMHx of bronchitis. She denies any hx of asthma. She states she does not smoke. pt is unsure of her last menstrual cycle. upon chart review it appears pt is . pt has clear breath sounds, no w/r/r. pt has clear n adenike discharge with pale boggy turbinates consistent with allergies. pt has normal vital signs. when going back into the room to discuss with pt, pt has eloped from the emergency department. Critical care attestation.: If time is entered above; I have spent that time in minutes in the direct care of this critically ill patient, excluding procedure time. ED Disposition Clinical Impression: Cough, Seasonal allergies Allergic rhinitis Qualifiers: Allergic rhinitis trigger: unspecified Allergic rhinitis seasonality: unspecified Qualified Code(s): J30.9 - Allergic rhinitis, unspecified Disposition: ELOPED Is pt being admited?: No Does the pt Need Aspirin: No Condition: Undetermined Referrals: DAVID MCDONOUGH MD [Primary Care Provider] - 2-3 Days
== END 2018-12-08 13:30 | disposition left against medical advice (07) ==
LOC: ED 12:24
DX: J30.2 Other seasonal allergic rhinitis (principal); J30.9 Allergic rhinitis, unspecified; J45.909 Unspecified asthma, uncomplicated
CPT/HCPCS: 99281

== ENCOUNTER 2018-12-28 08:19 | Outpatient (CLI) | payer OTHER ==
[2018-12-28] MEDS ORDERED: LACTATED RINGERS 500 ML IV ONE (10:00)
[2018-12-28] MEDS ORDERED: ZOFRAN IM NR (10:00)
[2018-12-28 12:22] LABS: Amphetamine Screen,Urine PRESUMPTIVE NEGATIVE; Benzodiazepines Screen,Urine PRESUMPTIVE NEGATIVE; Cannabinoid Screen,Urine PRESUMPTIVE NEGATIVE; Cocaine Screen,Urine PRESUMPTIVE NEGATIVE; Methadone Screen,Urine PRESUMPTIVE NEGATIVE; Opiate Screen,Urine PRESUMPTIVE NEGATIVE
[2018-12-28 12:24] LABS: Bacteria,Urine 2+ /HPF (Negative); Bilirubin,Urine NEG (Negative); Blood,Urine NEG (Negative); Color,Urine Yellow (Yellow); Protein,Urine <15 mg/dL mg/dL (Negative); Urobilinogen,Urine < 2.0 mg/dL (<2.0)
[2018-12-28 12:41] LABS: Alanine Aminotransferase 8 units/L (7-56); Albumin 3.3 g/dL (3.9-5); BUN/Creatinine Ratio 20; Blood Urea Nitrogen 8 mg/dL (7-17); Calcium 8.7 mg/dL (8.4-10.2); Hemolysis Index 2
[2018-12-28] MEDS ORDERED: ceFAZolin 2 GM in NACL 0.9% 100 ML IV ONE (14:32)
[2018-12-28 15:53] VITALS: BP 134/85
== END 2018-12-28 15:40 | disposition home or self-care (01) ==
LOC: TRG 08:19
PROVIDERS: ATTEND Obstetrics & Gynecology
DX: O21.2 Late vomiting of pregnancy (principal); O99.513 Diseases of the respiratory system complicating pregnancy, third trimester; J45.909 Unspecified asthma, uncomplicated; Z3A.31 31 weeks gestation of pregnancy
CPT/HCPCS: 36415; 59025; 80053; 80307; 81001; 87086; 96365; 96372; J0690; J2405; 96360; J7120

== ENCOUNTER 2019-02-02 17:21 | Inpatient (IN) | payer OTHER ==
[2019-02-02] MEDS ORDERED: STADOL IV PRN (19:01)
[2019-02-02] MEDS ORDERED: BRETHINE IVP PRN (19:01)
[2019-02-02] MEDS ORDERED: BRETHINE SUB-Q PRN (19:01)
[2019-02-02] MEDS ORDERED: XYLOCAINE 2% INFILTRATI ONE (19:01)
[2019-02-02] MEDS ORDERED: MINERAL OIL PO PRN (19:01)
[2019-02-02] MEDS ORDERED: ZOFRAN IV PRN (19:01)
[2019-02-02] MEDS ORDERED: AMPICILLIN/NS 2 GM/100 ML 2 GM/100 ML BAG IV ONE (19:33)
[2019-02-02 19:45] LABS: Hematocrit 33.6 % (30.3-42.9); Hemoglobin 11.6 gm/dl (10.1-14.3); Mean Corpuscular HGB Conc 35 % (30-34); Mean Corpuscular Volume 92 fl (79-97); Platelet Count 179 K/mm3 (140-440); Red Blood Count 3.64 M/mm3 (3.65-5.03); Red Cell Distribution Width 15.6 % (13.2-15.2)
[2019-02-02] MEDS ORDERED: PITOCin/NS 20 UNIT/1000ML DRIP 20 UNITS/1,000 ML BAG IV SCH (20:00)
[2019-02-02] MEDS ORDERED: LACTATED RINGERS 1,000 ML IV SCH (20:00)
[2019-02-02] MEDS ORDERED: PITOCin/NS 30 UNIT/500ML 30 UNITS/500 ML BAG IV SCH ×2 (20:00)
[2019-02-02] MEDS ORDERED: AMPICILLIN/NS 1 GM/50 ML 1 GM/50 ML BAG IV SCH (23:02)
[2019-02-02] MEDS ORDERED: SUBLIMAZE IV ONE (23:51)
[2019-02-03] MEDS ORDERED: NARCAN 2 MG/2 ML IV PRN (00:35)
[2019-02-03] MEDS ORDERED: fentaNYL-BUPIV 2 MCG/ML-0.125% 200 MCG/100 ML BAG EPIDURAL SCH (01:00)
--- NOTE | 2019-02-03 01:00 | Anesthesia Consultation ---
Anesthesia Consult and Med Hx Date of service: 02/03/19 - Airway Anesthetic Teeth Evaluation: Poor, Chipped - Pulmonary Exam CTA: Yes - Cardiac Exam Cardiac Exam: RRR - Pre-Operative Health Status ASA Pre-Surgery Classification: ASA3 Proposed Anesthetic Plan: Epidural - Pulmonary Hx Smoking: Yes Hx Asthma: Yes Hx Respiratory Symptoms: Yes (bronchitis) COPD: No Hx Pneumonia: No - Cardiovascular System Hx Hypertension: No Hx Heart Attack/AMI: No Hx Pacemaker: No Hx Internal Defibrillator: No - Central Nervous System Hx Seizures: No Hx Psychiatric Problems: No - Gastrointestinal Hx Gastroesophageal Reflux Disease: Yes - Endocrine Hx Renal Disease: No Hx End Stage Renal Disease: No Hx Liver Disease: No Hx Hypothyroidism: No Hx Hyperthyroidism: No - Hematic Hx Anemia: No Hx Sickle Cell Disease: No - Other Systems Hx Alcohol Use: No Hx Substance Use: Yes (cocaine positive)
[2019-02-03] MEDS ORDERED: CYTOTEC ONE (02:45)
[2019-02-03] MEDS ORDERED: LANSINOH TP PRN (02:58)
[2019-02-03] MEDS ORDERED: BENADRYL PO PRN (02:58)
[2019-02-03] MEDS ORDERED: SODIUM CHLORIDE FLUSH SYRINGE 10 ML IV NR (03:00)
--- NOTE | 2019-02-03 03:04 | History and Physical Report ---
History of Present Illness Date of examination: 02/03/19 Date of admission: 02/02/19 17:21 Chief complaint: Presents for induction of labor due to recent incareration and hx of ploysubstance abuse. History of present illness: care at [facility] and [facility]. 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 History: herpes Family/Genetic History: diabetes, hypertension (MGM), cancer (Breast CA: MGM) Social history: no significant social history, smoking (THC, Cocaine, tobacco) - Obstetrical History Expected Date of Delivery: 02/09/19 Actual Gestation: 39 Week(s) 1 Day(s) : 6 Para: 5 Hx # Term Pregnancies: 5 Number of Living Children: 5 #1 Infant Gender: Female year: 2,011 Birthweight: 3.402 kg Method of Delivery: Vaginal Complications: none #2 Gender: Male year: 2,[birth year] Birthweight: 3.629 kg Method of Delivery: Vaginal Gestational age at delivery: 2,012 Complications: none #3 Gender: Male year: 2,013 Birthweight: 3.6 kg Method of Delivery: Vaginal Complications: none #4 Gender: Female year: 2,014 Birthweight: 3.459 kg Method of Delivery: Vaginal Complications: none #5 year: 2,015 Birthweight: 3.402 kg Method of Delivery: Vaginal Complications: none Medications and Allergies Allergies Allergy/AdvReac Type Severity Reaction Status Date / Time hydrocortisone cream Allergy Mild Hives Uncoded 09/01/18 09:49 Home Medications Medication Instructions Recorded Confirmed Last Taken Type ALBUTEROL Inhaler (OR & NICU) 2 puff IH QID PRN #1 inhalation 03/28/17 09/30/17 Unknown Rx [ProAir HFA Inhaler] Sulfamethoxazole/Trimethoprim 1 each PO Q12H #14 tablet 10/05/17 Unknown Rx [Bactrim Ds Tablet] metroNIDAZOLE [Flagyl] 500 mg PO Q12HR #14 tab 10/05/17 Unknown Rx Famotidine [Pepcid] 20 mg PO BID PRN #30 tablet 11/20/17 Unknown Rx Ondansetron [Zofran Odt] 4 mg PO Q8H PRN #12 tab.rapdis 11/20/17 Unknown Rx Ibuprofen [Motrin] 600 mg PO Q8H PRN #15 tablet 12/11/17 Unknown Rx Phenazopyridine [Pyridium] 200 mg PO TID #6 tab 12/11/17 Unknown Rx Nitrofurantoin Monohyd/M-Cryst 100 mg PO BID #10 capsule 01/20/18 Unknown Rx [Macrobid 100 mg Capsule] Ibuprofen [Motrin] 600 mg PO Q8H PRN #15 tablet 01/27/18 Unknown Rx Ibuprofen [Motrin] 600 mg PO Q8H PRN #12 tablet 03/12/18 Unknown Rx Benzonatate [Tessalon Perle] 100 mg PO Q8H PRN #20 capsule 03/15/18 Unknown Rx Fluticasone [Flonase] 1 spray NS QDAY #1 bottle 03/15/18 Unknown Rx Loratadine [Claritin] 10 mg PO DAILY #30 tablet 03/15/18 Unknown Rx Prednisone [predniSONE 10 mg 10 mg PO .TAPER #1 tab.ds.pk 03/15/18 Unknown Rx (6-Day Pack, 21 Tabs)] Sulfamethoxazole/Trimethoprim 1 each PO BID #14 tablet 03/15/18 Unknown Rx [Bactrim DS TAB] Ibuprofen [Motrin 800 MG tab] 800 mg PO Q8HR PRN #20 tablet 04/02/18 Unknown Rx Tramadol HCl [Ultram] 50 mg PO Q6H PRN #10 tablet 04/02/18 Unknown Rx ALBUTEROL Inhaler (OR & NICU) 2 puff IH Q6H PRN #1 inhalation 04/15/18 Unknown Rx [ProAir HFA Inhaler] Azithromycin [Zithromax Z-TOMMY] 250 mg PO DAILY 5 Days #1 pkg 04/15/18 Unknown Rx Cetirizine HCl [ZyrTEC] 10 mg PO QAM 14 Days #14 capsule 04/15/18 Unknown Rx Fluticasone [Flonase] 1 spray NS QDAY 14 Days #1 bottle 04/15/18 Unknown Rx methylPREDNISolone [Medrol Dose 4 mg PO DAILY #1 tab.ds.pk 04/15/18 Unknown Rx Tommy] Ibuprofen [Motrin] 600 mg PO Q8H PRN #10 tablet 05/10/18 Unknown Rx Ondansetron [Zofran Odt] 4 mg PO Q8HR PRN #10 tab.rapdis 05/10/18 Unknown Rx ALBUTEROL Inhaler (OR & NICU) 1 puff IH Q4-6H PRN #1 inha 05/13/18 Unknown Rx [ProAir HFA Inhaler] Azithromycin [Zithromax] 500 mg PO QDAY #5 tablet 05/13/18 Unknown Rx Mupirocin [Bactroban 2%] 1 applic TP TID #1 tube 05/13/18 Unknown Rx guaiFENesin/CODEINE [Robitussin AC] 5 ml PO Q6H PRN #120 ml 05/13/18 Unknown Rx Acyclovir [Zovirax] 1 applic TP TID #1 oint...g. 08/13/18 Unknown Rx Fluconazole [Diflucan] 200 mg PO ONCE #1 tablet 08/13/18 Unknown Rx Sulfamethoxazole/Trimethoprim 1 each PO BID #14 tablet 08/13/18 Unknown Rx [Bactrim DS TAB] Acyclovir [Zovirax Tab] 800 mg PO Q12H #20 tab 08/19/18 Unknown Rx Nitrofurantoin Monohyd/M-Cryst 100 mg PO BID #14 capsule 09/01/18 Unknown Rx [Macrobid 100 mg Capsule] Active Meds: Active Medications Butorphanol Tartrate (Stadol) 2 mg IV Q2H PRN PRN Reason: Pain , Severe (7-10) Last Admin: 02/02/19 21:37 Dose: 2 mg Documented by: Ephedrine Sulfate (Ephedrine Sulfate) 10 mg IV Q2M PRN PRN Reason: Hypotension Ephedrine Sulfate (Ephedrine Sulfate) 10 mg IV Q2M PRN PRN Reason: Hypotension Oxytocin/Sodium Chloride (Pitocin/Ns 20 Unit/1000ml Drip) 20 units in 1,000 mls @ 125 mls/hr IV DIRECT TOMMY Oxytocin/Sodium Chloride (Pitocin/Ns 30 Unit/500ml) 30 units in 500 mls @ 1 mls/hr IV TITR TOMMY; Protocol Oxytocin/Sodium Chloride (Pitocin/Ns 30 Unit/500ml) 30 units in 500 mls @ 2 mls/hr IV TITR TOMMY; Protocol Last Admin: 02/02/19 20:45 Dose: 2 ml/hr, 2 mls/hr Documented by: Lactated Ringer's (Lactated Ringers) 1,000 mls @ 125 mls/hr IV DIRECT TOMMY Last Admin: 02/02/19 20:40 Dose: 125 mls/hr Documented by: Ampicillin Sodium (Ampicillin/Ns 1 Gm/50 Ml) 1 gm in 50 mls @ 100 mls/hr IV Q4HR [facility]; Protocol Last Admin: 02/03/19 00:11 Dose: 100 mls/hr Documented by: Fentanyl/Bupivacaine/Sodium Chlor (Fentanyl-Bupiv 2 Mcg/Ml-0.125%) 200 mcg in 100 mls @ 12 mls/hr EPIDURAL TITR TOMMY; Protocol Last Admin: 02/03/19 01:28 Dose: 12 mls/hr Documented by: Mineral Oil (Mineral Oil) 30 ml PO QHS PRN PRN Reason: Constipation Naloxone HCl (Narcan 2 Mg/2 Ml) 0.2 mg IV Q5M PRN PRN Reason: Respiratory sedation Ondansetron HCl (Zofran) 4 mg IV Q8H PRN PRN Reason: Nausea And Vomiting Terbutaline Sulfate (Brethine) 0.25 mg SUB-Q ONCE PRN PRN Reason: Hyperstimulation/Hypertonicity Terbutaline Sulfate (Brethine) 0.25 mg IVP ONCE PRN PRN Reason: Hyperstimulation/Hypertonicity Review of Systems All systems: negative - Vital Signs Vital signs: Vital Signs Pulse Ox 100 02/02/19 18:02 Temp Pulse Resp BP Pulse Ox 97.6 F 115 H 18 133/85 99 02/02/19 19:10 02/03/19 02:46 02/02/19 19:10 02/03/19 02:46 02/03/19 02:42 - Physical Exam Breasts: Positive: normal Cardiovascular: Regular rate Lungs: Positive: Clear to auscultation, Normal air movement Abdomen: Positive: normal appearance, soft, normal bowel sounds Genitourinary (Female): Positive: normal external genitalia, normal perenium Vagina: Positive: normal moisture Uterus: Positive: enlarged Anus/Rectum: Positive: normal perianal skin Extremities: Positive: normal - Obstetrical FHR: category 1 Uterine Contraction Monitor Mode: External Cervical Dilatation: 2 Cervical Effacement Percentage: 50 station: -3 Uterine Contraction Pattern: Absent Uterine Tone Measurement Phase: Resting Uterine Contraction Intensity: Mild Results Result Diagrams: 02/02/19 19:16 Abnormal lab results 02/02/19 Range/Units 19:16 RBC 3.64 L (3.65-5.03) M/mm3 MCHC 35 H (30-34) % RDW 15.6 H (13.2-15.2) % All other labs normal. Assessment and Plan A: IUP @39 1/7 Weeks hx of Poly Substance Abuse hx of Recent Incareration GBS Positive Category I Tracing P: Admit to L&D per Routine orders Pitocin Induction GBS Prophylaxis
--- NOTE | 2019-02-03 03:16 | Procedure Note ---
OB Delivery Note - Delivery Date of Delivery: 02/03/19 Surgeon: EMORY RODRIGUEZ Estimated blood loss: other (350) - Vaginal Delivery presentation: vertex Delivery position: OA Intrapartum events: none Delivery induction: oxytocin Delivery augmentation: pitocin Delivery monitor: external FHT, external uterine Route of delivery: Delivery placenta: spontaneous Delivery cord: 3 umbilical vessels Episiotomy: none Delivery laceration: none Anesthesia: epidural Delivery comments: of a live 6'5 female infant over a intact perineum under epidural anesthesia with Agars of 8 and 9 at 0240 on 02/03/2019. Spontaneous delivery of placenta complete and intact with Hummel side presenting at 0245. Fundus is firm and midline located 3 below the U. Lochia is scant. 1000 of Cytotec placed per rectum. GBS Prophylaxis X 2. - Infant A at 1 minute: 8 at 5 minutes: 9 Gender: Female (6'5)
[2019-02-03] MEDS: IBUPROFEN PO SCH ×4 (05:14→22:18)
[2019-02-03] MEDS: NORCO 5/325 PO PRN ×3 (08:40→22:16)
[2019-02-03 15:44] LABS: Hematocrit 35.2 % (30.3-42.9); Hemoglobin 11.3 gm/dl (10.1-14.3)
[2019-02-04] MEDS: IBUPROFEN PO SCH ×4 (01:58→20:35)
[2019-02-04] MEDS: NORCO 5/325 PO PRN ×4 (04:36→22:41)
--- NOTE | 2019-02-04 10:42 | Progress Note ---
Assessment and Plan A: PPD#1 s/p Recent incarceration (Released 01/31) Positive cocaine use during Poor historian Clinically stable P: Routine PP orders Social service consult Nursery notified of pt drug use; plan infant drug screen Discharge home in am Infant discharged per social service recommendations Subjective - Subjective Date of service: 02/04/19 Principal diagnosis: PPD#1 s/p ; recent incarceration; Cocaine use in Patient reports: appetite normal, voiding normally, pain well controlled, flatus, ambulating normally, no bowel movement : doing well, nursing well Objective - Vital Signs Latest vital signs: Vital Signs Temp Pulse Resp BP BP Pulse Ox 02/04/19 08:05 98.2 F 71 20 111/74 02/04/19 04:06 97.9 F 83 18 110/63 97 02/03/19 23:54 97.7 F 73 16 109/79 99 02/03/19 20:06 98.5 F 79 16 109/58 97 02/03/19 17:09 97.6 F 70 20 108/73 98 02/03/19 11:22 98.1 F 78 20 112/59 97 Intake and Output 02/03/19 02/04/19 02/04/19 23:59 07:59 15:59 Intake Total 240 960 320 Balance 240 960 320 Intake: Oral 240 960 320 Other: Total, Intake Amount 240 960 320 Voiding Method Toilet # Voids 5 Void 1 5 # Bowel Movements 0 - Exam Breasts: Present: normal, Cardiovascular: Present: Regular rate, Normal S1, Normal S2, No murmurs Lungs: Present: Clear to auscultation, Normal air movement Abdomen: Present: normal appearance, soft, normal bowel sounds. Absent: distention Vulva: both: normal Uterus: Present: firm, fundal height at umbilicus Extremities: Present: normal Deep Tendon Reflex Grade: Normal +2
[2019-02-05] MEDS ORDERED: TUCKS PAD TP PRN (00:41)
[2019-02-05] MEDS: IBUPROFEN PO SCH ×2 (02:18→13:30)
[2019-02-05] MEDS: NORCO 5/325 PO PRN (10:42)
--- NOTE | 2019-02-05 11:05 | Discharge Summary ---
Providers - Providers Date of Admission: 02/02/19 17:21 Date of discharge: 02/05/19 Attending physician: BOYD MAURICIO MD 02/03/19 10:59 Consult to Case Management [CONS] Routine Services Needed at Discharge: Expansion Joint Builder Notified:: Yes Phone number called:: [phone] Was contact made?: Yes If yes, spoke with:: Amanda Time called:: 11:00 Additional Physician Instructions: History of drug use. History of incaceration DFACS history with other children Primary care physician: LACEY RAMIREZ Hospitalization Reason for admission: induction of labor Delivery: Episiotomy: none Laceration: none Other procedures: none complications: none Discharge diagnosis: IUP at term delivered [place] baby: female Hospital course: See admission H & P; OB delivery summary and PP progress notes Condition at discharge: Good Disposition: DC-01 TO HOME OR SELFCARE - Discharge Diagnoses (1) (normal spontaneous vaginal delivery) Status: Acute Plan - Provider Discharge Summary Activity: routine, no sex for 6 weeks, no heavy lifting 4 weeks, no strenuous exercise Diet: routine Instructions: routine Additional instructions: [] Smoking cessation referral if applicable(refer to patient education folder for contact #) [] Refer to [facility]'s [facility] Booklet Call your doctor immediately for: * Fever > 100.5 * Heavy vaginal bleeding ( >1 pad per hour) * Severe persistent headache * Shortness of breath * Reddened, hot, painful area to leg or breast * Drainage or odor from incision. * Keep incision clean and dry at all times and follow doctor's instructions regarding bathing/showering - Follow up plan Follow up: BOYD MAURICIO MD [Staff Physician] - 6 Weeks Forms: [facility] Discharge Summary, Discharge Signature Page
[2019-02-05 14:33] VITALS: BP 111/72
== END 2019-02-05 14:45 | disposition home or self-care (01) | DRG 775 ==
LOC: LD 17:21 → OB 02-03 04:32
PROVIDERS: ADMIT Obstetrics & Gynecology; ATTEND Obstetrics & Gynecology
PROC: 10E0XZZ Delivery of Products of Conception, External Approach (ICD-10-PCS; principal; 2019-02-03)
PROC: 3E033VJ Introduction of Other Hormone into Peripheral Vein, Percutaneous Approach (ICD-10-PCS; 2019-02-03)
PROC: 3E0R3BZ Introduction of Anesthetic Agent into Spinal Canal, Percutaneous Approach (ICD-10-PCS; 2019-02-03)
PROC: 00HU33Z Insertion of Infusion Device into Spinal Canal, Percutaneous Approach (ICD-10-PCS; 2019-02-03)
DX: O99.824 Streptococcus B carrier state complicating childbirth (principal); O99.324 Drug use complicating childbirth; F14.90 Cocaine use, unspecified, uncomplicated; O99.52 Diseases of the respiratory system complicating childbirth; J45.909 Unspecified asthma, uncomplicated; O99.334 Smoking (tobacco) complicating childbirth; F17.200 Nicotine dependence, unspecified, uncomplicated; O99.62 Diseases of the digestive system complicating childbirth; K21.9 Gastro-esophageal reflux disease without esophagitis; Z82.49 Family history of ischemic heart disease and other diseases of the circulatory system; Z83.3 Family history of diabetes mellitus; Z80.3 Family history of malignant neoplasm of breast; Z79.899 Other long term (current) drug therapy; Z37.0 Single live birth; Z3A.39 39 weeks gestation of pregnancy
CPT/HCPCS: 36415; 85014; 85018; 85027; 86592; 86850; 86900; 86901; G0378; J0290; J0595; J2590; J3010; J7120

== ENCOUNTER 2019-02-17 08:27 | Emergency (ER) | payer OTHER ==
[2019-02-17 09:37] LABS: Basophils # (Auto) 0.1 K/mm3 (0.0-0.1); Basophils % (Auto) 0.7 % (0.0-1.8); Eosinophils # (Auto) 0.1 K/mm3 (0.0-0.4); Eosinophils % (Auto) 1.4 % (0.0-4.3); Hematocrit 39.3 % (30.3-42.9); Hemoglobin 13.1 gm/dl (10.1-14.3); Lymphocytes # (Auto) 1.2 K/mm3 (1.2-5.4); Lymphocytes % (Auto) 15.3 % (13.4-35.0); Mean Corpuscular HGB Conc 33 % (30-34); Mean Corpuscular Volume 91 fl (79-97); Monocytes # (Auto) 0.5 K/mm3 (0.0-0.8); Platelet Count 290 K/mm3 (140-440); Red Blood Count 4.31 M/mm3 (3.65-5.03); Red Cell Distribution Width 15.4 % (13.2-15.2)
--- NOTE | 2019-02-17 09:37 | Emergency Department Report ---
HPI - General Chief Complaint: Neuro Symptoms/Deficit Time Seen by Provider: 02/17/19 09:02 - HPI HPI: Room 7 The patient is a 28-year-old female presenting with a chief complaint mental status. Per EMS patient was found unresponsive at a laundromat with crack beside her. Per EMS the patient acknowledges using crack all night. Patient was given Narcan 2 mg IV without a change in mental status. Patient opens eyes to interview refuses to answer questions. Patient makes eye contact at times smiles but then closes her eyes. Location: [See above] Duration: [See above] Quality: [See above] Severity: [See above] Modifying factors: [see above] Context: [see above] Mode of transportation: [not driving] ED Past Medical Hx - Past Medical History Hx Psychiatric Treatment: Yes (anxiety attack, cocaine rehab) Hx Asthma: Yes Additional medical history: hx bronchitis. Drug seeking behaviors,. Di sorganized behaviors,. frequent std - Surgical History Additional Surgical History: denies - Family History Family history: no significant - Social History Smoking Status: Current Every Day Smoker Substance Use Type: Cocaine - Medications Home Medications: Home Medications Medication Instructions Recorded Confirmed Last Taken Type ALBUTEROL Inhaler (OR & NICU) 2 puff IH QID PRN #1 inhalation 03/28/17 02/17/19 Unknown Rx [ProAir HFA Inhaler] metroNIDAZOLE [Flagyl] 500 mg PO Q12HR #14 tab 10/05/17 02/17/19 Unknown Rx Famotidine [Pepcid] 20 mg PO BID PRN #30 tablet 11/20/17 02/17/19 Unknown Rx Phenazopyridine [Pyridium] 200 mg PO TID #6 tab 12/11/17 02/17/19 Unknown Rx Ibuprofen [Motrin] 600 mg PO Q8H PRN #12 tablet 03/12/18 02/17/19 02/04/19 Rx Loratadine [Claritin] 10 mg PO DAILY #30 tablet 03/15/18 02/17/19 Unknown Rx Sulfamethoxazole/Trimethoprim 1 each PO BID #14 tablet 03/15/18 02/17/19 Unknown Rx [Bactrim DS TAB] Cetirizine HCl [ZyrTEC] 10 mg PO QAM 14 Days #14 capsule 04/15/18 02/17/19 Unknown Rx Fluticasone [Flonase] 1 spray NS QDAY 14 Days #1 bottle 04/15/18 02/17/19 Unknown Rx Ondansetron [Zofran Odt] 4 mg PO Q8HR PRN #10 tab.rapdis 05/10/18 02/17/19 02/03/19 Rx Fluconazole [Diflucan] 200 mg PO ONCE #1 tablet 08/13/18 02/17/19 Unknown Rx Nitrofurantoin Monohyd/M-Cryst 100 mg PO BID #14 capsule 09/01/18 02/17/19 Unknown Rx [Macrobid 100 mg Capsule] ED Review of Systems ROS: Stated complaint: AMS Other details as noted in HPI Comment: Unobtainable due to pts medical conditions Physical Exam - Physical Exam Vital Signs: Vital Signs 02/17/19 02/17/19 09:09 09:12 Temperature 98.1 F Pulse Rate 74 Respiratory 18 19 Rate Blood Pressure 114/75 [Left] O2 Sat by Pulse 98 98 Oximetry Physical Exam: GENERAL: The patient is well-developed female lying on stretcher not appearing to be in acute distress HEENT: Normocephalic. Atraumatic. Extraocular motions are intact. Patient has moist mucous membranes. NECK: Supple. Trachea midline CHEST/LUNGS: Clear to auscultation. There is no respiratory distress noted. HEART/CARDIOVASCULAR: Regular. There is no tachycardia. There is no gallop rub or murmur. ABDOMEN: Abdomen is soft, nontender. Patient has normal bowel sounds. There is no abdominal distention. SKIN: There is no rash. There is no edema. There is no diaphoresis. NEURO: The patient is asleep but easily awakened. The patient is not cooperative. The patient has normal speech MUSCULOSKELETAL: There is no evidence of acute injury. ED Course Vital Signs 02/17/19 02/17/19 09:09 09:12 Temperature 98.1 F Pulse Rate 74 Respiratory 18 19 Rate Blood Pressure 114/75 [Left] O2 Sat by Pulse 98 98 Oximetry ED Medical Decision Making - Lab Data Result diagrams: 02/17/19 09:16 02/17/19 09:16 Laboratory Tests 02/17/19 02/17/19 02/17/19 09:14 09:14 09:16 WBC 7.6 RBC 4.31 Hgb 13.1 Hct 39.3 MCV 91 MCH 30 MCHC 33 RDW 15.4 H Plt Count 290 Lymph % (Auto) 15.3 [place] % (Auto) 7.0 Eos % (Auto) 1.4 Baso % (Auto) 0.7 Lymph # 1.2 [place] # 0.5 Eos # 0.1 Baso # 0.1 Seg Neutrophils % 75.6 H Seg Neutrophils # 5.8 Sodium Potassium Chloride Carbon Dioxide Anion Gap BUN Creatinine Estimated GFR BUN/Creatinine Ratio Glucose Calcium Total Bilirubin AST ALT Alkaline Phosphatase Ammonia Total Creatine Kinase CK-MB (CK-2) CK-MB (CK-2) Rel Index Troponin T Total Protein Albumin Albumin/Globulin Ratio HCG, Qual Urine Color Yellow Urine Turbidity Slightly-cloudy Urine pH 5.0 Ur Specific [place] 1.020 Urine Protein 30 mg/dl Urine Glucose (UA) Neg Urine Ketones Tr Urine Blood Lg Urine Nitrite Neg Urine Bilirubin Neg Urine Urobilinogen 2.0 Ur Leukocyte Esterase Lg Urine WBC (Auto) 24.0 H Urine RBC (Auto) 24.0 U Epithel Cells (Auto) 2.0 Urine WBC Clumps 2+ Granular Casts 2 Urine Mucus 3+ Urine Opiates Screen Presumptive negative Urine Methadone Screen Presumptive negative Ur Barbiturates Screen Presumptive negative Ur Phencyclidine Scrn Presumptive negative Ur Amphetamines Screen Presumptive negative U Benzodiazepines Scrn Presumptive negative Urine Cocaine Screen Presumptive positive U Marijuana (THC) Screen Presumptive negative Drugs of Abuse Note Disclamer Plasma/Serum Alcohol 02/17/19 02/17/19 02/17/19 09:16 09:16 09:16 WBC RBC Hgb Hct MCV MCH MCHC RDW Plt Count Lymph % (Auto) [place] % (Auto) Eos % (Auto) Baso % (Auto) Lymph # [place] # Eos # Baso # Seg Neutrophils % Seg Neutrophils # Sodium 143 Potassium 3.8 Chloride 104.6 Carbon Dioxide 22 Anion Gap 20 BUN 11 Creatinine 0.7 Estimated GFR > 60 BUN/Creatinine Ratio 16 Glucose 67 Calcium 9.2 Total Bilirubin 0.70 AST 34 ALT 26 Alkaline Phosphatase 135 H Ammonia Total Creatine Kinase 410 H CK-MB (CK-2) 4.4 H CK-MB (CK-2) Rel Index 1.0 Troponin T < 0.010 Total Protein 7.9 Albumin 4.3 Albumin/Globulin Ratio 1.2 HCG, Qual Negative Urine Color Urine Turbidity Urine pH Ur Specific [place] Urine Protein Urine Glucose (UA) Urine Ketones Urine Blood Urine Nitrite Urine Bilirubin Urine Urobilinogen Ur Leukocyte Esterase Urine WBC (Auto) Urine RBC (Auto) U Epithel Cells (Auto) Urine WBC Clumps Granular Casts Urine Mucus Urine Opiates Screen Urine Methadone Screen Ur Barbiturates Screen Ur Phencyclidine Scrn Ur Amphetamines Screen U Benzodiazepines Scrn Urine Cocaine Screen U Marijuana (THC) Screen Drugs of Abuse Note Plasma/Serum Alcohol 0.03 02/17/19 09:16 WBC RBC Hgb Hct MCV MCH MCHC RDW Plt Count Lymph % (Auto) [place] % (Auto) Eos % (Auto) Baso % (Auto) Lymph # [place] # Eos # Baso # Seg Neutrophils % Seg Neutrophils # Sodium Potassium Chloride Carbon Dioxide Anion Gap BUN Creatinine Estimated GFR BUN/Creatinine Ratio Glucose Calcium Total Bilirubin AST ALT Alkaline Phosphatase Ammonia 48.0 Total Creatine Kinase CK-MB (CK-2) CK-MB (CK-2) Rel Index Troponin T Total Protein Albumin Albumin/Globulin Ratio HCG, Qual Urine Color Urine Turbidity Urine pH Ur Specific [place] Urine Protein Urine Glucose (UA) Urine Ketones Urine Blood Urine Nitrite Urine Bilirubin Urine Urobilinogen Ur Leukocyte Esterase Urine WBC (Auto) Urine RBC (Auto) U Epithel Cells (Auto) Urine WBC Clumps Granular Casts Urine Mucus Urine Opiates Screen Urine Methadone Screen Ur Barbiturates Screen Ur Phencyclidine Scrn Ur Amphetamines Screen U Benzodiazepines Scrn Urine Cocaine Screen U Marijuana (THC) Screen Drugs of Abuse Note Plasma/Serum Alcohol - EKG Data -: EKG Interpreted by Ak EKG shows normal: sinus rhythm Rate: normal - EKG Data When compared to previous EKG there are: previous EKG unavailable Interpretation: nonspecific ST-T wave trent (T-wave inversion in lead 3) - Radiology Data Radiology results: report reviewed (CT head), image reviewed (CT head) [facility] [address] [place] [address] Cat Scan Report Signed Patient: DONNY FELIX MR#: [id number] : 1990 Acct:[id number] Age/Sex: 28 / F ADM Date: 02/17/19 Loc: ED Attending Dr: Ordering Physician: TIFFANI YANEZ MD Date of Service: 02/17/19 Procedure(s): CT head/brain wo con Accession Number(s): [id number] cc: TIFFANI YANEZ MD CT HEAD WITHOUT CONTRAST INDICATION : altered mental status. TECHNIQUE: Axial imaging performed from the skull apex through the skull base without the use of contrast. Sagittal and coronal reformatted images. All CT scans at this location are performed using CT dose reduction for ALARA by means of automated exposure control. COMPARISON: 08/31/2017 FINDINGS: Parenchyma: No acute intracranial hemorrhage or parenchymal abnormality. Ventricles: Ventricles are normal in size and appear symmetric. Bones: No acute osseous abnormality. Sinuses: Sinuses and mastoid air cells are clear. Soft tissues: Soft tissues in cluding the orbits appear normal. IMPRESSION: No acute abnormality. Normal CT brain. Signer Name: Lazarus Mi Jr, MD Signed: 02/17/2019 10:54 AM Workstation Name: [id number] Transcribed By: TTR Dictated By: LAZARUS MI JR, MD Electronically Authenticated By: LAZARUS MI JR, MD Signed Date/Time: 02/17/19 1054 DD/ 1053 TD/TT: - Differential Diagnosis cocaine abuse, electrolyte abnormality, ACS, rhabdomyolysis, ICH Critical care attestation.: If time is entered above; I have spent that time in minutes in the direct care of this critically ill patient, excluding procedure time. ED Disposition Clinical Impression: Altered mental status, Cocaine abuse Disposition: ELOPED Is pt being admited?: No Does the pt Need Aspirin: No Condition: Undetermined Referrals: PRIMARY CARE, [Referring] - 3-5 Days Time of Disposition: 14:28 (patient eloped)
[2019-02-17 09:47] LABS: Bilirubin,Urine NEG (Negative); Blood,Urine LG (Negative); Color,Urine Yellow (Yellow); Granular Casts,Urine 2 /LPF; Mucus,Urine 3+ /HPF
[2019-02-17 09:51] LABS: Creatine Kinase MB 4.4 ng/mL (0.0-4.0)
[2019-02-17 09:54] LABS: Alanine Aminotransferase 26 units/L (7-56); Albumin 4.3 g/dL (3.9-5); BUN/Creatinine Ratio 16; Blood Urea Nitrogen 11 mg/dL (7-17); Calcium 9.2 mg/dL (8.4-10.2); Hemolysis Index 1
[2019-02-17 10:07] LABS: Amphetamine Screen,Urine PRESUMPTIVE NEGATIVE; Benzodiazepines Screen,Urine PRESUMPTIVE NEGATIVE; Cannabinoid Screen,Urine PRESUMPTIVE NEGATIVE; Methadone Screen,Urine PRESUMPTIVE NEGATIVE; Opiate Screen,Urine PRESUMPTIVE NEGATIVE
[2019-02-17 10:23] LABS: Cocaine Screen,Urine PRESUMPTIVE POSITIVE
--- NOTE | 2019-02-17 10:58 | Cat Scan Report ---
CT HEAD WITHOUT CONTRAST INDICATION : altered mental status. TECHNIQUE: Axial imaging performed from the skull apex through the skull base without the use of con trast. Sagittal and coronal reformatted images. All CT scans at this location are performed using C T dose reduction for ALARA by means of automated exposure control. COMPARISON: 08/31/2017 FINDINGS: Parenchyma: No acute intracranial hemorrhage or parenchymal abnormality. Ventricles: Ventricles are normal in size and appear symmetric. Bones: No acute osseous abnormality. Sinuses: Sinuses and mastoid air cells are clear. Soft tissues: Soft tissues including the orbits appear normal. IMPRESSION: No acute abnormality. Normal CT brain. Signer Name: Lazarus Butts Jr, MD Signed: 02/17/2019 10:54 AM Workstation Name: [id number]
[2019-02-17 13:32] VITALS: BP 120/76
== END 2019-02-17 14:00 | disposition left against medical advice (07) ==
LOC: ED 08:27
DX: R41.82 Altered mental status, unspecified (principal); F14.10 Cocaine abuse, uncomplicated; J45.909 Unspecified asthma, uncomplicated; F17.200 Nicotine dependence, unspecified, uncomplicated
CPT/HCPCS: 36415; 70450; 80053; 80307; 80320; 81001; 82140; 82550; 82553; 84484; 84703; 85025; 87086; 93005; 93010; 99285; G0480

== ENCOUNTER 2019-04-18 03:24 | Emergency (ER) | payer OTHER ==
[2019-04-18 03:30] VITALS: BP 126/85
--- NOTE | 2019-04-18 07:42 | Emergency Department Report ---
- General Chief Complaint: Upper Respiratory Infection Stated Complaint: CHEST PAIN/COUGH Time Seen by Provider: 04/18/19 07:29 Source: patient Mode of arrival: Ambulatory Limitations: No Limitations - History of Present Illness Initial Comments: Pt is a 28 yo female who presents to the ED with c/o productive cough for three weeks. Patient has associated congestion, chest discomfort after frequent coughing. She denies any fever, ear pain, sore throat, chills, SOB, any other symptoms. Patient states that she is an every day smoker. She has not taken any medications at all to help relieve her symptoms. Patient denies any past medical history or allergies to medications. She states her last menstrual cycle was April 07. - Related Data Previous Rx's Medication Instructions Recorded Last Taken Type ALBUTEROL Inhaler (OR & NICU) 2 puff IH QID PRN #1 inhalation 03/28/17 Unknown Rx [ProAir HFA Inhaler] metroNIDAZOLE [Flagyl] 500 mg PO Q12HR #14 tab 10/05/17 Unknown Rx Famotidine [Pepcid] 20 mg PO BID PRN #30 tablet 11/20/17 Unknown Rx Phenazopyridine [Pyridium] 200 mg PO TID #6 tab 12/11/17 Unknown Rx Ibuprofen [Motrin] 600 mg PO Q8H PRN #12 tablet 03/12/18 02/04/19 Rx Loratadine [Claritin] 10 mg PO DAILY #30 tablet 03/15/18 Unknown Rx Sulfamethoxazole/Trimethoprim 1 each PO BID #14 tablet 03/15/18 Unknown Rx [Bactrim DS TAB] Cetirizine HCl [ZyrTEC] 10 mg PO QAM 14 Days #14 capsule 04/15/18 Unknown Rx Fluticasone [Flonase] 1 spray NS QDAY 14 Days #1 bottle 04/15/18 Unknown Rx Ondansetron [Zofran Odt] 4 mg PO Q8HR PRN #10 tab.rapdis 05/10/18 02/03/19 Rx Fluconazole [Diflucan] 200 mg PO ONCE #1 tablet 08/13/18 Unknown Rx Nitrofurantoin Monohyd/M-Cryst 100 mg PO BID #14 capsule 09/01/18 Unknown Rx [Macrobid 100 mg Capsule] ALBUTEROL Inhaler (OR & NICU) 2 puff IH QID PRN #1 inhalation 04/18/19 Unknown Rx [ProAir HFA Inhaler] Azithromycin [Zithromax TAB] 250 mg PO QDAY 5 Days #6 tablet 04/18/19 Unknown Rx Benzonatate [Tessalon Perles] 100 mg PO Q8HR PRN #14 capsule 04/18/19 Unknown Rx Prednisone [predniSONE 10 mg 10 mg PO .TAPER #1 tab.ds.pk 04/18/19 Unknown Rx (6-Day Pack, 21 Tabs)] Allergies Allergy/AdvReac Type Severity Reaction Status Date / Time hydrocortisone cream Allergy Mild Hives Uncoded 09/01/18 09:49 ED Review of Systems ROS: Stated complaint: CHEST PAIN/COUGH Other details as noted in HPI Comment: All other systems reviewed and negative ED Past Medical Hx - Past Medical History Previous Medical History?: Yes Hx Hypertension: No Hx CVA: No Hx Heart Attack/AMI: No Hx Congestive Heart Failure: No Hx Diabetes: No Hx Deep Vein Thrombosis: No Hx Pulmonary Embolism: No Hx GERD: No Hx Liver Disease: No Hx Renal Disease: No Hx Sickle Cell Disease: No Hx Arthritis: No Hx Headaches / Migraines: No Hx Seizures: No Hx Kidney Stones: No Hx Psychiatric Treatment: Yes (anxiety attack, cocaine rehab) Hx Asthma: Yes Hx COPD: No Hx Tuberculosis: No Hx Dementia: No Hx HIV: No Additional medical history: hx bronchitis. Drug seeking behaviors,. Disorganized behaviors,. frequent std - Surgical History Past Surgical History?: No Hx Coronary Stent: No Hx Open Heart Surgery: No Hx Pacemaker: No Hx Internal Defibrillator: No Hx Cholecystectomy: No Hx Appendectomy: No Hx Breast Surgery: No Additional Surgical History: denies - Social History Smoking Status: Current Every Day Smoker Substance Use Type: Alcohol - Medications Home Medications: Home Medications Medication Instructions Recorded Confirmed Last Taken Type ALBUTEROL Inhaler (OR & NICU) 2 puff IH QID PRN #1 inhalation 03/28/17 02/17/19 Unknown Rx [ProAir HFA Inhaler] metroNIDAZOLE [Flagyl] 500 mg PO Q12HR #14 tab 10/05/17 02/17/19 Unknown Rx Famotidine [Pepcid] 20 mg PO BID PRN #30 tablet 11/20/17 02/17/19 Unknown Rx Phenazopyridine [Pyridium] 200 mg PO TID #6 tab 12/11/17 02/17/19 Unknown Rx Ibuprofen [Motrin] 600 mg PO Q8H PRN #12 tablet 03/12/18 02/17/19 02/04/19 Rx Loratadine [Claritin] 10 mg PO DAILY #30 tablet 03/15/18 02/17/19 Unknown Rx Sulfamethoxazole/Trimethoprim 1 each PO BID #14 tablet 03/15/18 02/17/19 Unknown Rx [Bactrim DS TAB] Cetirizine HCl [ZyrTEC] 10 mg PO QAM 14 Days #14 capsule 04/15/18 02/17/19 Unknown Rx Fluticasone [Flonase] 1 spray NS QDAY 14 Days #1 bottle 04/15/18 02/17/19 Unknown Rx Ondansetron [Zofran Odt] 4 mg PO Q8HR PRN #10 tab.rapdis 05/10/18 02/17/19 02/03/19 Rx Fluconazole [Diflucan] 200 mg PO ONCE #1 tablet 08/13/18 02/17/19 Unknown Rx Nitrofurantoin Monohyd/M-Cryst 100 mg PO BID #14 capsule 09/01/18 02/17/19 Unknown Rx [Macrobid 100 mg Capsule] ALBUTEROL Inhaler (OR & NICU) 2 puff IH QID PRN #1 inhalation 04/18/19 Unknown Rx [ProAir HFA Inhaler] Azithromycin [Zithromax TAB] 250 mg PO QDAY 5 Days #6 tablet 04/18/19 Unknown Rx Benzonatate [Tessalon Perles] 100 mg PO Q8HR PRN #14 capsule 04/18/19 Unknown Rx Prednisone [predniSONE 10 mg 10 mg PO .TAPER #1 tab.ds.pk 04/18/19 Unknown Rx (6-Day Pack, 21 Tabs)] ED Physical Exam - General Limitations: No Limitations General appearance: alert, in no apparent distress - Head Head exam: Present: atraumatic, normocephalic - Eye Eye exam: Present: normal appearance - ENT ENT exam: Present: normal orophraynx, mucous membranes moist, TM's normal bilaterally, normal external ear exam - Respiratory Respiratory exam: Present: normal lung sounds bilaterally. Absent: respiratory distress, wheezes, rales, rhonchi, stridor, chest wall tenderness, accessory muscle use, decreased breath sounds, prolonged expiratory - Cardiovascular Cardiovascular Exam: Present: regular rate, normal rhythm, normal heart sounds. Absent: systolic murmur, diastolic murmur, rubs, gallop - Neurological Exam Neurological exam: Present: alert, oriented X3 - Psychiatric Psychiatric exam: Present: normal affect, normal mood - Skin Skin exam: Present: warm, dry, intact ED Course Vital Signs 04/18/19 04/18/19 03:25 07:52 Temperature 97.6 F 97.6 F Pulse Rate 75 75 Respiratory 16 16 Rate Blood Pressure 126/85 O2 Sat by Pulse 98 98 Oximetry ED Medical Decision Making - Medical Decision Making Pt is a 28 yo female who presents to the ED with c/o productive cough for three weeks. Patient has associated congestion, chest discomfort after frequent coughing. She denies any fever, ear pain, sore throat, chills, SOB, any other symptoms. Patient states that she is an every day smoker. She has not taken any medications at all to help relieve her symptoms. Patient denies any past medical history or allergies to medications. She states her last menstrual cycle was April 07. vitals are normal. pt is afebrile. no tachycardia. lung sounds are clear bilaterally without w/r/r. PERC criteria negative for PE. due to pt being a daily smoker, she will be treated for acute on chronic bronchitis. discussed smoking cessation with pt. advised pt to please take medication as prescribed. Please increase your water intake. May use a humidifier. Follow up with a primary care doctor in the next 2-3 days. Return to the emergency room for any new or worsening symptoms. - Differential Diagnosis bronchitis, COPD, PNA, URI, viral syndrome Critical care attestation.: If time is entered above; I have spent that time in minutes in the direct care of this critically ill patient, excluding procedure time. ED Disposition Clinical Impression: Bronchitis, Tobacco abuse Disposition: -01 TO HOME OR SELFCARE Is pt being admited?: No Does the pt Need Aspirin: No Condition: Stable Instructions: Acute Bronchitis (ED) Additional Instructions: Please take medication as prescribed. Please increase your water intake. May use a humidifier. Follow up with a primary care doctor in the next 2-3 days. Return to the emergency room for any new or worsening symptoms. Prescriptions: Prednisone [predniSONE 10 mg (6-Day Pack, 21 Tabs)] 10 mg PO .TAPER #1 tab.ds.pk ALBUTEROL Inhaler (OR & NICU) [ProAir HFA Inhaler] 2 puff IH QID PRN #1 inhalation PRN Reason: Shortness Of Breath Benzonatate [Tessalon Perles] 100 mg PO Q8HR PRN #14 capsule PRN Reason: Cough Azithromycin [Zithromax TAB] 250 mg PO QDAY 5 Days #6 tablet Referrals: [facility] [Provider Group] - 2-3 Days Time of Disposition: 07:39 Print Language: TURKMEN
== END 2019-04-18 07:53 | disposition home or self-care (01) ==
LOC: ED 03:24
DX: J40 Bronchitis, not specified as acute or chronic (principal); Z72.0 Tobacco use; F17.200 Nicotine dependence, unspecified, uncomplicated; Z79.899 Other long term (current) drug therapy; Z88.8 Allergy status to other drugs, medicaments and biological substances
CPT/HCPCS: 99282

== ENCOUNTER 2019-11-12 00:07 | Emergency (ER) | payer SELFPAY ==
[2019-11-12 04:04] LABS: Amorphous Crystals,Urine Few; Bacteria,Urine 1+ /HPF (Negative); Bilirubin,Urine NEG (Negative); Blood,Urine NEG (Negative); Color,Urine Yellow (Yellow); Mucus,Urine 3+ /HPF; Protein,Urine <15 mg/dL mg/dL (Negative)
[2019-11-12 04:06] LABS: HCG Qualitative,Urine Negative (Negative)
[2019-11-12] MEDS ORDERED: LIDOCAINE-MPF (1%) 10 MG/1 ML VIAL 5 ML INFILTRATI ONE (04:13)
--- NOTE | 2019-11-12 04:51 | XRay Report ---
Left foot-2 views INDICATION: Traumatic injury. COMPARISON: None. IMPRESSION: Comminuted mid shaft fracture of the proximal phalanx of the fourth toe, with slight lat eral displacement of the distal fracture component and surrounding soft tissue swelling. No signific ant DJD. Signer Name: Bolivra Cesar MD Signed: 11/12/2019 4:46 AM Workstation Name: [id number]
[2019-11-12] MEDS ORDERED: IBUPROFEN 600 MG TAB PO ONE (05:11)
--- NOTE | 2019-11-12 05:15 | Emergency Department Report ---
ED Extremity Problem HPI - General Chief complaint: Extremity Injury, Lower Stated complaint: LEFT TOE INJURY Source: patient Mode of arrival: Ambulatory Limitations: No Limitations - History of Present Illness Initial comments: Patient is a 29-year-old -Monegasque female with no past medical history presents to the ED with complaint of acute onset persistent severe left foot pain with left fourth and fifth toe pain and swelling after she missed kicking a soccer ball and ended up kicking a hard rock 3 days ago. Patient states that the pain and the swelling have worsened in the last 2 days. Patient also complains of dysuria, pelvic pain, vaginal discharge and urinary frequency and urgency. Patient states that her boyfriend has been having similar symptoms and suspects that she may be having STD. MD Complaint: extremity pain (left foot pain, left 4th and 5th toe pain), extremity swelling, joint swelling (left 4th and 5th toe pain and swelling), joint paint, other (Dysuria and vaginal discharge; sexual partner has penile discharge and dysuria as well) -: Sudden, days(s) (3) Location: left, lower extremity (Left foot), toe (Left fourth and fifth toes) History of Same: No -: Yes arthralgia, No fever, No associated dyspnea, No associated chest pain Radiation: distal Severity scale (0 -10): 8 Quality: aching, sharp Consistency: constant Improves with: nothing Worsens with: weight bearing, walking, exertion, palpation Associated Symptoms: denies other symptoms, arthralgias. denies: chest pain, shortness of breath, fever, myalgias, rash - Related Data Previous Rx's Medication Instructions Recorded Last Taken Type Albuterol INH(or & Nicu Only) 2 puff IH QID PRN #1 inhalation 03/28/17 Unknown Rx [ProAir HFA Inhaler] Famotidine [Pepcid] 20 mg PO BID PRN #30 tablet 11/20/17 Unknown Rx Phenazopyridine [Pyridium] 200 mg PO TID #6 tab 12/11/17 Unknown Rx Loratadine (Nf) [Claritin] 10 mg PO DAILY #30 tablet 03/15/18 Unknown Rx Cetirizine HCl [ZyrTEC] 10 mg PO QAM 14 Days #14 capsule 04/15/18 Unknown Rx Fluticasone [Flonase] 1 spray NS QDAY 14 Days #1 bottle 04/15/18 Unknown Rx Ondansetron [Zofran Odt] 4 mg PO Q8HR PRN #10 tab.rapdis 05/10/18 02/03/19 Rx Fluconazole [Diflucan] 200 mg PO ONCE #1 tablet 08/13/18 Unknown Rx Nitrofurantoin Monohyd/M-Cryst 100 mg PO BID #14 capsule 09/01/18 Unknown Rx [Macrobid 100 mg Capsule] Albuterol INH(or & Nicu Only) 2 puff IH QID PRN #1 inhalation 04/18/19 Unknown Rx [ProAir HFA Inhaler] Azithromycin [Zithromax TAB] 250 mg PO QDAY 5 Days #6 tablet 04/18/19 Unknown Rx Benzonatate [Tessalon Perles] 100 mg PO Q8HR PRN #14 capsule 04/18/19 Unknown Rx Prednisone [predniSONE 10 mg 10 mg PO .TAPER #1 tab.ds.pk 04/18/19 Unknown Rx (6-Day Pack, 21 Tabs)] Azithromycin 1,000 mg PO ONCE #2 tablet 11/12/19 Unknown Rx Cyclobenzaprine [Flexeril] 10 mg PO TID PRN #12 tablet 11/12/19 Unknown Rx Ibuprofen [Motrin 600 MG tab] 600 mg PO Q8H PRN #24 tablet 11/12/19 Unknown Rx Sulfamethoxazole/Trimethoprim 1 each PO BID #14 tablet 11/12/19 Unknown Rx [Bactrim DS TAB] metroNIDAZOLE [Flagyl TAB] 500 mg PO Q12HR #14 tab 11/12/19 Unknown Rx Allergies Allergy/AdvReac Type Severity Reaction Status Date / Time hydrocortisone cream Allergy Mild Hives Uncoded 09/01/18 09:49 ED Review of Systems ROS: Stated complaint: LEFT TOE INJURY Other details as noted in HPI Constitutional: denies: chills, fever Eyes: denies: eye pain, eye discharge, vision change ENT: denies: ear pain, throat pain Respiratory: denies: cough, shortness of breath, wheezing Cardiovascular: denies: chest pain, palpitations Endocrine: no symptoms reported Gastrointestinal: abdominal pain (Suprapubic pain and pressure). denies: nausea, diarrhea Genitourinary: urgency, dysuria, frequency, discharge, other (Pelvic pain) Musculoskeletal: joint swelling (Left foot pain and swelling of left fourth and fifth toes), arthralgia (Left foot pain). denies: back pain Skin: denies: rash, lesions Neurological: denies: headache, weakness, paresthesias Psychiatric: denies: anxiety, depression Hematological/Lymphatic: denies: easy bleeding, easy bruising ED Past Medical Hx - Past Medical History Hx Hypertension: No Hx CVA: No Hx Heart Attack/AMI: No Hx Congestive Heart Failure: No Hx Diabetes: No Hx Deep Vein Thrombosis: No Hx Pulmonary Embolism: No Hx GERD: No Hx Liver Disease: No Hx Renal Disease: No Hx Sickle Cell Disease: No Hx Arthritis: No Hx Headaches / Migraines: No Hx Seizures: No Hx Kidney Stones: No Hx Psychiatric Treatment: Yes (anxiety attack, cocaine rehab) Hx Asthma: Yes Hx COPD: No Hx Tuberculosis: No Hx Dementia: No Hx HIV: No Additional medical history: hx bronchitis. Drug seeking behaviors,. Disorganized behaviors,. frequent std - Surgical History Hx Coronary Stent: No Hx Open Heart Surgery: No Hx Pacemaker: No Hx Internal Defibrillator: No Hx Cholecystectomy: No Hx Appendectomy: No Hx Breast Surgery: No Additional Surgical History: denies - Social History Smoking Status: Current Every Day Smoker Substance Use Type: None - Medications Home Medications: Home Medications Medication Instructions Recorded Confirmed Last Taken Type Albuterol INH(or & Nicu Only) 2 puff IH QID PRN #1 inhalation 03/28/17 02/17/19 Unknown Rx [ProAir HFA Inhaler] Famotidine [Pepcid] 20 mg PO BID PRN #30 tablet 11/20/17 02/17/19 Unknown Rx Phenazopyridine [Pyridium] 200 mg PO TID #6 tab 12/11/17 02/17/19 Unknown Rx Loratadine (Nf) [Claritin] 10 mg PO DAILY #30 tablet 03/15/18 02/17/19 Unknown Rx Cetirizine HCl [ZyrTEC] 10 mg PO QAM 14 Days #14 capsule 04/15/18 02/17/19 Unknown Rx Fluticasone [Flonase] 1 spray NS QDAY 14 Days #1 bottle 04/15/18 02/17/19 Unknown Rx Ondansetron [Zofran Odt] 4 mg PO Q8HR PRN #10 tab.rapdis 05/10/18 02/17/19 02/03/19 Rx Fluconazole [Diflucan] 200 mg PO ONCE #1 tablet 08/13/18 02/17/19 Unknown Rx Nitrofurantoin Monohyd/M-Cryst 100 mg PO BID #14 capsule 09/01/18 02/17/19 Unknown Rx [Macrobid 100 mg Capsule] Albuterol INH(or & Nicu Only) 2 puff IH QID PRN #1 inhalation 04/18/19 Unknown Rx [ProAir HFA Inhaler] Azithromycin [Zithromax TAB] 250 mg PO QDAY 5 Days #6 tablet 04/18/19 Unknown Rx Benzonatate [Tessalon Perles] 100 mg PO Q8HR PRN #14 capsule 04/18/19 Unknown Rx Prednisone [predniSONE 10 mg 10 mg PO .TAPER #1 tab.ds.pk 04/18/19 Unknown Rx (6-Day Pack, 21 Tabs)] Azithromycin 1,000 mg PO ONCE #2 tablet 11/12/19 Unknown Rx Cyclobenzaprine [Flexeril] 10 mg PO TID PRN #12 tablet 11/12/19 Unknown Rx Ibuprofen [Motrin 600 MG tab] 600 mg PO Q8H PRN #24 tablet 11/12/19 Unknown Rx Sulfamethoxazole/Trimethoprim 1 each PO BID #14 tablet 11/12/19 Unknown Rx [Bactrim DS TAB] metroNIDAZOLE [Flagyl TAB] 500 mg PO Q12HR #14 tab 11/12/19 Unknown Rx ED Physical Exam - General Limitations: No Limitations General appearance: alert, in no apparent distress - Head Head exam: Present: atraumatic, normocephalic, normal inspection - Eye Eye exam: Present: normal appearance, PERRL, EOMI Pupils: Present: normal accommodation - ENT ENT exam: Present: normal exam, normal orophraynx, mucous membranes moist, TM's normal bilaterally, normal external ear exam - Neck Neck exam: Present: normal inspection, full ROM - Respiratory Respiratory exam: Present: normal lung sounds bilaterally. Absent: respiratory distress, wheezes, rales, rhonchi, chest wall tenderness, accessory muscle use, decreased breath sounds - Cardiovascular Cardiovascular Exam: Present: regular rate, normal rhythm, normal heart sounds. Absent: systolic murmur, diastolic murmur, rubs, gallop - GI/Abdominal GI/Abdominal exam: Present: soft, normal bowel sounds. Absent: tenderness, guarding, rebound, hyperactive bowel sounds - Bi-manual exam: Present: other (Pelvic exam deferred, patient prefers self swabbing) - Extremities Exam Extremities exam: Present: normal inspection, tenderness (Palpable severe left foot and left fourth toe tenderness and swelling with limited range of motion due to pain), normal capillary refill, joint swelling (Swollen left fourth toe with severe tenderness). Absent: full ROM (Limited range of motion of left fourth toe with severe pain and mild swelling), calf tenderness - Back Exam Back exam: Present: normal inspection, full ROM. Absent: tenderness, CVA tenderness (R), muscle spasm, paraspinal tenderness - Neurological Exam Neurological exam: Present: alert, oriented X3, CN II-XII intact, normal gait, reflexes normal - Psychiatric Psychiatric exam: Present: normal affect, normal mood - Skin Skin exam: Present: warm, dry, intact, normal color. Absent: rash ED Course Vital Signs 11/12/19 00:26 Temperature 98.6 F Pulse Rate 97 H Respiratory 18 Rate Blood Pressure 113/86 O2 Sat by Pulse 97 Oximetry ED Medical Decision Making - Radiology Data Radiology results: report reviewed, image reviewed Findings [facility] [address] [place] [address] XRay Report Signed Patient: DONNY FELIX MR#: [id number] : 1990 Acct:[id number] Age/Sex: 29 / F ADM Date: 11/12/19 Loc: ED Attending Dr: Ordering Physician: ERIN SURESH Date of Service: 11/12/19 Procedure(s): XR foot 2V LT Accession Number(s): [id number] cc: ERIN SURESH Fluoro Time In Minutes: Left foot-2 views INDICATION: Traumatic injury. COMPARISON: None. IMPRESSION: Comminuted mid shaft fracture of the proximal phalanx of the fourth toe, with slight lateral displacement of the distal fracture component and surrounding soft tissue swelling. No significant DJD. Signer Name: Bolivar Cesar MD Signed: 11/12/2019 4:46 AM Workstation Name: [id number] Transcribed By: JW Dictated By: Bolivar Cesar MD Electronically Authenticated By: Bolivar Cesar MD Signed Date/Time: 11/12/19 8726 DD/ 044 TD/TT: - Medical Decision Making This is a 29-year-old -Monegasque female with no past medical history presents to the ED with complaint of acute onset persistent severe left foot pain with left fourth and fifth toe pain and swelling after she missed kicking a soccer ball and ended up kicking a hard rock 3 days ago. Patient states that the pain and the swelling have worsened in the last 2 days. Patient also complains of dysuria, pelvic pain, vaginal discharge and urinary frequency and urgency. In the ED, patient is alert and oriented x3 and is not in distress. Patient was treated for pain and left foot x-ray shows a comminuted mid shaft fracture of the proximal phalanx of the fourth toe, with slight lateral displacement of the distal fracture component and surrounding soft tissue swelling. No significant DJD. Urinalysis showed significant urinary tract infection and wet prep shows significant Gardnerella vaginalis. Patient was treated in the ED empirically for chlamydia and gonorrhea and UTI and was discharged home on antibiotics, and pain medications. Patient was also referred to the general surgeon on-call Dr. Cotto for follow-up of her left fourth toe fracture. Patient was advised to return to the ED immediately if symptoms get worse. Patient was also advised to ensure that his sexual partner also gets treated for STD. - Differential Diagnosis Toe fracture; Foot sprain; STD; UTI; Bacterial vaginosis Critical care attestation.: If time is entered above; I have spent that time in minutes in the direct care of this critically ill patient, excluding procedure time. ED Disposition Clinical Impression: Acute urinary tract infection, STD (sexually transmitted disease), Gonorrhea in female, Bacterial vaginosis Closed fracture of phalanx of left fourth toe Qualifiers: Encounter type: initial encounter Qualified Code(s): S92.502A - Displaced unspecified fracture of left lesser toe(s), initial encounter for closed fracture Disposition: TO HOME OR SELFCARE Is pt being admited?: No Does the pt Need Aspirin: No Condition: Stable Instructions: Bacterial Vaginosis (ED), Sexually Transmitted Diseases (ED), Cervicitis (ED), Urinary Tract Infection in Women (ED), Toe Fracture (ED) Additional Instructions: Take medication with food, drink plenty of fluids and follow-up with Dr. Cotto the orthopedic surgeon for your toe fracture as advised. Return to the ED immediately if symptoms get worse. Ensure that you follow-up at the [facility] for further STD testing and treatment. Ensure that your sexual partner also gets treated at the health department. Prescriptions: Azithromycin 1,000 mg PO ONCE #2 tablet Sulfamethoxazole/Trimethoprim [Bactrim DS TAB] 1 each PO BID #14 tablet metroNIDAZOLE [Flagyl TAB] 500 mg PO Q12HR #14 tab Cyclobenzaprine [Flexeril] 10 mg PO TID PRN #12 tablet PRN Reason: Muscle Spasm Ibuprofen [Motrin 600 MG tab] 600 mg PO Q8H PRN #24 tablet PRN Reason: Pain Referrals: ANAND COTTO MD [Staff Physician] - 3-5 Days [facility] [Outside] - 3-5 Days Forms: STI Treatment and Prevention Time of Disposition: 05:24 Print Language: WELSH
[2019-11-15 11:32] VITALS: BP 113/86
== END 2019-11-12 05:31 | disposition home or self-care (01) ==
LOC: ED 00:07
DX: S92.502A Displaced unspecified fracture of left lesser toe(s), initial encounter for closed fracture (principal); N76.0 Acute vaginitis; A54.9 Gonococcal infection, unspecified; N39.0 Urinary tract infection, site not specified; A64 Unspecified sexually transmitted disease; F41.9 Anxiety disorder, unspecified; J45.909 Unspecified asthma, uncomplicated; F17.200 Nicotine dependence, unspecified, uncomplicated; Z79.899 Other long term (current) drug therapy; Z88.8 Allergy status to other drugs, medicaments and biological substances; X58.XXXA Exposure to other specified factors, initial encounter; Y93.66 Activity, soccer; Y92.89 Other specified places as the place of occurrence of the external cause; Y99.8 Other external cause status
CPT/HCPCS: 73620; 81001; 81025; 87086; 87210; 96372; 99284; J0696

== ENCOUNTER 2019-11-23 04:38 | Emergency (ER) | payer SELFPAY ==
[2019-11-23 04:43] VITALS: BP 118/83
[2019-11-23 05:55] LABS: HCG Qualitative,Urine Negative (Negative)
[2019-11-23 05:57] LABS: Bilirubin,Urine NEG (Negative); Blood,Urine NEG (Negative); Color,Urine Yellow (Yellow); Mucus,Urine FEW /HPF; Protein,Urine <15 mg/dL mg/dL (Negative)
--- NOTE | 2019-11-23 06:19 | Emergency Department Report ---
ED Female HPI - General Chief complaint: Urogenital-Female Stated complaint: BURNING WHILE URINATING Time Seen by Provider: 11/23/19 05:10 Source: patient Mode of arrival: Ambulatory Limitations: No Limitations - History of Present Illness Initial comments: Patient is a 29-year-old female presents emergency room complaints of dysuria that began 2 days ago. Patient was evaluated in the emergency department on 11/12/2019 was diagnosed with a UTI and BV at that time. she was treated for gonorrhea and she was prescribed azithromycin, Bactrim, Flagyl. She states that she did not fill any of those medications and did not take them. She denies any nausea, vomiting, diarrhea, fever, back pain. She denies any past medical history. She has an allergy to hydrocortisone cream. - Related Data Previous Rx's Medication Instructions Recorded Last Taken Type Albuterol INH(or & Nicu Only) 2 puff IH QID PRN #1 inhalation 03/28/17 Unknown Rx [ProAir HFA Inhaler] Famotidine [Pepcid] 20 mg PO BID PRN #30 tablet 11/20/17 Unknown Rx Phenazopyridine [Pyridium] 200 mg PO TID #6 tab 12/11/17 Unknown Rx Loratadine (Nf) [Claritin] 10 mg PO DAILY #30 tablet 03/15/18 Unknown Rx Cetirizine HCl [ZyrTEC] 10 mg PO QAM 14 Days #14 capsule 04/15/18 Unknown Rx Fluticasone [Flonase] 1 spray NS QDAY 14 Days #1 bottle 04/15/18 Unknown Rx Ondansetron [Zofran Odt] 4 mg PO Q8HR PRN #10 tab.rapdis 05/10/18 02/03/19 Rx Fluconazole [Diflucan] 200 mg PO ONCE #1 tablet 08/13/18 Unknown Rx Nitrofurantoin Monohyd/M-Cryst 100 mg PO BID #14 capsule 09/01/18 Unknown Rx [Macrobid 100 mg Capsule] Albuterol INH(or & Nicu Only) 2 puff IH QID PRN #1 inhalation 04/18/19 Unknown Rx [ProAir HFA Inhaler] Azithromycin [Zithromax TAB] 250 mg PO QDAY 5 Days #6 tablet 04/18/19 Unknown Rx Benzonatate [Tessalon Perles] 100 mg PO Q8HR PRN #14 capsule 04/18/19 Unknown Rx Prednisone [predniSONE 10 mg 10 mg PO .TAPER #1 tab.ds.pk 04/18/19 Unknown Rx (6-Day Pack, 21 Tabs)] Cyclobenzaprine [Flexeril] 10 mg PO TID PRN #12 tablet 11/12/19 Unknown Rx Ibuprofen [Motrin 600 MG tab] 600 mg PO Q8H PRN #24 tablet 11/12/19 Unknown Rx Sulfamethoxazole/Trimethoprim 1 each PO BID #14 tablet 11/12/19 Unknown Rx [Bactrim DS TAB] Azithromycin 1,000 mg PO ONCE #2 tablet 11/23/19 Unknown Rx cephALEXin [Keflex] 500 mg PO BID 7 Days #14 cap 11/23/19 Unknown Rx metroNIDAZOLE [Flagyl TAB] 500 mg PO Q12HR 7 Days #14 tab 11/23/19 Unknown Rx Allergies Allergy/AdvReac Type Severity Reaction Status Date / Time hydrocortisone cream Allergy Mild Hives Uncoded 09/01/18 09:49 ED Review of Systems ROS: Stated complaint: BURNING WHILE URINATING Other details as noted in HPI Comment: All other systems reviewed and negative ED Past Medical Hx - Past Medical History Previous Medical History?: Yes Hx Hypertension: No Hx CVA: No Hx Heart Attack/AMI: No Hx Congestive Heart Failure: No Hx Diabetes: No Hx Deep Vein Thrombosis: No Hx Pulmonary Embolism: No Hx GERD: No Hx Liver Disease: No Hx Renal Disease: No Hx Sickle Cell Disease: No Hx Arthritis: No Hx Headaches / Migraines: No Hx Seizures: No Hx Kidney Stones: No Hx Psychiatric Treatment: Yes (anxiety attack, cocaine rehab) Hx Asthma: Yes Hx COPD: No Hx Tuberculosis: No Hx Dementia: No Hx HIV: No Additional medical history: hx bronchitis. Drug seeking behaviors,. Disorganized behaviors,. frequent std - Surgical History Past Surgical History?: No Hx Coronary Stent: No Hx Open Heart Surgery: No Hx Pacemaker: No Hx Internal Defibrillator: No Hx Cholecystectomy: No Hx Appendectomy: No Hx Breast Surgery: No Additional Surgical History: denies - Social History Smoking Status: Current Every Day Smoker - Medications Home Medications: Home Medications Medication Instructions Recorded Confirmed Last Taken Type Albuterol INH(or & Nicu Only) 2 puff IH QID PRN #1 inhalation 03/28/17 02/17/19 Unknown Rx [ProAir HFA Inhaler] Famotidine [Pepcid] 20 mg PO BID PRN #30 tablet 11/20/17 02/17/19 Unknown Rx Phenazopyridine [Pyridium] 200 mg PO TID #6 tab 12/11/17 02/17/19 Unknown Rx Loratadine (Nf) [Claritin] 10 mg PO DAILY #30 tablet 03/15/18 02/17/19 Unknown Rx Cetirizine HCl [ZyrTEC] 10 mg PO QAM 14 Days #14 capsule 04/15/18 02/17/19 Unknown Rx Fluticasone [Flonase] 1 spray NS QDAY 14 Days #1 bottle 04/15/18 02/17/19 Unknown Rx Ondansetron [Zofran Odt] 4 mg PO Q8HR PRN #10 tab.rapdis 05/10/18 02/17/19 02/03/19 Rx Fluconazole [Diflucan] 200 mg PO ONCE #1 tablet 08/13/18 02/17/19 Unknown Rx Nitrofurantoin Monohyd/M-Cryst 100 mg PO BID #14 capsule 09/01/18 02/17/19 Unknown Rx [Macrobid 100 mg Capsule] Albuterol INH(or & Nicu Only) 2 puff IH QID PRN #1 inhalation 04/18/19 Unknown Rx [ProAir HFA Inhaler] Azithromycin [Zithromax TAB] 250 mg PO QDAY 5 Days #6 tablet 04/18/19 Unknown Rx Benzonatate [Tessalon Perles] 100 mg PO Q8HR PRN #14 capsule 04/18/19 Unknown Rx Prednisone [predniSONE 10 mg 10 mg PO .TAPER #1 tab.ds.pk 04/18/19 Unknown Rx (6-Day Pack, 21 Tabs)] Cyclobenzaprine [Flexeril] 10 mg PO TID PRN #12 tablet 11/12/19 Unknown Rx Ibuprofen [Motrin 600 MG tab] 600 mg PO Q8H PRN #24 tablet 11/12/19 Unknown Rx Sulfamethoxazole/Trimethoprim 1 each PO BID #14 tablet 11/12/19 Unknown Rx [Bactrim DS TAB] Azithromycin 1,000 mg PO ONCE #2 tablet 11/23/19 Unknown Rx cephALEXin [Keflex] 500 mg PO BID 7 Days #14 cap 11/23/19 Unknown Rx metroNIDAZOLE [Flagyl TAB] 500 mg PO Q12HR 7 Days #14 tab 11/23/19 Unknown Rx ED Physical Exam - General Limitations: No Limitations General appearance: alert, in no apparent distress - Head Head exam: Present: atraumatic, normocephalic - Eye Eye exam: Present: normal appearance - ENT ENT exam: Present: mucous membranes moist - Respiratory Respiratory exam: Present: normal lung sounds bilaterally. Absent: respiratory distress, wheezes, rales, rhonchi, stridor, chest wall tenderness, accessory muscle use, decreased breath sounds, prolonged expiratory - Cardiovascular Cardiovascular Exam: Present: regular rate, normal rhythm, normal heart sounds. Absent: systolic murmur, diastolic murmur, rubs, gallop - GI/Abdominal GI/Abdominal exam: Present: soft, normal bowel sounds. Absent: distended, tenderness, guarding, rebound, rigid - Back Exam Back exam: Absent: CVA tenderness (R), CVA tenderness (L) - Neurological Exam Neurological exam: Present: alert, oriented X3 - Psychiatric Psychiatric exam: Present: normal affect, normal mood - Skin Skin exam: Present: warm, dry, intact ED Course Vital Signs 11/23/19 04:42 Temperature 97.7 F Pulse Rate 91 H Respiratory 18 Rate Blood Pressure 118/83 O2 Sat by Pulse 97 Oximetry ED Medical Decision Making - Lab Data Lab Results 11/23/19 Range/Units 05:45 Urine Color Yellow (Yellow) Urine Turbidity Clear (Clear) Urine pH 6.0 (5.0-7.0) Ur Specific [place] 1.015 (1.003-1.030) Urine Protein <15 mg/dl (Negative) mg/dL Urine Glucose (UA) Neg (Negative) mg/dL Urine Ketones Neg (Negative) mg/dL Urine Blood Neg (Negative) Urine Nitrite Neg (Negative) Ur Reducing Substances Not Reportable Urine Bilirubin Neg (Negative) Urine Ictotest Not Reportable Urine Urobilinogen 2.0 (<2.0) mg/dL Ur Leukocyte Esterase Mod (Negative) Urine WBC (Auto) 22.0 H (0.0-6.0) /HPF Urine RBC (Auto) 5.0 (0.0-6.0) /HPF U Epithel Cells (Auto) 3.0 (0-13.0) /HPF Urine Mucus Few /HPF Urine HCG, Qual Negative (Negative) - Medical Decision Making Patient is a 29-year-old female presents emergency room complaints of dysuria that began 2 days ago. Patient was evaluated in the emergency department on 11/12/2019 was diagnosed with a UTI and BV at that time. she was treated for gonorrhea and she was prescribed azithromycin, Bactrim, Flagyl. She states that she did not fill any of those medications and did not take them. She denies any nausea, vomiting, diarrhea, fever, back pain. She denies any past medical history. She has an allergy to hydrocortisone cream. Vitals are normal. No abdominal tenderness or CVA tenderness on exam. UA with white blood cells and moderate leukocyte esterase. Patient given prescription for azithromycin, Flagyl, Keflex due to the fact that she did not complete her antibiotic therapy previously. advised pt Please take medication as prescribed. Please actually take your medications this time to avoid worsening infection. Follow-up with the health department for a full STD panel. Please have any partner tested and treated as well. Avoid any sexual intercourse. Please follow-up with [facility]. Return to the emergency room for any new or worsening symptoms. Critical care attestation.: If time is entered above; I have spent that time in minutes in the direct care of this critically ill patient, excluding procedure time. ED Disposition Clinical Impression: Dysuria UTI (urinary tract infection) Qualifiers: Urinary tract infection type: acute cystitis Hematuria presence: without hematuria Qualified Code(s): N30.00 - Acute cystitis without hematuria Disposition: - TO HOME OR SELFCARE Is pt being admited?: No Does the pt Need Aspirin: No Condition: Stable Instructions: Bacterial Vaginosis (ED), Sexually Transmitted Diseases (ED), Safe Sex (ED), Urinary Tract Infection in Women (ED) Additional Instructions: Please take medication as prescribed. Please actually take your medications this time to avoid worsening infection. Follow-up with the health department for a full STD panel. Please have any partner tested and treated as well. Avoid any sexual intercourse. Please follow-up with [facility]. Return to the emergency room for any new or worsening symptoms. Prescriptions: Azithromycin 1,000 mg PO ONCE #2 tablet metroNIDAZOLE [Flagyl TAB] 500 mg PO Q12HR 7 Days #14 tab cephALEXin [Keflex] 500 mg PO BID 7 Days #14 cap Referrals: BHARAT CURRY MD [Staff Physician] - 3-5 Days [facility] [Outside] - 3-5 Days [facility] [Outside] - 3-5 Days [facility] [Provider Group] - 3-5 Days Time of Disposition: 06:16 Print Language: UZBEK
== END 2019-11-23 06:47 | disposition home or self-care (01) ==
LOC: ED 04:38
DX: N39.0 Urinary tract infection, site not specified (principal); R30.0 Dysuria; F41.9 Anxiety disorder, unspecified; J45.909 Unspecified asthma, uncomplicated; F17.200 Nicotine dependence, unspecified, uncomplicated; Z79.899 Other long term (current) drug therapy; Z98.890 Other specified postprocedural states; Z88.8 Allergy status to other drugs, medicaments and biological substances
CPT/HCPCS: 81001; 81025; 87086; 99283

== ENCOUNTER 2021-05-23 02:37 | Emergency (ER) | payer SELFPAY ==
[2021-05-23] MEDS ORDERED: ONDANSETRON 4 MG/2 ML INJ IV ONE (02:53)
--- NOTE | 2021-05-23 03:10 | Emergency Department Report ---
<NACHONIDIA - Last Filed: 05/23/21 11:42> ED Altered Mental Status HPI - General Chief Complaint: Altered Mental Status Stated Complaint: UNRESPONSIVE Time Seen by Provider: 05/23/21 02:50 - Related Data Previous Rx's Medication Instructions Recorded Last Taken Type Albuterol Mdi (or & Nicu Only) 2 puff IH QID PRN #1 inhalation 03/28/17 Unknown Rx [ProAir HFA Inhaler] Famotidine [Pepcid] 20 mg PO BID PRN #30 tablet 11/20/17 Unknown Rx Phenazopyridine [Pyridium] 200 mg PO TID #6 tab 12/11/17 Unknown Rx Loratadine (Nf) [Claritin] 10 mg PO DAILY #30 tablet 03/15/18 Unknown Rx Cetirizine HCl [ZyrTEC] 10 mg PO QAM 14 Days #14 capsule 04/15/18 Unknown Rx Fluticasone [Flonase] 1 spray NS QDAY 14 Days #1 bottle 04/15/18 Unknown Rx Ondansetron [Zofran Odt] 4 mg PO Q8HR PRN #10 tab.rapdis 05/10/18 02/03/19 Rx Fluconazole [Diflucan] 200 mg PO ONCE #1 tablet 08/13/18 Unknown Rx Nitrofurantoin Monohyd/M-Cryst 100 mg PO BID #14 capsule 09/01/18 Unknown Rx [Macrobid 100 mg Capsule] Albuterol Mdi (or & Nicu Only) 2 puff IH QID PRN #1 inhalation 04/18/19 Unknown Rx [ProAir HFA Inhaler] Azithromycin [Zithromax TAB] 250 mg PO QDAY 5 Days #6 tablet 04/18/19 Unknown Rx Benzonatate [Tessalon Perles] 100 mg PO Q8HR PRN #14 capsule 04/18/19 Unknown Rx Prednisone [predniSONE 10 mg 10 mg PO .TAPER #1 tab.ds.pk 04/18/19 Unknown Rx (6-Day Pack, 21 Tabs)] Cyclobenzaprine [Flexeril] 10 mg PO TID PRN #12 tablet 11/12/19 Unknown Rx Ibuprofen [Motrin 600 MG tab] 600 mg PO Q8H PRN #24 tablet 11/12/19 Unknown Rx Sulfamethoxazole/Trimethoprim 1 each PO BID #14 tablet 11/12/19 Unknown Rx [Bactrim DS TAB] Azithromycin 1,000 mg PO ONCE #2 tablet 11/23/19 Unknown Rx cephALEXin [Keflex] 500 mg PO BID 7 Days #14 cap 11/23/19 Unknown Rx metroNIDAZOLE [Flagyl TAB] 500 mg PO Q12HR 7 Days #14 tab 11/23/19 Unknown Rx Allergies Allergy/AdvReac Type Severity Reaction Status Date / Time hydrocortisone cream Allergy Mild Hives Uncoded 09/01/18 09:49 ED Past Medical Hx - Medications Home Medications: Home Medications Medication Instructions Recorded Confirmed Last Taken Type Albuterol Mdi (or & Nicu Only) 2 puff IH QID PRN #1 inhalation 03/28/17 02/17/19 Unknown Rx [ProAir HFA Inhaler] Famotidine [Pepcid] 20 mg PO BID PRN #30 tablet 11/20/17 02/17/19 Unknown Rx Phenazopyridine [Pyridium] 200 mg PO TID #6 tab 12/11/17 02/17/19 Unknown Rx Loratadine (Nf) [Claritin] 10 mg PO DAILY #30 tablet 03/15/18 02/17/19 Unknown Rx Cetirizine HCl [ZyrTEC] 10 mg PO QAM 14 Days #14 capsule 04/15/18 02/17/19 Unknown Rx Fluticasone [Flonase] 1 spray NS QDAY 14 Days #1 bottle 04/15/18 02/17/19 Unknown Rx Ondansetron [Zofran Odt] 4 mg PO Q8HR PRN #10 tab.rapdis 05/10/18 02/17/19 02/03/19 Rx Fluconazole [Diflucan] 200 mg PO ONCE #1 tablet 08/13/18 02/17/19 Unknown Rx Nitrofurantoin Monohyd/M-Cryst 100 mg PO BID #14 capsule 09/01/18 02/17/19 Unknown Rx [Macrobid 100 mg Capsule] Albuterol Mdi (or & Nicu Only) 2 puff IH QID PRN #1 inhalation 04/18/19 Unknown Rx [ProAir HFA Inhaler] Azithromycin [Zithromax TAB] 250 mg PO QDAY 5 Days #6 tablet 04/18/19 Unknown Rx Benzonatate [Tessalon Perles] 100 mg PO Q8HR PRN #14 capsule 04/18/19 Unknown Rx Prednisone [predniSONE 10 mg 10 mg PO .TAPER #1 tab.ds.pk 04/18/19 Unknown Rx (6-Day Pack, 21 Tabs)] Cyclobenzaprine [Flexeril] 10 mg PO TID PRN #12 tablet 11/12/19 Unknown Rx Ibuprofen [Motrin 600 MG tab] 600 mg PO Q8H PRN #24 tablet 11/12/19 Unknown Rx Sulfamethoxazole/Trimethoprim 1 each PO BID #14 tablet 11/12/19 Unknown Rx [Bactrim DS TAB] Azithromycin 1,000 mg PO ONCE #2 tablet 11/23/19 Unknown Rx cephALEXin [Keflex] 500 mg PO BID 7 Days #14 cap 11/23/19 Unknown Rx metroNIDAZOLE [Flagyl TAB] 500 mg PO Q12HR 7 Days #14 tab 11/23/19 Unknown Rx ED Course - Reevaluation(s) Reevaluation #1: 05/23/21 11:42 Patient reexamined multiple times during the course of her hospital stay here in the emergency room. She is drinking juice, able to articulate her needs, and in no acute distress. When I reassessed the patient, she is awake, alert, oriented, sober and exhibits decision-making capacity. She complains of total body pain. She is not homicidal or suicidal. Counseled to abstain from recreational drug consumption. Patient will be given a list of homeless shelters, as well as substance abuse programs. [id number] Tylenol and Motrin as needed for pain, [id number] multivitamin. Patient observed in this department for hours without clinical decompensation, and she is now medically suitable for discharge. - Lab Data Result diagrams: 05/23/21 03:08 05/23/21 03:08 ED Disposition Clinical Impression: Acute alcohol intoxication Disposition: 01 HOME / SELF CARE / HOMELESS Is pt being admited?: No Does the pt Need Aspirin: No Condition: Stable Instructions: Binge-Drinking Information, Adult Additional Instructions: Follow-up with your doctor or doctor/clinic provided. Return if symptoms worsen as indicated by your discharge instructions. Recommend that patient abstain from alcohol, and drug consumption. Drink plenty of water. Take a multivitamin [id number] on a daily basis. Take [id number] Tylenol and/or Motrin as needed for physical pain. Follow-up with your primary care doctor within the next week. Patient has received a list of substance abuse programs, as well as outpatient homeless shelters. 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 EtOH intoxication suspected. No visible signs of trauma. Patient response to pain only. As per previous medical record patient has a history of anxiety, cocaine abuse, drug-seeking behaviors, disorganized behaviors, infrequent STDs. Accu-Chek in the 120s prior to ED arrival with normal vital signs. Patient does respond to painful stimuli and has a gag reflex ED Review of Systems ROS: Stated complaint: UNRESPONSIVE Other details as noted in HPI Comment: All other systems reviewed and negative ED Past Medical Hx - Past Medical History Hx Hypertension: No Hx CVA: No Hx Heart Attack/AMI: No Hx Congestive Heart Failure: No Hx Diabetes: No Hx Deep Vein Thrombosis: No Hx Pulmonary Embolism: No Hx GERD: No Hx Liver Disease: No Hx Renal Disease: No Hx Sickle Cell Disease: No Hx Arthritis: No Hx Headaches / Migraines: No Hx Seizures: No Hx Kidney Stones: No Hx Psychiatric Treatment: Yes (anxiety attack, cocaine rehab) Hx Asthma: Yes Hx COPD: No Hx Tuberculosis: No Hx Dementia: No Hx HIV: No Additional medical history: hx bronchitis. Drug seeking behaviors,. Disorganized behaviors,. frequent std - Surgical History Hx Coronary Stent: No Hx Open Heart Surgery: No Hx Pacemaker: No Hx Internal Defibrillator: No Hx Cholecystectomy: No Hx Appendectomy: No Hx Breast Surgery: No Additional Surgical History: denies - Social History Smoking Status: Current Every Day Smoker Substance Use Type: None ED Physical Exam - General Limitations: Altered Mental Status - Other Other exam information: General: Altered Head: Atraumatic Eyes: normal appearance ENT: Moist mucous membranes Neck: Normal appearance, no midline tenderness Chest: Clear to auscultation bilaterally CV: Regular rate and rhythm Abdomen: Soft, normal bowel sounds, nontender, nondistended, no rebound or guarding. Intermittent gagging Back: Normal inspection Extremity: Normal inspection, full range of motion Neuro: Obtunded, withdraws to pain, spontaneous movement of all extremities Psych: Appropriate behavior Skin: No rash ED Course Vital Signs 05/23/21 05/23/21 05/23/21 02:52 04:05 07:28 Temperature 97.6 F 96.9 F L Pulse Rate 75 75 77 Respiratory 14 15 18 Rate Blood Pressure Blood Pressure 108/72 121/81 [Left] O2 Sat by Pulse 98 98 96 Oximetry 05/23/21 05/23/21 05/23/21 07:31 07:45 08:00 Temperature Pulse Rate 77 85 Respiratory 18 18 Rate Blood Pressure 118/77 118/77 Blood Pressure [Left] O2 Sat by Pulse 95 95 100 Oximetry 05/23/21 05/23/21 05/23/21 08:01 08:15 08:30 Temperature Pulse Rate 82 81 78 Respiratory 18 18 17 Rate Blood Pressure 130/81 118/77 123/75 Blood Pressure [Left] O2 Sat by Pulse 95 95 94 Oximetry 05/23/21 05/23/21 05/23/21 08:45 09:01 09:15 Temperature Pulse Rate 78 86 77 Respiratory 17 17 18 Rate Blood Pressure 123/75 126/79 123/75 Blood Pressure [Left] O2 Sat by Pulse 95 94 96 Oximetry 05/23/21 05/23/21 05/23/21 09:31 09:45 10:01 Temperature Pulse Rate 75 75 86 Respiratory 18 17 17 Rate Blood Pressure 119/85 119/85 128/85 Blood Pressure [Left] O2 Sat by Pulse 96 96 94 Oximetry 05/23/21 05/23/21 05/23/21 10:15 10:31 10:45 Temperature Pulse Rate 80 76 75 Respiratory 16 17 19 Rate Blood Pressure 128/85 130/84 130/84 Blood Pressure [Left] O2 Sat by Pulse 95 96 96 Oximetry 05/23/21 05/23/21 05/23/21 11:00 11:15 11:30 Temperature Pulse Rate 76 77 78 Respiratory 18 19 17 Rate Blood Pressure 121/73 130/84 119/73 Blood Pressure [Left] O2 Sat by Pulse 93 96 94 Oximetry 05/23/21 05/23/21 11:45 12:01 Temperature Pulse Rate 106 H 79 Respiratory 14 19 Rate Blood Pressure 119/73 107/72 Blood Pressure [Left] O2 Sat by Pulse 97 98 Oximetry - Lab Data Result diagrams: 05/23/21 03:08 05/23/21 03:08 Lab Results 05/23/21 05/23/21 05/23/21 Range/Units 03:08 03:08 03:08 WBC 8.2 (4.5-11.0) K/mm3 RBC 4.51 (3.65-5.03) M/mm3 Hgb 13.8 (10.1-14.3) gm/dl Hct 43.3 H (30.3-42.9) % MCV 96 (79-97) fl MCH 31 (28-32) pg MCHC 32 (30-34) % RDW 15.7 H (13.2-15.2) % Plt Count 436 (140-440) K/mm3 Lymph % (Auto) 33.0 (13.4-35.0) % [place] % (Auto) 8.1 H (0.0-7.3) % Eos % (Auto) 2.6 (0.0-4.3) % Baso % (Auto) 1.1 (0.0-1.8) % Lymph # (Auto) 2.7 (1.2-5.4) K/mm3 [place] # (Auto) 0.7 (0.0-0.8) K/mm3 Eos # (Auto) 0.2 (0.0-0.4) K/mm3 Baso # (Auto) 0.1 (0.0-0.1) K/mm3 Seg Neutrophils % 55.2 (40.0-70.0) % Seg Neutrophils # 4.5 (1.8-7.7) K/mm3 Sodium 143 (137-145) mmol/L Potassium 3.4 L (3.6-5.0) mmol/L Chloride 102.3 (98-107) mmol/L Carbon Dioxide 25 (22-30) mmol/L Anion Gap 19 mmol/L BUN 10 (7-17) mg/dL Creatinine 0.8 (0.6-1.2) mg/dL Estimated GFR > 60 ml/min BUN/Creatinine Ratio 13 % Glucose 97 (65-100) mg/dL Calcium 8.9 (8.4-10.2) mg/dL Magnesium 2.20 (1.7-2.3) mg/dL Total Bilirubin 0.30 (0.1-1.2) mg/dL AST 33 (5-40) units/L ALT 19 (7-56) units/L Alkaline Phosphatase 110 (35-129) units/L Total Creatine Kinase (30-135) units/L Total Protein 7.9 (6.3-8.2) g/dL Albumin 4.6 (3.9-5) g/dL Albumin/Globulin Ratio 1.4 % HCG, Quant (0-4) mIU/mL Salicylates < 0.3 L (2.8-20.0) mg/dL Acetaminophen (10.0-30.0) ug/mL Plasma/Serum Alcohol (0-0.07) % 05/23/21 05/23/21 05/23/21 Range/Units 03:08 03:08 03:08 WBC (4.5-11.0) K/mm3 RBC (3.65-5.03) M/mm3 Hgb (10.1-14.3) gm/dl Hct (30.3-42.9) % MCV (79-97) fl MCH (28-32) pg MCHC (30-34) % RDW (13.2-15.2) % Plt Count (140-440) K/mm3 Lymph % (Auto) (13.4-35.0) % [place] % (Auto) (0.0-7.3) % Eos % (Auto) (0.0-4.3) % Baso % (Auto) (0.0-1.8) % Lymph # (Auto) (1.2-5.4) K/mm3 [place] # (Auto) (0.0-0.8) K/mm3 Eos # (Auto) (0.0-0.4) K/mm3 Baso # (Auto) (0.0-0.1) K/mm3 Seg Neutrophils % (40.0-70.0) % Seg Neutrophils # (1.8-7.7) K/mm3 Sodium (137-145) mmol/L Potassium (3.6-5.0) mmol/L Chloride (98-107) mmol/L Carbon Dioxide (22-30) mmol/L Anion Gap mmol/L BUN (7-17) mg/dL Creatinine (0.6-1.2) mg/dL Estimated GFR ml/min BUN/Creatinine Ratio % Glucose (65-100) mg/dL Calcium (8.4-10.2) mg/dL Magnesium (1.7-2.3) mg/dL Total Bilirubin (0.1-1.2) mg/dL AST (5-40) units/L ALT (7-56) units/L Alkaline Phosphatase (35-129) units/L Total Creatine Kinase (30-135) units/L Total Protein (6.3-8.2) g/dL Albumin (3.9-5) g/dL Albumin/Globulin Ratio % HCG, Quant < 2 (0-4) mIU/mL Salicylates (2.8-20.0) mg/dL Acetaminophen 5.0 L (10.0-30.0) ug/mL Plasma/Serum Alcohol 0.30 H (0-0.07) % 11/18/ Range/Units 03:20 WBC (4.5-11.0) K/mm3 RBC (3.65-5.03) M/mm3 Hgb (10.1-14.3) gm/dl Hct (30.3-42.9) % MCV (79-97) fl MCH (28-32) pg MCHC (30-34) % RDW (13.2-15.2) % Plt Count (140-440) K/mm3 Lymph % (Auto) (13.4-35.0) % [place] % (Auto) (0.0-7.3) % Eos % (Auto) (0.0-4.3) % Baso % (Auto) (0.0-1.8) % Lymph # (Auto) (1.2-5.4) K/mm3 [place] # (Auto) (0.0-0.8) K/mm3 Eos # (Auto) (0.0-0.4) K/mm3 Baso # (Auto) (0.0-0.1) K/mm3 Seg Neutrophils % (40.0-70.0) % Seg Neutrophils # (1.8-7.7) K/mm3 Sodium (137-145) mmol/L Potassium (3.6-5.0) mmol/L Chloride (98-107) mmol/L Carbon Dioxide (22-30) mmol/L Anion Gap mmol/L BUN (7-17) mg/dL Creatinine (0.6-1.2) mg/dL Estimated GFR ml/min BUN/Creatinine Ratio % Glucose (65-100) mg/dL Calcium (8.4-10.2) mg/dL Magnesium (1.7-2.3) mg/dL Total Bilirubin (0.1-1.2) mg/dL AST (5-40) units/L ALT (7-56) units/L Alkaline Phosphatase (35-129) units/L Total Creatine Kinase 317 H (30-135) units/L Total Protein (6.3-8.2) g/dL Albumin (3.9-5) g/dL Albumin/Globulin Ratio % HCG, Quant (0-4) mIU/mL Salicylates (2.8-20.0) mg/dL Acetaminophen (10.0-30.0) ug/mL Plasma/Serum Alcohol (0-0.07) % - Radiology Data Radiology results: report reviewed Chest x-ray: No acute fine CT head: No acute findings CT cervical spine no acute finding - Medical Decision Making 30-year-old female presents to the hospital with alteration mental status found in the street outside of a gas station. Imaging studies are unremarkable. Labs confirm acute alcohol intoxication. Urine collection pending at disposition. Patient signed out to oncoming physician to reassess patient once clinically sober and dispo. - Differential Diagnosis ICH, drug abuse, alcohol intoxication, cervical fracture Critical Care Time: No Critical care attestation.: If time is entered above; I have spent that time in minutes in the direct care of this critically ill patient, excluding procedure time.
--- NOTE | 2021-05-23 03:23 | XRay Report ---
CHEST 1 VIEW 05/23/2021 2:48 AM INDICATION / CLINICAL INFORMATION: ams, possible etoh,. COMPARISON: 11/14/2016. FINDINGS: SUPPORT DEVICES: None. HEART / MEDIASTINUM: No significant abnormality. LUNGS / PLEURA: No significant pulmonary or pleural abnormality. No pneumothorax. ADDITIONAL FINDINGS: No significant additional findings. IMPRESSION: No acute abnormality. Signer Name: Yasmani Gregory MD Signed: 05/23/2021 3:19 AM Workstation Name: [id number]
[2021-05-23 03:37] LABS: Basophils # (Auto) 0.1 K/mm3 (0.0-0.1); Basophils % (Auto) 1.1 % (0.0-1.8); Eosinophils # (Auto) 0.2 K/mm3 (0.0-0.4); Eosinophils % (Auto) 2.6 % (0.0-4.3); Hematocrit 43.3 % (30.3-42.9); Hemoglobin 13.8 gm/dl (10.1-14.3); Lymphocytes # (Auto) 2.7 K/mm3 (1.2-5.4); Mean Corpuscular HGB Conc 32 % (30-34); Mean Corpuscular Volume 96 fl (79-97); Monocytes # (Auto) 0.7 K/mm3 (0.0-0.8); Monocytes % (Auto) 8.1 % (0.0-7.3); Platelet Count 436 K/mm3 (140-440); Red Blood Count 4.51 M/mm3 (3.65-5.03); Red Cell Distribution Width 15.7 % (13.2-15.2)
[2021-05-23 04:03] LABS: Alanine Aminotransferase 19 units/L (7-56); Albumin 4.6 g/dL (3.9-5); BUN/Creatinine Ratio 13; Blood Urea Nitrogen 10 mg/dL (7-17); Calcium 8.9 mg/dL (8.4-10.2); Hemolysis Index 17
--- NOTE | 2021-05-23 04:36 | Cat Scan Report ---
CT head without contrast INDICATION : Altered Mental Status, possible E.T.O.H. on board.. TECHNIQUE: Axial imaging performed from the skull apex through the skull base without the use of con trast. All CT scans at this location are performed using CT dose reduction for ALARA by means of aut omated exposure control. COMPARISON: None FINDINGS: Parenchyma: No mass, stroke or hemorrhage. Ventricles: Ventricles are normal in size and appear symmetric. Soft tissues: Soft tissues including the orbits appear normal. Bones: No acute osseous abnormality. Sinuses: Sinuses and mastoid air cells are clear. IMPRESSION: No acute abnormality. Signer Name: Yasmani Gregory MD Signed: 05/23/2021 4:31 AM Workstation Name: [id number]
--- NOTE | 2021-05-23 04:39 | Cat Scan Report ---
CT cervical spine wo con INDICATION: Altered Mental Status, possible E.T.O.H. on board.. TECHNIQUE: All CT scans at this location are performed using the following dose modulation technique: Automated exposure control. CONTRAST: None. COMPARISON: None available. FINDINGS: Satisfactory alignment without vertebral compression or significant degenerative disc disea se. IMPRESSION: Unremarkable CT cervical spine without contrast. Signer Name: Yasmani Gregory MD Signed: 05/23/2021 4:35 AM Workstation Name: [id number]
[2021-05-23] MEDS ORDERED: ACETAMINOPHEN 325 MG TAB PO ONE (06:56)
[2021-05-23 12:17] VITALS: BP 107/72
== END 2021-05-23 12:25 | disposition home or self-care (01) ==
LOC: ED 02:37
DX: F10.129 Alcohol abuse with intoxication, unspecified (principal); F41.9 Anxiety disorder, unspecified; F17.200 Nicotine dependence, unspecified, uncomplicated
CPT/HCPCS: 36415; 70450; 71045; 72125; 80053; 82550; 83735; 84702; 85025; 99285; J2405; 80320; G0480

== ENCOUNTER 2021-08-16 09:16 | Emergency (ER) | payer SELFPAY ==
[2021-08-16 09:21] VITALS: BP 129/86
== END 2021-08-16 10:00 | disposition left against medical advice (07) ==
LOC: ED 09:16
DX: R10.9 Unspecified abdominal pain (principal); Z53.21 Procedure and treatment not carried out due to patient leaving prior to being seen by health care provider

== ENCOUNTER 2021-09-27 20:20 | Emergency (ER) | payer MEDICAID | END 2021-09-27 21:00 | disposition left against medical advice (07) | LOC: ED 20:20 | DX: O26.892 Other specified pregnancy related conditions, second trimester (principal); M54.9 Dorsalgia, unspecified; Z53.21 Procedure and treatment not carried out due to patient leaving prior to being seen by health care provider; Z3A.18 18 weeks gestation of pregnancy ==

== ENCOUNTER 2021-11-14 21:48 | Outpatient (CLI) | payer MEDICAID, OTHER ==
[2021-11-14] MEDS ORDERED: LACTATED RINGERS 500 ML IV ONE (22:01)
[2021-11-14] MEDS ORDERED: LOPERAMIDE 2 MG CAP PO ONE (22:18)
== END 2021-11-14 22:40 | disposition home or self-care (01) ==
LOC: TRG 21:48 → APU 21:49 → TRG 22:40
PROVIDERS: ATTEND Obstetrics & Gynecology Gynecology
DX: O26.92 Pregnancy related conditions, unspecified, second trimester (principal); R19.7 Diarrhea, unspecified; Z3A.24 24 weeks gestation of pregnancy
CPT/HCPCS: 59025

== ENCOUNTER 2021-11-25 00:46 | Emergency (ER) | payer MEDICAID ==
[2021-11-25] MEDS ORDERED: FAMOTIDINE 20 MG TAB PO ONE (01:21)
[2021-11-25] MEDS ORDERED: diphenhydrAMINE 25 MG CAP PO STA (01:21)
--- NOTE | 2021-11-25 07:47 | Emergency Department Report ---
ED Rash HPI - HPI Chief Complaint: Skin Rash Stated Complaint: ALLERGIC REACTION Time Seen by Provider: 11/25/21 01:20 Duration: 2 Days Location: Upper Extremities Suspected Cause: Unknown Rash Symptoms: Yes Itching Severity: moderate ED Review of Systems ROS: Stated complaint: ALLERGIC REACTION Other details as noted in HPI Comment: All other systems reviewed and negative ED Past Medical Hx - Past Medical History Hx Hypertension: No Hx CVA: No Hx Heart Attack/AMI: No Hx Congestive Heart Failure: No Hx Diabetes: No Hx Deep Vein Thrombosis: No Hx Pulmonary Embolism: No Hx GERD: No Hx Liver Disease: No Hx Renal Disease: No Hx Sickle Cell Disease: No Hx Arthritis: No Hx Headaches / Migraines: No Hx Seizures: No Hx Kidney Stones: No Hx Psychiatric Treatment: Yes (anxiety attack, cocaine rehab) Hx Asthma: No Hx COPD: No Hx Tuberculosis: No Hx Dementia: No Hx HIV: No Additional medical history: hx bronchitis. Drug seeking behaviors,. Disorganized behaviors,. frequent std - Surgical History Hx Coronary Stent: No Hx Open Heart Surgery: No Hx Pacemaker: No Hx Internal Defibrillator: No Hx Cholecystectomy: No Hx Appendectomy: No Hx Breast Surgery: No Additional Surgical History: denies - Social History Smoking Status: Never Smoker - Medications Home Medications: Home Medications Medication Instructions Recorded Confirmed Last Taken Type Albuterol Mdi (or & Nicu Only) 2 puff IH QID PRN #1 inhalation 03/28/17 02/17/19 Unknown Rx [ProAir HFA Inhaler] Famotidine [Pepcid] 20 mg PO BID PRN #30 tablet 11/20/17 02/17/19 Unknown Rx Phenazopyridine [Pyridium] 200 mg PO TID #6 tab 12/11/17 02/17/19 Unknown Rx Loratadine (Nf) [Claritin] 10 mg PO DAILY #30 tablet 03/15/18 02/17/19 Unknown Rx Cetirizine HCl [ZyrTEC] 10 mg PO QAM 14 Days #14 capsule 04/15/18 02/17/19 Unknown Rx Fluticasone [Flonase] 1 spray NS QDAY 14 Days #1 bottle 04/15/18 02/17/19 Unknown Rx Ondansetron [Zofran Odt] 4 mg PO Q8HR PRN #10 tab.rapdis 05/10/18 02/17/19 02/03/19 Rx Fluconazole [Diflucan] 200 mg PO ONCE #1 tablet 08/13/18 02/17/19 Unknown Rx Nitrofurantoin Monohyd/M-Cryst 100 mg PO BID #14 capsule 09/01/18 02/17/19 Unknown Rx [Macrobid 100 mg Capsule] Albuterol Mdi (or & Nicu Only) 2 puff IH QID PRN #1 inhalation 04/18/19 Unknown Rx [ProAir HFA Inhaler] Azithromycin [Zithromax TAB] 250 mg PO QDAY 5 Days #6 tablet 04/18/19 Unknown Rx Benzonatate [Tessalon Perles] 100 mg PO Q8HR PRN #14 capsule 04/18/19 Unknown Rx Prednisone [predniSONE 10 mg 10 mg PO .TAPER #1 tab.ds.pk 04/18/19 Unknown Rx (6-Day Pack, 21 Tabs)] Cyclobenzaprine [Flexeril] 10 mg PO TID PRN #12 tablet 11/12/19 Unknown Rx Ibuprofen [Motrin 600 MG tab] 600 mg PO Q8H PRN #24 tablet 11/12/19 Unknown Rx Sulfamethoxazole/Trimethoprim 1 each PO BID #14 tablet 11/12/19 Unknown Rx [Bactrim DS TAB] Azithromycin 1,000 mg PO ONCE #2 tablet 11/23/19 Unknown Rx cephALEXin [Keflex] 500 mg PO BID 7 Days #14 cap 11/23/19 Unknown Rx metroNIDAZOLE [Flagyl TAB] 500 mg PO Q12HR 7 Days #14 tab 11/23/19 Unknown Rx Clindamycin Phosphate [Clindamycin 1 applicatio TP BID #1 foam 11/25/21 Unknown Rx 1% TOPICAL FOAM] Rash Exam - Exam General: Vital signs noted. No distress. Alert and acting appropriately. HEENT: No Periorbital Edema, No Conjuctival Injection, No Chemosis, No Perioral Edema, No Tongue Edema, No Uvular Edema, No Compromised Airway, No Drooling Lungs: Yes Good Air Exchange (Normal Breath Sounds), No Wheezes, No Ronchi, No Stridor, No Cough, No Labored Respirations, No Retractions, No Use of Accessory Muscles, No Other Abnormal Lung Sounds Heart: Yes Regular, No Murmur Skin: Yes Maculopapular Rash, Yes Weeping (And few pustules), Yes Erythema, No Edema, No Encrustations Other: Positive: Abdomen Normal, Neurologic Normal, Musculoskeletal Normal ED Course Vital Signs 11/25/21 01:03 Temperature 98.8 F Pulse Rate 97 H Respiratory 18 Rate Blood Pressure 108/80 O2 Sat by Pulse 97 Oximetry Critical care attestation.: If time is entered above; I have spent that time in minutes in the direct care of this critically ill patient, excluding procedure time. ED Disposition Disposition: HOME / SELF CARE / HOMELESS Condition: Stable Additional Instructions: Seen emergency department for reactive inflammatory rash to the which is some skin some secondary infection with some pustules. Please be sure to take Pepcid and Benadryl [id number] as needed to help to mitigate some of the itching. Some clindamycin cleaning form was also used to help to reduce any infectious processes be sure to consult with the PAYROLL ANALYST steroids may be indicated but this medication needs to be prescribed and followed by your primary care/PAYROLL ANALYST Prescriptions: Clindamycin Phosphate [Clindamycin 1% TOPICAL FOAM] 1 applicatio TP BID #1 foam Referrals: [facility] [Provider Group] - 3-5 Days
[2021-11-25 08:04] VITALS: BP 110/78
== END 2021-11-25 08:00 | disposition home or self-care (01) ==
LOC: ED 00:46
DX: R21 Rash and other nonspecific skin eruption (principal); F41.9 Anxiety disorder, unspecified; F14.129 Cocaine abuse with intoxication, unspecified
CPT/HCPCS: 99282

== ENCOUNTER 2021-12-11 11:44 | Outpatient (CLI) | payer MEDICAID | END 2021-12-11 15:29 | disposition home or self-care (01) | LOC: TRG 11:44 → APU 11:44 → TRG 15:29 | PROVIDERS: ATTEND Obstetrics & Gynecology | DX: O26.893 Other specified pregnancy related conditions, third trimester (principal); J02.9 Acute pharyngitis, unspecified; Z3A.28 28 weeks gestation of pregnancy | CPT/HCPCS: 59025 ==

== ENCOUNTER 2021-12-18 20:46 | Emergency (ER) | payer MEDICAID | END 2021-12-18 22:05 | disposition left against medical advice (07) | LOC: ED 20:46 | DX: N39.0 Urinary tract infection, site not specified (principal); Z53.21 Procedure and treatment not carried out due to patient leaving prior to being seen by health care provider ==

== ENCOUNTER 2021-12-29 07:26 | Observation (INO) | payer MEDICAID ==
[2021-12-29] MEDS ORDERED: LACTATED RINGERS 500 ML IV ONE (08:00)
[2021-12-29] MEDS ORDERED: LACTATED RINGERS 2,000 ML ONE (08:05)
--- NOTE | 2021-12-29 08:22 | Event Note ---
Date: 12/29/21 Pt c/o having contractions. She is not sure when they started. Does not appear to be in pain but does appear to be sleepy. She has not had PNC and has had several visits in triage. She was brought in Via ems. She was examined by this provider and is closed/50/oop. Will IV hydrate at this time and closely monitor. No vaginal lesions noted on exam today. pt also cooperative with exam and has no questions for provider. Plan of care was d/w pt with RN at bedside but she appeared to be sleepy. Will include uds with labs today.
[2021-12-29 09:03] LABS: Basophils # (Auto) 0.1 K/mm3 (0.0-0.1); Basophils % (Auto) 0.9 % (0.0-1.8); Eosinophils # (Auto) 0.1 K/mm3 (0.0-0.4); Eosinophils % (Auto) 1.4 % (0.0-4.3); Hematocrit 35.9 % (30.3-42.9); Hemoglobin 12.1 gm/dl (10.1-14.3); Lymphocytes # (Auto) 1.4 K/mm3 (1.2-5.4); Lymphocytes % (Auto) 15.3 % (13.4-35.0); Mean Corpuscular HGB Conc 34 % (30-34); Mean Corpuscular Volume 95 fl (79-97); Monocytes # (Auto) 0.8 K/mm3 (0.0-0.8); Monocytes % (Auto) 9.1 % (0.0-7.3); Platelet Count 281 K/mm3 (140-440); Red Cell Distribution Width 15.7 % (13.2-15.2)
[2021-12-29 10:09] LABS: Hepatitis C Virus Antibody Non-Reactive (NonReactive)
--- NOTE | 2021-12-29 10:46 | Ultrasound Report ---
ULTRASOUND OBSTETRIC Indication: no pnc Findings: There is a single intrauterine . BPD = 7.3 cm = 29 weeks, 1 day(s). Head circumference = 27.1 cm = 29 weeks, 4 day(s). Abdominal circumference = 27.5 cm = 31 weeks, 4 day(s). Femur length = 5.3 cm = 20 weeks, 0 day(s). Overall estimated sonographic age = 29 weeks, 4 day(s). heart rate is 143 beats per minute. Estimated weight is 1509 grams position is breech. Cervix appears closed. Placenta is fundal and grade 1 . Amniotic fluid volume appears normal. Maternal adnexa appear normal. Impression: 1. Single living intrauterine with estimated sonographic age of 29 weeks, 4 day(s). 2. No sonographic abnormality identified. ULTRASOUND BIOPHYSICAL PROFILE INDICATION / CLINICAL INFORMATION: wellness COMPARISON: None available. FINDINGS: BREATHING MOVEMENT = 2 GROSS BODY MOVEMENT = 2 TONE = 2 QUALITATIVE AMNIOTIC FLUID VOLUME = 2 TOTAL BIOPHYSICAL SCORE = 8/8 IMPRESSION: 1. biophysical profile = 8 Signer Name: Shaheen Shell MD Signed: 12/29/2021 10:41 AM Workstation Name: [id number]
[2021-12-29] MEDS ORDERED: TERBUTALINE 1 MG/1 ML INJ IVP NR (10:53)
[2021-12-29] MEDS: LACTATED RINGERS 1,000 ML IV SCH ×2 (11:10→21:20)
[2021-12-29] MEDS ORDERED: miSOPROStol 200 MCG TAB PR PRN (11:21)
[2021-12-29 11:30] LABS: Amphetamine Screen,Urine Negative; Benzodiazepines Screen,Urine Negative; Cannabinoid Screen,Urine Negative; Methadone Screen,Urine Negative; Opiate Screen,Urine Negative
[2021-12-29 11:49] LABS: Cocaine Screen,Urine Positive
[2021-12-29] MEDS ORDERED: ACETAMINOPHEN 325 MG TAB PO PRN ×2 (12:00→13:30)
[2021-12-29] MEDS ORDERED: BETAMET ACET/BETAMET NA PH 6 MG/ML INJ 5 ML MDV IM SCH (12:00)
[2021-12-29] MEDS ORDERED: fentaNYL 100 MCG/2 ML INJ IV PRN (12:00)
[2021-12-29 12:11] LABS: Bilirubin,Urine NEG (Negative); Blood,Urine NEG (Negative); Color,Urine Yellow (Yellow); Protein,Urine <15 mg/dL mg/dL (Negative); Urobilinogen,Urine < 2.0 mg/dL (<2.0)
--- NOTE | 2021-12-29 13:00 | History and Physical Report ---
History of Present Illness Date of examination: 12/29/21 Date of admission: 12/29/21 Chief complaint: contractions History of present illness: Pt is lmp 05/27/21 EGA 30.6 weeks with is c/w sono done today and has not had any care. She presents c/o contractions. She was being monitored in triage for contractions and was noted to have 2min decel. Pt currently springer cat 1 tracing. Pt UDS is positive for cocaine and this is likely the cause of the contractions. BPP is 8/8 with KENRICK of 9 today. Will obs at this time. Will also give steroids as pt has not had an care, has a h/o polysubstance abuse and given she presented with contractions is at risk for delivery. Past History Past Medical History: asthma Past Surgical History: no surgical history Social history: single, other (h/o drug abuse. UDS is positve for cocaine this admission.) - Obstetrical History Expected Date of Delivery: 03/03/22 Actual Gestation: 30 Week(s) 6 Day(s) : 7 Para: 6 Number of Living Children: 6 Medications and Allergies Allergies Allergy/AdvReac Type Severity Reaction Status Date / Time hydrocortisone cream Allergy Mild Hives Uncoded 12/29/21 07:47 Home Medications Medication Instructions Recorded Confirmed Last Taken Type RX: Albuterol Mdi (or & Nicu Only) 2 puff IH QID PRN #1 inhalation 03/28/17 02/17/19 Unknown Rx [ProAir HFA Inhaler] RX: Famotidine [Pepcid] 20 mg PO BID PRN #30 tablet 11/20/17 02/17/19 Unknown Rx Phenazopyridine [Pyridium] 200 mg PO TID #6 tab 12/11/17 02/17/19 Unknown Rx Loratadine (Nf) [Claritin] 10 mg PO DAILY #30 tablet 03/15/18 02/17/19 Unknown Rx Cetirizine HCl [ZyrTEC] 10 mg PO QAM 14 Days #14 capsule 04/15/18 02/17/19 Unknown Rx Fluticasone [Flonase] 1 spray NS QDAY 14 Days #1 bottle 04/15/18 02/17/19 Unknown Rx Ondansetron [Zofran Odt] 4 mg PO Q8HR PRN #10 tab.rapdis 11/05/18 08/15/19 08/01/19 Rx Fluconazole [Diflucan] 200 mg PO ONCE #1 tablet 08/13/18 02/17/19 Unknown Rx Nitrofurantoin Monohyd/M-Cryst 100 mg PO BID #14 capsule 09/01/18 02/17/19 Unkn own Rx [Macrobid 100 mg Capsule] Benzonatate [Tessalon Perles] 100 mg PO Q8HR PRN #14 capsule 04/18/19 Unknown Rx RX: Albuterol Mdi (or & Nicu Only) 2 puff IH QID PRN #1 inhalation 04/18/19 Unknown Rx [ProAir HFA Inhaler] RX: Azithromycin [Zithromax TAB] 250 mg PO QDAY 5 Days #6 tablet 04/18/19 Unknown Rx RX: Prednisone [predniSONE 10 mg 10 mg PO .TAPER #1 tab.ds.pk 04/18/19 Unknown Rx (6-Day Pack, 21 Tabs)] Cyclobenzaprine [Flexeril] 10 mg PO TID PRN #12 tablet 11/12/19 Unknown Rx RX: Ibuprofen [Motrin 600 MG tab] 600 mg PO Q8H PRN #24 tablet 11/12/19 Unknown Rx RX: Sulfamethoxazole/Trimethoprim 1 each PO BID #14 tablet 11/12/19 Unknown Rx [Bactrim DS TAB] RX: Azithromycin 1,000 mg PO ONCE #2 tablet 11/23/19 Unknown Rx RX: metroNIDAZOLE [Flagyl TAB] 500 mg PO Q12HR 7 Days #14 tab 11/23/19 Unknown Rx cephALEXin [Keflex] 500 mg PO BID 7 Days #14 cap 11/23/19 Unknown Rx Mupirocin [Bactroban 2%] 1 applic TP TID #1 tube 11/25/21 Unknown Rx Active Meds: Active Medications Acetaminophen (Acetaminophen 325 Mg Tab) 650 mg PO Q4H PRN PRN Reason: Pain, Mild (1-3) Betamethasone Acet/Betameth SodPhos (Betamet Acet/Betamet Na Ph 6 Mg/Ml Inj 5 Ml Mdv) 12 mg IM Q24HR TOMMY Stop: 12/30/21 10:01 Last Admin: 12/29/21 11:50 Dose: 12 mg Fentanyl (Fentanyl 100 Mcg/2 Ml Inj) 100 mcg IV Q2H PRN PRN Reason: Pain,Severe (7-10) LABOR PAIN Lactated Ringer's (Lactated Ringers) 1,000 mls @ 125 mls/hr IV DIRECT TOMMY Last Admin: 12/29/21 11:10 Dose: 125 mls/hr Misoprostol (Misoprostol 200 Mcg Tab) 800 mcg MI ONCE PRN PRN Reason: Uterine Bleeding Terbutaline Sulfate (Terbutaline 1 Mg/1 Ml Inj) 0.25 mg IVP ONCE NR Stop: 12/29/21 13:00 Last Admin: 12/29/21 11:03 Dose: 0.25 mg Review of Systems All systems: negative - Vital Signs Vital signs: Vital Signs Pulse Pulse Ox 89 99 12/29/21 07:50 12/29/21 07:50 Temp Pulse Resp BP Pulse Ox 98.2 F 101 H 16 123/67 92 12/29/21 07:53 12/29/21 12:54 12/29/21 07:53 12/29/21 12:44 12/29/21 12:54 - Physical Exam Cardiovascular: Normal S1, Normal S2 Lungs: Positive: Normal air movement Abdomen: Positive: normal appearance, soft. Negative: distention, tenderness, guarding Genitourinary (Female): Positive: normal external genitalia, normal perenium. Negative: perineal/vulvar lesions Deep Tendon Reflex Grade: Normal +2 - Obstetrical FHR: category 1 Cervical Dilatation: 0 (breech on sono today) Cervical Effacement Percentage: 50 station: -3 Results Result Diagrams: 12/29/21 08:40 Abnormal lab results 12/29/21 12/29/21 Range/Units 08:40 10:31 RDW 15.7 H (13.2-15.2) % [place] % (Auto) 9.1 H (0.0-7.3) % Seg Neutrophils % 73.3 H (40.0-70.0) % Urine pH 8.0 H (5.0-7.0) All other labs normal. Assessment and Plan - Patient Problems (1) uterine contractions in third trimester, antepartum Current Visit: Yes Status: Acute (2) Cocaine abuse affecting in third trimester Current Visit: Yes Status: Acute (3) Insufficient care Current Visit: No Status: Acute Qualifiers: Trimester: third trimester Qualified Code(s): O09.33 - Supervision of with insufficient care, third trimester Plan to address problem: -pt was not good historian as she kept sleeping during initial initial interaction with provider -social service worker consultation ordered. -contractions likely due to cocaine use. no s/sx of active labor at this time
[2021-12-29] MEDS ORDERED: SIMETHICONE 80 MG CHEW TAB PO PRN (14:00)
[2021-12-29] MEDS ORDERED: ONDANSETRON 4 MG/2 ML INJ IV PRN (14:00)
[2021-12-29] MEDS ORDERED: DOCUSATE SODIUM 100 MG CAP PO PRN (14:00)
[2021-12-29] MEDS: ACETAMINOPHEN 500 MG TAB PO PRN ×2 (16:34→21:50)
[2021-12-29] MEDS ORDERED: LOPERAMIDE 2 MG CAP PO PRN (21:39)
[2021-12-29] MEDS ORDERED: FAMOTIDINE 20 MG/2 ML INJ IV SCH (22:00)
[2021-12-29] MEDS ORDERED: ALBUTEROL 2.5 MG/3 ML NEBU IH PRN (22:37)
[2021-12-30 00:08] VITALS: BP 123/64
[2021-12-30] MEDS ORDERED: PRENATAL VIT27-FE FUMARATE-FOLIC ACID VIT TAB PO SCH (10:00)
== END 2021-12-30 01:48 | disposition left against medical advice (07) ==
LOC: TRG 07:26 → LD 07:28 → TRG 13:04
PROVIDERS: ADMIT Obstetrics & Gynecology; ATTEND Obstetrics & Gynecology
DX: O60.03 Preterm labor without delivery, third trimester (principal); Z20.822 Contact with and (suspected) exposure to COVID-19; O99.323 Drug use complicating pregnancy, third trimester; F14.10 Cocaine abuse, uncomplicated; O62.9 Abnormality of forces of labor, unspecified; O09.33 Supervision of pregnancy with insufficient antenatal care, third trimester; O99.333 Smoking (tobacco) complicating pregnancy, third trimester; F17.210 Nicotine dependence, cigarettes, uncomplicated; Z3A.30 30 weeks gestation of pregnancy; Z79.899 Other long term (current) drug therapy
CPT/HCPCS: 36415; 59025; 76816; 76819; 80307; 81001; 85025; 86592; 86706; 86762; 86803; 86850; 86900; 86901; 87806; 94640; 96372; 96374; 96375; 99406; G0378; J0702; J3105; J3490; J7120; U0003

== ENCOUNTER 2021-12-30 14:49 | Outpatient (CLI) | payer MEDICAID ==
[2021-12-30 15:18] VITALS: BP 139/87
[2021-12-30] MEDS ORDERED: ACETAMINOPHEN 325 MG TAB PO SCH (16:24)
[2021-12-30] MEDS ORDERED: ACETAMINOPHEN 325 MG TAB ONE (16:25)
[2021-12-30] MEDS ORDERED: LACTATED RINGERS 500 ML IV ONE (17:04)
== END 2021-12-30 16:35 | disposition home or self-care (01) ==
LOC: TRG 14:49 → APU 15:00 → TRG 16:35
PROVIDERS: ATTEND Obstetrics & Gynecology
DX: O47.03 False labor before 37 completed weeks of gestation, third trimester (principal); Z3A.31 31 weeks gestation of pregnancy
CPT/HCPCS: 59025

== ENCOUNTER 2022-01-08 11:28 | Outpatient (CLI) | payer MEDICAID ==
[2022-01-08] MEDS ORDERED: LACTATED RINGERS 500 ML IV NR (11:49)
[2022-01-08 14:21] LABS: Amphetamine Screen,Urine Negative; Benzodiazepines Screen,Urine Negative; Cannabinoid Screen,Urine Negative; Methadone Screen,Urine Negative; Opiate Screen,Urine Negative
[2022-01-08 14:41] LABS: Cocaine Screen,Urine Positive
[2022-01-08 14:46] VITALS: BP 112/68
--- NOTE | 2022-01-08 14:50 | Ultrasound Report ---
ULTRASOUND BIOPHYSICAL PROFILE ULTRASOUND OB LIMITED INDICATION: r/o abrution TECHNIQUE: Transabdominal ultrasound imaging. COMPARISON: 12/29/2021 FINDINGS: breathing movement = 2 Gross body movement = 2 tone = 2 Qualitative amniotic fluid volume = 2 Total biophysical score = 8/8 Amniotic fluid index is 12.0 cm. Presentation is breech. heart rate is 148 beats per minute. The placenta is posterior, right lateral and fundal, grade 1. No evidence for abruption. IMPRESSION: biophysical profile equals 8/8. Breech presentation. No evidence for abruption. Signer Name: Lazarus Butts Jr, MD Signed: 01/08/2022 2:45 PM Workstation Name: [id number]
[2022-01-08 15:03] LABS: Bilirubin,Urine Negative (Negative); Color,Urine Yellow (Yellow)
[2022-01-08 15:04] LABS: Blood,Urine Negative (Negative)
[2022-01-08 15:11] LABS: Hyaline Casts,Urine 1 /LPF; Mucus,Urine 3+ /HPF
== END 2022-01-08 15:02 | disposition home or self-care (01) ==
LOC: TRG 11:28 → APU 11:28 → TRG 15:02
PROVIDERS: ATTEND Obstetrics & Gynecology
DX: O62.9 Abnormality of forces of labor, unspecified (principal); O26.893 Other specified pregnancy related conditions, third trimester; R10.9 Unspecified abdominal pain; Z3A.32 32 weeks gestation of pregnancy
CPT/HCPCS: 59025; 76815; 76819; 80307; 81001; 87086; 96360; 96361; J7120; 59020

== ENCOUNTER 2022-01-22 01:46 | Outpatient (CLI) | payer MEDICAID ==
[2022-01-22 03:42] VITALS: BP 130/60
--- NOTE | 2022-01-22 03:49 | Ultrasound Report ---
US OB follow up INDICATION / CLINICAL INFORMATION: kenrick,efw COMPARISON: OB ultrasound 01/08/2022 TECHNIQUE: Using a transcutaneous probe, multiple grayscale, color Doppler, and spectral Doppler imag es of the uterus and fetus were captured and stored. FINDINGS: Single cephalic fetus heart rate 141 bpm. Amniotic fluid index is within normal limits measuring 11.3 cm. Biparietal Diameter = 7.6 cm = 30, 4 weeks, days Head Circumference = 27.4 cm = 30, 0 weeks, days Abdominal Circumference = 26.7 cm = 30, 6 weeks, days Femur Length = 5.7 cm = 30, 1 weeks, days Average Ultrasound Age (AUA) = 30, 3 weeks, days. EDC 03/30/2022. Clinical assess gestational age based on LMP of 05/27/2021 is 34 weeks 2 days. Estimated weight = 1582 g growth percentile not documented.. IMPRESSION: 1. Single living fetus estimated weight 1582 g. Normal KENRICK. Signer Name: Reynaldo Adams II, MD Signed: 01/22/2022 3:44 AM Workstation Name: [id number]
== END 2022-01-22 07:05 | disposition home or self-care (01) ==
LOC: TRG 01:46 → APU 01:48 → TRG 07:05
PROVIDERS: ATTEND Obstetrics & Gynecology Gynecology
DX: Z34.93 Encounter for supervision of normal pregnancy, unspecified, third trimester (principal); Z3A.30 30 weeks gestation of pregnancy
CPT/HCPCS: 76816

== ENCOUNTER 2022-01-29 08:16 | Outpatient (CLI) | payer MEDICAID ==
[2022-01-29 08:43] VITALS: BP 108/62
[2022-01-29] MEDS ORDERED: LACTATED RINGERS 500 ML IV ONE (10:00)
== END 2022-01-29 10:00 | disposition home or self-care (01) ==
LOC: TRG 08:16 → APU 08:17 → TRG 10:00
PROVIDERS: ATTEND Obstetrics & Gynecology
DX: O26.893 Other specified pregnancy related conditions, third trimester (principal); R10.30 Lower abdominal pain, unspecified; Z3A.35 35 weeks gestation of pregnancy
CPT/HCPCS: 59025

== ENCOUNTER 2022-02-08 09:33 | Inpatient (IN) | payer MEDICAID ==
[2022-02-08] MEDS ORDERED: LACTATED RINGERS 500 ML IV ONE (12:00)
[2022-02-08 13:06] LABS: Bilirubin,Urine NEG (Negative); Blood,Urine NEG (Negative); Color,Urine Yellow (Yellow); Urobilinogen,Urine < 2.0 mg/dL (<2.0)
[2022-02-08 13:10] LABS: Amorphous Crystals,Urine Few; Bacteria,Urine 1+ /HPF (Negative); Mucus,Urine 1+ /HPF
[2022-02-08 13:17] LABS: Amphetamine Screen,Urine Negative; Benzodiazepines Screen,Urine Negative; Cannabinoid Screen,Urine Negative; Methadone Screen,Urine Negative; Opiate Screen,Urine Negative
--- NOTE | 2022-02-08 14:02 | Ultrasound Report ---
US OB limited INDICATION / CLINICAL INFORMATION: labor. COMPARISON: 01/22/2022 FINDINGS: 2 images were obtained which show no cardiac activity. lie is cephalic. IMPRESSION: 1. No cardiac activity was detected. This is concerning for intrauterine demise. Signer Name: Panchito Gale MD Signed: 02/08/2022 1:57 PM Workstation Name: [id number]
[2022-02-08 14:11] LABS: Cocaine Screen,Urine Positive
[2022-02-08] MEDS ORDERED: LOPERAMIDE 2 MG CAP PO PRN (14:14)
[2022-02-08] MEDS ORDERED: MINERAL OIL 30 ML ORAL LIQD PO PRN (14:14)
[2022-02-08] MEDS ORDERED: fentaNYL 100 MCG/2 ML INJ IV PRN (14:14)
[2022-02-08] MEDS ORDERED: METHYLERGONOVINE MALEATE 0.2 MG/ML VIAL IM PRN (14:14)
[2022-02-08] MEDS ORDERED: ONDANSETRON 4 MG/2 ML INJ IV PRN (14:14)
[2022-02-08] MEDS ORDERED: BUTORPHANOL 2 MG/1 ML INJ IV PRN (14:14)
[2022-02-08] MEDS ORDERED: TERBUTALINE 1 MG/1 ML INJ SUB-Q PRN (14:14)
[2022-02-08] MEDS ORDERED: OXYTOCIN 10 UNIT/1 ML INJ IM PRN (14:14)
[2022-02-08] MEDS ORDERED: ACETAMINOPHEN 325 MG TAB PO PRN (14:14)
[2022-02-08] MEDS ORDERED: NalbUPHINE 10 MG/1 ML INJ IV PRN (14:14)
[2022-02-08] MEDS ORDERED: CARBOPROST TROMETHAMINE 250 MCG/1 ML INJ IM PRN (14:14)
[2022-02-08] MEDS ORDERED: ePHEDrine SULFATE 50 MG/1 ML INJ IV PRN (14:14)
[2022-02-08] MEDS ORDERED: miSOPROStol 200 MCG TAB PR PRN (14:14)
[2022-02-08] MEDS ORDERED: LACTATED RINGERS 1,000 ML IV SCH (15:00)
[2022-02-08] MEDS ORDERED: AMPICILLIN/NS 2 GM/100 ML 2 GM/100 ML BAG IV ONE (15:00)
[2022-02-08] MEDS ORDERED: OXYTOCIN DRIP 30 UNITS/500 ML BAG IV SCH ×2 (15:00)
[2022-02-08] MEDS ORDERED: LIDOCAINE (2%) 20 MG/1 ML VIAL 20 ML MDV INFILTRATI ONE (15:00)
[2022-02-08] MEDS ORDERED: AMPICILLIN/NS 1 GM/50 ML 1 GM/50 ML BAG IV SCH (19:00)
[2022-02-09 01:27] LABS: Hematocrit 37.5 % (30.3-42.9); Hemoglobin 12.1 gm/dl (10.1-14.3); Mean Corpuscular HGB Conc 32 % (30-34); Mean Corpuscular Volume 95 fl (79-97); Platelet Count 207 K/mm3 (140-440); Red Blood Count 3.95 M/mm3 (3.65-5.03)
[2022-02-09] MEDS: miSOPROStol 25 MCG TAB PO PRN ×3 (01:53→11:10)
[2022-02-09] MEDS: BUTORPHANOL 2 MG/1 ML INJ IV PRN ×3 (03:25→08:34)
--- NOTE | 2022-02-09 09:48 | History and Physical Report ---
History of Present Illness Date of examination: 02/08/22 Date of admission: 02/08/22 09:34 Chief complaint: I'm here History of present illness: Pt is a 31 year old -[place] female CHRISTY 03/03/22 at 36w5d on admission who presented via EMS, then left the premises prior to being evaluated. Once she returned to triage, multiple attempts to auscultate heart tones were unsuccessful. An ultrasound was ordered that confirmed demise. Pt denies any decreased movement, vaginal bleeding or leakage of fluid. She has had limited care early in the x 3 visits, then had no care with multiple triage visits at this hospital. Per pt, she was evaluated at [facility] last week with recommendation for delivery, but the patient left. Records not available for review. Pt has a h/o cocaine use, asthma, ADHD, Bipolar disorder with david, chlamydia in October 2021, genital herpes without lesion or prodrome, and tobacco use. Her urine drug screen this hospitalization is positive for cocaine. She asked to have her induction process delayed for the majority of 02/08/22, then she allowed her blood to be drawn and was given PO misoprostol for cervical ripening. 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: chlamydia (prescribed treatment in October 2021 ), herpes Family/Genetic History: diabetes, hypertension Social history: smoking, other (Cocaine use ) - Obstetrical History Expected Date of Delivery: 03/03/22 Actual Gestation: 36 Week(s) 6 Day(s) : 7 Para: 6 Hx # Term Pregnancies: 6 Number of Pregnancies: 0 Spontaneous Abortions: 0 Induced : 0 Number of Living Children: 6 Medications and Allergies Allergies Allergy/AdvReac Type Severity Reaction Status Date / Time hydrocortisone cream Allergy Mild Hives Uncoded 12/29/21 07:47 Home Medications Medication Instructions Recorded Confirmed Last Taken Type Albuterol Mdi (or & Nicu Only) 2 puff IH QID PRN #1 inhalation 03/28/17 02/17/19 Unknown Rx [ProAir HFA Inhaler] Famotidine [Pepcid] 20 mg PO BID PRN #30 tablet 11/20/17 02/17/19 Unknown Rx Phenazopyridine [Pyridium] 200 mg PO TID #6 tab 12/11/17 02/17/19 Unknown Rx Loratadine (Nf) [Claritin] 10 mg PO DAILY #30 tablet 03/15/18 02/17/19 Unknown Rx Cetirizine HCl [ZyrTEC] 10 mg PO QAM 14 Days #14 capsule 04/15/18 02/17/19 Unknown Rx Fluticasone [Flonase] 1 spray NS QDAY 14 Days #1 bottle 04/15/18 02/17/19 Unk nown Rx Ondansetron [Zofran Odt] 4 mg PO Q8HR PRN #10 tab.rapdis 05/10/18 02/17/19 02/03/19 Rx Fluconazole [Diflucan] 200 mg PO ONCE #1 tablet 08/13/18 02/17/19 Unknown Rx Nitrofurantoin Monohyd/M-Cryst 100 mg PO BID #14 capsule 09/01/18 02/17/19 Unknown Rx [Macrobid 100 mg Capsule] Albuterol Mdi (or & Nicu Only) 2 puff IH QID PRN #1 inhalation 04/18/19 Unknown Rx [ProAir HFA Inhaler] Azithromycin [Zithromax TAB] 250 mg PO QDAY 5 Days #6 tablet 04/18/19 Unknown Rx Benzonatate [Tessalon Perles] 100 mg PO Q8HR PRN #14 capsule 04/18/19 Unknown Rx Prednisone [predniSONE 10 mg 10 mg PO .TAPER #1 tab.ds.pk 04/18/19 Unknown Rx (6-Day Pack, 21 Tabs)] Cyclobenzaprine [Flexeril] 10 mg PO TID PRN #12 tablet 11/12/19 Unknown Rx Ibuprofen [Motrin 600 MG tab] 600 mg PO Q8H PRN #24 tablet 11/12/19 Unknown Rx Sulfamethoxazole/Trimethoprim 1 each PO BID #14 tablet 11/12/19 Unknown Rx [Bactrim DS TAB] Azithromycin 1,000 mg PO ONCE #2 tablet 11/23/19 Unknown Rx cephALEXin [Keflex] 500 mg PO BID 7 Days #14 cap 11/23/19 Unknown Rx metroNIDAZOLE [Flagyl TAB] 500 mg PO Q12HR 7 Days #14 tab 11/23/19 Unknown Rx Mupirocin [Bactroban 2%] 1 applic TP TID #1 tube 11/25/21 Unknown Rx Active Meds: Active Medications Acetaminophen (Acetaminophen 325 Mg Tab) 650 mg PO Q4H PRN PRN Reason: Pain, Mild (1-3) Last Admin: 02/09/22 01:29 Dose: 650 mg Butorphanol Tartrate (Butorphanol 2 Mg/1 Ml Inj) 1 mg IV Q2H PRN PRN Reason: Pain, Moderate(4-6) LABOR PAIN Butorphanol Tartrate (Butorphanol 2 Mg/1 Ml Inj) 2 mg IV Q2H PRN PRN Reason: Pain , Severe (7-10) Last Admin: 02/09/22 08:34 Dose: 2 mg Carboprost Tromethamine (Carboprost Tromethamine 250 Mcg/1 Ml Inj) 250 mcg IM ONCE PRN PRN Reason: Uterine Bleeding Ephedrine Sulfate (Ephedrine Sulfate 50 Mg/1 Ml Inj) 10 mg IV Q2M PRN PRN Reason: Hypotension Fentanyl (Fentanyl 100 Mcg/2 Ml Inj) 100 mcg IV Q2H PRN PRN Reason: Pain,Severe (7-10) LABOR PAIN Oxytocin/Sodium Chloride (Pitocin/Ns 30 Unit/500ml) 30 units in 500 mls @ 2 mls/hr IV TITR TOMMY; Protocol Lactated Ringer's (Lactated Ringers) 1,000 mls @ 125 mls/hr IV DIRECT TOMMY Oxytocin/Sodium Chloride (Pitocin/Ns 30 Unit/500ml) 30 units in 500 mls @ 40 mls/hr IV TITR TOMMY; Protocol Ampicillin Sodium (Ampicillin/Ns 1 Gm/50 Ml) 1 gm in 50 mls @ 100 mls/hr IV Q4H TOMMY; Protocol Loperamide HCl (Loperamide 2 Mg Cap) 2 mg PO ONCE PRN PRN Reason: give with Hemabate Methylergonovine Maleate (Methylergonovine Maleate 0.2 Mg/Ml Vial) 0.2 mg IM ONCE PRN PRN Reason: Uterine Bleeding Mineral Oil (Mineral Oil 30 Ml Oral Liqd) 30 ml PO QHS PRN PRN Reason: Constipation Misoprostol (Misoprostol 200 Mcg Tab) 800 mcg MI ONCE PRN PRN Reason: Uterine Bleeding Misoprostol (Misoprostol 25 Mcg Tab) 25 mcg PO Q4H PRN PRN Reason: Cervical Ripening Last Admin: 02/09/22 05:57 Dose: 25 mcg Nalbuphine HCl (Nalbuphine 10 Mg/1 Ml Inj) 10 mg IV Q2H PRN PRN Reason: Pain, Moderate (4-6) Ondansetron HCl (Ondansetron 4 Mg/2 Ml Inj) 4 mg IV Q8H PRN PRN Reason: Nausea And Vomiting Oxytocin (Oxytocin 10 Unit/1 Ml Inj) 10 unit IM ONCE PRN PRN Reason: Uterine Bleeding Terbutaline Sulfate (Terbutaline 1 Mg/1 Ml Inj) 0.25 mg SUB-Q ONCE PRN PRN Reason: Hyperstimulation/Hypertonicity Review of Systems All systems: negative - Vital Signs Vital signs: Vital Signs Pulse Pulse Ox 67 100 02/08/22 11:27 02/08/22 11:27 Temp Pulse Resp BP Pulse Ox 98.3 F 54 L 18 131/77 98 02/09/22 01:37 02/09/22 08:01 02/09/22 08:34 02/09/22 08:01 02/09/22 01:37 - Physical Exam Breasts: Positive: deferred Abdomen: Positive: soft (gravid ) Uterus: Positive: enlarged (gravid ) Extremities: Negative: edema - Obstetrical FHR: auscultation normal Uterine Contraction Monitor Mode: External Cervical Dilatation: 1 (per RN ) Cervical Effacement Percentage: 50 station: -3 Uterine Contraction Pattern: Irregular Uterine Tone Measurement Phase: Resting Results Result Diagrams: 02/08/22 01:08 Abnormal lab results 02/08/22 02/08/22 Range/Units 01:08 Unknown RDW 16.0 H (13.2-15.2) % Urine WBC (Auto) 16.0 H (0.0-6.0) /HPF U Epithel Cells (Auto) 23.0 H (0-13.0) /HPF All other labs normal. Assessment and Plan A: IUP at 36w5d Demise Asthma Cocaine Abuse Tobacco Use ADHD Bipolar disorder with david Genital herpes without lesion or prodrome P: Admit to labor and delivery Cervical ripening with misoprostol Closely monitor clinical status
[2022-02-09] MEDS ORDERED: LIDOCAINE MPF (2%) 20 MG/1 ML VIAL 5 ML ONE (09:59)
[2022-02-09] MEDS ORDERED: NALOXONE 0.4 MG/1 ML INJ IV PRN (10:00)
[2022-02-09] MEDS ORDERED: ePHEDrine SULFATE 50 MG/1 ML INJ IV PRN (10:00)
[2022-02-09] MEDS ORDERED: fentaNYL-BUPIV 2 MCG/ML-0.125% 200 MCG/100 ML BAG EPIDURAL SCH (10:00)
--- NOTE | 2022-02-09 12:24 | Anesthesia Consultation ---
Anesthesia Consult and Med Hx - Airway Anesthetic Teeth Evaluation: Poor ROM Head & Neck: Adequate Mental/Hyoid Distance: Adequate Mallampati Class: Class II Intubation Access Assessment: Probably Good - Pulmonary Exam CTA: Yes - Cardiac Exam Cardiac Exam: RRR - Pre-Operative Health Status ASA Pre-Surgery Classification: ASA2 Proposed Anesthetic Plan: Spinal - Pulmonary Hx Smoking: Yes Hx Asthma: Yes (no meds at this time) Hx Respiratory Symptoms: Yes (bronchitis) COPD: No Hx Pneumonia: No - Cardiovascular System Hx Hypertension: No Hx Heart Attack/AMI: No Hx Pacemaker: No Hx Internal Defibrillator: No - Central Nervous System Hx Seizures: No Hx Psychiatric Problems: No - Gastrointestinal Hx Gastroesophageal Reflux Disease: Yes - Endocrine Hx Renal Disease: No Hx End Stage Renal Disease: No Hx Liver Disease: No Hx Hypothyroidism: No Hx Hyperthyroidism: No - Hematic Hx Anemia: No Hx Sickle Cell Disease: No - Other Systems Hx Alcohol Use: Yes Hx Substance Use: Yes (cocaine positive)
--- NOTE | 2022-02-09 12:25 | Anesthesia Day of Surgery ---
Anesthesia Day of Surgery - Day of Surgery Patient Examined: Yes Patient H&P Reviewed: Yes Patient is NPO: Yes Cardiac Clearance: No Pulmonary Clearance: No Kalin's Test: N/A
--- NOTE | 2022-02-09 12:27 | Progress Note ---
Labor Epidural - Labor Epidural Start Time: 10:10 Stop Time: 10:16 Performed by:: DASHA WEST Procedure: L34 space Id'd, prep and drape nsf, gage saline and air, 4 cm, cath to 9cm, sterile dressing, neg test dose, génesis well
[2022-02-09] MEDS ORDERED: BUPIVACAINE/PF (0.25%) 2.5 MG/ML 10 ML VIAL INFILTRATI ONE (12:31)
[2022-02-09 14:11] LABS: Hematocrit 36.5 % (30.3-42.9); Hemoglobin 12.5 gm/dl (10.1-14.3); Mean Corpuscular HGB Conc 34 % (30-34); Mean Corpuscular Volume 94 fl (79-97); Platelet Count 204 K/mm3 (140-440); Red Blood Count 3.87 M/mm3 (3.65-5.03); Red Cell Distribution Width 16.4 % (13.2-15.2)
[2022-02-09 14:29] LABS: Bilirubin,Urine NEG (Negative); Blood,Urine NEG (Negative); Color,Urine Straw (Yellow); Mucus,Urine FEW /HPF; Protein,Urine <15 mg/dL mg/dL (Negative); Urobilinogen,Urine < 2.0 mg/dL (<2.0)
[2022-02-09 14:32] LABS: Alanine Aminotransferase 14 units/L (7-56); Uric Acid 3.9 mg/dL (3.5-7.6)
[2022-02-09] MEDS ORDERED: diphenhydrAMINE 50 MG/ML VIAL ONE (14:39)
[2022-02-09] MEDS ORDERED: diphenhydrAMINE 50 MG/ML VIAL IV PRN (14:45)
--- NOTE | 2022-02-09 15:30 | Event Note ---
Date: 02/09/22 Pt more comfortable with epidural. [place]: irregular contractions. SVE: /-2. AROM- thick meconium stained fluid. Begin pitocin augmentation. Continue to monitor clinical status.
--- NOTE | 2022-02-09 16:43 | Procedure Note ---
OB Delivery Note - Delivery Date of Delivery: 02/09/22 Surgeon: SEBASTIAN RODRIGUEZ Estimated blood loss: 300cc - Vaginal Delivery presentation: vertex Delivery position: OA Intrapartum events: no care (limited care ), PROM->1hr before delivery, meconium Delivery induction: misoprostol Delivery augmentation: rupture of membranes, pitocin Delivery monitor: external uterine Route of delivery: Delivery placenta: spontaneous Episiotomy: none Delivery laceration: none Anesthesia: epidural - Infant A at 1 minute: 0 at 5 minutes: 0 Gender: Female (wt pending, asymmetry of scalp, thick brown meconium @ 1615 pm)
[2022-02-09] MEDS ORDERED: KETOROLAC 30 MG/1 ML INJ IV SCH (17:00)
[2022-02-09] MEDS ORDERED: LANOLIN/ZINC/DIMETHICONE (LANSINOH) 7 GM TP PRN (18:56)
[2022-02-09] MEDS ORDERED: WITCH HAZEL/ GLYCERIN PAD TP PRN (18:56)
[2022-02-09] MEDS ORDERED: MAGNESIUM HYDROXIDE (MOM) ORAL LIQD UDC PO PRN (18:56)
[2022-02-09] MEDS ORDERED: miSOPROStol 100 MCG TAB PR PRN (18:56)
[2022-02-09] MEDS ORDERED: PROMETHAZINE 25 MG RECT SUPP PR PRN (18:56)
[2022-02-09] MEDS ORDERED: PROMETHAZINE 25 MG TAB PO PRN (18:56)
[2022-02-09] MEDS ORDERED: ONDANSETRON 4 MG/2 ML INJ IV PRN (18:56)
[2022-02-09] MEDS ORDERED: diphenhydrAMINE 25 MG CAP PO PRN (18:56)
[2022-02-09] MEDS: FERROUS SULFATE 325 MG TAB PO SCH (22:55)
[2022-02-10] MEDS ORDERED: ZOLPIDEM 5 MG TAB PO ONE (00:29)
[2022-02-10] MEDS: IBUPROFEN 800 MG TAB PO SCH ×3 (01:58→08:04)
[2022-02-10 05:52] LABS: Hematocrit 33.9 % (30.3-42.9)
[2022-02-10] MEDS ORDERED: TETANUS,DIPH,PERTUSS(ACELL) VACCINE 0.5 ML SYRINGE IM ONE (06:00)
--- NOTE | 2022-02-10 08:52 | Progress Note ---
Assessment and Plan - Patient Problems (1) Cocaine abuse affecting in third trimester Current Visit: Yes Status: Acute Plan to address problem: Will await psychiatric evaluation prior to discharge (2) demise > 22 weeks, delivered, current hospitalization Current Visit: Yes Status: Acute Subjective - Subjective Date of service: 02/10/22 Interval history: The patient is day 1 status post a nonviable infant at 36 weeks. Patient states having feelings of depression and denies any suicidal ideation. Her symptoms were discussed with nursing staff. will arrange for psychiatric evaluation. Patient reports: appetite normal, voiding normally : Objective - Vital Signs Latest vital signs: Vital Signs Temp Pulse Resp BP BP Pulse Ox Pulse Ox 02/10/22 08:00 100 02/10/22 05:32 98.3 F 63 18 125/90 02/10/22 02:47 98.2 F 80 18 122/79 100 02/09/22 21:30 98.0 F 58 L 16 136/80 100 100 02/09/22 19:14 75 18 128/76 128/76 95 02/09/22 19:08 95 02/09/22 18:31 62 100 02/09/22 18:28 74 118/84 02/09/22 18:26 64 100 02/09/22 18:24 85 86 02/09/22 18:21 60 100 02/09/22 18:16 59 L 100 02/09/22 18:13 60 147/86 02/09/22 18:11 59 L 100 02/09/22 18:07 16 02/09/22 18:06 58 L 100 02/09/22 18:01 58 L 100 02/09/22 17:58 57 L 142/81 02/09/22 17:56 61 100 02/09/22 17:51 58 L 100 02/09/22 17:46 59 L 100 02/09/22 17:44 60 134/71 02/09/22 17:41 63 100 02/09/22 17:36 66 100 02/09/22 17:31 75 100 02/09/22 17:26 76 100 02/09/22 17:21 82 100 02/09/22 17:16 67 100 02/09/22 17:14 75 125/87 02/09/22 17:11 60 100 02/09/22 17:06 61 100 02/09/22 17:01 66 97 02/09/22 16:58 55 L 127/84 02/09/22 16:56 63 100 02/09/22 16:51 63 100 02/09/22 16:46 81 100 02/09/22 16:41 74 97 02/09/22 16:36 71 100 02/09/22 16:31 80 100 02/09/22 16:28 82 129/99 02/09/22 16:26 57 L 100 02/09/22 16:21 80 100 02/09/22 16:18 86 92 02/09/22 16:16 68 99 02/09/22 16:12 104 H 82 L 02/09/22 16:11 100 H 99 02/09/22 16:06 68 98 02/09/22 16:01 73 100 02/09/22 15:56 65 91 02/09/22 15:51 71 135/81 97 02/09/22 15:48 80 92 02/09/22 15:46 81 96 02/09/22 15:42 67 94 02/09/22 15:41 80 97 02/09/22 15:37 101 H 94 02/09/22 15:36 67 135/82 97 02/09/22 15:31 63 96 02/09/22 15:29 60 94 02/09/22 15:26 81 98 02/09/22 15:24 58 L 128/69 02/09/22 15:21 81 99 02/09/22 15:18 69 88 02/09/22 15:16 85 100 02/09/22 15:11 71 99 02/09/22 15:09 75 119/85 02/09/22 15:06 93 H 100 02/09/22 15:01 68 99 02/09/22 14:56 76 99 02/09/22 14:51 61 120/74 100 02/09/22 14:46 70 99 02/09/22 14:41 62 100 02/09/22 14:36 67 100 02/09/22 14:31 89 100 02/09/22 14:26 65 99 02/09/22 14:21 65 136/89 100 02/09/22 14:16 64 100 02/09/22 14:11 60 100 02/09/22 14:09 79 92 02/09/22 14:08 58 L 138/85 02/09/22 14:06 77 99 02/09/22 14:01 54 L 99 02/09/22 13:56 68 98 02/09/22 13:51 60 162/88 100 02/09/22 13:46 66 100 02/09/22 13:41 63 100 02/09/22 13:37 58 L 150/87 02/09/22 13:36 72 100 02/09/22 13:31 80 100 02/09/22 13:26 95 H 99 02/09/22 13:21 65 100 02/09/22 13:16 68 100 02/09/22 13:11 87 97 02/09/22 13:06 87 99 02/09/22 13:01 81 98 02/09/22 12:56 70 99 02/09/22 12:52 81 134/104 02/09/22 12:51 64 99 02/09/22 12:46 61 97 02/09/22 12:41 64 99 02/09/22 12:36 61 99 02/09/22 12:34 67 139/95 02/09/22 12:31 62 99 02/09/22 12:26 57 L 100 02/09/22 12:21 66 100 02/09/22 12:17 86 161/82 02/09/22 12:16 87 100 02/09/22 12:11 63 100 02/09/22 12:06 59 L 100 02/09/22 12:01 61 100 02/09/22 11:59 65 93 02/09/22 11:56 58 L 100 02/09/22 11:51 63 97 02/09/22 11:46 70 100 02/09/22 11:41 56 L 100 02/09/22 11:36 59 L 100 02/09/22 11:31 66 100 02/09/22 11:27 84 93 02/09/22 11:26 94 H 95 02/09/22 11:21 60 97 02/09/22 11:20 94 H 94 02/09/22 11:16 81 100 02/09/22 11:11 95 H 100 02/09/22 11:06 66 99 02/09/22 11:01 83 99 02/09/22 10:56 57 L 98 02/09/22 10:51 77 100 08/07/22 10:49 58 L 129/80 02/09/22 10:47 68 116/77 02/09/22 10:46 61 99 02/09/22 10:45 60 125/71 02/09/22 10:43 67 126/74 02/09/22 10:41 77 127/76 99 02/09/22 10:39 77 129/73 02/09/22 10:37 63 132/73 02/09/22 10:36 62 99 02/09/22 10:35 60 135/79 02/09/22 10:33 65 127/79 02/09/22 10:31 62 138/82 100 02/09/22 10:29 89 143/77 02/09/22 10:27 60 142/90 02/09/22 10:26 67 99 02/09/22 10:25 86 140/90 02/09/22 10:23 78 158/91 02/09/22 10:21 57 L 157/91 100 02/09/22 10:18 54 L 178/100 02/09/22 10:16 58 L 100 02/09/22 10:11 78 100 02/09/22 10:03 64 98 02/09/22 10:02 63 90 Intake and Output 02/09/22 02/10/22 02/10/22 22:59 06:59 14:59 Intake Total 360 Output Total 1600 400 Balance -1600 -40 Intake: Intake, Free Water 360 Output: Urine 1600 400 Indwelling Catheter 1200 Void 400 400 Other: Total, Output Amount 400 400 # Voids Void 1 2 Estimated Blood Loss 300 - Labs Labs: Abnormal lab results 02/09/22 02/09/22 Range/Units 13:20 13:20 RDW 16.4 H (13.2-15.2) % Creatinine 0.5 L (0.6-1.2) mg/dL Lactate Dehydrogenase 190 H (91-180) units/L
[2022-02-10] MEDS: FERROUS SULFATE 325 MG TAB PO SCH (10:43)
[2022-02-10] MEDS ORDERED: KETOROLAC 30 MG/1 ML INJ IV ONE (12:00)
--- NOTE | 2022-02-10 12:04 | Post Anesthesia Evaluation ---
- Post Anesthesia Evaluation Patient Participated: Yes Airway Patent: Yes Stable Respiratory Function: Yes Nausea/Vomiting: No Temp > 96.8F: Yes Pain Manageable: Yes Adequeate Hydration: Yes Anesthesia Complications: No Block Receding Appropriately: Yes Patient on Ventilator: No
[2022-02-10] MEDS ORDERED: ALBUTEROL 2.5 MG/3 ML NEBU IH PRN (12:08)
--- NOTE | 2022-02-10 14:03 | Consultation ---
History of Present Illness - Reason for Consult Consult date: 02/10/22 Reason for consult: mental health evaluation - Chief Complaint Chief complaint: I'm here - History of Present Psychiatric Illness The patient is 31 year old female with no psychiatric history who was consulted post demise. The patient was seen today via zoom. The patient is alert and oriented x4. The patient reports feeling angry, depressed, and irritable She was verbal aggressive but late apologized. She is naive to psychotropic medications. She reports difficulty with sleep. The patient is resting and remained on the phone throughout our conversation. She denies any c urrent suicidal/ homicidal ideation and denies hallucinations. PAST PSYCHIATRIC HISTORY Diagnoses: Denies Suicide attempts or Self-harm behavior: Denies Prior psychiatric hospitalizations: Denies Substance Abuse history: Denies Previous psychiatric medications tried:Denies Outpatient treatment: Denies PAST MEDICAL HISTORY: None reported Family Psychiatric History: None reported or documented SOCIAL HISTORY Unable to obtain REVIEW OF SYSTEMS Constitutional: Negative for weight loss ENT: Negative for stridor Respiratory: Negative for cough or hemoptysis All other systems reviewed and are negative MENTAL STATUS EXAMINATION General Appearance and Behavior: Age appropriate, good hygiene, wearing appropriate clothes, good eye contact, cooperative Cooperation: Participating/engaged, Psychomotor Behavior: Psychomotor normal Mood: Depressed, angry Affect and affective range: congruent with stated mood Thought Process: goal directed Thought Content: Denies Speech: Normal tone and pace Suicidal Ideation: Denies Homicidal Ideation: Denies Hallucinations: Denies Delusions: None elicited Impulse Control: Normal Insight and Judgment: Limited insight and judgment Memory: Limited Attention: divided Orientation: Alert, oriented Assessment and Plan Mental health evaluation Treatment Plan Vistaril 25mg po BID Trazodone 50mg po QHS Continue home Meds Risks, benefits and alternatives of medications discussed with the patient, questions answered and consent obtained from patient. PSYCHOTHERAPY: Supportive psychotherapy provided MEDICAL: Per primary team DELIRIUM PRECAUTIONS: Please re-orient patient frequently, keep lights on during the day, and minimize benzodiazepines and opiates as these medications could worsen patient's confusion. PHARMACY TECH CUSTOMER SERVICE: Defer to primary DISPOSITION:Do not recommend acute inpatient psychiatric hospitalization at this time. [facility] will provide patient with psychiatric outpatient resources. Will sign off. Thank you for the consult. Please contact with any questions and/or concerns. Case staffed with Dr. Braga Medications and Allergies Medications and Allergies Allergies Allergy/AdvReac Type Severity Reaction Status Date / Time hydrocortisone cream Allergy Mild Hives Uncoded 12/29/21 07:47 Home Medications Medication Instructions Recorded Confirmed Last Taken Type Albuterol Mdi (or & Nicu Only) 2 puff IH QID PRN #1 inhalation 03/28/17 02/17/19 Unknown Rx [ProAir HFA Inhaler] Famotidine [Pepcid] 20 mg PO BID PRN #30 tablet 11/20/17 02/17/19 Unknown Rx Phenazopyridine [Pyridium] 200 mg PO TID #6 tab 12/11/17 02/17/19 Unknown Rx Loratadine (Nf) [Claritin] 10 mg PO DAILY #30 tablet 03/15/18 02/17/19 Unknown Rx Cetirizine HCl [ZyrTEC] 10 mg PO QAM 14 Days #14 capsule 04/15/18 02/17/19 Unknown Rx Fluticasone [Flonase] 1 spray NS QDAY 14 Days #1 bottle 04/15/18 02/17/19 Unknown Rx Ondansetron [Zofran Odt] 4 mg PO Q8HR PRN #10 tab.rapdis 05/10/18 02/17/19 02/03/19 Rx Fluconazole [Diflucan] 200 mg PO ONCE #1 tablet 08/13/18 02/17/19 Unknown Rx Nitrofurantoin Monohyd/M-Cryst 100 mg PO BID #14 capsule 09/01/18 02/17/19 Unknown Rx [Macrobid 100 mg Capsule] Albuterol Mdi (or & Nicu Only) 2 puff IH QID PRN #1 inhalation 04/18/19 Unknown Rx [ProAir HFA Inhaler] Azithromycin [Zithromax TAB] 250 mg PO QDAY 5 Days #6 tablet 04/18/19 Unknown Rx Benzonatate [Tessalon Perles] 100 mg PO Q8HR PRN #14 capsule 04/18/19 Unknown Rx Prednisone [predniSONE 10 mg 10 mg PO .TAPER #1 tab.ds.pk 04/18/19 Unknown Rx (6-Day Pack, 21 Tabs)] Cyclobenzaprine [Flexeril] 10 mg PO TID PRN #12 tablet 11/12/19 Unknown Rx Ibuprofen [Motrin 600 MG tab] 600 mg PO Q8H PRN #24 tablet 11/12/19 Unknown Rx Sulfamethoxazole/Trimethoprim 1 each PO BID #14 tablet 11/12/19 Unknown Rx [Bactrim DS TAB] Azithromycin 1,000 mg PO ONCE #2 tablet 11/23/19 Unknown Rx cephALEXin [Keflex] 500 mg PO BID 7 Days #14 cap 11/23/19 Unknown Rx metroNIDAZOLE [Flagyl TAB] 500 mg PO Q12HR 7 Days #14 tab 11/23/19 Unknown Rx Mupirocin [Bactroban 2%] 1 applic TP TID #1 tube 11/25/21 Unknown Rx Ibuprofen [Motrin] 800 mg PO Q8HR PRN #30 tablet 02/10/22 Unknown Rx hydrOXYzine PAMOATE [Vistaril] 25 mg PO BID 30 Days #60 capsule 02/10/22 Unknown Rx traZODone [Desyrel] 50 mg PO QHS 30 Days #30 tab 02/10/22 Unknown Rx Active Meds: Active Medications Albuterol (Albuterol 2.5 Mg/3 Ml Nebu) 2.5 mg IH Q4HRT PRN PRN Reason: Shortness Of Breath Bisacodyl (Bisacodyl 10 Mg Rect Supp) 10 mg OH BID PRN PRN Reason: Constipation Diphenhydramine HCl (Diphenhydramine 25 Mg Cap) 25 mg PO Q6H PRN PRN Reason: Itching Ferrous Sulfate (Ferrous Sulfate 325 Mg Tab) 325 mg PO BID [facility] Last Admin: 02/10/22 10:43 Dose: 325 mg Ibuprofen (Ibuprofen 800 Mg Tab) 800 mg PO Q6H [facility] Last Admin: 02/10/22 08:04 Dose: 800 mg Magnesium Hydroxide (Magnesium Hydroxide (Mom) Oral Liqd Udc) 30 ml PO HS PRN PRN Reason: Constipation Measles/Mumps/Rubella Vaccine Live (Measles, Mumps & Rubella 12,500 Unit/0.5 Ml Vaccine) 0.5 ml SUB-Q .ONCE ONE Stop: 02/10/22 16:47 Misoprostol (Misoprostol 100 Mcg Tab) 800 mcg OH ONCE PRN PRN Reason: Uterine Bleeding Multi-Ingredient Ointment (Lanolin/Zinc/Dimethicone (Lansinoh) 7 Gm) 1 applic TP PRN PRN PRN Reason: Sore Nipples Ondansetron HCl (Ondansetron 4 Mg/2 Ml Inj) 4 mg IV Q8H PRN PRN Reason: Nausea And Vomiting Oxytocin (Oxytocin 10 Unit/1 Ml Inj) 10 unit IM ONCE PRN PRN Reason: Uterine Bleeding Promethazine HCl (Promethazine 25 Mg Rect Supp) 25 mg OH Q6H PRN PRN Reason: Nausea And Vomiting Promethazine HCl (Promethazine 25 Mg Tab) 25 mg PO Q6H PRN PRN Reason: Nausea And Vomiting Sodium Chloride (Sodium Chloride 0.9% 10 Ml Flush Syringe) 10 ml IV PRN TOMMY Witch Rosi/Glycerin (Witch Rosi/ Glycerin Pad) 1 each TP PRN PRN PRN Reason: Hemorrhoid/cleansing/soothing Mental Status Exam - Vital signs Last Vital Signs Temp 98.4 F 02/10/22 07:55 Pulse 66 02/10/22 07:55 Resp 18 02/10/22 07:55 BP 127/77 02/10/22 07:55 Pulse Ox 100 02/10/22 08:00 Results Result Diagrams: 02/10/22 05:06 02/09/22 13:20 Abnormal lab results 02/09/22 02/09/22 Range/Units 13:20 13:20 RDW 16.4 H (13.2-15.2) % Creatinine 0.5 L (0.6-1.2) mg/dL Lactate Dehydrogenase 190 H (91-180) units/L All other labs normal.
[2022-02-10] MEDS ORDERED: hydrOXYzine PAMOATE 25 MG CAP PO SCH (15:00)
[2022-02-10 16:20] VITALS: BP 128/80
[2022-02-10] MEDS ORDERED: MEASLES, MUMPS & RUBELLA 12,500 UNIT/0.5 ML VACCINE SUB-Q ONE (16:46)
[2022-02-10] MEDS ORDERED: traZODone 50 MG TAB PO SCH (22:00)
== END 2022-02-10 18:35 | disposition home or self-care (01) | DRG 774 ==
LOC: TRG 09:33 → APU 09:34 → TRG 14:57 → LD 02-09 00:40 → OB 02-09 20:23
PROVIDERS: ADMIT Obstetrics & Gynecology; ATTEND Obstetrics & Gynecology
PROC: 10E0XZZ Delivery of Products of Conception, External Approach (ICD-10-PCS; principal; 2022-02-09)
PROC: 3E0P7VZ Introduction of Hormone into Female Reproductive, Via Natural or Artificial Opening (ICD-10-PCS; 2022-02-09)
PROC: 10907ZC Drainage of Amniotic Fluid, Therapeutic from Products of Conception, Via Natural or Artificial Opening (ICD-10-PCS; 2022-02-09)
PROC: 3E0R3BZ Introduction of Anesthetic Agent into Spinal Canal, Percutaneous Approach (ICD-10-PCS; 2022-02-09)
PROC: 00HU33Z Insertion of Infusion Device into Spinal Canal, Percutaneous Approach (ICD-10-PCS; 2022-02-09)
PROC: 3E0234Z Introduction of Serum, Toxoid and Vaccine into Muscle, Percutaneous Approach (ICD-10-PCS; 2022-02-10)
PROC: 3E0134Z Introduction of Serum, Toxoid and Vaccine into Subcutaneous Tissue, Percutaneous Approach (ICD-10-PCS; 2022-02-10)
DX: O36.4XX0 Maternal care for intrauterine death, not applicable or unspecified (principal); O98.32 Other infections with a predominantly sexual mode of transmission complicating childbirth; Z20.822 Contact with and (suspected) exposure to COVID-19; O77.0 Labor and delivery complicated by meconium in amniotic fluid; Z37.1 Single stillbirth; Z3A.36 36 weeks gestation of pregnancy; O99.52 Diseases of the respiratory system complicating childbirth; O99.344 Other mental disorders complicating childbirth; O42.013 Preterm premature rupture of membranes, onset of labor within 24 hours of rupture, third trimester; O60.14X0 Preterm labor third trimester with preterm delivery third trimester, not applicable or unspecified; O99.324 Drug use complicating childbirth; F14.10 Cocaine abuse, uncomplicated; O99.334 Smoking (tobacco) complicating childbirth; A60.00 Herpesviral infection of urogenital system, unspecified; J45.909 Unspecified asthma, uncomplicated; F90.9 Attention-deficit hyperactivity disorder, unspecified type; O99.62 Diseases of the digestive system complicating childbirth; K21.9 Gastro-esophageal reflux disease without esophagitis; Z88.8 Allergy status to other drugs, medicaments and biological substances; Z23 Encounter for immunization
CPT/HCPCS: 36415; 76815; 80307; 81001; 82565; 83615; 84450; 84460; 84550; 85014; 85018; 85027; 86592; 86850; 86900; 86901; 87086; 88307; 94640; G0378; J3490; J0595; J1885; J2405; J2590; J7120; U0003

== ENCOUNTER 2022-02-19 12:55 | Emergency (ER) | payer MEDICAID ==
[2022-02-19 13:06] VITALS: BP 130/80
== END 2022-02-19 13:50 | disposition left against medical advice (07) ==
LOC: ED 12:55
DX: H02.846 Edema of left eye, unspecified eyelid (principal); Z53.21 Procedure and treatment not carried out due to patient leaving prior to being seen by health care provider